=== PATIENT | male | born 1950 | race Caucasian/White ===

== ENCOUNTER → 2019-10-25 09:33 | Outpatient (BNVA) | payer MEDICARE, SELFPAY | PROVIDERS: Family Provider Family Medicine; Visit Provider Urology | DX: R97.20 Elevated prostate specific antigen [PSA] (principal); N40.1 Benign prostatic hyperplasia with lower urinary tract symptoms; R33.8 Other retention of urine | CPT/HCPCS: 81001; 84153 ==

== ENCOUNTER 2020-12-23 13:25 | Outpatient (CLI) | payer MEDICARE, SELFPAY ==
[2020-12-23 15:43] LABS: Basophils % 0.6 %; Eosinophils % 0.9 %; Hematocrit 44.4 % (42.0-52.0); Hemoglobin 15.2 g/dL (11.7-16.6); Mean Corpuscular HGB Conc 34.2 g/dL (30.0-36.0); Mean Corpuscular Hemoglobin 33.9 pg (28.0-34.0); Mean Corpuscular Volume 98.9 fL (80-94); Mean Platelet Volume 9.9 fL (7.4-10.4); Monocytes # 0.2 10^3/uL (0.2-0.9); Monocytes % 5.7 %; Neutrophils # 1.91 10^3/uL (1.8-7.7); Neutrophils % 60.5 %; Nucleated Red Blood Cells % 0 %; Platelet Count 106 10^3/cmm (130-400); Red Blood Count 4.49 10^6/uL (4.1-5.3); White Blood Count 3.2 10^3/uL (4.0-10.0)
[2020-12-23 15:46] LABS: LAB Peripheral Smear Sent for Review
[2020-12-23 16:26] LABS: Erythrocyte Sedimentation Rate 2 mm/hr (0-10)
[2020-12-23 16:43] LABS: Alanine Aminotransferase 9 U/L (0-41); Albumin Level 4.4 g/dL (3.5-5.2); Alkaline Phosphatase 65 IU/L (40-130); Anion Gap 14.6 (5-19); Aspartate Amino Transferase 14 U/L (0-40); Blood Urea Nitrogen 25 mg/dL (8-23); Carbon Dioxide 27 mmol/L (22-29); Chloride 102 mmol/L (98-107); Ferritin 131 ng/mL (30-400); Globulin 1.3 g/dL (1.3-4.6); Glomerular Filtration Rate 66.6 mL/min (90-130); Glucose 108 mg/dL (65-115); Iron 85 ug/dL (59-158); Lactate Dehydrogenase 164 U/L (135-225); Osmolality Calculated 293 mOsm/kg (285-295); Potassium 4.6 mmol/L (3.5-5.1); Sodium 139 mmol/L (136-145); Thyroid Stimulating Hormone 2.56 uIU/mL (0.27-4.20); Total Bilirubin 0.7 mg/dL (0.15-1.2); Total Iron Binding Capacity 274 mcg/dl; Total Protein 5.7 g/dL (6.6-8.7); Unsaturated Iron Binding 189 ug/dL (112-347); Vitamin B12 150 pg/mL (232-1245)
--- NOTE | 2020-12-23 17:48 | ONC CON_ITS ---
Dr. Fiore New Patient Note Patient: Los Barr Unit #: [id number]: 1950 Dicatated By: Anthony Fiore M.D.Date of Visit: Dec 23, 2020 Onc MED New Patient/Consult Referring Physician: Dr. Ricci Pleitez M.D. Chief Complaint: Neutropenia. History of Present Illness: This is a 70-year-old man with moderately severe neutropenia and mild thrombocytopenia. He has hypertension, chronic kidney disease, and benign prostatic hypertrophy. He has associated bladder outlet obstructive symptoms. He sees Dr. Pleitez for primary care. He had been noted to have varying degrees of pancytopenia dating back to at least 2019. His most recent laboratory studies, from 12/03/2020, included CBC showing hemoglobin normal at 15.6 g with hematocrit 45%. The red cell indices were slightly macrocytic with MCV 101 and MCH 34.8. The white blood cell count was low at 2500 with the differential showing 55% neutrophils, 34% lymphocytes, and 8% monocytes. The absolute neutrophil count was approximately 1400. The platelet count was decreased at 88,000. His comprehensive metabolic profile showed borderline renal function with BUN 22 and creatinine 1.24 mg/dL. The bilirubin was normal at 0.8 mg/dL and the liver enzymes were normal. His total protein was 5.7 g/dL with albumin 4.4 g/dL and with calculated serum globulin low at 1.3 g/dL. He says he has been feeling all right. He does report having some fatigue, but at least some of that he attributes to the fact that he does not tend to sleep as well during the summer months. His ECOG score is 1. He also does not eat as well during the summer. His weight recently has been stable, but he did have a significant weight loss about 2 years ago. A specific cause was not determined. He has, on occasion, noted swelling of the lymph nodes in the neck area. He has not had sore throat or difficulty swallowing. He tends to have a morning cough. He does not complain of shortness of breath or chest pain. He has no GI complaints other than occasional heartburn. He had a positive Cologuard test last year, but he is not yet had a colonoscopy. He says that his bladder symptoms had improved with medication, but he still self catheterizes 4 times a day. He occasionally has pain in his left thumb. He has no other joint or bone pain. He does not complain of headache. He occasionally has dizziness. He has no numbness/paresthesia or other focal neurologic symptoms. Past Medical History: His medical history includes alcohol abuse, benign prostatic hyperplasia with LUTS, chronic kidney disease, and hypertension. Past Surgical History: He has undergone excision of multiple benign skin lesions. He has had no other surgeries. Medications: Aspirin 1 (81 mg) Tablet, chewable Oral daily, Finasteride 1 (5 mg) Tablet Oral daily, Lisinopril 1 (20 mg) Tablet Oral daily, Metoprolol Succinate ER 1 (25 mg) Tablet SR 24 HR Oral daily, Tamsulosin HCl 1 (0.4 mg) Capsule Oral daily Allergies: No Known Allergies. Social History: Mr. Barr is legally . He is a non-smoker. He has a long history of alcohol use, previously limited to beer and wine. During the past 20 years he has been drinking mostly hard liquor and mainly whiskey, currently 3-4 drinks daily, but previously it had been more than that. Family History: Father of heart attack at age 46 and a brother of heart attack at age 53. A younger brother has had a stroke. His mother lived to age 95. She had been treated for melanoma. Review Of Symptoms: Constitutional - He has fatigue, some which he attributes to the fact that he does not tend to sleep as well at night during the summer months. He also does not tend to eat as well during the summer. He had lost some weight a couple of years ago, but recently his weight has been stable. He has not had fever. He has not recently had any night sweating. ECOG score is 1, Eyes - No change in vision, ENMT - No hearing loss. He has tinnitus. He tends to get sinus congestion/drainage during the winter months. No mouth sores. No sore throat or difficulty swallowing, Hematologic/Lymphatic - No abnormal bruising or bleeding. He occasionally has had swelling of the lymph nodes in the neck area, Respiratory - No shortness of breath. He has a morning cough. No pleuritic pain or hemoptysis, Cardiovascular - No angina pain. No palpitations, Gastrointestinal - No nausea or vomiting. He occasionally has heartburn. No diarrhea or constipation. No blood in the stool or black stools, Genitourinary (M) - He is symptoms of bladder outlet obstruction had improved with medication, but he still self catheterizes 4 times a day, Musculoskeletal - He occasionally has pain in his left thumb. He has no other joint or bone pain, Integumentary - No skin rash or other skin changes, Neurologic - No headache. He occasionally has dizziness. No numbness or tingling. No other focal neurologic symptoms, Psychiatric - No anxiety or depression. He does not sleep well at night. Vital Signs: Performed on Dec 23, 2020 14:44: 1, 0, 21.83, 2.03 sq.m, 74 in, 98 %, 73 /min, 18 /min, 127/96 mm(hg), 97.3 F (LOW), and 170 lbs (HIGH). Physical Examination: Constitutional - He looks pretty good generally, Eyes - Sclerae nonicteric. Conjunctivae clear, ENMT - No lesions noted in the oral cavity, Neck - No mass or thyromegaly, Hematologic/Lymphatic - No cervical, clavicular, or axillary adenopathy, Respiratory - Lungs are clear with good air movement bilaterally, Cardiovascular - Heart rhythm is regular. There is no murmur, gallop, or rub noted, Abdomen - Soft and non-tender. Liver is not enlarged or tender. Spleen is palpable approximately 3 to 4 cm below the costal margin. There is no abdominal mass or ascites noted and there is no inguinal adenopathy, Back/Spine - No spine or CVA tenderness noted, Extremities - No edema. Posterior tibial pulses are palpable bilaterally, Integumentary - No rashes. No suspicious skin lesions noted, Neurologic - No focal neurologic deficits noted. Problem List: 1. Moderately severe neutropenia and mild thrombocytopenia. 2. Hypertension. 3. Chronic kidney disease. 4. Benign prostatic hypertrophy. 5. Alcohol abuse. Problems Addressed with this Encounter and Plan: 1. Patient with moderately severe neutropenia and mild thrombocytopenia. 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 However, with normal liver function studies, a primary hematologic disorder also is a consideration. The laboratory findings were reviewed with the patient and we discussed the clinical implications. He will have additional laboratory studies today to include CBC, comprehensive metabolic profile, sed rate, LDH level, B12 and folate levels, serum iron studies and ferritin, TSH level, and comprehensive hepatitis profile. I also will review the blood smear, and I will schedule him for CT abdomen/pelvis. He will have further evaluation as indicated. 2. He had a positive Cologuard screening test last year, at some point he will need to have a colonoscopy. Signed By: Anthony Fiore M.D. <<Signature on File>>
[2020-12-23 22:05] LABS: Hepatitis A Antibody IgM Non-Reactive (Nonreactive); Hepatitis B Core AB, Total Non-Reactive (Nonreactive); Hepatitis B Surface AB 3.5 (11.5-1000); Hepatitis B Surface Antigen Non-Reactive (Nonreactive); Hepatitis C Virus Antibody Non-Reactive (Nonreactive)
[2020-12-24 09:02] LABS: Folate Level 12.5 ng/mL (4.5-32.2)
== END 2020-12-23 13:26 | disposition home or self-care (01) ==
PROVIDERS: PCP Family Medicine; Visit Provider Internal Medicine Medical Oncology
DX: D70.9 Neutropenia, unspecified (principal); D69.6 Thrombocytopenia, unspecified; I10 Essential (primary) hypertension; N18.9 Chronic kidney disease, unspecified; N40.0 Benign prostatic hyperplasia without lower urinary tract symptoms; F10.10 Alcohol abuse, uncomplicated; Z79.899 Other long term (current) drug therapy; Z01.89 Encounter for other specified special examinations; Z20.828 Contact with and (suspected) exposure to other viral communicable diseases
CPT/HCPCS: 36415; 80053; 82607; 82728; 82746; 83540; 83550; 83615; 84443; 85025; 85651; 86705; 86706; 86709; 86803; 87340; 99205

== ENCOUNTER → 2021-04-12 10:23 | Outpatient (BNVA) | payer MEDICARE, SELFPAY | PROVIDERS: PCP Family Medicine; Visit Provider Urology | DX: R97.20 Elevated prostate specific antigen [PSA] (principal) | CPT/HCPCS: 84153 ==

== ENCOUNTER 2021-11-22 13:04 | Outpatient (CLI) | payer MEDICARE, SELFPAY | END 2021-11-22 13:05 | disposition home or self-care (01) | PROVIDERS: PCP Family Medicine; Visit Provider Urology | DX: R97.20 Elevated prostate specific antigen [PSA] (principal); N40.1 Benign prostatic hyperplasia with lower urinary tract symptoms; R33.9 Retention of urine, unspecified | CPT/HCPCS: 84153; 99213 ==

== ENCOUNTER → 2022-03-01 12:37 | Outpatient (BNVA) | payer MEDICARE, SELFPAY | PROVIDERS: PCP Family Medicine; Visit Provider Urology | DX: R33.9 Retention of urine, unspecified (principal); R97.20 Elevated prostate specific antigen [PSA]; Z78.9 Other specified health status; N40.1 Benign prostatic hyperplasia with lower urinary tract symptoms | CPT/HCPCS: 99212 ==

== ENCOUNTER → 2022-08-24 11:02 | Outpatient (BNVA) | payer MEDICARE, SELFPAY | PROVIDERS: PCP Family Medicine; Visit Provider Urology | DX: R97.20 Elevated prostate specific antigen [PSA] (principal) | CPT/HCPCS: 84153 ==

== ENCOUNTER → 2022-09-01 11:11 | Outpatient (BNVA) | payer MEDICARE, SELFPAY | PROVIDERS: PCP Family Medicine; Visit Provider Urology | DX: R33.9 Retention of urine, unspecified (principal); N40.1 Benign prostatic hyperplasia with lower urinary tract symptoms; R97.20 Elevated prostate specific antigen [PSA]; Z78.9 Other specified health status; R59.1 Generalized enlarged lymph nodes | CPT/HCPCS: 99214 ==

== ENCOUNTER 2022-09-29 22:51 | Inpatient (IN) | payer MEDICARE, SELFPAY ==
[2022-09-29 22:40] VITALS: BMI 20.7
[2022-09-29 22:52] VITALS: PULSE 91; RESP 21
[2022-09-29 23:00] VITALS: BP 133/72; PULSE 87; PULSE 93; RESP 14; TEMP 36.6; O2SAT 97
[2022-09-29 23:15] VITALS: BP 130/76; PULSE 88; RESP 24; O2SAT 98
[2022-09-29 23:30] VITALS: BP 124/61; PULSE 86; RESP 21; O2SAT 95
[2022-09-29 23:45] VITALS: BP 126/62; PULSE 87; RESP 11; O2SAT 94
--- NOTE | 2022-09-29 23:54 | P.HP_ITS ---
Providers/Chief Complaint Admitting Physician: Susan Gould MD Primary Care Provider: Ricci Pleitez Chief Complaint: Loss of Weight\Malinancy History of Present Illness Los Barr is a 72 year old male with past medical history of chronic kidney disease, BPH, hypertension, neutropenia, mild thrombocytopenia presented to [facility] today after routine labs were drawn and he was told that he was hypercalcemic. He says he has never had hypercalcemia before. He sees Dr. Suero for his prostate problems. He says he has seen Dr. Fiore in the past and even had a bone marrow biopsy done but nothing concrete was found. He states that he has been having a cough and has been having low WBCs for quite some time now. He has lost a lot of weight in the last couple months and generally feels weak and has muscle pain fatigue and bone pain at times. Denies any night sweats at this time. He says he smoked cocaine 30 years ago however has never smoked cigarettes. 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 Denies a family history of cancer. Does have a strong cardiac history in the family. Dad had a heart attack at age 43 and brother had a heart attack at age 63. He states he has been losing weight. He states he also has a quite a few lymph nodes that are swollen. Patient initially went to [facility] but from there was transferred to our hospital as a direct admission since his calcium was found to be 17.1 and did not have calcitonin, bisphosphonates or any other therapy to give him except fluids. He says he is also been having some prod uctive cough with yellow sputum. 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 He also complains of lower back pain and mild headaches at times. He did experience a brief period of night sweats for 5 days a few months ago however is feeling better now. He says his stools are thin in caliber and float. He has been recommended a colonoscopy in the past however has not had it done. Medications/Allergies Home Medications Medication Instructions Recorded Confirmed Last Taken Type ascorbic acid (vitamin C) 500 mg 500 mg PO DAILY 10/16/19 09/29/22 Unknown History tablet lisinopril 20 mg tablet 20 mg PO DAILY 10/16/19 09/29/22 Unknown History metoprolol tartrate 50 mg tablet 50 mg PO DAILY 10/16/19 09/29/22 Unknown Hi story finasteride 5 mg tablet See Rx Instructions .Route 12/02/21 09/29/22 Unknown Rx .COMPLEX #30 tabs tamsulosin 0.4 mg capsule See Rx Instructions .Route 12/02/21 09/29/22 Unknown Rx .COMPLEX #60 caps Allergies Allergy/AdvReac Type Severity Reaction Status Date / Time No Known Allergies Allergy Verified 09/29/22 23:37 PFSH Acute PFSH: Medical History (Updated 09/30/22 @ 07:29 by Susan Gould MD) BPH loc w urin obs/LUTS Elevated PSA HTN (hypertension) Lymphadenopathy Urinary retention Family History Father , AT AGE 46 CAD (coronary artery disease) Brother CAD (coronary artery disease) Mother , AT AGE 95 CAD (coronary artery disease) Social History Smoking and tobacco status: never smoked Alcohol intake: former Adopted: No Caregiver/support person: No Lives independently: Yes Marital status: Current occupational status: retired Current gender identity: Male Vitals/I&O/Wt Last Vital Signs Temp 97.8 F 09/29/22 23:00 Pulse 86 09/29/22 23:30 Resp 21 H 09/29/22 23:30 BP 124/61 09/29/22 23:30 Pulse Ox 95 09/29/22 23:30 O2 Del Method Room Air 09/29/22 22:40 Weight last 48 hrs Weight 69.5 kg Physical Exam Narrative: General: Alert oriented x3, patient seen sitting up in bed appearing comfortable at this time very frail appearing cachectic temporal wasting noted, bony appearing. HEENT: Normocephalic, atraumatic, EOMI, breathing normally on room air. Continuously coughs while talking and try to clear his throat but unable to. Cardio: Regular rate rhythm, normal S1-S2, Respiratory: Mainly clear to auscultation no wheezes or rhonchi. GI: Abdomen soft, nontender, nondistended, bowel sounds + Extremities: No edema noted Lymphatic examination: Right posterior auricular lymph node enlarged 2+, left inguinal lymph node enlarged, right axillary lymph node enlarged Data 09/30/22 06:00 09/30/22 06:00 A&P Assessment and plan (1) BPH loc w urin obs/LUTS: (2) Urinary retention: (3) Elevated PSA: (4) Self-catheterizes urinary bladder: (5) Lymphadenopathy: (6) Hypercalcemia: Plan #Severe hypercalcemia #Recent weight loss #Cough #BPH #Self-catheterization at home #Thrombocytopenia #Anemia -Place Givens catheter for accurate urine output ? Normal saline 150 cc/h ? Calcitonin 200 mg subcu x1. May repeat pending calcium results ? Zoledronic acid 5 mg IV x1 ordered ? Check CT chest abdomen pelvis to rule out occult malignancy. I suspect lymphoma at this point given his presentation with lymphadenopathy weight loss and hypercalcemia ? Check PTH, PTH RP, ionized calcium, urinalysis, UPEP, SPEP, vitamin D level, cortisol level ?Further management to be dictated once we have his labs available ? Patient may need steroids at discharge as a taper if this indeed is hypercalcemia of malignancy ? I will give Solu-Medrol 40 IV x1 now -UA abnormal with WBC 15-25, 1+ bacteria. Potential UTI? He does self catheterize. Does not complain of any urinary complaints at this time. I will hold off on ceftriaxone at this time -We will await results of his labs and proceed accordingly. ? We will need to check his calcium every 6 hours to titrate therapy - Check ekg to eval QT Full code SCDs, no pharmacological DVT prophylaxis at this time due to hemoglobin being low. Attestations Medical Necessity Statement*: Manage severe hypercalcemia in ICU. Expect > 2 midnight stay Other Coding Information Focused coding review requested Diagnoses BPH loc w urin obs/LUTS N40.1 Urinary retention R33.9 Elevated PSA R97.20 Self-catheterizes urinary bladder Z78.9 Lymphadenopathy R59.1 Hypercalcemia E83.52
--- NOTE | 2022-09-29 23:55 | ECG_ITS ---
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 Measurements Intervals [place] Rate: 81 P: 89 NM: 164 QRS: 85 QRSD: 96 T: 85 QT: 327 QTc: 380 Interpretive Statements SINUS RHYTHM No previous ECG available for comparison Electronically Signed On 09-30-2022 13:51:28 CDT by Rik Carey M.D. [id number]
[2022-09-30] VITALS (63 sets, daily range): BP systolic 102–142; BP diastolic 51–82; PULSE 68–101; RESP 7–27; TEMP 36.6–36.9; O2SAT 86–100
--- NOTE | 2022-09-30 00:03 | CTR_ITS ---
PROCEDURE INFORMATION: Exam: CT Chest Without Contrast; Diagnostic Exam date and time: 09/30/2022 2:05 AM Age: 72 years old Clinical indication: Patient HX: Cough with unintentional weight loss. Charted history of lymphadenopathy. ; Additional info: R/O malignancy TECHNIQUE: Imaging protocol: Diagnostic computed tomography of the chest without contrast. Radiation optimization: All CT scans at this facility use at least one of these dose optimization techniques: automated exposure control; mA and/or kV adjustment per patient size (includes targeted exams where dose is matched to clinical indication); or iterative reconstruction. REPORTING DATA: Count of CT and Cardiac NM exams in prior 12 months: This patient has received 0 known CTs and 0 known cardiac nuclear medicine studies in the 12 months prior to the current study. COMPARISON: No relevant prior studies available. RADIATION DOSE METRICS: Total DLP (mGy-cm): 631.41 FINDINGS: Lungs: Severe underlying COPD with emphysematous change. Scattered areas of diffuse reticulonodular probable scarring. Right lower lung areas of probable subpleural or pleural-based atelectasis or scarring. This will need to be followed up. A few tiny scattered lung nodularities. Pleural spaces: At least mild right and tiny left effusions are visualized. No pneumothorax. Heart: The heart is normal size. Lymph nodes: A large subcarinal node or mass measures up to about 3.9 cm. Paratracheal nodes measure up to 3.5 cm. Vasculature: Advanced diffuse vascular calcification noted. Bones/joints: Healing right 10th rib fracture is not acute. Left lateral 5th rib acute or subacute fracture. Soft tissues: Unremarkable. COMMENTS: In the absence of a history or active diagnosis of lung cancer, it is recommended that this patient with emphysema be evaluated for enrollment in a low dose CT lung cancer screening program. PROCEDURE INFORMATION: Exam: CT Abdomen And Pelvis Without Contrast Exam date and time: 09/30/2022 2:05 AM Age: 72 years old Clinical indication: Patient HX: Cough with unintentional weight loss. Charted history of lymphadenopathy. ; Additional info: R/O malignancy TECHNIQUE: Imaging protocol: Computed tomography of the abdomen and pelvis without contrast. Radiation optimization: All CT scans at this facility use at least one of these dose optimization techniques: automated exposure control; mA and/or kV adjustment per patient size (includes targeted exams where dose is matched to clinical indication); or iterative reconstruction. REPORTING DATA: Count of CT and Cardiac NM exams in prior 12 months: This patient has received 0 known CTs and 0 known cardiac nuclear medicine studies in the 12 months prior to the current study. COMPARISON: No relevant prior studies available. RADIATION DOSE METRICS: Total DLP (mGy-cm): 631.41 FINDINGS: Tubes, catheters and devices: Givens catheter present. Lungs: See same-day chest CT report. Liver: Liver is large. Gallbladder and bile ducts: No calcified gallstones or biliary dilation identified. Pancreas: Not well seen. Spleen: Spleen is large. Adrenal glands: Normal. No mass. Kidneys and ureters: Minimal left nephrolithiasis. No hydronephrosis. Stomach and bowel: No small bowel obstruction or free air. No overt mucosal thickening. Appendix: No evidence of appendicitis. Intraperitoneal space: Moderate abdominal and pelvic free fluid. Diffuse mesenteric edema. Vasculature: Advanced diffuse vascular calcification noted. Lymph nodes: There is severe bulky mesenteric and retroperitoneal lymphadenopathy. In these areas, gayathri masses measure up to about 11 cm. Urinary bladder: Givens catheter present. Collapsed and not well studied. Reproductive: Markedly enlarged prostate. Bones/joints: Advanced spine DJD. Soft tissues: Diffuse anasarca. CT/[place] [id number] IMPRESSION: 1. Moderate bulky mediastinal lymphadenopathy. These nodes are concerning. Lymphoma is favored. Metastases are felt to be less likely. 2. Eorkb-oaqmacl-bfvk-left lung base atelectasis or airspace disease and bibasilar probable consolidation/scarring/aspiration. This should be followed up. 3. Small jdvty-uivvmmh-vmcr-left pleural effusions. 4. COPD, lung scarring, and other findings above. Rib deformities as described. IMPRESSION: 1. Severe diffuse bulky lymphadenopathy. Lymphoma is strongly favored. 2. Diffuse 3rd spacing of fluid with anasarca, ascites, and mesenteric edema. 3. Markedly enlarged prostate with Givens catheter present. 4. No high-grade small bowel obstruction, abscess or free air. 5. Hepatosplenomegaly and other findings above.
[2022-09-30] MEDS: sodium chloride 0.9% 1,000 ML 150 ML IV ×3 (00:13→18:32)
[2022-09-30 00:45] LABS: Basophils % 0.9 %; Eosinophils % 1.3 %; Hematocrit 25.9 % (42.0-52.0); Hemoglobin 8.6 g/dL (11.7-16.6); Lymphocytes # 0.3 10^3/uL (0.8-4.8); Lymphocytes % 11.6 %; Mean Corpuscular HGB Conc 33.2 g/dL (30.0-36.0); Mean Corpuscular Hemoglobin 31.4 pg (28.0-34.0); Mean Corpuscular Volume 94.5 fl (80-94); Monocytes # 0.2 10^3/uL (0.2-0.9); Monocytes % 7.7 %; Neutrophils # 1.81 10^3/uL (1.8-7.7); Neutrophils % 77.6 %; Nucleated Red Blood Cells % 0 %; Platelet Count 162 10^3/cmm (130-400); Red Blood Count 2.74 10^6/uL (4.1-5.3); Red Cell Distribution Width 14.2 % (12.1-15.1); White Blood Count 2.3 10^3/uL (4.0-10.0)
[2022-09-30 01:04] LABS: Alanine Aminotransferase 14 U/L (0-41); Albumin Level 3.4 g/dL (3.5-5.2); Alkaline Phosphatase 129 U/L (40-130); Anion Gap 15.5 (5-19); Aspartate Amino Transferase 30 U/L (0-40); Blood Urea Nitrogen 45 mg/dL (8-23); Carbon Dioxide 22 mmol/L (22-29); Chloride 102 mmol/L (98-107); Globulin 1.7 g/dL (1.3-4.6); Glucose 75 mg/dL (65-115); Magnesium 1.9 mg/dL (1.7-2.3); Osmolality Calculated 290 mOsm/kg (285-295); Phosphorus 3.2 mg/dL (2.5-4.5); Potassium 4.5 mmol/L (3.5-5.1); Sodium 135 mmol/L (136-145); Total Bilirubin 0.4 mg/dL (0.15-1.2); Total Protein 5.1 g/dL (6.6-8.7)
[2022-09-30 01:05] LABS: Lactic Sepsis W/Reflex 2.8 mmol/L (0.5-2.2)
[2022-09-30 01:10] LABS: Ionized Calcium 2.2 mmol/L (1.1-1.4); Parathyroid Hormone 4.2 pg/mL (15-65)
[2022-09-30 01:11] LABS: Calcium 14.8 mg/dL (8.5-10.5)
[2022-09-30 01:17] LABS: Thyroid Stimulating Hormone 5.59 uIU/mL (0.27-4.20)
[2022-09-30 01:20] LABS: 25 Hydroxy Vitamin D 9 ng/mL (30-100); Procalcitonin 0.17 ng/mL (0-0.5)
[2022-09-30 01:53] LABS: Cortisol Random 13.94 ug/dL (2.47-19.5)
[2022-09-30 01:59] LABS: Add Urine Microscopic? YES; Bilirubin Urine Neg (Negative); Blood Urine 3+ (Negative); Glucose Urine UA Norm (Normal); Ketones Urine 1+ (Negative); Leukocyte Esterase Urine 2+ (Negative); Nitrate Urine Negative (Negative); Protein Urine 1+ (Negative); Urine Appearance Clear (CLEAR); Urine Color Yellow (Yellow); Urobilinogen Urine Norm (Negative); pH Urine 5 (5-7)
[2022-09-30 02:00] LABS: Add Urine Culture? Yes; Bacteria Urine 1+ /hpf; Calcium Oxalate Crystals Urine 0-4 /hpf; Squamous Epithelial Cell Urine 0-4 /hpf (0-5); WBC Urine 15-25 /hpf (0-5)
[2022-09-30 02:15] LABS: Calcium Urine Random 19.9 mg/dL
[2022-09-30 02:17] LABS: Estmated Average Glucose 94; Hemoglobin A1C 4.9 % (4.0-6.0)
[2022-09-30 02:27] LABS: Reflex Lactate Order REFLEX LACTIC ORDERD
[2022-09-30] MEDS: calcitonin,salmon 200 unit/mL SDV 2mL SUBCUT (03:20)
[2022-09-30 06:15] LABS: Basophils % 0.7 %; Eosinophils % 0.3 %; Hematocrit 25.4 % (42.0-52.0); Hemoglobin 8.4 g/dL (11.7-16.6); Lymphocytes # 0.2 10^3/uL (0.8-4.8); Lymphocytes % 7.2 %; Mean Corpuscular HGB Conc 33.1 g/dL (30.0-36.0); Mean Corpuscular Volume 93.7 fl (80-94); Monocytes # 0.1 10^3/uL (0.2-0.9); Monocytes % 4.1 %; Neutrophils # 2.54 10^3/uL (1.8-7.7); Nucleated Red Blood Cells % 0 %; Platelet Count 167 10^3/cmm (130-400); Red Blood Count 2.71 10^6/uL (4.1-5.3); Red Cell Distribution Width 14.2 % (12.1-15.1); White Blood Count 2.9 10^3/uL (4.0-10.0)
[2022-09-30 06:33] LABS: Alanine Aminotransferase 15 U/L (0-41); Albumin Level 3.2 g/dL (3.5-5.2); Alkaline Phosphatase 115 U/L (40-130); Anion Gap 16.8 (5-19); Aspartate Amino Transferase 28 U/L (0-40); Blood Urea Nitrogen 41 mg/dL (8-23); Carbon Dioxide 20 mmol/L (22-29); Chloride 105 mmol/L (98-107); Globulin 1.7 g/dL (1.3-4.6); Glomerular Filtration Rate 20.8 mL/min (90-130); Glucose 90 mg/dL (65-115); Magnesium 1.9 mg/dL (1.7-2.3); Osmolality Calculated 294 mOsm/kg (285-295); Potassium 4.8 mmol/L (3.5-5.1); Sodium 137 mmol/L (136-145); Total Bilirubin 0.5 mg/dL (0.15-1.2); Total Protein 4.9 g/dL (6.6-8.7)
[2022-09-30 06:35] LABS: Lactic Acid level (Lactate) 2.8 mmol/L (0.5-2.2)
[2022-09-30 06:46] LABS: Calcium 14.5 mg/dL (8.5-10.5)
--- NOTE | 2022-09-30 08:41 | US_ITS ---
WS: [id number] ULTRASOUND GUIDED BIOPSY LEFT INGUINAL LYMPHADENOPATHY. HISTORY: Lt inguinal lymph node, NEED CORE BIOPSY, FOR LYMPHOMA Procedure, risks, and complications are explained to the patient. Consent was obtained. Skin is clean sed with ChloraPrep and anesthetized with 1% buffered lidocaine. Prior lab values and medications are reviewed. Abnormal lymph node is identified within the LEFT inguinal region. There are several abnormal lymph n odes. The lymph node targeted measures 2.9 x 2.5 cm with loss of the normal fatty hilum. This is a hy pervascular lymph node. A small dermatome multiple core biopsies are performed. 20-gauge and 18-gauge core biopsies are perfo rmed. Specimen placed in RPMI and formalin as directed by pathology. No complications. US/US biopsy lymph node [id number] IMPRESSION: 1. Uncomplicated core biopsy abnormal LEFT inguinal lymph node. 2. Specimen placed in formalin and RPMI for pathology.
[2022-09-30] MEDS: pantoprazole 40 mg SDV IVP ×2 (08:43→21:20)
[2022-09-30] MEDS: dexamethasone 10 mg/mL INJ 6 MG IVP (08:44)
[2022-09-30] MEDS: piperacillin-tazobactam 3.375 GM in sodium chloride 0.9% (plus) 50 ML IV ×2 (08:45→16:55)
[2022-09-30] MEDS: sucralfate 1 gm Tablet PO ×2 (08:45→21:20)
--- NOTE | 2022-09-30 08:55 | PC.NURSE ---
Abdominal pulse. Patient has palpable pulse to mid abdominal region. Auscultation is normal sounds, no bruit, no abnormal sound other than being present. AAA not noted on CTA.
[2022-09-30 09:14] LABS: Erythrocyte Sedimentation Rate 5 mm/hr (0-10)
[2022-09-30 09:24] LABS: Alanine Aminotransferase 13 U/L (0-41); Albumin Level 3.2 g/dL (3.5-5.2); Alkaline Phosphatase 121 U/L (40-130); Anion Gap 16.8 (5-19); Aspartate Amino Transferase 28 U/L (0-40); Blood Urea Nitrogen 42 mg/dL (8-23); Carbon Dioxide 20 mmol/L (22-29); Chloride 103 mmol/L (98-107); Globulin 1.6 g/dL (1.3-4.6); Glomerular Filtration Rate 22.5 mL/min (90-130); Glucose 107 mg/dL (65-115); Iron 34 ug/dL (59-158); Lactate Dehydrogenase 264 U/L (135-225); Osmolality Calculated 291 mOsm/kg (285-295); Potassium 4.8 mmol/L (3.5-5.1); Sodium 135 mmol/L (136-145); Total Bilirubin 0.4 mg/dL (0.15-1.2); Total Protein 4.8 g/dL (6.6-8.7); Uric Acid 12.7 mg/dL (3.4-7.0)
[2022-09-30 09:37] LABS: Calcium 13.7 mg/dL (8.5-10.5); Ferritin 1094 ng/mL (30-400)
[2022-09-30 09:39] LABS: Vitamin B12 325 pg/mL (232-1245)
--- NOTE | 2022-09-30 09:50 | ECG_ITS ---
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 Measurements Intervals [place] Rate: 85 P: 73 NE: 164 QRS: 80 QRSD: 94 T: 76 QT: 332 QTc: 395 Interpretive Statements SINUS RHYTHM Compared to ECG 09/30/2022 00:19:16 No significant changes Electronically Signed On 09-30-2022 13:52:54 CDT by Rik Carey M.D. [id number]
[2022-09-30 11:32] LABS: LAB Peripheral Smear Sent for Review
--- NOTE | 2022-09-30 14:06 | ECG_ITS ---
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 Measurements Intervals [place] Rate: 71 P: 72 LA: 163 QRS: 79 QRSD: 94 T: 74 QT: 355 QTc: 386 Interpretive Statements SINUS RHYTHM Compared to ECG 09/30/2022 09:50:18 No significant changes Electronically Signed On 10-01-2022 10:35:12 CDT by Rik Carey M.D. [id number]
[2022-09-30 14:31] LABS: Alanine Aminotransferase 14 U/L (0-41); Albumin Level 3.1 g/dL (3.5-5.2); Alkaline Phosphatase 109 U/L (40-130); Anion Gap 21.1 (5-19); Aspartate Amino Transferase 29 U/L (0-40); Blood Urea Nitrogen 43 mg/dL (8-23); Calcium 13.5 mg/dL (8.5-10.5); Carbon Dioxide 18 mmol/L (22-29); Chloride 103 mmol/L (98-107); Globulin 1.8 g/dL (1.3-4.6); Glucose 120 mg/dL (65-115); Osmolality Calculated 296 mOsm/kg (285-295); Potassium 5.1 mmol/L (3.5-5.1); Sodium 137 mmol/L (136-145); Total Bilirubin 0.3 mg/dL (0.15-1.2); Total Protein 4.9 g/dL (6.6-8.7)
--- NOTE | 2022-09-30 14:55 | PM.PN ---
Subjective Subjective: Patient was seen this morning, he is tells me that his tiredness has improved to some degree, continues to have poor appetite, -I had extensive discussion about his hypercalcemia, and findings of mediastinal and and bulky lymphadenopathy diffusely, highly concerning for lymphoma -Discussed with oncology Dr. Fiore, will proceed with core biopsy inguinal lymph node -Discussed this with patient, he is agreeable to proceed -I asked patient if there is any family members he wanted me to speak to, he tells me he has nobody here, he does not have any children, - Vitals/I&O/Wt Last Vital Signs Temp 98.4 F 09/30/22 04:00 Pulse 68 09/30/22 14:00 Resp 21 H 09/30/22 14:00 BP 118/63 09/30/22 14:00 Pulse Ox 93 09/30/22 14:00 O2 Del Method Nasal Cannula 09/30/22 14:00 O2 Flow Rate 3 09/30/22 14:00 09/29/22 09/30/22 09/30/22 22:59 06:59 14:59 Intake Total 1340 / 1340 480 / 480 Output Total 1000 / 1000 1000 / 1000 Balance 340 / 340 -520 / -520 Weight last 48 hrs Weight 69.5 kg Physical Exam Const: COMMON NORMALS: no acute distress and patient oriented x3 Resp: COMMON NORMALS: normal respiratory effort, No retractions, No use of accessory muscles and clear to auscultation bilaterally AUSCULTATION: clear to auscultation bilaterally Cardio: COMMON NORMALS: regular rate, regular rhythm, S1 normal heart sound present and S2 normal heart sound present RATE: regular rate RHYTHM: regular rhythm HEART SOUNDS: S1 normal heart sound present and S2 normal heart sound present GI: COMMON NORMALS: Normal to inspection, nondistended, normoactive bowel sounds present and non-tender Extremity: COMMON NORMALS: no pedal edema Neuro: COMMON NORMALS: patient oriented x3 Psych: COMMON NORMALS: mental status grossly normal Urinary Catheter Management: Givens: Cath Placed During This Visit: no Reason for Continuing Indwelling Catheter: Accurate Measurement of Urinary Output in Critically Ill Patients Data 09/30/22 06:00 09/30/22 13:50 Micro: Microbiology 09/30/22 08:26 Blood Culture - Preliminary Blood SPECIMEN COLLECTED 09/30/22 08:26 Blood Culture - Preliminary Blood SPECIMEN COLLECTED A&P Assessment and plan (1) BPH loc w urin obs/LUTS: (2) Urinary retention: (3) Elevated PSA: (4) Self-catheterizes urinary bladder: (5) Lymphadenopathy: (6) Hypercalcemia: (7) Acute kidney injury: (8) Anemia: (9) Hyperuricemia: (10) Diffuse lymphadenopathy: (11) Mediastinal lymphadenopathy: (12) Urinary tract infection: (13) Pneumonia: (14) Lactic acidosis: Plan #Severe hypercalcemia, likely secondary to lymphoma, LDH 264, #Has bulky diffuse lymphadenopathy, mediastinal lymphadenopathy, highly concerning for lymphoma #Hyperuricemia #Evidence of early iron deficiency anemia, #Recent weight loss #Cough #BPH #Self-catheterization at home #Thrombocytopenia #Anemia -Place Givens catheter for accurate urine output ? Normal saline 150 cc/h ? Calcitonin 200 mg subcu x1. ? Zoledronic acid 5 mg IV x1, creatinine 3.1, will have to watch for hypocalcemia -Decadron 6 mg IV push daily ? We will undergo a core biopsy inguinal lymph node today ? UPEP, SPEP ?Further management to be dictated once we have his labs available -Lactic acidosis, likely secondary to UTI, pneumonia, on Zosyn ? UA with evidence of UTI, continue Zosyn ? Chest x-ray shows radiographic evidence of pneumonia, continue Zosyn -Urine cultures, blood cultures, sputum cultures, MRSA nares ? We will need to check his calcium every 6 hours to titrate therapy -Telemetry monitoring Full code SCDs, no pharmacological DVT prophylaxis at this time due to hemoglobin being low. Attestations Medical Necessity Statement*: Patient requires hospitalization due to severe hypercalcemia, hyperuricemia, UTI, pneumonia, bulky lymphadenopathy concerning for lymphoma Diagnoses BPH loc w urin obs/LUTS N40.1 Urinary retention R33.9 Elevated PSA R97.20 Self-catheterizes urinary bladder Z78.9 Lymphadenopathy R59.1 Hypercalcemia E83.52 Acute kidney injury N17.9 Anemia D64.9 Hyperuricemia E79.0 Diffuse lymphadenopathy R59.1 Mediastinal lymphadenopathy R59.0 Urinary tract infection N39.0 Pneumonia J18.9 Lactic acidosis E87.20
--- NOTE | 2022-09-30 17:32 | ECG_ITS ---
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 Measurements Intervals [place] Rate: 84 P: 82 [place]: 156 QRS: 87 QRSD: 103 T: 84 QT: 342 QTc: 405 Interpretive Statements SINUS RHYTHM Electronically Signed On 10-01-2022 10:34:41 CDT by Rik Carey M.D. [id number]
--- NOTE | 2022-09-30 17:43 | PC.NURSE ---
EKG ACUTE MA Patient has very slight ST elevation (0.04mm). Patient has no chest pain. Dr. Taylor notified.
[2022-09-30 19:02] LABS: Troponin(5th) Baseline 50 ng/L (0-15)
[2022-09-30 19:17] LABS: Adenovirus Not Detected (NOT DETECT); Chlamydia Pneumoniae Not Detected (NOT DETECT); Coronavirus 229E,HKU1,NL63,OC4 Not Detected (NOT DETECT); Human Metapneumovirus Not Detected (NOT DETECT); Human Rhinovirus/Enterovirus Not Detected (NOT DETECT); Influenza A Not Detected (NOT DETECT); Influenza A H1 Not Detected (NOT DETECT); Influenza A H1-2009 Not Detected (NOT DETECT); Influenza A H3 Not Detected (NOT DETECT); Influenza B Not Detected (NOT DETECT); Mycoplasma Pneumoniae Not Detected (NOT DETECT); Parainfluenza Virus Type 1 Not Detected (NOT DETECT); Parainfluenza Virus Type 2 Not Detected (NOT DETECT); Parainfluenza Virus Type 3 Not Detected (NOT DETECT); Parainfluenza Virus Type 4 Not Detected (NOT DETECT); Respiratory Syncytial Virus A Not Detected (NOT DETECT); Respiratory Syncytial Virus B Not Detected (NOT DETECT); SARS-COV-2 Not Detected (NOT DETECT)
[2022-09-30 20:23] LABS: Troponin 5 2HR 50.49 ng/L (0-15)
[2022-09-30 20:24] LABS: Troponin 5 2HR Delta 0.49 ABS# (0-10)
[2022-09-30 20:34] LABS: Calcium 13.1 mg/dL (8.5-10.5)
--- NOTE | 2022-09-30 21:34 | ECG_ITS ---
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 Measurements Intervals [place] Rate: 87 P: 93 [place]: 152 QRS: 84 QRSD: 90 T: 90 QT: 329 QTc: 398 Interpretive Statements SINUS RHYTHM Compared to ECG 09/30/2022 17:32:20 Myocardial infarct finding no longer present Electronically Signed On 10-01-2022 10:33:37 CDT by Rik Carey M.D. [id number]
[2022-10-01] VITALS (47 sets, daily range): BP systolic 106–139; BP diastolic 57–85; PULSE 76–100; RESP 19–33; TEMP 36.2–36.7; O2SAT 88–100
--- NOTE | 2022-10-01 | ECG_ITS ---
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 Measurements Intervals [place] Rate: 80 P: 60 PA: 161 QRS: 80 QRSD: 96 T: 71 QT: 326 QTc: 377 Interpretive Statements SINUS RHYTHM Compared to ECG 09/30/2022 21:34:22 No significant changes Electronically Signed On 10-01-2022 10:32:23 CDT by Rik Carey M.D. [id number]
[2022-10-01] MEDS: piperacillin-tazobactam 3.375 GM in sodium chloride 0.9% (plus) 50 ML IV ×3 (00:51→17:36)
[2022-10-01 01:03] LABS: Troponin 5 6HR 47.51 ng/L (0-15)
[2022-10-01 01:10] LABS: Troponin 5 6HR Delta -2.49 ng/L (0-12)
[2022-10-01 04:17] LABS: Basophils % 0.3 %; Eosinophils % 0.5 %; Hematocrit 24.1 % (42.0-52.0); Hemoglobin 7.7 g/dL (11.7-16.6); Lymphocytes # 0.3 10^3/uL (0.8-4.8); Lymphocytes % 7.6 %; Mean Corpuscular Hemoglobin 30.8 pg (28.0-34.0); Mean Corpuscular Volume 96.4 fl (80-94); Mean Platelet Volume 10.3 fL (7.4-10.4); Monocytes # 0.2 10^3/uL (0.2-0.9); Monocytes % 4.7 %; Neutrophils # 3.31 10^3/uL (1.8-7.7); Neutrophils % 86.4 %; Nucleated Red Blood Cells % 0 %; Platelet Count 184 10^3/cmm (130-400); Red Cell Distribution Width 14.4 % (12.1-15.1); White Blood Count 3.8 10^3/uL (4.0-10.0)
[2022-10-01 04:46] LABS: Anion Gap 18.4 (5-19); Blood Urea Nitrogen 49 mg/dL (8-23); C Reactive Protein 51.9 mg/L (0.0-4.9); Calcium 12.6 mg/dL (8.5-10.5); Carbon Dioxide 18 mmol/L (22-29); Chloride 102 mmol/L (98-107); Creatine Phosphokinase 16 U/L (39-308); Glomerular Filtration Rate 22.5 mL/min (90-130); Glucose 89 mg/dL (65-115); Magnesium 1.8 mg/dL (1.7-2.3); Osmolality Calculated 290 mOsm/kg (285-295); Phosphorus 3.2 mg/dL (2.5-4.5); Potassium 4.4 mmol/L (3.5-5.1); Sodium 134 mmol/L (136-145); Uric Acid 11.2 mg/dL (3.4-7.0)
[2022-10-01] MEDS: sodium chloride 0.9% 1,000 ML 150 ML IV (06:43)
[2022-10-01 08:46] LABS: Calcium 12.7 mg/dL (8.5-10.5)
[2022-10-01] MEDS: pantoprazole 40 mg SDV IVP ×2 (09:00→21:43)
[2022-10-01] MEDS: sucralfate 1 gm Tablet PO ×2 (09:00→21:43)
[2022-10-01] MEDS: dexamethasone 10 mg/mL INJ 6 MG IVP (09:01)
[2022-10-01] MEDS: nystatin 100,000 unit/mL UDC 5 mL 100000 UNIT PO ×4 (09:02→22:15)
--- NOTE | 2022-10-01 09:02 | US_ITS ---
WS: [id number] ULTRASOUND RENAL TECHNIQUE: Ultrasound examination of both kidneys. CLINICAL INFORMATION: ike COMPARISON: None. FINDINGS: Normal systolic velocities bilaterally with normal renal artery waveforms. No significant renal arter y stenosis. Normal resistive indices. Renal veins are patent. RIGHT: Right kidney is normal in size and appearance. Echogenicity: Normal. Hydronephrosis: None. Perinephric fluid: None. Right kidney measures: 10.7 cm x 5.3 cm x 4.2 cm. LEFT: Left kidney is normal in size and appearance. Echogenicity: Normal. Hydronephrosis: None. Perinephric fluid: None. Left kidney measures: 11.7 cm x cm x 4.9 cm. Normal visualized aorta. Givens catheter. Small amount of perihepatic ascites US/CV renal doppler [id number] IMPRESSION: 1. Normal renal artery Doppler. No significant renal artery stenosis. 2. No hydronephrosis in either kidney. 3. Givens Catheter.
[2022-10-01 09:09] LABS: PROTEIN, TOTAL 4.7 g/dL (6.1-8.1)
--- NOTE | 2022-10-01 11:57 | PM.PN ---
Subjective Subjective: Patient was seen this morning, he tells me he feels more energetic this morning, he is tired of the frequent blood draws, Vitals/I&O/Wt Last Vital Signs Temp 97.1 F L 10/01/22 04:00 Pulse 94 10/01/22 10:45 Resp 25 H 10/01/22 08:30 BP 133/73 10/01/22 08:30 Pulse Ox 92 10/01/22 10:45 O2 Del Method Room Air 10/01/22 10:45 O2 Flow Rate 2 10/01/22 08:30 09/30/22 10/01/22 10/01/22 22:59 06:59 14:59 Intake Total 1540 / 2020 1290 / 3310 530 / 530 Output Total 750 / 1750 400 / 2150 Balance 790 / 270 890 / 1160 530 / 530 Weight last 48 hrs Weight 69.5 kg Physical Exam Const: COMMON NORMALS: no acute distress and patient oriented x3 Resp: COMMON NORMALS: normal respiratory effort, No retractions, No use of accessory muscles and clear to auscultation bilaterally AUSCULTATION: clear to auscultation bilaterally Cardio: COMMON NORMALS: regular rate, regular rhythm, S1 normal heart sound present and S2 normal heart sound present RATE: regular rate RHYTHM: regular rhythm HEART SOUNDS: S1 normal heart sound present and S2 normal heart sound present GI: COMMON NORMALS: Normal to inspection, nondistended, normoactive bowel sounds present and non-tender Extremity: COMMON NORMALS: no pedal edema Neuro: COMMON NORMALS: patient oriented x3 Psych: COMMON NORMALS: mental status grossly normal Urinary Catheter Management: Givens: Cath Placed During This Visit: no Reason for Continuing Indwelling Catheter: Accurate Measurement of Urinary Output in Critically Ill Patients Data 10/01/22 03:30 10/01/22 03:30 Micro: Microbiology 09/30/22 08:26 Blood Culture - Preliminary Blood NEGATIVE TO DATE 09/30/22 08:26 Blood Culture - Preliminary Blood NEGATIVE TO DATE A&P Assessment and plan (1) BPH loc w urin obs/LUTS: (2) Urinary retention: (3) Elevated PSA: (4) Self-catheterizes urinary bladder: (5) Lymphadenopathy: (6) Hypercalcemia: (7) Acute kidney injury: (8) Anemia: (9) Hyperuricemia: (10) Diffuse lymphadenopathy: (11) Mediastinal lymphadenopathy: (12) Urinary tract infection: (13) Pneumonia: (14) Lactic acidosis: Plan #Severe hypercalcemia, likely secondary to lymphoma, LDH 264, #Has bulky diffuse lymphadenopathy, mediastinal lymphadenopathy, highly concerning for lymphoma #Hyperuricemia #Evidence of early iron deficiency anemia, #Recent weight loss #Cough #BPH #Self-catheterization at home #Thrombocytopenia #Anemia -Place Givens catheter for accurate urine output ? Decrease fluids to 75 cc an hour ? Status post Calcitonin 200 mg subcu x1. ? Status post zoledronic acid 5 mg IV x1, creatinine 3.1, will have to watch for hypocalcemia -Decadron 6 mg IV push daily ? Underwent core biopsy of inguinal lymph node ? UPEP, SPEP pending ?Further management to be dictated once we have his labs available -Lactic acidosis, likely secondary to UTI, pneumonia, on Zosyn ? UA with evidence of UTI, continue Zosyn ? Chest x-ray shows radiographic evidence of pneumonia, continue Zosyn -Urine cultures, blood cultures, sputum cultures, MRSA nares ? Creatinine 2.8, IV fluids above we will do renal ultrasound -Calcium 12.7, continue to monitor -Uric acid 11.2, hold off on allopurinol due to renal function -Hemoglobin 7.7, repeat hemoglobin afternoon, hold off on blood thinners -Telemetry monitoring Full code SCDs, no pharmacological DVT prophylaxis at this time due to hemoglobin being low. Attestations Medical Necessity Statement*: Patient requires hospitalization due to his hypercalcemia, lymphoma, hyperuricemia, anemia, Diagnoses BPH loc w urin obs/LUTS N40.1 Urinary retention R33.9 Elevated PSA R97.20 Self-catheterizes urinary bladder Z78.9 Lymphadenopathy R59.1 Hypercalcemia E83.52 Acute kidney injury N17.9 Anemia D64.9 Hyperuricemia E79.0 Diffuse lymphadenopathy R59.1 Mediastinal lymphadenopathy R59.0 Urinary tract infection N39.0 Pneumonia J18.9 Lactic acidosis E87.20
[2022-10-01 16:49] LABS: Eosinophils % 0.2 %; Hemoglobin 7.9 g/dL (11.7-16.6); Lymphocytes # 0.2 10^3/uL (0.8-4.8); Lymphocytes % 3.3 %; Mean Corpuscular HGB Conc 31.6 g/dL (30.0-36.0); Mean Corpuscular Hemoglobin 30.6 pg (28.0-34.0); Mean Corpuscular Volume 96.9 fl (80-94); Mean Platelet Volume 10.2 fL (7.4-10.4); Monocytes # 0.1 10^3/uL (0.2-0.9); Monocytes % 2.3 %; Neutrophils # 4.77 10^3/uL (1.8-7.7); Neutrophils % 93.2 %; Nucleated Red Blood Cells % 0 %; Platelet Count 177 10^3/cmm (130-400); Red Blood Count 2.58 10^6/uL (4.1-5.3); Red Cell Distribution Width 14.4 % (12.1-15.1); White Blood Count 5.1 10^3/uL (4.0-10.0)
[2022-10-01] MEDS: tamsulosin 0.4 mg Capsule PO (17:36)
[2022-10-02] VITALS (30 sets, daily range): BP systolic 113–133; BP diastolic 58–73; PULSE 62–113; RESP 14–33; TEMP 36.2–37.5; O2SAT 91–97
[2022-10-02] MEDS: piperacillin-tazobactam 3.375 GM in sodium chloride 0.9% (plus) 50 ML IV ×3 (02:07→17:23)
[2022-10-02 06:02] LABS: Basophils % 0.3 %; Eosinophils % 1.1 %; Hematocrit 24.1 % (42.0-52.0); Hemoglobin 7.9 g/dL (11.7-16.6); Lymphocytes # 0.2 10^3/uL (0.8-4.8); Lymphocytes % 5.9 %; Mean Corpuscular HGB Conc 32.8 g/dL (30.0-36.0); Mean Corpuscular Volume 97.6 fl (80-94); Mean Platelet Volume 10.5 fL (7.4-10.4); Monocytes # 0.2 10^3/uL (0.2-0.9); Monocytes % 5.1 %; Neutrophils # 3.26 10^3/uL (1.8-7.7); Neutrophils % 87.1 %; Nucleated Red Blood Cells % 0 %; Platelet Count 153 10^3/cmm (130-400); Red Blood Count 2.47 10^6/uL (4.1-5.3); Red Cell Distribution Width 14.4 % (12.1-15.1); White Blood Count 3.7 10^3/uL (4.0-10.0)
[2022-10-02 06:26] LABS: Anion Gap 18.3 (5-19); Blood Urea Nitrogen 45 mg/dL (8-23); C Reactive Protein 74.4 mg/L (0.0-4.9); Carbon Dioxide 17 mmol/L (22-29); Chloride 104 mmol/L (98-107); Glomerular Filtration Rate 23.5 mL/min (90-130); Glucose 80 mg/dL (65-115); Magnesium 1.5 mg/dL (1.7-2.3); Osmolality Calculated 291 mOsm/kg (285-295); Phosphorus 2.2 mg/dL (2.5-4.5); Potassium 4.3 mmol/L (3.5-5.1); Sodium 135 mmol/L (136-145); Uric Acid 8.7 mg/dL (3.4-7.0)
[2022-10-02] MEDS: sucralfate 1 gm Tablet PO ×2 (08:19→20:29)
[2022-10-02] MEDS: magnesium lactate 84 mg Tablet PO (08:19)
[2022-10-02] MEDS: tamsulosin 0.4 mg Capsule PO ×2 (08:19→17:21)
[2022-10-02] MEDS: finasteride 5 mg Tablet PO (08:19)
[2022-10-02] MEDS: dexamethasone 10 mg/mL INJ 6 MG IVP (08:25)
[2022-10-02] MEDS: pantoprazole 40 mg SDV IVP ×2 (08:25→20:28)
[2022-10-02] MEDS: nystatin 100,000 unit/mL UDC 5 mL 100000 UNIT PO ×4 (08:33→20:29)
--- NOTE | 2022-10-02 10:12 | P.DS_ITS ---
Discharge Providers Date of Admission: 09/29/22 22:51 Date of Discharge: October 02, 2022 Attending Provider at Admission: Susan Gould MD Attending Provider at Discharge: Julian Taylor MD Primary Care Provider: Ricci Pleitez Diagnoses at Discharge Discharge Diagnosis (1) BPH loc w urin obs/LUTS: Status: Acute (2) Urinary retention: Status: Acute (3) Elevated PSA: Status: Acute (4) Self-catheterizes urinary bladder: Status: Acute (5) Lymphadenopathy: Status: Acute (6) Hypercalcemia: Status: Acute (7) Acute kidney injury: Status: Acute (8) Anemia: Status: Acute (9) Hyperuricemia: Status: Acute (10) Diffuse lymphadenopathy: Status: Acute (11) Mediastinal lymphadenopathy: Status: Acute (12) Urinary tract infection: Status: Acute (13) Pneumonia: Status: Acute (14) Lactic acidosis: Status: Acute Reason for Visit Reason for Visit: Loss of Weight\[facility] Course Hospital Course [place] is a 72 year old male with past medical history of chronic kidney disease, BPH, hypertension, neutropenia, mild thrombocytopenia presented to [facility] today after routine labs were drawn and he was told that he was hypercalcemic.? He says he has never had hypercalcemia before.? He sees Dr. Suero for his prostate problems.? He says he has seen Dr. Fiore in the past and even had a bone marrow biopsy done but nothing concrete was found.? He states that he has been having a cough and has been having low WBCs for quite some time now.? He has lost a lot of weight in the last couple months and generally feels weak and has muscle pain fatigue and bone pain at times.? Denies any night sweats at this time.? He says he smoked cocaine 30 years ago however has never smoked cigarettes.? 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 Denies a family history of cancer.? Does have a strong cardiac history in the family.? Dad had a heart attack at age 43 and brother had a heart attack at age 63.? He states he has been losing weight.? He states he also has a quite a few lymph nodes that are swollen.? Patient initially went to [facility] but from there was transferred to our hospital as a direct admission since his calcium was found to be 17.1 and did not have calcitonin, bisphosphonates or any other therapy to give him except fluids.? He says he is also been having some productive cough with yellow sputum.? 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 He also complains of lower back pain and mild headaches at times.? He did experience a brief period of night sweats for 5 days a few months ago however is feeling better now.? He says his stools are thin in caliber and fl oat.? He has been recommended a colonoscopy in the past however has not had it done. Patient was admitted to [facility] for severe hypercalcemia, likely secondary to lymphoma, was found to have diffuse bulky lymphadenopathy, mediastinal lymphadenopathy, highly concerning for lymphoma, hyperuricemia, evidence of anemia, and acute kidney injury, recent weight loss. Patient received IV hydration, received 1 dose of calcitonin, 1 dose of zoledronic acid, and Decadron therapy, patient overall clinically improved. On discharge she will be discharged on 6 remaining days of Decadron, with Protonix therapy, with a recheck of his calcium levels on Monday, calcium on discharge was 12, asymptomatic. For his MEERA received IV fluids, creatinine discharge 2.7, instructions to drink plenty of electrolyte balanced fluids. Patient did have evidence of hyperuricemia during his hospitalization, uric acid on discharge 8.7, given patient's creatinine, I have held off on allopurinol. Anemia during hospitalization, hemoglobin discharge 7.9, follow-up with Dr. Fiore. Patient had evidence of UTI during his hospitalization, discharged on cefdinir Physical Exam Const: COMMON NORMALS: no acute distress and patient oriented x3 Resp: COMMON NORMALS: normal respiratory effort, No retractions, No use of accessory muscles and clear to auscultation bilaterally AUSCULTATION: clear to auscultation bilaterally Cardio: COMMON NORMALS: regular rate, regular rhythm, S1 normal heart sound present and S2 normal heart sound present RATE: regular rate RHYTHM: regular rhythm HEART SOUNDS: S1 normal heart sound present and S2 normal heart sound present GI: COMMON NORMALS: Normal to inspection, nondistended, normoactive bowel sounds present Extremity: COMMON NORMALS: no pedal edema Neuro: COMMON NORMALS: patient oriented x3 Psych: COMMON NORMALS: mental status grossly normal Urinary Catheter Management: Givens: Cath Placed During This Visit: no Reason for Continuing Indwelling Catheter: Accurate Measurement of Urinary Output in Critically Ill Patients Discharge Data Studies Completed and Pending Completed Studies During Hospitalization Category Date Time Status CT chest abdomen pelvis [[place] [id number] Cat Scan 09/30/22 00:03 Completed ] Stat US biopsy lymph node [id number] Stat Ultrasound 09/30/22 08:41 Completed Pending at discharge Category Date Time Status BMP [Basic Metabolic Panel] AM LABS Lab 10/03/22 04:00 Ordered Blood Culture Stat Lab 09/30/22 08:26 Results C Reactive Protein AM LABS Lab 10/03/22 04:00 Ordered Calcium Stat Lab 10/02/22 12:00 Ordered Complete Blood Count w/Auto AM LABS Lab 10/03/22 04:00 Ordered Magnesium AM LABS Lab 10/03/22 04:00 Ordered Occult Blood Stool [Immunochemical Fecal OCB] Routine Lab 09/30/22 08:04 Uncollected PTH Related [PTH Related Peptide (Protein)] Stat Lab 09/30/22 00:34 Received Phosphorus AM LABS Lab 10/03/22 04:00 Ordered SPEP [Total Protein Electrophoresis] Routine Lab 09/30/22 00:34 Results Sputum Culture and Gram Stain Stat Lab 09/30/22 08:07 Uncollected Uric Acid AM LABS Lab 10/03/22 04:00 Ordered Urine Culture Stat Lab 09/30/22 01:22 Results Urine Protein Electrop Random Routine Lab 09/30/22 01:22 Received Pathology: Surgical [PTH] Routine Pth 09/30/22 12:17 Received US renal BI* [id number] Routine Ultrasound 10/01/22 09:02 Taken Radiology Impressions Chest/Abdomen/Pelvis CT 09/30/22 00:03 IMPRESSION: 1. Moderate bulky mediastinal lymphadenopathy. These nodes are concerning. Lymphoma is favored. Metastases are felt to be less likely. 2. Segxb-wukdsbe-lfly-left lung base atelectasis or airspace disease and bibasilar probable consolidation/scarring/aspiration. This should be followed up. 3. Small gpbpb-yctlnap-jaxv-left pleural effusions. 4. COPD, lung scarring, and other findings above. Rib deformities as described. IMPRESSION: 1. Severe diffuse bulky lymphadenopathy. Lymphoma is strongly favored. 2. Diffuse 3rd spacing of fluid with anasarca, ascites, and mesenteric edema. 3. Markedly enlarged prostate with Givens catheter present. 4. No high-grade small bowel obstruction, abscess or free air. 5. Hepatosplenomegaly and other findings above. Lymph Node Biopsy Ultrasound 09/30/22 08:41 IMPRESSION: 1. Uncomplicated core biopsy abnormal LEFT inguinal lymph node. 2. Specimen placed in formalin and RPMI for pathology. Laboratory Results WBC 3.7 10^3/uL (4.0-10.0) L 10/02/22 05:14 RBC 2.47 10^6/uL (4.1-5.3) L 10/02/22 05:14 Hgb 7.9 g/dL (11.7-16.6) L 10/02/22 05:14 Hct 24.1 % (42.0-52.0) L 10/02/22 05:14 MCV 97.6 fl (80-94) H 10/02/22 05:14 MCH 32.0 pg (28.0-34.0) 10/02/22 05:14 MCHC 32.8 g/dL (30.0-36.0) 10/02/22 05:14 RDW 14.4 % (12.1-15.1) 10/02/22 05:14 Plt Count 153 10^3/cmm (130-400) 10/02/22 05:14 MPV 10.5 fL (7.4-10.4) H 10/02/22 05:14 Neut % (Auto) 87.1 % 10/02/22 05:14 Lymph % (Auto) 5.9 % 10/02/22 05:14 [place] % (Auto) 5.1 % 10/02/22 05:14 Eos % (Auto) 1.1 % 10/02/22 05:14 Baso % (Auto) 0.3 % 10/02/22 05:14 Neut # (Auto) 3.26 10^3/uL (1.8-7.7) 10/02/22 05:14 Lymph # (Auto) 0.2 10^3/uL (0.8-4.8) L 10/02/22 05:14 [place] # (Auto) 0.2 10^3/uL (0.2-0.9) 10/02/22 05:14 Eos # (Auto) 0.0 10^3/uL (0.0-0.8) 10/02/22 05:14 Baso # (Auto) 0.0 10^3/uL (0.0-0.1) 10/02/22 05:14 Nucleated RBC % (auto) 0 % 10/02/22 05:14 Nucleated RBCs # 0.0 /100WBC 10/02/22 05:14 ESR 5 mm/hr (0-10) 09/30/22 08:26 Sodium 135 mmol/L (136-145) L 10/02/22 05:14 Potassium 4.3 mmol/L (3.5-5.1) 10/02/22 05:14 Chloride 104 mmol/L (98-107) 10/02/22 05:14 Carbon Dioxide 17 mmol/L (22-29) L 10/02/22 05:14 Anion Gap 18.3 (5-19) 10/02/22 05:14 BUN 45 mg/dL (8-23) H 10/02/22 05:14 Creatinine 2.7 mg/dL (0.7-1.2) H 10/02/22 05:14 GFR Calculation 23.5 mL/min (90-130) L 10/02/22 05:14 Glucose 80 mg/dL (65-115) 10/02/22 05:14 Estimat Average Glucose 94 09/29/22 00:34 Hemoglobin A1c 4.9 % (4.0-6.0) 09/29/22 00:34 Calculated Osmolality 291 mOsm/kg (285-295) 10/02/22 05:14 Lactic Acid 2.8 mmol/L (0.5-2.2) H 09/29/22 00:34 Lactic Acid (Sepsis) 2.8 mmol/L (0.5-2.2) H 09/30/22 06:00 Uric Acid 8.7 mg/dL (3.4-7.0) H 10/02/22 05:14 Calcium 12.0 mg/dL (8.5-10.5) H 10/02/22 05:14 Ionized Calcium Ade 2.2 mmol/L (1.1-1.4) H* 09/30/22 00:34 Phosphorus 2.2 mg/dL (2.5-4.5) L 10/02/22 05:14 Magnesium 1.5 mg/dL (1.7-2.3) L 10/02/22 05:14 Iron 34 ug/dL (59-158) L 09/30/22 08:26 Ferritin 1094 ng/mL (30-400) H 09/30/22 08:26 Total Bilirubin 0.3 mg/dL (0.15-1.2) 09/30/22 13:50 AST 29 U/L (0-40) 09/30/22 13:50 ALT 14 U/L (0-41) 09/30/22 13:50 Alkaline Phosphatase 109 U/L (40-130) 09/30/22 13:50 Lactate Dehydrogenase 264 U/L (135-225) H 09/30/22 08:26 Creatine Kinase 16 U/L (39-308) L 10/01/22 03:30 Troponin T Baseline 50 ng/L (0-15) H 09/30/22 18:34 Troponin T 120 Minute 50.49 ng/L (0-15) H 09/30/22 19:55 Delta Troponin T 0.49 ABS# (0-10) 09/30/22 19:55 Troponin T Hi Sens 6Hr 47.51 ng/L (0-15) H 10/01/22 00:38 Troponin T Hi Sens 6Hr Delta -2.49 ng/L (0-12) L 10/01/22 00:38 C-Reactive Protein 74.4 mg/L (0.0-4.9) H 10/02/22 05:14 Total Protein 4.9 g/dL (6.6-8.7) L 09/30/22 13:50 Albumin 3.1 g/dL (3.5-5.2) L 09/30/22 13:50 Globulin 1.8 g/dL (1.3-4.6) 09/30/22 13:50 Vitamin B12 325 pg/mL (232-1245) 09/30/22 08:26 25-OH Vitamin D Total 9 ng/mL (30-100) L 09/30/22 00:34 Procalcitonin 0.17 ng/mL (0-0.5) 09/30/22 00:34 TSH 5.59 uIU/mL (0.27-4.20) H 09/29/22 00:34 PTH Intact 4.2 pg/mL (15-65) L 09/30/22 00:34 Calcium (PTH Intact) 14.8 mg/dL (8.5-10.5) H* 09/30/22 00:34 Random Cortisol 13.94 ug/dL (2.47-19.5) 09/30/22 00:34 Urine Color Yellow (Yellow) 09/30/22 01:22 Urine Appearance Clear (CLEAR) 09/30/22 01:22 Urine pH 5 (5-7) 09/30/22 01:22 Ur Specific [place] 1.020 (1.005-1.030) 09/30/22 01:22 Urine Protein 1+ (Negative) H 09/30/22 01:22 Urine Glucose (UA) Norm (Normal) 09/30/22 01:22 Urine Ketones 1+ (Negative) H 09/30/22 01:22 Urine Blood 3+ (Negative) H 09/30/22 01:22 Urine Nitrate Negative (Negative) 09/30/22 01:22 Urine Bilirubin Neg (Negative) 09/30/22 01:22 Urine Urobilinogen Norm mg/dL (Negative) 09/30/22 01:22 Ur Leukocyte Esterase 2+ (Negative) H 09/30/22 01:22 Urine RBC 5-10 /hpf (0-2) H 09/30/22 01:22 Urine WBC 15-25 /hpf (0-5) H 09/30/22 01:22 Ur Squamous Epith Cells 0-4 /hpf (0-5) H 09/30/22 01:22 Calcium Oxalate Crystal 0-4 /hpf H 09/30/22 01:22 Amorphous Sediment Not Reportable 09/30/22 01:22 Urine Bacteria 1+ /hpf (NONE) H 09/30/22 01:22 Ur Random Calcium 19.9 mg/dL 09/30/22 01:22 Nasal Influ A H1 2009 PCR Not detected (NOT DETECT) 09/30/22 16:45 Adenovirus (PCR) Not detected (NOT DETECT) 09/30/22 16:45 C. pneumoniae DNA (PCR) Not detected (NOT DETECT) 09/30/22 16:45 Coronavirus 229E (PCR) Not detected (NOT DETECT) 09/30/22 16:45 Human Metapneumovir PCR Not detected (NOT DETECT) 09/30/22 16:45 Influenza A (H1) PCR Not detected (NOT DETECT) 09/30/22 16:45 Influenza A (H3) PCR Not detected (NOT DETECT) 09/30/22 16:45 Influenza Type A (PCR) Not detected (NOT DETECT) 09/30/22 16:45 Influenza Type B (PCR) Not detected (NOT DETECT) 09/30/22 16:45 M. pneumoniae (PCR) Not detected (NOT DETECT) 09/30/22 16:45 Parainfluenza 1 (PCR) Not detected (NOT DETECT) 09/30/22 16:45 Parainfluenza 2 (PCR) Not detected (NOT DETECT) 09/30/22 16:45 Parainfluenza 3 (PCR) Not detected (NOT DETECT) 09/30/22 16:45 Parainfluenza 4 (PCR) Not detected (NOT DETECT) 09/30/22 16:45 RSV Type A (PCR) Not detected (NOT DETECT) 09/30/22 16:45 RSV Type B (PCR) Not detected (NOT DETECT) 09/30/22 16:45 Entero/Rhino (PCR) Not detected (NOT DETECT) 09/30/22 16:45 SARS-CoV-2 (PCR) Not detected (NOT DETECT) 09/30/22 16:45 Vitals Last Vital Signs Temp 99.5 F 10/02/22 07:30 Pulse 101 H 10/02/22 09:30 Resp 22 H 10/02/22 09:30 BP 131/70 10/02/22 09:30 Pulse Ox 94 10/02/22 09:30 O2 Del Method Room Air 10/02/22 09:30 O2 Flow Rate 2 10/01/22 08:30 Discharge Plan Discharge Condition: Stable Prescriptions: New cefdinir 300 mg capsule 300 mg PO BID 5 Days Qty: 10 0RF nystatin 100,000 unit/mL Suspension 100,000 unit PO QID 7 Days Qty: 28 0RF magnesium L-lactate [Magtab] 84 mg Tablet Extended Release 84 mg PO DAILY 7 Days Qty: 7 0RF dexamethasone 6 mg tablet 6 mg PO DAILY 5 Days Qty: 5 0RF pantoprazole [Protonix] 40 mg tablet,delayed release (DR/EC) 40 mg PO DAILY 30 Days Qty: 30 0RF Continued ascorbic acid (vitamin C) 500 mg tablet 500 mg PO DAILY tamsulosin 0.4 mg capsule See Rx Instructions .ROUTE .COMPLEX Qty: 60 12RF Dose Instruction: Take 1 capsule by mouth twice daily Rx Instructions: Take 1 capsule by mouth twice daily finasteride 5 mg tablet See Rx Instructions .ROUTE .COMPLEX Qty: 30 12RF Dose Instruction: Take 1 tablet by mouth once daily Rx Instructions: Take 1 tablet by mouth once daily Changed metoprolol tartrate 50 mg tablet 25 mg PO DAILY 30 Days Qty: 15 0RF Discontinued lisinopril 20 mg tablet 20 mg PO DAILY Discharge Orders: Discharge Order (Routine); Ordered 10/02/22 Ordered By: Julian Taylor Referrals: Ricci Pleitez [Primary Care Provider] - 1-3 days Anthony Fiore MD [Hospitalist] - 1-3 days Discharge Diet: Regular Discharge Activity: Resume usual activity Patient Instructions: Nystatin (By mouth), Dexamethasone (By mouth), Cefdinir (By mouth), Pantoprazole (By mouth), Magnesium Sulfate (By mouth), Urinary Tract Infection in Men (DC), Pneumonia (DC), Opioid Safety Activity Restrictions/Additional Instructions: - Please hydrate well drink plenty of electrolyte balanced fluids -Please have Dr. Fiore or Dr. Jay recheck your calcium levels on Monday -If you feel lightheaded or dizzy, or have numbness or tingling please go to emergency room -Recheck your hemoglobin on Monday Coding Level of Care Code Acute Code for Chg Fwd Diagnoses BPH loc w urin obs/LUTS N40.1 Urinary retention R33.9 Elevated PSA R97.20 Self-catheterizes urinary bladder Z78.9 Lymphadenopathy R59.1 Hypercalcemia E83.52 Acute kidney injury N17.9 Anemia D64.9 Hyperuricemia E79.0 Diffuse lymphadenopathy R59.1 Mediastinal lymphadenopathy R59.0 Urinary tract infection N39.0 Pneumonia J18.9 Lactic acidosis E87.20
--- NOTE | 2022-10-02 12:27 | PC.SOCIAL ---
Pg 2 IMM Explained to pt Pg 2 IMM. No questions voiced. Provided pt a copy. Initialed, dated, & timed a copy & placed in chart.
[2022-10-02 13:29] LABS: Calcium 12.2 mg/dL (8.5-10.5)
--- NOTE | 2022-10-02 14:51 | PM.PN ---
Subjective Subjective: Patient was seen this morning, he is feeling well, ready to go home, plan was to discharge him home today, however repeat calcium level is at 12.2, will watch him overnight if his calcium levels continue to come down we will likely discharge tomorrow, he is also anemic, will have to watch his hemoglobin Vitals/I&O/Wt Last Vital Signs Temp 99.5 F 10/02/22 07:30 Pulse 100 10/02/22 14:00 Resp 22 H 10/02/22 09:30 BP 131/70 10/02/22 09:30 Pulse Ox 97 10/02/22 12:12 O2 Del Method Room Air 10/02/22 12:12 O2 Flow Rate 2 10/01/22 08:30 10/01/22 10/02/22 10/02/22 22:59 06:59 14:59 Intake Total 660 / 1841.25 300 / 2141.25 450 / 450 Output Total 1650 / 1650 550 / 2200 1050 / 1050 Balance -990 / 191.25 -250 / -58.75 -600 / -600 Physical Exam Const: COMMON NORMALS: no acute distress and patient oriented x3 Resp: COMMON NORMALS: normal respiratory effort, No retractions, No use of accessory muscles and clear to auscultation bilaterally AUSCULTATION: clear to auscultation bilaterally Cardio: COMMON NORMALS: regular rate, regular rhythm, S1 normal heart sound present and S2 normal heart sound present RATE: regular rate RHYTHM: regular rhythm HEART SOUNDS: S1 normal heart sound present and S2 normal heart sound present GI: COMMON NORMALS: Normal to inspection, nondistended, normoactive bowel sounds present and non-tender Extremity: COMMON NORMALS: no pedal edema Neuro: COMMON NORMALS: patient oriented x3 Psych: COMMON NORMALS: mental status grossly normal Urinary Catheter Management: Givens: Cath Placed During This Visit: no Reason for Continuing Indwelling Catheter: Accurate Measurement of Urinary Output in Critically Ill Patients Data 10/02/22 05:14 10/02/22 05:14 Micro: Microbiology 09/30/22 01:22 Urine Culture - Final Urine,Clean Catch Klebsiella oxytoca 09/30/22 16:45 MRSA Culture - Final Nose A&P Assessment and plan (1) BPH loc w urin obs/LUTS: (2) Urinary retention: (3) Elevated PSA: (4) Self-catheterizes urinary bladder: (5) Lymphadenopathy: (6) Hypercalcemia: (7) Acute kidney injury: (8) Anemia: (9) Hyperuricemia: (10) Diffuse lymphadenopathy: (11) Mediastinal lymphadenopathy: (12) Urinary tract infection: (13) Pneumonia: (14) Lactic acidosis: Plan #Severe hypercalcemia, likely secondary to lymphoma, LDH 264, #Has bulky diffuse lymphadenopathy, mediastinal lymphadenopathy, highly concerning for lymphoma #Hyperuricemia #Evidence of early iron deficiency anemia, #Recent weight loss #Cough #BPH #Self-catheterization at home #Thrombocytopenia #Anemia -Place Givens catheter for accurate urine output ? Continue o 75 cc an hour ? Status post Calcitonin 200 mg subcu x1. ? Status post zoledronic acid 5 mg IV x1, creatinine 3.1, will have to watch for hypocalcemia -Decadron 6 mg IV push daily ? Underwent core biopsy of inguinal lymph node ? UPEP, SPEP pending -Lactic acidosis, likely secondary to UTI, pneumonia, on Zosyn ? UA with evidence of UTI, continue Zosyn ? Chest x-ray shows radiographic evidence of pneumonia, continue Zosyn -Urine cultures, blood cultures, sputum cultures, MRSA nares ? Creatinine 2.8, IV fluids above we will do renal ultrasound -Calcium 12.2, recheck tomorrow morning, with ionized calcium, likely discharge tomorrow -Uric acid 11.2, hold off on allopurinol due to renal function -Hemoglobin 7.9, repeat hemoglobin afternoon, hold off on blood thinners -Telemetry monitoring Full code SCDs, no pharmacological DVT prophylaxis at this time due to hemoglobin being low. Attestations Medical Necessity Statement*: Patient requires hospitalization for severe hypercalcemia and High MDM includes number and complexity of problems actively addressed during encounter, amount and/or complexity of data reviewed/ordered and described risk of complication, morbidity or mortality of management as documented Diagnoses BPH loc w urin obs/LUTS N40.1 Urinary retention R33.9 Elevated PSA R97.20 Self-catheterizes urinary bladder Z78.9 Lymphadenopathy R59.1 Hypercalcemia E83.52 Acute kidney injury N17.9 Anemia D64.9 Hyperuricemia E79.0 Diffuse lymphadenopathy R59.1 Mediastinal lymphadenopathy R59.0 Urinary tract infection N39.0 Pneumonia J18.9 Lactic acidosis E87.20
[2022-10-02 15:10] LABS: Creatinine, Random Urine 82 mg/dL (20-320); Protein, Total, Random 63 mg/dL (5-25); Protein/Creatinine Ratio 0.768 (0.025-0.148); Protein/Creatinine Ratio 768 mg/g creat (25-148)
[2022-10-02] MEDS: sodium chloride 0.9% 1,000 ML 75 ML IV (15:16)
--- NOTE | 2022-10-02 15:45 | PC.NURSE ---
Called [facility] to give report, Yanet to call back.
--- NOTE | 2022-10-02 17:11 | PC.NURSE ---
Called [facility]. Report given to [facility]. No questions at this time.
--- NOTE | 2022-10-02 17:30 | PC.NURSE ---
Pt transferred to [facility] with all of his belongings. Further update given to [facility], . IV pumps needed for abx and fluids.
[2022-10-03] MEDS: piperacillin-tazobactam 3.375 GM in sodium chloride 0.9% (plus) 50 ML IV ×2 (01:37→07:57)
[2022-10-03 04:00] VITALS: BP 111/68; PULSE 66; RESP 16; TEMP 36.8; O2SAT 97
--- NOTE | 2022-10-03 04:35 | PC.NURSE ---
Retrospective note: 1999: Patient complaint of urine bypassing quesada catheter. Quesada assessed. Sediment noted in urine collection bag. Catheter flushed with 20mls NS. Appears patent-flushes and drains with ease. 2299: Patient complaint of urine bypassing quesada catheter again. Quesada assessed. No sediment noted and urine appears millstone cleaner in color. Quesada and drain bag placement appropriate. Balloon deflated and re-inflated. No complication. Quesada flushed with 30mls NS. Flushes and drains with ease. Patient denies s/s of bladder spasms or abdominal pain. 0100: Quesada draining. No concerns noted by patient. 0300: Quesada draining. No concerns noted. by patient.
[2022-10-03 05:34] LABS: Ionized Calcium 1.7 mmol/L (1.1-1.4)
[2022-10-03 05:42] LABS: Basophils % 0.4 %; Eosinophils # 0.1 10^3/uL (0.0-0.8); Eosinophils % 2.4 %; Hematocrit 23.3 % (42.0-52.0); Hemoglobin 7.5 g/dL (11.7-16.6); Lymphocytes # 0.3 10^3/uL (0.8-4.8); Lymphocytes % 10.6 %; Mean Corpuscular HGB Conc 32.2 g/dL (30.0-36.0); Mean Corpuscular Hemoglobin 31.1 pg (28.0-34.0); Mean Corpuscular Volume 96.7 fl (80-94); Mean Platelet Volume 9.7 fL (7.4-10.4); Monocytes # 0.1 10^3/uL (0.2-0.9); Monocytes % 4.5 %; Neutrophils % 81.3 %; Nucleated Red Blood Cells % 0 %; Platelet Count 132 10^3/cmm (130-400); Red Blood Count 2.41 10^6/uL (4.1-5.3); Red Cell Distribution Width 14.3 % (12.1-15.1); White Blood Count 2.5 10^3/uL (4.0-10.0)
[2022-10-03 06:00] VITALS: PULSE 92
[2022-10-03 06:07] LABS: Anion Gap 21.2 (5-19); Blood Urea Nitrogen 48 mg/dL (8-23); Carbon Dioxide 17 mmol/L (22-29); Chloride 104 mmol/L (98-107); Glomerular Filtration Rate 26.9 mL/min (90-130); Glucose 89 mg/dL (65-115); Magnesium 1.4 mg/dL (1.7-2.3); Osmolality Calculated 298 mOsm/kg (285-295); Phosphorus 2.5 mg/dL (2.5-4.5); Potassium 4.2 mmol/L (3.5-5.1); Sodium 138 mmol/L (136-145); Uric Acid 7.4 mg/dL (3.4-7.0)
[2022-10-03] MEDS: sodium chloride 0.9% 1,000 ML 75 ML IV (07:54)
[2022-10-03] MEDS: dexamethasone 10 mg/mL INJ 6 MG IVP (07:55)
[2022-10-03] MEDS: pantoprazole 40 mg SDV IVP (07:55)
[2022-10-03] MEDS: finasteride 5 mg Tablet PO (07:56)
[2022-10-03] MEDS: magnesium lactate 84 mg Tablet PO (07:56)
[2022-10-03] MEDS: sucralfate 1 gm Tablet PO (07:56)
[2022-10-03] MEDS: tamsulosin 0.4 mg Capsule PO (07:56)
[2022-10-03] MEDS: nystatin 100,000 unit/mL UDC 5 mL 100000 UNIT PO (07:57)
[2022-10-03 08:00] VITALS: BP 130/69; PULSE 95; RESP 20; TEMP 36.6; O2SAT 96
[2022-10-03 12:00] VITALS: BP 129/63; PULSE 105; RESP 20; TEMP 36.6; O2SAT 95
--- NOTE | 2022-10-03 12:18 | P.DS_ITS ---
Discharge Providers Date of Admission: 09/29/22 22:51 Date of Discharge: October 03, 2022 Attending Provider at Admission: Susan Gould MD Attending Provider at Discharge: Khari Juarez MD Primary Care Provider: Ricci Pleitez Diagnoses at Discharge Discharge Diagnosis (1) BPH loc w urin obs/LUTS: Status: Acute (2) Urinary retention: Status: Acute (3) Elevated PSA: Status: Acute (4) Self-catheterizes urinary bladder: Status: Acute (5) Lymphadenopathy: Status: Acute (6) Hypercalcemia: Status: Acute (7) Acute kidney injury: Status: Acute (8) Anemia: Status: Acute (9) Hyperuricemia: Status: Acute (10) Diffuse lymphadenopathy: Status: Acute (11) Mediastinal lymphadenopathy: Status: Acute (12) Urinary tract infection: Status: Acute (13) Pneumonia: Status: Acute (14) Lactic acidosis: Status: Acute Reason for Visit Reason for Visit: Loss of Weight\[facility] Hospital Course Hospital Course Los Barr is a 72 year old male with past medical history of chronic kidney disease, BPH, hypertension, neutropenia, mild thrombocytopenia presented to [facility] today after routine labs were drawn and he was told that he was hypercalcemic.? He says he has never had hypercalcemia before.? He sees Dr. Suero for his prostate problems.? He says he has seen Dr. Fiore in the past and even had a bone marrow biopsy done but nothing concrete was found.? He states that he has been having a cough and has been having low WBCs for quite some time now.? He has lost a lot of weight in the last couple months and generally feels weak and has muscle pain fatigue and bone pain at times.? Denies any night sweats at this time.? He says he smoked cocaine 30 years ago however has never smoked cigarettes.? 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 Denies a family history of cancer.? Does have a strong cardiac history in the family.? Dad had a heart attack at age 43 and brother had a heart attack at age 63.? He states he has been losing weight.? He states he also has a quite a few lymph nodes that are swollen.? Patient initially went to [facility] but from there was transferred to our hospital as a direct admission since his calcium was found to be 17.1 and did not have calcitonin, bisphosphonates or any other therapy to give him except fluids.? He says he is also been having some productive cough with yellow sputum.? 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 He also complains of lower back pain and mild headaches at times.? He did experience a brief period of night sweats for 5 days a few months ago however is feeling better now.? He says his stools are thin in caliber and float.? He has been recommended a colonoscopy in the past however has not had it done. Patient was admitted to [facility] for severe hypercalcemia, likely secondary to lymphoma, was found to have diffuse bulky lymphadenopathy, mediastinal lymphadenopathy, highly concerning for lymphoma, hyperuricemia, evidence of anemia, and acute kidney injury, recent weight loss. Patient received IV hydration, received 1 dose of calcitonin, 1 dose of zoledronic acid, and Decadron therapy, patient overall clinically improved. On discharge he will be discharged on 6 remaining days of Decadron, with Protonix therapy, with a recheck of his calcium levels on Monday, calcium on discharge was 12, asymptomatic. For his MEERA received IV fluids, creatinine discharge 2.7, instructions to drink plenty of electrolyte balanced fluids. Patient did have evidence of hyperuricemia during his hospitalization, uric acid on discharge 8.7, given patient's creatinine, I have held off on allopurinol. Anemia during hospitalization, hemoglobin discharge 7.9, follow-up with Dr. Fiore. Physical Exam Narrative: General: Alert oriented x3, patient seen sitting up in bed appearing comfortable at this time very frail appearing cachectic temporal wasting noted, bony appearing. HEENT: Normocephalic, atraumatic, EOMI, breathing normally on room air. Continuously coughs while talking and try to clear his throat but unable to. Cardio: Regular rate rhythm, normal S1-S2, Respiratory: Mainly clear to auscultation no wheezes or rhonchi. GI: Abdomen soft, nontender, nondistended, bowel sounds + Extremities: No edema noted Lymphatic examination: Right posterior auricular lymph node enlarged 2+, left inguinal lymph node enlarged, right axillary lymph node enlarged Const: COMMON NORMALS: no acute distress and patient oriented x3 Resp: COMMON NORMALS: normal respiratory effort, No retractions, No use of accessory muscles and clear to auscultation bilaterally AUSCULTATION: clear to auscultation bilaterally Cardio: COMMON NORMALS: regular rate, regular rhythm, S1 normal heart sound present and S2 normal heart sound present RATE: regular rate RHYTHM: regular rhythm HEART SOUNDS: S1 normal heart sound present and S2 normal hear t sound present GI: COMMON NORMALS: Normal to inspection, nondistended, normoactive bowel sounds present and non-tender Extremity: COMMON NORMALS: no pedal edema Neuro: COMMON NORMALS: patient oriented x3 Psych: COMMON NORMALS: mental status grossly normal Urinary Catheter Management: Givens: Cath Placed During This Visit: no Reason for Continuing Indwelling Catheter: Other Discharge Data Studies Completed and Pending Completed Studies During Hospitalization Category Date Time Status CT chest abdomen pelvis [[place] [id number] Cat Scan 09/30/22 00:03 Completed ] Stat CV renal doppler [id number] Routine Ultrasound 10/01/22 09:02 Completed US biopsy lymph node [id number] Stat Ultrasound 09/30/22 08:41 Completed Pending at discharge Category Date Time Status Blood Culture Stat Lab 09/30/22 08:26 Results Occult Blood Stool [Immunochemical Fecal OCB] Routine Lab 09/30/22 08:04 Uncollected PTH Related [PTH Related Peptide (Protein)] Stat Lab 09/30/22 00:34 Received SPEP [Total Protein Electrophoresis] Routine Lab 09/30/22 00:34 Results Sputum Culture and Gram Stain Stat Lab 09/30/22 08:07 Uncollected Urine Protein Electrop Random Routine Lab 09/30/22 01:22 Results Pathology: Surgical [PTH] Routine Pth 09/30/22 12:17 Received Radiology Impressions Chest/Abdomen/Pelvis CT 09/30/22 00:03 IMPRESSION: 1. Moderate bulky mediastinal lymphadenopathy. These nodes are concerning. Lymphoma is favored. Metastases are felt to be less likely. 2. Wrkls-qylvauy-bprm-left lung base atelectasis or airspace disease and bibasilar probable consolidation/scarring/aspiration. This should be followed up. 3. Small qlidx-zujcpgb-zsmo-left pleural effusions. 4. COPD, lung scarring, and other findings above. Rib deformities as described. IMPRESSION: 1. Severe diffuse bulky lymphadenopathy. Lymphoma is strongly favored. 2. Diffuse 3rd spacing of fluid with anasarca, ascites, and mesenteric edema. 3. Markedly enlarged prostate with Givens catheter present. 4. No high-grade small bowel obstruction, abscess or free air. 5. Hepatosplenomegaly and other findings above. Lymph Node Biopsy Ultrasound 09/30/22 08:41 IMPRESSION: 1. Uncomplicated core biopsy abnormal LEFT inguinal lymph node. 2. Specimen placed in formalin and RPMI for pathology. Renal Ultrasound 10/01/22 09:02 IMPRESSION: 1. Normal renal artery Doppler. No significant renal artery stenosis. 2. No hydronephrosis in either kidney. 3. Givens Catheter. Laboratory Results WBC 2.5 10^3/uL (4.0-10.0) L 10/03/22 05:29 RBC 2.41 10^6/uL (4.1-5.3) L 10/03/22 05:29 Hgb 7.5 g/dL (11.7-16.6) L 10/03/22 05:29 Hct 23.3 % (42.0-52.0) L 10/03/22 05:29 MCV 96.7 fl (80-94) H 10/03/22 05:29 MCH 31.1 pg (28.0-34.0) 10/03/22 05:29 MCHC 32.2 g/dL (30.0-36.0) 10/03/22 05:29 RDW 14.3 % (12.1-15.1) 10/03/22 05:29 Plt Count 132 10^3/cmm (130-400) 10/03/22 05:29 MPV 9.7 fL (7.4-10.4) 10/03/22 05:29 Neut % (Auto) 81.3 % 10/03/22 05:29 Lymph % (Auto) 10.6 % 10/03/22 05:29 [place] % (Auto) 4.5 % 10/03/22 05:29 Eos % (Auto) 2.4 % 10/03/22 05:29 Baso % (Auto) 0.4 % 10/03/22 05:29 Neut # (Auto) 2.00 10^3/uL (1.8-7.7) 10/03/22 05:29 Lymph # (Auto) 0.3 10^3/uL (0.8-4.8) L 10/03/22 05:29 [place] # (Auto) 0.1 10^3/uL (0.2-0.9) L 10/03/22 05:29 Eos # (Auto) 0.1 10^3/uL (0.0-0.8) 10/03/22 05:29 Baso # (Auto) 0.0 10^3/uL (0.0-0.1) 10/03/22 05:29 Nucleated RBC % (auto) 0 % 10/03/22 05:29 Nucleated RBCs # 0.0 /100WBC 10/03/22 05:29 ESR 5 mm/hr (0-10) 09/30/22 08:26 Sodium 138 mmol/L (136-145) 10/03/22 05:29 Potassium 4.2 mmol/L (3.5-5.1) 10/03/22 05:29 Chloride 104 mmol/L (98-107) 10/03/22 05:29 Carbon Dioxide 17 mmol/L (22-29) L 10/03/22 05:29 Anion Gap 21.2 (5-19) H 10/03/22 05:29 BUN 48 mg/dL (8-23) H 10/03/22 05:29 Creatinine 2.4 mg/dL (0.7-1.2) H 10/03/22 05:29 GFR Calculation 26.9 mL/min (90-130) L 10/03/22 05:29 Glucose 89 mg/dL (65-115) 10/03/22 05:29 Estimat Average Glucose 94 09/29/22 00:34 Hemoglobin A1c 4.9 % (4.0-6.0) 09/29/22 00:34 Calculated Osmolality 298 mOsm/kg (285-295) H 10/03/22 05:29 Lactic Acid 2.8 mmol/L (0.5-2.2) H 09/29/22 00:34 Lactic Acid (Sepsis) 2.8 mmol/L (0.5-2.2) H 09/30/22 06:00 Uric Acid 7.4 mg/dL (3.4-7.0) H 10/03/22 05:29 Calcium 12.0 mg/dL (8.5-10.5) H 10/03/22 05:29 Ionized Calcium Ade 1.7 mmol/L (1.1-1.4) H 10/03/22 05:29 Phosphorus 2.5 mg/dL (2.5-4.5) 10/03/22 05:29 Magnesium 1.4 mg/dL (1.7-2.3) L 10/03/22 05:29 Iron 34 ug/dL (59-158) L 09/30/22 08:26 Ferritin 1094 ng/mL (30-400) H 09/30/22 08:26 Total Bilirubin 0.3 mg/dL (0.15-1.2) 09/30/22 13:50 AST 29 U/L (0-40) 09/30/22 13:50 ALT 14 U/L (0-41) 09/30/22 13:50 Alkaline Phosphatase 109 U/L (40-130) 09/30/22 13:50 Lactate Dehydrogenase 264 U/L (135-225) H 09/30/22 08:26 Creatine Kinase 16 U/L (39-308) L 10/01/22 03:30 Troponin T Baseline 50 ng/L (0-15) H 09/30/22 18:34 Troponin T 120 Minute 50.49 ng/L (0-15) H 09/30/22 19:55 Delta Troponin T 0.49 ABS# (0-10) 09/30/22 19:55 Troponin T Hi Sens 6Hr 47.51 ng/L (0-15) H 10/01/22 00:38 Troponin T Hi Sens 6Hr Delta -2.49 ng/L (0-12) L 10/01/22 00:38 C-Reactive Protein 79.0 mg/L (0.0-4.9) H 10/03/22 05:29 Total Protein 4.9 g/dL (6.6-8.7) L 09/30/22 13:50 Albumin 3.1 g/dL (3.5-5.2) L 09/30/22 13:50 Globulin 1.8 g/dL (1.3-4.6) 09/30/22 13:50 Vitamin B12 325 pg/mL (232-1245) 09/30/22 08:26 25-OH Vitamin D Total 9 ng/mL (30-100) L 09/30/22 00:34 Procalcitonin 0.17 ng/mL (0-0.5) 09/30/22 00:34 TSH 5.59 uIU/mL (0.27-4.20) H 09/29/22 00:34 PTH Intact 4.2 pg/mL (15-65) L 09/30/22 00:34 Calcium (PTH Intact) 14.8 mg/dL (8.5-10.5) H* 09/30/22 00:34 Random Cortisol 13.94 ug/dL (2.47-19.5) 09/30/22 00:34 Urine Color Yellow (Yellow) 09/30/22 01:22 Urine Appearance Clear (CLEAR) 09/30/22 01:22 Urine pH 5 (5-7) 09/30/22 01:22 Ur Specific [place] 1.020 (1.005-1.030) 09/30/22 01:22 Urine Protein 1+ (Negative) H 09/30/22 01:22 Urine Glucose (UA) Norm (Normal) 09/30/22 01:22 Urine Ketones 1+ (Negative) H 09/30/22 01:22 Urine Blood 3+ (Negative) H 09/30/22 01:22 Urine Nitrate Negative (Negative) 09/30/22 01:22 Urine Bilirubin Neg (Negative) 09/30/22 01:22 Urine Urobilinogen Norm mg/dL (Negative) 09/30/22 01:22 Ur Leukocyte Esterase 2+ (Negative) H 09/30/22 01:22 Urine RBC 5-10 /hpf (0-2) H 09/30/22 01:22 Urine WBC 15-25 /hpf (0-5) H 09/30/22 01:22 Ur Squamous Epith Cells 0-4 /hpf (0-5) H 09/30/22 01:22 Calcium Oxalate Crystal 0-4 /hpf H 09/30/22 01:22 Amorphous Sediment Not Reportable 09/30/22 01:22 Urine Bacteria 1+ /hpf (NONE) H 09/30/22 01:22 Ur Random Creatinine 82 mg/dL (20-320) 09/30/22 01:22 U Random Total Protein 63 mg/dL (5-25) H 09/30/22 01:22 Ur Random Calcium 19.9 mg/dL 09/30/22 01:22 Protein/Creatinin Ratio 768 mg/g creat (25-148) H 09/30/22 01:22 Protein/Creat Ratio 24h 0.768 (0.025-0.148) H 09/30/22 01:22 Nasal Influ A H1 2009 PCR Not detected (NOT DETECT) 09/30/22 16:45 Adenovirus (PCR) Not detected (NOT DETECT) 09/30/22 16:45 C. pneumoniae DNA (PCR) Not detected (NOT DETECT) 09/30/22 16:45 Coronavirus 229E (PCR) Not detected (NOT DETECT) 09/30/22 16:45 Human Metapneumovir PCR Not detected (NOT DETECT) 09/30/22 16:45 Influenza A (H1) PCR Not detected (NOT DETECT) 09/30/22 16:45 Influenza A (H3) PCR Not detected (NOT DETECT) 09/30/22 16:45 Influenza Type A (PCR) Not detected (NOT DETECT) 09/30/22 16:45 Influenza Type B (PCR) Not detected (NOT DETECT) 09/30/22 16:45 M. pneumoniae (PCR) Not detected (NOT DETECT) 09/30/22 16:45 Parainfluenza 1 (PCR) Not detected (NOT DETECT) 09/30/22 16:45 Parainfluenza 2 (PCR) Not detected (NOT DETECT) 09/30/22 16:45 Parainfluenza 3 (PCR) Not detected (NOT DETECT) 09/30/22 16:45 Parainfluenza 4 (PCR) Not detected (NOT DETECT) 09/30/22 16:45 RSV Type A (PCR) Not detected (NOT DETECT) 09/30/22 16:45 RSV Type B (PCR) Not detected (NOT DETECT) 09/30/22 16:45 Entero/Rhino (PCR) Not detected (NOT DETECT) 09/30/22 16:45 SARS-CoV-2 (PCR) Not detected (NOT DETECT) 09/30/22 16:45 Vitals Last Vital Signs Temp 98 F 10/03/22 08:00 Pulse 95 10/03/22 08:00 Resp 20 H 10/03/22 08:00 BP 130/69 10/03/22 08:00 Pulse Ox 96 10/03/22 08:00 O2 Del Method Room Air 10/03/22 08:00 O2 Flow Rate 2 10/02/22 20:00 Discharge Plan Discharge Patient Disposition: Home Condition: Stable Prescriptions: New nystatin 100,000 unit/mL Suspension 100,000 unit PO QID 7 Days Qty: 28 0RF Magtab 84 mg Tablet Extended Release 84 mg PO DAILY 7 Days Qty: 7 0RF dexamethasone 6 mg tablet 6 mg PO DAILY 5 Days Qty: 5 0RF Protonix 40 mg tablet,delayed release (DR/EC) 40 mg PO DAILY 30 Days Qty: 30 0RF cholecalciferol (vitamin D3) 10 mcg (400 unit) tablet 400 unit PO DAILY Qty: 30 0RF Continued ascorbic acid (vitamin C) 500 mg tablet 500 mg PO DAILY tamsulosin 0.4 mg capsule See Rx Instructions .ROUTE .COMPLEX Qty: 60 12RF Dose Instruction: Take 1 capsule by mouth twice daily Rx Instructions: Take 1 capsule by mouth twice daily finasteride 5 mg tablet See Rx Instructions .ROUTE .COMPLEX Qty: 30 12RF Dose Instruction: Take 1 tablet by mouth once daily Rx Instructions: Take 1 tablet by mouth once daily Changed metoprolol tartrate 50 mg tablet 25 mg PO DAILY 30 Days Qty: 15 0RF Discontinued lisinopril 20 mg tablet 20 mg PO DAILY Discharge Orders: Discharge Order (Routine); Ordered 10/02/22 Ordered By: Julian Taylor Referrals: Ricci Pleitez [Primary Care Provider] - 10/05/22 11:00 am Anthony Fiore MD [Hospitalist] - 1-3 days (Dr. Fiore's office will call you with an appointment FOR NEXT WEEK) Discharge Diet: Regular Discharge Activity: Resume usual activity Patient Instructions: Nystatin (By mouth), Dexamethasone (By mouth), Cefdinir (By mouth), Pantoprazole (By mouth), Magnesium Sulfate (By mouth), Urinary Tract Infection in Men (DC), Pneumonia (DC), Opioid Safety, Pneumonia Stoplight Activity Restrictions/Additional Instructions: - Please hydrate well drink plenty of electrolyte balanced fluids - Please have Dr. Fiore or Dr. Pleitez recheck your calcium levels within next 2-3 days - If you feel lightheaded or dizzy, or have numbness or tingling please go to emergency room - Recheck your hemoglobin on Monday Discharge Attestations Time Spent in Discharge Care*: greater than 30 min Specific Discharge Activities: educating patient, discussing with pcp/other providers, discussing with special education case manager/social workers/dc planners, documenting/other paperwork and evaluating patient/reviewing data Status at Discharge: Cognitive status at discharge: cognitively intact , Behavioral status at discharge: cooperative , Functional status at discharge: independent ambulation , Overall status at discharge: patient is back to baseline Quality Metrics Clinical Quality Measures [ No reported AMI, CVA or VTE this stay] Coding Level of Care Code 83970 Total time (in minutes) for Discharge: 50 Diagnoses BPH loc w urin obs/LUTS N40.1 Urinary retention R33.9 Elevated PSA R97.20 Self-catheterizes urinary bladder Z78.9 Lymphadenopathy R59.1 Hypercalcemia E83.52 Acute kidney injury N17.9 Anemia D64.9 Hyperuricemia E79.0 Diffuse lymphadenopathy R59.1 Mediastinal lymphadenopathy R59.0 Urinary tract infection N39.0 Pneumonia J18.9 Lactic acidosis E87.20
[2022-10-03 13:40] VITALS: BP 129/63; PULSE 105; RESP 20; TEMP 36.6; O2SAT 95
[2022-10-03 15:53] LABS: ALBUMIN 2.9 g/dL (3.8-4.8); ALPHA 1 GLOBULIN 0.4 g/dL (0.2-0.3); ALPHA 2 GLOBULIN 0.8 g/dL (0.5-0.9); BETA 1 GLOBULIN 0.2 g/dL (0.4-0.6); BETA 2 GLOBULIN 0.2 g/dL (0.2-0.5); GAMMA GLOBULIN 0.2 g/dL (0.8-1.7)
[2022-10-03 16:48] LABS: Albumin,Urine Random 42 %; Alpha-1-Globulins Urine Random 7 %; Alpha-2-Globulins Urine Random 20 %; Beta-Globulin,Urine Random 25 %; Gamma Globulin,Urine Random 6 %
[2022-10-04 05:34] LABS: Lymphoma Profile (BBPL) See Report
[2022-10-07 18:24] LABS: PTH Related Peptide (Protein) 19 pg/mL (11-20)
== END 2022-10-03 14:06 | disposition home or self-care (01) | DRG 840 ==
LOC: ICU 10-02 10:18 → MEDSURG 10-02 17:22
PROVIDERS: Family Medicine; Admitting Provider Internal Medicine; PCP Family Medicine; Visit Provider Student in an Organized Health Care Education/Training Program
DX: C83.35 Diffuse large B-cell lymphoma, lymph nodes of inguinal region and lower limb (principal); J18.9 Pneumonia, unspecified organism; N13.8 Other obstructive and reflux uropathy; N17.9 Acute kidney failure, unspecified; N39.0 Urinary tract infection, site not specified; N18.9 Chronic kidney disease, unspecified; I12.9 Hypertensive chronic kidney disease with stage 1 through stage 4 chronic kidney disease, or unspecified chronic kidney disease; N40.1 Benign prostatic hyperplasia with lower urinary tract symptoms; R33.8 Other retention of urine; D69.6 Thrombocytopenia, unspecified; Z82.49 Family history of ischemic heart disease and other diseases of the circulatory system; Z86.16 Personal history of COVID-19; D50.9 Iron deficiency anemia, unspecified; R97.20 Elevated prostate specific antigen [PSA]
CPT/HCPCS: 36415; 38505; 51702; 71250; 74176; 76770; 76942; 80048; 80053; 80503; 81001; 82306; 82310; 82330; 82340; 82533; 82542; 82550; 82570; 82607; 82728; 83036; 83540; 83605; 83615; 83735; 83970; 84100; 84145; 84155; 84156; 84165; 84166; 84443; 84484; 84550; 85025; 85651; 86140; 87040; 87077; 87086; 87186; 87486; 87581; 87633; 87641; 88184; 88185; 88305; 88342; 88374; 93005; 93975; 96372; 96376; C9113; J0630; J1100; J2543; J2920; J3489; J7030

== ENCOUNTER 2022-10-07 11:12 | Oncology outpatient (recurring) (ONCR) | payer MEDICARE, SELFPAY ==
[2022-10-07 12:43] LABS: Basophils % 0.3 %; Hematocrit 27.1 % (42.0-52.0); Hemoglobin 8.7 g/dL (11.7-16.6); Lymphocytes # 0.1 10^3/uL (0.8-4.8); Mean Corpuscular HGB Conc 32.1 g/dL (30.0-36.0); Mean Corpuscular Hemoglobin 31.1 pg (28.0-34.0); Mean Corpuscular Volume 96.8 fl (80-94); Mean Platelet Volume 10.3 fL (7.4-10.4); Monocytes # 0.2 10^3/uL (0.2-0.9); Monocytes % 4.6 %; Neutrophils % 89.9 %; Nucleated Red Blood Cells % 0 %; Platelet Count 187 10^3/cmm (130-400); Red Cell Distribution Width 14.6 % (12.1-15.1); White Blood Count 3.2 10^3/uL (4.0-10.0)
[2022-10-07 13:01] LABS: Alanine Aminotransferase 9 U/L (0-41); Albumin Level 3.7 g/dL (3.5-5.2); Alkaline Phosphatase 92 U/L (40-130); Aspartate Amino Transferase 34 U/L (0-40); Blood Urea Nitrogen 38 mg/dL (8-23); Calcium 11.7 mg/dL (8.5-10.5); Carbon Dioxide 20 mmol/L (22-29); Chloride 104 mmol/L (98-107); Globulin 1.6 g/dL (1.3-4.6); Glomerular Filtration Rate 33.2 mL/min (90-130); Glucose 115 mg/dL (65-115); Osmolality Calculated 298 mOsm/kg (285-295); Sodium 139 mmol/L (136-145); Total Bilirubin 0.2 mg/dL (0.15-1.2); Total Protein 5.3 g/dL (6.6-8.7)
[2022-10-07 13:02] LABS: Anion Gap 19.9 (5-19); Lactate Dehydrogenase 425 U/L (135-225); Potassium 4.9 mmol/L (3.5-5.1)
[2022-10-07 13:33] LABS: Hepatitis A Antibody IgM Non-Reactive (Nonreactive); Hepatitis B Core AB, Total Non-Reactive (Nonreactive); Hepatitis B Surface Antigen Non-Reactive (Nonreactive); Hepatitis C Virus Antibody Non-Reactive (Nonreactive)
[2022-10-07 13:38] LABS: Hepatitis B Surface AB < 3.5 (11.5-1000)
== END 2022-10-16 23:59 | disposition home or self-care (01) ==
PROVIDERS: PCP Family Medicine; Visit Provider Internal Medicine Medical Oncology
DX: C83.38 Diffuse large B-cell lymphoma, lymph nodes of multiple sites (principal); E83.52 Hypercalcemia; N28.89 Other specified disorders of kidney and ureter; Z79.52 Long term (current) use of systemic steroids; Z79.899 Other long term (current) drug therapy
CPT/HCPCS: 80053; 82232; 83615; 85025; 86705; 86706; 86709; 86803; 87340; 99215

== ENCOUNTER 2022-10-08 06:01 | Outpatient (CLI) | payer MEDICARE, SELFPAY ==
--- NOTE | 2022-10-08 07:04 | PETR_ITS ---
PROCEDURE INFORMATION: Exam: PET/CT Skull Base to Mid-thigh Exam date and time: 10/08/2022 1:05 PM Age: 72 years old Clinical indication: Lymphoma. Abnormal weight loss. Positive colorectal cancer screen. LABS AND CLINICAL REPORTS: Glucose: 115 mg/dl Treatment strategy for malignancy (PET staging): Initial Staging (PI) TECHNIQUE: Imaging protocol: Following at least four-hour fasting and following the injection of radiopharmaceutical, low dose CT images were obtained. Then, PET images were obtained. Attenuation corrected images were constructed using the CT scan. Fused images of PET and CT were reviewed. The standardized uptake values (SUV) reported below are maximum values within a region of interest, expressed in gm/ml. Exam includes orbital meatal line to mid-thigh. Radiopharmaceutical: 12.79 mCi F-18 FDG (Fluorodeoxyglucose), IV. Time of imaging post radiopharmaceutical administration: 47.6 minutes. Injection site: Left antecubital vein. COMPARISON: [place] [id number] 09/30/2022 2:05 AM FINDINGS: Brain: Visualized brain has normal physiologic uptake. Pharynx: No abnormal uptake. Larynx: No abnormal uptake. Lungs, pleura and trachea: A moderate right pleural effusion is 6.2 cm in depth. A small left pleural effusion is 2.0 cm in depth. Heart: Normal physiologic uptake. Mediastinal space: No abnormal uptake. Liver: No abnormal uptake. Gallbladder and bile ducts: No abnormal uptake. Pancreas: No abnormal uptake. Spleen: The spleen is mildly enlarged. It is not FDG avid. Its SUV max is 1.1. Adrenal glands: No abnormal uptake. Kidneys and ureters: Normal physiologic uptake. Stomach and bowel: No abnormal uptake. Intraperitoneal and retroperitoneal spaces: Mild/moderate ascites in the pelvis. Reproductive: Prostate enlargement. Vasculature: No abnormal uptake. Lymph nodes: Extensive malignant lymphadenopathy in the neck, chest, abdomen and pelvis. For example, bulky conglomerate mesenteric lymphadenopathy, 16.4 x 5.6 x 14.5 cm (transverse x ant-post x craniocaudal), has an SUV max of 23.2. Bulky conglomerate retroperitoneal lymphadenopathy, 12.8 x 10.5 x 14.8 cm, has an SUV max of 22.0. Conglomerate right axillary lymphadenopathy, 3.7 x 1.7 cm, has an SUV max of 11.9. Subcarinal mediastinal lymphadenopathy, 4.0 x 2.2 cm, has an SUV max of 15.7. A left level IV cervical lymph node, 2.1 x 1.5 cm, has an SUV max of 11.6. Bones/joints: Numerous (approximately 30) skeletal metastases. For example, a metastasis in the proximal left femur is 6.0 x 5.8 x 13.7 cm (transverse x ant-post x craniocaudal). Its SUV max is 14.2 (image 170). A metastasis at the right side of the C7 vertebra is 4.1 x 1.8 x 3.5 cm. Its SUV max is 13.5 (image 33). A metastasis in the anterior column of the right acetabulum, 4.2 x 2.6 x 3.2 cm, has an SUV max of 18.3 (image 154). Soft tissues: No metabolically active areas. Cachexia. PET/PET skulltothi INITIAL [id number] IMPRESSION: 1. Extensive malignant lymphadenopathy in the neck, chest, abdomen and pelvis. 2. Numerous (approximately 30) skeletal metastases. 3. Moderate right pleural effusion and small left pleural effusion. 4. Mild/moderate ascites in the pelvis. 5. The spleen is mildly enlarged but not FDG avid. Its SUV max is 1.1.
== END 2022-10-08 06:02 | disposition home or self-care (01) ==
PROVIDERS: PCP Family Medicine; Visit Provider Registered Nurse
DX: R59.1 Generalized enlarged lymph nodes (principal); R59.0 Localized enlarged lymph nodes; R18.8 Other ascites; R16.1 Splenomegaly, not elsewhere classified
CPT/HCPCS: 78815; A9552

== ENCOUNTER 2022-10-11 13:04 | Outpatient (CLI) | payer MEDICARE, SELFPAY ==
--- NOTE | 2022-10-11 13:15 | USCV_ITS ---
Los Barr Age: 72 Gender: M : 1950 Exam Date: 10/11/2022 13:47 Ordering Phys: Anthony Fiore MD Technologist: Marina Arias Exam Location: [facility] – [place] Indication: pre high risk medication BP: 117 / 70 HR: 102 Rhythm: Sinus Technical Quality: Good MEASUREMENTS (Male / Female) Normal Values 2D ECHO LV Diastolic Diameter PLAX 3.6 cm 4.2 - 5.9 / 3.9 - 5.3 cm LV Systolic Diameter PLAX 2.8 cm IVS Diastolic Thickness 0.8 cm 0.6 - 1.0 / 0.6 - 0.9 cm IVS Systolic Thickness 1.1 cm LVPW Diastolic Thickness 0.7 cm 0.6 - 1.0 / 0.6 - 0.9 cm LVPW Systolic Thickness 1.2 cm LVOT Diameter 2.0 cm LV Ejection Fraction 2D Teich 47.1 % LV Ejection Fraction MOD 2C 69.5 % LV Ejection Fraction 2C AL 69.5 % LA Width 4.2 cm LA Height 2.7 cm RA Width 3.8 cm RA Height 3.2 cm Aorta at Sinotubular Diameter 3.3 cm IVC Diameter 1.8 cm M-MODE MV E Point Septal Separation 1.0 cm FINDINGS Left Ventricle Right Ventricle Right Atrium Left Atrium Mitral Valve Aortic Valve Tricuspid Valve Pulmonic Valve Pericardium Aorta IVC CONCLUSIONS There is a limited echocardiogram performed to assess LV systolic function. LV systolic function is normal with EF of 60 to 65%. No regional wall motion abnormalities are seen. No comparison studies are available Rik Carey MD (Electronically Signed) Final Date: 11 October 2022 14:39 S
== END 2022-10-11 13:05 | disposition home or self-care (01) ==
PROVIDERS: PCP Family Medicine; Visit Provider Internal Medicine Medical Oncology
DX: C83.38 Diffuse large B-cell lymphoma, lymph nodes of multiple sites (principal)
CPT/HCPCS: 93308; 99203

== ENCOUNTER 2022-10-18 10:16 | Day surgery (SDC) | payer MEDICARE, SELFPAY ==
--- NOTE | 2022-10-13 14:11 | PC.NURSE ---
Dr Fiore's nurse Khushi called and gave telephone order for labs to be drawn day of surgery. Orders placed in Hold Queue. Note placed in surgery chart to notify staff of new labs orders for 5/. Ambulatory orders canceled to avoid replication.
[2022-10-17 13:53] VITALS: BMI 21.7
[2022-10-18] VITALS (9 sets, daily range): BP systolic 137–151; BP diastolic 74–87; PULSE 64–99; RESP 16–18; TEMP 36.1–36.3; O2SAT 97–100
--- NOTE | 2022-10-18 10:20 | XRR_ITS ---
PROCEDURE INFORMATION: Exam: XR Chest Exam date and time: 10/18/2022 12:08 PM Age: 72 years old Clinical indication: Device placement; Other: Postop mediport placement; Prior surgery; Surgery date: Post-operative (0-2 days) TECHNIQUE: Imaging protocol: Radiologic exam of the chest. Views: 1 view. COMPARISON: [place] [id number] 09/30/2022 2:05 AM FINDINGS: Tubes, catheters and devices: Left chest port line extends through the subclavian vein into the mid superior vena cava. Lungs: There is hazy opacity projecting over the right lung base. There is minimal opacity at the left lung base. Pleural spaces: No pneumothorax. Heart/Mediastinum: Cardiomediastinal contours are unremarkable. Bones/joints: Bones are unremarkable. Soft tissues: Bilateral nipple shadows project over the lateral mid lungs. XR/XR chest 1V portable [id number] IMPRESSION: 1. Satisfactory left chest port position. 2. Bilateral lower lung opacity corresponding to right greater than left pleural effusion and atelectasis in the left lung base on chest CT 09/30/2022.
--- NOTE | 2022-10-18 10:20 | SC_ITS ---
WS: [id number] C-arm FL for CVA [id number] REASON FOR EXAM: Mediport placement FINDINGS: Chemotherapy infusion port placed over the left anterolateral chest with left subclavian vein infusio n catheter With the tip in the superior vena cava. No pneumothorax identified. SC/C-arm FL for CVA [id number] IMPRESSION: Left sided chemotherapy port and infusion catheter placement as above.
[2022-10-18 10:59] LABS: Eosinophils # 0.1 10^3/uL (0.0-0.8); Eosinophils % 1.5 %; Hematocrit 29.1 % (42.0-52.0); Hemoglobin 9.2 g/dL (11.7-16.6); Lymphocytes # 0.3 10^3/uL (0.8-4.8); Lymphocytes % 6.2 %; Mean Corpuscular HGB Conc 31.6 g/dL (30.0-36.0); Mean Corpuscular Hemoglobin 30.7 pg (28.0-34.0); Mean Platelet Volume 10.1 fL (7.4-10.4); Monocytes # 0.2 10^3/uL (0.2-0.9); Monocytes % 4.7 %; Neutrophils # 3.45 10^3/uL (1.8-7.7); Neutrophils % 85.9 %; Nucleated Red Blood Cells % 0 %; Platelet Count 217 10^3/cmm (130-400); Red Cell Distribution Width 15.5 % (12.1-15.1)
[2022-10-18 11:22] LABS: Alanine Aminotransferase 11 U/L (0-41); Albumin Level 3.8 g/dL (3.5-5.2); Alkaline Phosphatase 89 U/L (40-130); Anion Gap 20.4 (5-19); Aspartate Amino Transferase 38 U/L (0-40); Blood Urea Nitrogen 36 mg/dL (8-23); Calcium 12.3 mg/dL (8.5-10.5); Carbon Dioxide 21 mmol/L (22-29); Chloride 101 mmol/L (98-107); Globulin 1.8 g/dL (1.3-4.6); Glucose 80 mg/dL (65-115); Lactate Dehydrogenase 460 U/L (135-225); Osmolality Calculated 293 mOsm/kg (285-295); Potassium 4.4 mmol/L (3.5-5.1); Sodium 138 mmol/L (136-145); Total Bilirubin 0.4 mg/dL (0.15-1.2); Total Protein 5.6 g/dL (6.6-8.7)
[2022-10-18] MEDS: sodium chloride 0.9% 1,000 ML 30 ML IV (11:57)
--- NOTE | 2022-10-18 11:57 | W.PM.OPSUD ---
Surgery/Procedure H&P Update DATE OF PROCEDURE: October 18, 2022 DATE H&P PERFORMED: 10/11/22 H&P UPDATE INFORMATION: I have reviewed H&P completed within last 30 days, I have examined patient prior to procedure and No changes to prior documentation PREOP DIAGNOSIS: Diffuse large B-cell lymphoma PLANNED PROCEDURE: Operation Date: 10/18/22 12:00 Proposed Procedures p port placement [id number], C83.38,(Not Applicable) - Silvestre Haywood, DO
[2022-10-18] MEDS: ceFAZolin 2,000 MG in sodium chloride 0.9% (plus) 50 ML 100 MG IV (12:09)
[2022-10-18] MEDS: sodium chloride 0.9% 100 mL Bag XX (12:28)
[2022-10-18] MEDS: heparin, porcine 1,000 unit/mL INJ 10 mL 10000 UNIT IRRIGATION (12:28)
[2022-10-18] MEDS: lidocaine-epi 2% 20 mL INJ INJECTION (12:29)
--- NOTE | 2022-10-18 12:53 | PM.OP ---
Operative Report Date of procedure: October 18, 2022 Pre-op diagnosis: Preop Diagnosis Diffuse large B-cell lymphoma Post-op diagnosis: same Procedure done: Mediport placement Implants: PowerPort Surgeon: Dr. Silvestre Haywood DO Anesthesia: Local Estimated blood loss (mL): 5 Complications: None apparent Brief History: This very pleasant 72-year-old gentleman with diffuse large B-cell lymphoma. Oncology requested Mediport insertion for chemotherapy access. The risk and benefits were explained and documented. Procedure: They put another order I will do right now things the patient was taken to the operating room and placed supine on the operating room table. All bony prominences were padded. She was given IV sedation and monitored throughout the case by the anesthesia personnel. SCDs were placed and turned on. The arms were tucked to the side. Patient received Ancef 2 g preoperatively IV. The bilateral chest wall was prepped and draped in usual sterile fashion using chlorhexidine base prep. Sterile drapes were applied. We did procedure pause prior to beginning. An 18 gauge needle was placed in the left subclavian vein. Dark, nonpulsatile blood was aspirated. A guidewire was placed through the needle centrally toward the atrial/vena caval junction. Fluoroscopy visualized good placement. The needle was removed and the guidewire was clipped to the drape with a hemostat. Further local anesthetic was infiltrated in the soft tissues of the left chest wall and a #15 blade was used to make a horizontal skin incision. A subcutaneous Mediport pocket was created using Bovie cautery, dissecting down through the skin and subcutaneous tissues. Meticulous hemostasis was achieved. The Mediport was sutured in position using 3-0 vicryl suture x2 stitches. A #15 blade was used to make a small skin blanca around the guidewire insertion area. The Mediport tubing was tunneled through the subcutaneous tissues up to the needle insertion location. A dilator with a peel-away sheath was placed over the guidewire and placed centrally. After measuring the Mediport tubing was cut to length so that the tip would end at the atrial/vena caval junction. The inner cannula and the guidewire were removed, leaving the dilator sheath in place. The Mediport was flushed. The tip of the catheter was inserted through the peel-away sheath and the peel-away sheath removed in the standard fashion. The Mediport was accessed with a straight Slater needle and dark, nonpulsatile blood was aspirated and flushed using heparinized saline to hep-lock the Mediport. Final fluoroscopy visualization showed no kink in the catheter and the tip of the Mediport tubing near the atrial/vena caval junction. Both skin incisions were thoroughly irrigated and suctioned dry. Meticulous hemostasis noted. The dermis was approximated with 3-0 Vicryl in an interrupted fashion. Skin was closed with Dermabond. Patient was awakened from anesthesia and transferred via her cart to the recovery room in stable condition. All needle, sponge, and instrument counts were correct per the operating personnel x2 counts.
== END 2022-10-18 13:49 | disposition home or self-care (01) ==
PROVIDERS: Internal Medicine Medical Oncology; PCP Family Medicine; Visit Provider Surgery
PROC: (CPT 36561; principal; 2022-10-18 12:00)
DX: C83.38 Diffuse large B-cell lymphoma, lymph nodes of multiple sites (principal); I10 Essential (primary) hypertension; Z79.899 Other long term (current) drug therapy
CPT/HCPCS: 36561; 36415; 71045; 77001; 80053; 83615; 85025; C1788; J0690; J1644; J7030

== ENCOUNTER → 2022-11-01 11:46 | Outpatient (BNVA) | payer MEDICARE, SELFPAY | PROVIDERS: PCP Family Medicine; Visit Provider Surgery | DX: Z95.828 Presence of other vascular implants and grafts (principal) | CPT/HCPCS: 99213 ==

== ENCOUNTER → 2022-11-08 08:20 | Outpatient (BNVA) | payer MEDICARE, SELFPAY | PROVIDERS: PCP Family Medicine; Visit Provider Nurse Practitioner Family | DX: C83.38 Diffuse large B-cell lymphoma, lymph nodes of multiple sites (principal); E83.52 Hypercalcemia; N28.89 Other specified disorders of kidney and ureter; C79.51 Secondary malignant neoplasm of bone; S72.142A Displaced intertrochanteric fracture of left femur, initial encounter for closed fracture; X58.XXXA Exposure to other specified factors, initial encounter; E03.9 Hypothyroidism, unspecified; Z79.52 Long term (current) use of systemic steroids; Z79.899 Other long term (current) drug therapy | CPT/HCPCS: 99215 ==

== ENCOUNTER 2022-11-09 09:01 | Oncology outpatient (recurring) (ONCR) | payer MEDICARE, SELFPAY ==
[2022-11-08 09:10] LABS: Basophils # 0.1 10^3/uL (0.0-0.1); Basophils % 0.9 %; Eosinophils % 0.4 %; Hematocrit 27.1 % (42.0-52.0); Hemoglobin 8.8 g/dL (11.7-16.6); Lymphocytes # 0.3 10^3/uL (0.8-4.8); Lymphocytes % 4.9 %; Mean Corpuscular HGB Conc 32.5 g/dL (30.0-36.0); Mean Corpuscular Hemoglobin 32.1 pg (28.0-34.0); Mean Corpuscular Volume 98.9 fl (80-94); Mean Platelet Volume 9.7 fL (7.4-10.4); Monocytes # 0.4 10^3/uL (0.2-0.9); Monocytes % 6.6 %; Neutrophils # 4.57 10^3/uL (1.8-7.7); Neutrophils % 86.3 %; Nucleated Red Blood Cells % 0 %; Platelet Count 131 10^3/cmm (130-400); Red Blood Count 2.74 10^6/uL (4.1-5.3); Red Cell Distribution Width 16.2 % (12.1-15.1); White Blood Count 5.3 10^3/uL (4.0-10.0)
[2022-11-08 09:38] LABS: Alanine Aminotransferase 12 U/L (0-41); Albumin Level 3.4 g/dL (3.5-5.2); Alkaline Phosphatase 82 U/L (40-130); Anion Gap 20.6 (5-19); Aspartate Amino Transferase 32 U/L (0-40); Blood Urea Nitrogen 36 mg/dL (8-23); Carbon Dioxide 23 mmol/L (22-29); Chloride 95 mmol/L (98-107); Globulin 1.3 g/dL (1.3-4.6); Glomerular Filtration Rate 46.3 mL/min (90-130); Glucose 88 mg/dL (65-115); Lactate Dehydrogenase 452 U/L (135-225); Osmolality Calculated 286 mOsm/kg (285-295); Potassium 4.6 mmol/L (3.5-5.1); Sodium 134 mmol/L (136-145); Thyroid Stimulating Hormone 8.16 uIU/mL (0.27-4.20); Total Bilirubin 0.5 mg/dL (0.15-1.2); Total Protein 4.7 g/dL (6.6-8.7)
[2022-11-08 09:42] LABS: Calcium 13.9 mg/dL (8.5-10.5)
[2022-11-08] MEDS: ZOLEDRONIC ACID IV (12:34)
[2022-11-08] MEDS: SODIUM CHLORIDE 0.9% IV (12:34)
[2022-11-08] MEDS: sodium chloride 0.9% 500 ML IV (12:34)
[2022-11-08 15:10] VITALS: BP 120/67; PULSE 99; RESP 18; TEMP 37.1; O2SAT 96
[2022-11-09] VITALS (7 sets, daily range): BP systolic 116–144; BP diastolic 63–84; PULSE 90–112; RESP 16–18; TEMP 36.1–37.6; O2SAT 92–96; BMI 21.4
[2022-11-09] MEDS: OLANZapine 5 mg TABLET PO (10:13)
[2022-11-09] MEDS: sodium chloride 0.9% 500 ML 50 ML IV (10:16)
[2022-11-09] MEDS: famotidine 20 mg/2 mL INJ IVP (10:19)
[2022-11-09] MEDS: palonosetron 0.25 mg/5 mL SDV IVP (10:21)
[2022-11-09] MEDS: diphenhydrAMINE 50 mg/mL SDV 1mL 25 MG IVP (10:22)
[2022-11-09] MEDS: fosaprepitant 150 MG in sodium chloride 0.9% 150 ML 300 MG IV (10:37)
[2022-11-09] MEDS: sodium chloride 0.9% 250 ML 50 ML IV (10:39)
[2022-11-09] MEDS: DOXOrubicin 2 mg/ml MDV 98 MG IVP (15:26)
--- NOTE | 2022-11-09 19:17 | PC.NURSE ---
Patient to wheelchair with 2 person assist. Transferred to Med Surg room 258. Report given to Tiana AGRAWAL. Patient tolerated well. Left port flushed and left accessed.
== END 2022-11-09 23:59 | disposition home or self-care (01) ==
PROVIDERS: Nurse Practitioner Family; PCP Family Medicine; Visit Provider Internal Medicine Medical Oncology
DX: C83.38 Diffuse large B-cell lymphoma, lymph nodes of multiple sites (principal); D64.9 Anemia, unspecified; N13.8 Other obstructive and reflux uropathy; Z51.12 Encounter for antineoplastic immunotherapy; Z51.11 Encounter for antineoplastic chemotherapy; N40.1 Benign prostatic hyperplasia with lower urinary tract symptoms; Z79.899 Other long term (current) drug therapy
CPT/HCPCS: 51702; 73502; 73552; 80053; 83615; 84443; 85025; 96367; 96372; 96374; 96375; 96411; 96413; 96415; 96417; 99215; J1100; J1200; J1453; J1642; J2469; J3489; J3490; J7040; J7050; J9000; J9070; J9309; Q5115

== ENCOUNTER 2022-11-09 20:03 | Inpatient (IN) | payer MEDICARE, SELFPAY ==
[2022-11-09 20:50] VITALS: BMI 23.4
--- NOTE | 2022-11-09 21:01 | XRR_ITS ---
PROCEDURE INFORMATION: Exam: XR Pelvis Exam date and time: 11/09/2022 8:16 PM Age: 72 years old Clinical indication: Hip pain; Bilateral; Additional info: Left hip fracture, ap pelvis TECHNIQUE: Imaging protocol: Radiologic exam of the pelvis. Views: 1 or 2 view. COMPARISON: CR XR hip LT 2-3V wo/w pel* [id number] 11/08/2022 10:09 AM FINDINGS: Bones/joints: Intertrochanteric left hip fracture. The osseous structures of the pelvis are intact. Soft tissues: Unremarkable. XR/XR pelvis 1-2V* [id number] IMPRESSION: Intertrochanteric left hip fracture.
--- NOTE | 2022-11-09 21:01 | XRR_ITS ---
PROCEDURE INFORMATION: Exam: XR Right Femur Exam date and time: 11/09/2022 8:16 PM Age: 72 years old Clinical indication: Condition or disease; Other: R/O lesions; Additional info: Rule out pathologic lesions TECHNIQUE: Imaging protocol: Radiologic exam of the right femur. Views: 2 views. COMPARISON: CT chest abdpel [id number] 09/30/2022 2:05 AM FINDINGS: Bones/joints: No acute fracture. No aggressive osseous lesion. Soft tissues: Unremarkable. XR/XR femur RT min 2V* [id number] IMPRESSION: No acute findings.
[2022-11-09 21:09] VITALS: BP 136/70; PULSE 84; RESP 16; TEMP 36.7; O2SAT 95
--- NOTE | 2022-11-09 21:09 | P.HP_ITS ---
Providers/Chief Complaint Admitting Physician: Julian Taylor MD Primary Care Provider: Ricci Pleitez Chief Complaint: Left Hip Fracture History of Present Illness Los Barr is a 72 year old male with past medical history of recently diagnosed diffuse large B-cell lymphoma, hypertension, hypercalcemia, urinary retention, acute kidney injury, was admitted to the hospital today for left hip pain. He had his first cycle of chemotherapy done today as an outpat ient and was admitted to the hospital right after that for management of hip fracture. He has been complaining of hip pain for quite some time and recently had a PET scan done as an outpatient which showed extensive malignant lymphadenopathy in the neck chest abdomen pelvis numerous skeletal metastases along with a mass in the right acetabulum region. Orthopedic surgery has been consulted. He has been admitted as a direct admission from outpatient oncology. Patient's femur x-ray shows mildly displaced intertrochanteric fracture of the left hip. Hip and pelvis x-ray shows healing mildly displaced anterior trochanteric fracture of left hip. Oncology discussed the case with orthopedic surgery. Patient will be kept n.p.o. at midnight today for potential intervention in AM. Further imaging studies have been ordered by orthopedic surgery at this time. Patient is to get Neulasta 6 mg subcutaneously on 11/10/2022 which will be ordered through oncology office. Patient seen and examined in room 258. He states that when he lays down with his legs straight he does not have any pain however movement and certain positions cause him a lot of left hip pain. He is aware that the fracture is on the right side however his pain is mostly on the left. Other than that at this time he denies nausea vomiting diarrhea chest pain abdominal pain or any other symptoms. He states he tolerated the chemotherapy well and slept through most of it today. Medications/Allergies Home Medications Medication Instructions Recorded Confirmed Last Taken Type ascorbic acid (vitamin C) 500 mg 500 mg PO DAILY 10/16/19 11/08/22 10/17/22 History tablet finasteride 5 mg tablet See Rx Instructions .Route 12/02/21 11/08/22 10/17/22 Rx .COMPLEX #30 tabs tamsulosin 0.4 mg capsule See Rx Instructions .Route 12/02/21 11/08/22 10/17/22 Rx .COMPLEX #60 caps cholecalciferol (vitamin D3) 10 400 unit PO DAILY #30 tabs 10/03/22 11/08/22 10/17/22 Rx mcg (400 unit) tablet prednisone 20 mg tablet 20 mg PO DAILY #30 tabs 10/07/22 11/08/22 10/17/22 Rx metoprolol tartrate 50 mg tablet 25 mg PO BID 10/17/22 11/08/22 10/18/22 History docusate sodium 100 mg capsule 100 mg PO BID #10 caps 10/18/22 11/08/22 Unknown Rx (DOK) oxycodone-acetaminophen 5 mg-325 1 tab PO Q6H PRN pain #14 tabs 10/18/22 11/08/22 Unknown Rx mg tablet allopurinol 300 mg tablet 300 mg PO DAILY #30 tabs 11/08/22 11/08/22 Unknown Rx fluconazole 100 mg tablet 100 mg PO DAILY #90 tabs 11/08/22 11/08/22 Unknown Rx lorazepam 1 mg tablet 0.5 - 1 mg PO Q6H PRN Severe 11/08/22 11/08/22 Unknown Rx Nausea #30 tabs prednisone 50 mg tablet 100 mg PO DAILY #10 tabs 11/08/22 11/08/22 Unknown Rx prochlorperazine maleate 10 mg 10 mg PO Q6H PRN nausea and 11/08/22 11/08/22 Unknown Rx tablet vomiting #30 tabs sulfamethoxazole 800 1 tab PO .COMPLEX #24 tabs 11/08/22 11/08/22 Unknown Rx mg-trimethoprim 160 mg tablet valacyclovir 500 mg tablet 500 mg PO BID #60 tabs 11/08/22 11/08/22 Unknown Rx allopurinol 300 mg tablet 300 mg PO DAILY #30 tabs 11/09/22 Unknown Rx fluconazole 100 mg tablet 100 mg PO DAILY #90 tabs 11/09/22 Unknown Rx (Diflucan) lorazepam 1 mg tablet 0.5 - 1 mg PO Q6H PRN Severe 11/09/22 Unknown Rx Nausea #30 tabs olanzapine 5 mg tablet 5 mg PO QPM Breakthrough Nausea 11/09/22 Unknown Rx and Vomitting #30 tabs ondansetron HCl 4 mg tablet 4 mg PO QID PRN Nausea/vomiting 11/09/22 Unknown Rx #30 tabs prednisone 50 mg tablet See Rx Instructions .Route 11/09/22 Unknown Rx .COMPLEX 21 days #10 tabs prochlorperazine maleate 10 mg 10 mg PO Q4H PRN Mild Nausea #30 11/09/22 Unknown Rx tablet (Compazine) tabs sulfamethoxazole 800 1 tab PO MOWEFR #24 tabs 11/09/22 Unknown Rx mg-trimethoprim 160 mg tablet (Bactrim DS) valacyclovir 500 mg tablet 500 mg PO BID #60 tabs 11/09/22 Unknown Rx Allergies Allergy/AdvReac Type Severity Reaction Status Date / Time No Known Allergies Allergy Verified 11/08/22 08:32 PFSH Acute PFSH: Medical History (Updated 11/09/22 @ 22:28 by Susan Gould MD) Acute kidney injury BPH loc w urin obs/LUTS Dermatofibroma Diffuse large B cell lymphoma Elevated PSA ETOH abuse HTN (hypertension) Hypercalcemia Urinary retention Surgical History History of hand surgery History of lymph node biopsy (09/30/22) Ultrasound directed core needle biopsy of left inguinal lymph node Family History Father , AT AGE 46 CAD (coronary artery disease) Brother CAD (coronary artery disease) Mother , AT AGE 95 CAD (coronary artery disease) Social History Smoking and tobacco status: never smoked Alcohol intake: former Substance/Drug Use: former Adopted: No Caregiver/support person: No Lives independently: Yes Marital status: Current occupational status: retired Current gender identity: Male Vitals/I&O/Wt Last Vital Signs O2 Del Method Room Air 11/09/22 20:56 Weight last 48 hrs Weight 78.381 kg Physical Exam Narrative: General: Alert oriented x3, patient seen in bed appearing comfortable at this time. Cachectic frail-appearing male. HEENT: Normocephalic, atraumatic, EOMI, breathing room air. Cardio: Regular rate rhythm, normal S1-S2, Respiratory: Diminished bilateral air entry GI: Abdomen soft, nontender,bowel sounds + Behavior: Appropriate and cooperative Extremities: 4+ pitting edema bilateral lower extremities up to thighs, Givens catheter in place. Data 11/09/22 21:33 11/09/22 21:33 A&P Assessment and plan (1) Closed intertrochanteric fracture of left hip: (2) Self-catheterizes urinary bladder: (3) Lymphadenopathy: (4) Hypercalcemia: (5) Diffuse lymphadenopathy: (6) Mediastinal lymphadenopathy: (7) Diffuse large B-cell lymphoma of lymph nodes of multiple regions: (8) Port-A-Cath in place: (9) Left hip pain: (10) Hypercalcemia of malignancy: (11) Hypothyroid: (12) Hip fracture: Plan #Left hip fracture #Diffuse large B-cell lymphoma, advanced age with skeletal metastases #Hypercalcemia of malignancy #Immunocompromise state/on chemotherapy currently #Acute kidney injury on CKD #Hypertension #Urinary retention status post Givens catheter, self caths at home ? Orthopedic surgery consulted. Imaging studies have been ordered. Patient remain n.p.o. after midnight for potential intervention in a.m. ? As per oncology continue patient on valacyclovir 500 twice daily, TMP-SMX Monday, ? Prednisone 100 daily for 5 days each cycle of chemotherapy. First dose today for total of 5 days ? Patient had chemo cycle #1 today. ? Lorazepam 0.5 every 6 hours as needed for severe nausea ? Compazine 10 mg every 6 hours for nausea ? Allopurinol 300 daily for prevention of tumor lysis syndrome ? Place patient on reverse isolation ? I will start on ciprofloxacin 500 twice daily at this time for empiric coverage ? Check baseline labs at this time CBC, CMP, PT/INR, baseline EKG, chest x-ray ? Repeat labs in a.m. ? Day team to coordinate with oncology office for administering Neulasta [address] Discussed with Dr. Fiore over the phone. ? PT OT as per orthopedic surgery instructions. Patient may need to go to [facility] temporarily after fracture repair. ? Continue Givens catheter ? Placed on normal saline 100 cc/h Full code SCDs Heparin SQ twice daily for DVT prophylaxis Attestations Medical Necessity Statement*: Greater than 2 midnight stay for management of hip fracture Coding Level of Care Code G0426 (50 min) TH Encounter Time (min): 60 Patient seen via Telehealth in the acute care setting (hospital or ED location) by agreement and consent of patient or patient insurance verification representative. Telehealth technology used during the visit includes video and audio. This patient encounter is appropriate and reasonable under the circumstances given the patient?s particular presentation at this time. The patient has been advised of the potential risks and limitations of this mode of treatment (including but not limited to the absence of in-person examination at this time) and has agreed to be treated by an off-site physician for this visit. If deemed clinically neces fadumo from this telehealth visit, or if condition or consent for telehealth visit changes, an in-person visit will be arranged. For this encounter, total time for the origination of telehealth care on this date is as shown. Diagnoses Closed intertrochanteric fracture of left hip S72.142A Self-catheterizes urinary bladder Z78.9 Lymphadenopathy R59.1 Hypercalcemia E83.52 Diffuse lymphadenopathy R59.1 Mediastinal lymphadenopathy R59.0 Diffuse large B-cell lymphoma of lymph nodes of multiple regions C83.38 Port-A-Cath in place Z95.828 Left hip pain M25.552 Hypercalcemia of malignancy E83.52 Hypothyroid E03.9 Hip fracture S72.009A
--- NOTE | 2022-11-09 21:11 | PC.NURSE ---
[facility] [phone] carolinay to give information to per patient.
--- NOTE | 2022-11-09 21:12 | XRR_ITS ---
PROCEDURE INFORMATION: Exam: XR Chest Exam date and time: 11/09/2022 8:28 PM Age: 72 years old Clinical indication: Screening exam; Pre-operative exam; Cardiovascular screening; Additional info: Pre-op TECHNIQUE: Imaging protocol: Radiologic exam of the chest. Views: 1 view. COMPARISON: CR XR chest 1V portable [id number] 10/18/2022 12:08 PM FINDINGS: Tubes, catheters and devices: Left chest port terminates in the distal SVC. Lungs: Hyperinflated lungs. No consolidation. Pleural spaces: Unremarkable. No pleural effusion. No pneumothorax. Heart/Mediastinum: Unremarkable. No cardiomegaly. Bones/joints: Unremarkable. XR/XR chest 1V portable [id number] IMPRESSION: No acute findings.
--- NOTE | 2022-11-09 21:12 | ECG_ITS ---
[facility] Test Date: 2022-11-09 Pat Name: Los Barr Department: Room: 258 Gender: Male Lead Caregiver: : 1950 Requested By: Susan Gould Order Number: [id number] Tc MD: Viet Chaudhary M.D. Measurements Intervals [place] Rate: 86 P: 70 OR: 156 QRS: 76 QRSD: 90 T: 71 QT: 339 QTc: 406 Interpretive Statements SINUS RHYTHM Compared to ECG 10/01/2022 00:09:47 No significant changes Electronically Signed On 11-09-2022 22:53:57 CDT by Viet Chaudhary M.D. [email or web address]
[2022-11-09 21:46] LABS: Basophils % 0.3 %; Hematocrit 24.5 % (42.0-52.0); Hemoglobin 7.9 g/dL (11.7-16.6); Lymphocytes # 0.1 10^3/uL (0.8-4.8); Mean Corpuscular HGB Conc 32.2 g/dL (30.0-36.0); Mean Corpuscular Hemoglobin 32.5 pg (28.0-34.0); Mean Corpuscular Volume 100.8 fl (80-94); Mean Platelet Volume 10.2 fL (7.4-10.4); Monocytes # 0.1 10^3/uL (0.2-0.9); Monocytes % 3.6 %; Neutrophils # 3.03 10^3/uL (1.8-7.7); Neutrophils % 92.2 %; Nucleated Red Blood Cells % 0 %; Platelet Count 104 10^3/cmm (130-400); Red Blood Count 2.43 10^6/uL (4.1-5.3); Red Cell Distribution Width 16.3 % (12.1-15.1); White Blood Count 3.3 10^3/uL (4.0-10.0)
[2022-11-09 22:01] LABS: INR 1.16 (0.8-1.2)
[2022-11-09 22:07] LABS: Alanine Aminotransferase 9 U/L (0-41); Albumin Level 2.8 g/dL (3.5-5.2); Alkaline Phosphatase 68 U/L (40-130); Aspartate Amino Transferase 33 U/L (0-40); Blood Urea Nitrogen 36 mg/dL (8-23); Calcium 12.9 mg/dL (8.5-10.5); Carbon Dioxide 20 mmol/L (22-29); Chloride 98 mmol/L (98-107); Globulin 1.4 g/dL (1.3-4.6); Glomerular Filtration Rate 42.9 mL/min (90-130); Glucose 111 mg/dL (65-115); Osmolality Calculated 287 mOsm/kg (285-295); Sodium 134 mmol/L (136-145); Total Bilirubin 0.4 mg/dL (0.15-1.2); Total Protein 4.2 g/dL (6.6-8.7)
[2022-11-09] MEDS: pantoprazole 40 mg SDV IVP (22:10)
[2022-11-09] MEDS: sodium chloride 0.9% 1,000 ML 100 ML IV (22:10)
[2022-11-09] MEDS: heparin 5,000 unit/mL INJ 1 mL 5000 UNIT SUBCUT (22:10)
[2022-11-10] VITALS (20 sets, daily range): BP systolic 117–138; BP diastolic 63–76; PULSE 65–93; RESP 15–20; TEMP 36.3–36.6; O2SAT 90–98
--- NOTE | 2022-11-10 | XR_ITS ---
WS: [id number] Left femur and thigh, C-arm fluoroscopy views, 11/10/2022 Clinical Data: orif left hip Comparison: Left hip, 11/08/2022 Findings: Dr. Ho repaired the left intertrochanteric hip fracture with an oblique nail in the femoral neck a nd a long raissa in the left femur. XR/XR femur LT min 2V* [id number] Impression: Internal fixation of left hip intertrochanteric fracture.
[2022-11-10 03:54] LABS: Basophils % 0.3 %; Hematocrit 23.9 % (42.0-52.0); Hemoglobin 7.7 g/dL (11.7-16.6); Lymphocytes # 0.1 10^3/uL (0.8-4.8); Lymphocytes % 2.8 %; Mean Corpuscular HGB Conc 32.2 g/dL (30.0-36.0); Mean Corpuscular Hemoglobin 32.6 pg (28.0-34.0); Mean Corpuscular Volume 101.3 fl (80-94); Monocytes # 0.1 10^3/uL (0.2-0.9); Monocytes % 4.2 %; Neutrophils # 2.66 10^3/uL (1.8-7.7); Nucleated Red Blood Cells % 0 %; Platelet Count 102 10^3/cmm (130-400); Red Blood Count 2.36 10^6/uL (4.1-5.3); Red Cell Distribution Width 16.2 % (12.1-15.1); White Blood Count 2.9 10^3/uL (4.0-10.0)
[2022-11-10 04:17] LABS: Alanine Aminotransferase 8 U/L (0-41); Albumin Level 2.8 g/dL (3.5-5.2); Alkaline Phosphatase 65 U/L (40-130); Anion Gap 17.9 (5-19); Aspartate Amino Transferase 34 U/L (0-40); Blood Urea Nitrogen 37 mg/dL (8-23); Calcium 12.8 mg/dL (8.5-10.5); Carbon Dioxide 22 mmol/L (22-29); Chloride 101 mmol/L (98-107); Globulin 1.2 g/dL (1.3-4.6); Glomerular Filtration Rate 42.9 mL/min (90-130); Glucose 113 mg/dL (65-115); Magnesium 1.6 mg/dL (1.7-2.3); Osmolality Calculated 291 mOsm/kg (285-295); Phosphorus 3.6 mg/dL (2.5-4.5); Potassium 4.9 mmol/L (3.5-5.1); Sodium 136 mmol/L (136-145); Total Bilirubin 0.3 mg/dL (0.15-1.2)
[2022-11-10] MEDS: sodium chloride 0.9% 1,000 ML 100 ML IV (08:26)
[2022-11-10] MEDS: metoprolol tartrate 50 mg Tablet 25 MG PO (08:26)
[2022-11-10] MEDS: predniSONE 20 mg Tablet 100 MG PO (08:27)
[2022-11-10] MEDS: valACYclovir 1,000 mg Tablet 500 MG PO (08:27)
[2022-11-10] MEDS: fluconazole 100 mg Tablet PO (08:28)
[2022-11-10] MEDS: allopurinol 300 mg Tablet PO (08:28)
--- NOTE | 2022-11-10 10:38 | PC.CHAP ---
Pastoral Care Encounter/Spiritual Assessment Type of Contact [] Declined development mgr visit [] Patient/Family/Request visit [] Outpatient visit [] Follow-up visit [] Physician referral [] Code/Alert [x] Routine visit [] Staff referral [] Actively dying [] Patient sleeping [] Family support [] [] Out of room [] Palliative care [] [x] Receiving care in room [] Pre-surgical visit [] Trauma [] Long length of stay [] ICU visit [] Other: Relational/Emotional Strength [x] Patient feels connected with others/family/visitors/staff [] Distress [] Loneliness/isolation [] Abandonment Spirituality of Patient [x] Person of Lilo [] Attends Yazidi of their Lilo [x] Believes in Prayer [] Reads Bible or Sabianism materials [] There are Spiritual issues to be addressed Provider Education Specialist Interventions [x] Prayer [x] Active listening [x] Non-anxious presence [x] Spiritual/emotional support [] Crisis/trauma care [x] Spiritual counseling [] Bereavement support [] Provided bereavement packet [] Provided Bible/devotional materials [] Provided toy/stuffed animal, coloring book to patient or family member [] Provided Communion [] Anointing/Lott [] Salvation [x] Completed spiritual assessment [] Other: Impact on Illness or Injury [] Angry [] Fearful [] Anxious [] Often cries [] Exhaustion [] Unable to work [] Unable to attend mandaeism [] Unable to walk/stand [] Unable to read [] Unable to drive [] Unable to eat/drink [] Unable to sleep [] Unable to be with family [] Patient intubated [] Other: Summary rests waiting doctor preciousted leila lowe putt pen in hip, then he well go home Time spent with patient 10 mins
--- NOTE | 2022-11-10 13:09 | ANES.PREANE2 ---
Pre-Anesthetic Assessment Height/Weight: Height 1.83 m Weight 78.381 kg Temp Pulse Resp BP Pulse Ox O2 Del Method 97.7 F 77 18 127/69 92 Room Air 11/10/22 12:51 11/10/22 12:51 11/10/22 12:51 11/10/22 12:51 11/10/22 12:51 11/10/22 12:51 Operation Date: 11/10/22 13:15 Proposed Procedures p Left Intertrochanteric Hip Fracture(Left) - Ni Ho MD Familial anesthetic complications: none Was Beta Desmond taken within 24 hours: Yes Was Clonidine taken within 24 hours: N/A Last intake: Intake Last Liquid Date 11/09/22 Last Liquid Time 18:00 Last Solid Date 11/09/22 Last Solid Time 18:00 Social No alcohol and No tobacco Exam alert, oriented x 3, clear to auscultation bilaterally and regular rate & rhythm Airway Submandibular: within normal limits Cervical ROM: within normal limits Mallampati: Class II Dentition: chipped CV/HEM Anemia and Hypertension lymphoma, thrombocytopenia Metabolic chronic steroids Anesthetic Plan ASA status: 3 Anesthesia: General Medications/Allergies Home Medications Medication Instructions Recorded Confirmed Last Taken Type ascorbic acid (vitamin C) 500 mg 500 mg PO DAILY 10/16/19 11/10/22 10/17/22 History tablet finasteride 5 mg tablet See Rx Instructions .Route 12/02/21 11/10/22 10/17/22 Rx .COMPLEX #30 tabs tamsulosin 0.4 mg capsule See Rx Instructions .Route 12/02/21 11/10/22 10/17/22 Rx .COMPLEX #60 caps prednisone 20 mg tablet 20 mg PO DAILY #30 tabs 10/07/22 11/10/22 10/17/22 Rx metoprolol tartrate 50 mg tablet 50 mg PO BID 10/17/22 11/10/22 10/18/22 History prochlorperazine maleate 10 mg 10 mg PO Q6H PRN nausea and 11/08/22 11/10/22 Unknown Rx tablet vomiting #30 tabs sulfamethoxazole 800 1 tab PO .COMPLEX #24 tabs 11/08/22 11/10/22 Unknown Rx mg-trimethoprim 160 mg tablet allopurinol 300 mg tablet 300 mg PO DAILY #30 tabs 11/09/22 11/10/22 Unknown Rx lorazepam 1 mg tablet 0.5 - 1 mg PO Q6H PRN Severe 11/09/22 11/10/22 Unknown Rx Nausea #30 tabs olanzapine 5 mg tablet 5 mg PO QPM Breakthrough Nausea 11/09/22 11/10/22 Unknown Rx and Vomitting #30 tabs ondansetron HCl 4 mg tablet 4 mg PO QID PRN Nausea/vomiting 11/09/22 11/10/22 Unknown Rx #30 tabs prednisone 50 mg tablet See Rx Instructions .Route 11/09/22 11/10/22 Unknown Rx .COMPLEX 21 days #10 tabs valacyclovir 500 mg tablet 500 mg PO BID #60 tabs 11/09/22 11/10/22 Unknown Rx cholecalciferol (vitamin D3) 25 25 mcg PO DAILY 11/10/22 11/10/22 Unknown History mcg (1,000 unit) capsule (Vitamin D3) Allergies Allergy/AdvReac Type Severity Reaction Status Date / Time No Known Allergies Allergy Verified 11/08/22 08:32 Current Medications Generic Name Dose Route Start Last Admin Trade Name Edmondq PRN Reason Stop Dose Admin Allopurinol 300 mg 11/10/22 09:00 11/10/22 08:28 Allopurinol 300 Mg Tablet PO 300 mg DAILY TAMIKO Administration Docusate Sodium 100 mg 11/10/22 09:00 11/10/22 08:28 Docusate Sodium 100 Mg Capsule PO Not Given BID TAMIKO Finasteride 5 mg 11/10/22 09:00 11/10/22 08:28 Finasteride 5 Mg Tablet PO Not Given DAILY [facility] Fluconazole 100 mg 11/10/22 09:00 11/10/22 08:28 Fluconazole 100 Mg Tablet PO 100 mg DAILY TAMIKO Administration Heparin Sodium (Porcine) 5,000 unit 11/09/22 21:15 11/10/22 08:28 Heparin 5,000 Unit/Ml Inj 1 Ml SUBCUT Not Given Q12H TAMIKO Sodium Chloride 1,000 mls @ 100 mls/hr 11/09/22 21:15 11/10/22 08:26 Sodium Chloride 0.9% IV 100 mls/hr .Q10H TAMIKO Administration Metoprolol Tartrate 25 mg 11/10/22 09:00 11/10/22 08:26 Metoprolol Tartrate 50 Mg Tablet PO 25 mg BID TAMIKO Administration Pantoprazole Sodium 40 mg 11/09/22 21:15 11/09/22 22:10 Pantoprazole 40 Mg Sdv IVP 40 mg Q24H TAMIKO Administration Prednisone 100 mg 11/10/22 09:00 11/10/22 08:27 Prednisone 20 Mg Tablet PO 11/15/22 08:59 100 mg DAILY TAMIKO Administration Tamsulosin HCl 0.4 mg 11/10/22 09:00 11/10/22 08:28 Tamsulosin 0.4 Mg Capsule PO Not Given BID TAMIKO Valacyclovir HCl 500 mg 11/10/22 09:00 11/10/22 08:27 Valacyclovir 1,000 Mg Tablet PO 500 mg BID TAMIKO Administration PFSH Anesthesia Medical History (Updated 11/09/22 @ 22:28 by Susan Gould MD) Acute kidney injury BPH loc w urin obs/LUTS Dermatofibroma Diffuse large B cell lymphoma Elevated PSA ETOH abuse HTN (hypertension) Hypercalcemia Urinary retention Surgical History History of hand surgery History of lymph node biopsy (09/30/22) Ultrasound directed core needle biopsy of left inguinal lymph node Family History Father , AT AGE 46 CAD (coronary artery disease) Brother CAD (coronary artery disease) Mother , AT AGE 95 CAD (coronary artery disease) Social History Smoking and tobacco status: never smoked Alcohol intake: former Substance/Drug Use: former Adopted: No Caregiver/support person: No Lives independently: Yes Marital status: Current occupational status: retired Current gender identity: Male Data Anesthesia 11/10/22 03:11 11/10/22 03:11 Short CBC 11/09/22 11/10/22 Range/Units 21:33 03:11 WBC 3.3 L 2.9 L (4.0-10.0) 10^3/uL Hgb 7.9 L 7.7 L (11.7-16.6) g/dL Hct 24.5 L 23.9 L (42.0-52.0) % MCV 100.8 H 101.3 H (80-94) fl Plt Count 104 L 102 L (130-400) 10^3/cmm Neut % (Auto) 92.2 92.0 % Neut # (Auto) 3.03 2.66 (1.8-7.7) 10^3/uL BMP 11/09/22 11/10/22 21:33 03:11 Sodium 134 L 136 Potassium 5.0 4.9 Chloride 98 101 Carbon Dioxide 20 L 22 BUN 36 H 37 H Creatinine 1.6 H 1.6 H Glucose 111 113 Calcium 12.9 H 12.8 H Liver Function 11/09/22 11/10/22 Range/Units 21:33 03:11 Total Bilirubin 0.4 0.3 (0.15-1.2) mg/dL AST 33 34 (0-40) U/L ALT 9 8 (0-41) U/L Alkaline Phosphatase 68 65 (40-130) U/L Albumin 2.8 L 2.8 L (3.5-5.2) g/dL Coags 11/09/22 21:33 PT 15.10 H INR 1.16 Cardiac Studies: Echocardiogram Limited Views 10/11/22
--- NOTE | 2022-11-10 14:13 | P.CONIM_ITS ---
Providers/Reason For Consult Consulting Physician/Specialty*: Ni Ho MD Reason for Consult*: Left intertrochanteric hip fracture, pathologic Requesting Physician: Dr. Anthony Fiore Attending Physician: Julian Taylor MD Primary Care Provider: Ricci Pleitez History of Present Illness History of Present Illness Los Barr is a 72 year old male male who presented to Dr. Fiore's office as an outpatient for his routine chemotherapy. This was to be his first cycle of chemotherapy. While at the office, the patient informed Dr. Fiore that he had been complaining of hip pain for quite an extended period of time. Prior to his initiation of chemotherapy, he had had a PET scan done as an outpatient, and this demonstrated extensive malignant lymphadenopathy in the neck, chest, abdomen, and pelvis as well as numerous skeletal metastasis. Of additional concern, there was a mass in the right acetabulum as well as uptake at the patient's left intertrochanteric area of the hip consistent with fracture. X-rays were obtained of the hip and pelvis which demonstrated an angulated minimally displaced left intertrochanteric hip fracture with early healing. The patient was admitted as a direct admit from Dr. Fiore's office, and he was seen and evaluated by the hospitalist team. Further medical history includes his history of diffuse large B-cell lymphoma, hypertension, hyperkalemia, urinary retention, acute kidney injury and the intertrochanteric hip fracture as outlined above with pain in accordance with this. Review of Systems Narrative: Review of systems is obtained and documented in history of present illness Musc: Reports: joint pain (Pain left hip and occasional right groin pain) Medications/Allergies Home Medications Medication Instructions Recorded Confirmed Last Taken Type ascorbic acid (vitamin C) 500 mg 500 mg PO DAILY 10/16/19 11/10/22 10/17/22 History tablet finasteride 5 mg tablet See Rx Instructions .Route 12/02/21 11/10/22 10/17/22 Rx .COMPLEX #30 tabs tamsulosin 0.4 mg capsule See Rx Instructions .Route 12/02/21 11/10/22 10/17/22 Rx .COMPLEX #60 caps prednisone 20 mg tablet 20 mg PO DAILY #30 tabs 10/07/22 11/10/22 10/17/22 Rx metoprolol tartrate 50 mg tablet 50 mg PO BID 10/17/22 11/10/22 10/18/22 History prochlorperazine maleate 10 mg 10 mg PO Q6H PRN nausea and 11/08/22 11/10/22 Unknown Rx tablet vomiting #30 tabs sulfamethoxazole 800 1 tab PO .COMPLEX #24 tabs 11/08/22 11/10/22 Unknown Rx mg-trimethoprim 160 mg tablet allopurinol 300 mg tablet 300 mg PO DAILY #30 tabs 11/09/22 11/10/22 Unknown Rx lorazepam 1 mg tablet 0.5 - 1 mg PO Q6H PRN Severe 11/09/22 11/10/22 Unknown Rx Nausea #30 tabs olanzapine 5 mg tablet 5 mg PO QPM Breakthrough Nausea 11/09/22 11/10/22 Unknown Rx and Vomitting #30 tabs ondansetron HCl 4 mg tablet 4 mg PO QID PRN Nausea/vomiting 11/09/22 11/10/22 Unknown Rx #30 tabs prednisone 50 mg tablet See Rx Instructions .Route 11/09/22 11/10/22 Unknown Rx .COMPLEX 21 days #10 tabs valacyclovir 500 mg tablet 500 mg PO BID #60 tabs 11/09/22 11/10/22 Unknown Rx cholecalciferol (vitamin D3) 25 25 mcg PO DAILY 11/10/22 11/10/22 Unknown Histor y mcg (1,000 unit) capsule (Vitamin D3) Allergies Allergy/AdvReac Type Severity Reaction Status Date / Time No Known Allergies Allergy Verified 11/08/22 08:32 Current Medications Generic Name Dose Route Start Last Admin Trade Name Freq PRN Reason Stop Dose Admin Allopurinol 300 mg 11/10/22 09:00 11/10/22 08:28 Allopurinol 300 Mg Tablet PO 300 mg DAILY [facility] Administration Docusate Sodium 100 mg 11/10/22 09:00 11/10/22 08:28 Docusate Sodium 100 Mg Capsule PO Not Given BID TAMIKO Finasteride 5 mg 11/10/22 09:00 11/10/22 08:28 Finasteride 5 Mg Tablet PO Not Given DAILY TAMIKO Fluconazole 100 mg 11/10/22 09:00 11/10/22 08:28 Fluconazole 100 Mg Tablet PO 100 mg DAILY TAMIKO Administration Heparin Sodium (Porcine) 5,000 unit 11/09/22 21:15 11/10/22 08:28 Heparin 5,000 Unit/Ml Inj 1 Ml SUBCUT Not Given Q12H TAMIKO Sodium Chloride 1,000 mls @ 100 mls/hr 11/09/22 21:15 11/10/22 08:26 Sodium Chloride 0.9% IV 100 mls/hr .Q10H TAMIKO Administration Metoprolol Tartrate 25 mg 11/10/22 09:00 11/10/22 08:26 Metoprolol Tartrate 50 Mg Tablet PO 25 mg BID TAMIKO Administration Pantoprazole Sodium 40 mg 11/09/22 21:15 11/09/22 22:10 Pantoprazole 40 Mg Sdv IVP 40 mg Q24H TAMIKO Administration Prednisone 100 mg 11/10/22 09:00 11/10/22 08:27 Prednisone 20 Mg Tablet PO 11/15/22 08:59 100 mg DAILY TAMIKO Administration Tamsulosin HCl 0.4 mg 11/10/22 09:00 11/10/22 08:28 Tamsulosin 0.4 Mg Capsule PO Not Given BID TAMIKO Valacyclovir HCl 500 mg 11/10/22 09:00 11/10/22 08:27 Valacyclovir 1,000 Mg Tablet PO 500 mg BID TAMIKO Administration PFSH Acute PFSH: Medical History (Updated 11/10/22 @ 14:48 by Ni Ho MD) Acute kidney injury BPH loc w urin obs/LUTS Dermatofibroma Diffuse large B cell lymphoma Elevated PSA ETOH abuse HTN (hypertension) Hypercalcemia Urinary retention Surgical History History of hand surgery History of lymph node biopsy (09/30/22) Ultrasound directed core needle biopsy of left inguinal lymph node Family History Father , AT AGE 46 CAD (coronary artery disease) Brother CAD (coronary artery disease) Mother , AT AGE 95 CAD (coronary artery disease) Social History Smoking and tobacco status: never smoked Alcohol intake: former Substance/Drug Use: former Adopted: No Caregiver/support person: No Lives independently: Yes Marital status: Current occupational status: retired Current gender identity: Male Vitals/I&O/Wt Last Vital Signs Temp 97.7 F 11/10/22 12:51 Pulse 77 11/10/22 12:51 Resp 18 11/10/22 12:51 BP 127/69 11/10/22 12:51 Pulse Ox 92 11/10/22 12:51 O2 Del Method Room Air 11/10/22 12:51 11/09/22 11/10/22 11/10/22 22:59 06:59 14:59 Intake Total 1000 / 1000 Output Total 800 / 800 700 / 1500 Balance -800 / -800 -700 / -1500 1000 / 1000 Weight last 48 hrs Weight 172 lb 12.8 oz Physical Exam Const: COMMON NORMALS: no acute distress, average body habitus, patient oriented x3 and alert GENERAL APPEARANCE: cooperative and comfortable ORIENTATION/CONSCIOUSNESS: Yes awake HENMT: COMMON NORMALS: normocephalic and atraumatic HEAD & SCALP: normocephalic and atraumatic Eye: GENERAL EYE: appearance normal, both eyes and all related structures Chest: COMMONS NORMALS: normal inspection of the chest Resp: COMMON NORMALS: normal respiratory effort EFFORT & INSPECTION: Yes able to speak in complete sentences and Yes symmetric chest movement Extremity: RIGHT LOWER EXTREMITY: Yes hip joint (Patient denies pain other than occasional groin pain) LEFT LOWER EXTREMITY: Yes hip joint (Pain with any range of motion.) Left hip: Yes ROM (Not evaluated secondary to fracture) Neuro: COMMON NORMALS: patient oriented x3 SENSORIUM/ORIENTATION: Yes alert Psych: COMMON NORMALS: mental status grossly normal APPEARANCE: Yes grossly normal ATTITUDE: Yes calm and Yes engaged ATTENTION/CONCENTRATION: Yes attention grossly intact Skin: COMMON NORMALS: no rashes or lesions noted GENERAL SKIN EXAM: no rashes or lesions noted Data 11/10/22 03:11 11/10/22 03:11 Xray Ortho: My impression: I have personally reviewed and interpreted the patient's imaging studies. There is a minimally displaced angulated intertrochanteric left hip fracture. This is also seen on PET scan. No further concerns are lesions throughout the right femur visualized on PET scan. For this reason, I ordered a right femur x-ray, and this is personally reviewed. There is no evidence of cortical expansion or cortical erosion on this study. I reviewed this with Dr. Raegan Dickey as well. AP pelvis was reviewed as well, and there is a lesion at the sacroiliac area on the right which is of concern, and this is concerning for subsequent fracture. I have advised the patient of this. A&P Assessment and plan (1) Closed intertrochanteric fracture of left hip: The patient presents with a closed left intertrochanteric hip fracture which is most likely pathologic secondary to metastatic lymphoma. The patient presented for his initial chemotherapy dose and prechemotherapy evaluation to Dr. Fiore's office. He complained of hip pain, and x-rays were taken demonstrating a minimally displaced, but angulated left intertrochanteric hip fracture. I was called by Dr. Fiore and asked to treat this patient for what is felt to be a pathologic fracture of the left hip. At that time, PET scan was reviewed as well, and there were multiple lesions in the right hip and a large area of concern is also present in the ileum. Risks and complications of the surgical procedure are explained to the patient. He is also advised, that if his fracture does not heal, he would require a revision style prosthetic replacement which would be a significant surgery and would require preoperative planning and optimization. Qualifiers: Encounter type: initial encounter Fracture alignment: displaced Qualified Code(s): S72.142A - Displaced intertrochanteric fracture of left femur, initial encounter for closed fracture (2) Right hip pain: Patient is advised his groin pain which is present in the right hip is possibly due to the lesion which is in the ileum. I have advised the patient to avoid significant stress of this area until he has been treated with chemotherapy with hopeful resolution of the mass in his right ilium. He is not complaining of any right femur pain in spite of the PET scan findings. There is nothing of signif icant concern at this time on the right femur imaging. The patient is advised, however, if he develops pain in the right femur, he should be seen sooner rather than later for further evaluation. (3) Diffuse large B-cell lymphoma of lymph nodes of multiple regions: Coding Level of Care Code 87669 Diagnoses Closed intertrochanteric fracture of left hip S72.142A Encounter type: initial encounter Fracture alignment: displaced Right hip pain M25.551 Diffuse large B-cell lymphoma of lymph nodes of multiple regions C83.38
--- NOTE | 2022-11-10 16:11 | P.PN_ITS ---
Subjective Subjective: patient was seen this morning, he tells me his pain is more controlled, he has no one at home to help him, he has been ambulating on his fracture Vitals/I&O/Wt Last Vital Signs Temp 97.7 F 11/10/22 12:51 Pulse 77 11/10/22 12:51 Resp 18 11/10/22 12:51 BP 127/69 11/10/22 12:51 Pulse Ox 92 11/10/22 12:51 O2 Del Method Room Air 11/10/22 12:51 11/10/22 11/10/22 11/10/22 06:59 14:59 22:59 Intake Total 1000 / 1000 Output Total 700 / 1500 Balance -700 / -1500 1000 / 1000 Weight last 48 hrs Weight 78.381 kg Physical Exam Const: COMMON NORMALS: no acute distress and patient oriented x3 Resp: COMMON NORMALS: normal respiratory effort, No retractions, No use of accessory muscles and clear to auscultation bilaterally AUSCULTATION: clear to auscultation bilaterally Cardio: COMMON NORMALS: regular rate, regular rhythm, S1 normal heart sound present and S2 normal heart sound present RATE: regular rate RHYTHM: regular rhythm HEART SOUNDS: S1 normal heart sound present and S2 normal heart sound present GI: COMMON NORMALS: Normal to inspection, nondistended, normoactive bowel sounds present and non-tender Extremity: COMMON NORMALS: no pedal edema Neuro: COMMON NORMALS: patient oriented x3 Psych: COMMON NORMALS: mental status grossly normal Data 11/10/22 03:11 11/10/22 03:11 A&P Assessment and plan (1) Protein calorie malnutrition: (2) Muscular deconditioning: (3) Lymphadenopathy: (4) Hypercalcemia: (5) Diffuse lymphadenopathy: (6) Mediastinal lymphadenopathy: (7) Diffuse large B-cell lymphoma of lymph nodes of multiple regions: (8) Port-A-Cath in place: (9) Left hip pain: (10) Hypercalcemia of malignancy: (11) Hypothyroid: (12) Hip fracture: Plan #Left hip fracture #Diffuse large B-cell lymphoma, 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 Orthopedic surgery consulted. Imaging studies have been ordered. Patient remain n.p.o. after midnight for potential intervention in a.m. ? As per oncology continue patient on valacyclovir 500 twice daily, TMP-SMX Monday, ? Prednisone 100 daily for 5 days each cycle of chemotherapy. First dose today for total of 5 days ? Patient had chemo cycle #1 today. ? Lorazepam 0.5 every 6 hours as needed for severe nausea ? Compazine 10 mg every 6 hours for nausea ? Allopurinol 300 daily for prevention of tumor lysis syndrome ? Place patient on reverse isolation ? I will start on ciprofloxacin 500 twice daily at this time for empiric coverage ? consult dietary ? Repeat labs in a.m ? PT OT as per orthopedic surgery instructions. Patient may need to go to halfway temporarily after fracture repair. ? Continue Givens catheter ? Placed on normal saline 100 cc/h -npo for surgical procedure, spoke to orthopedics, spoke to patient, spoek to nursing staff, spoke to case managment Full code SCDs Heparin SQ twice daily for DVT prophylaxis Attestations Medical Necessity Statement*: patient requires hospitalization for hip fracture, intractable pain, protein calorie malnutrition, deconditoning, on chemotherapy Coding Level of Care Code Acute Code for Chg Fwd Diagnoses Protein calorie malnutrition E46 Muscular deconditioning R29.898 Lymphadenopathy R59.1 Hypercalcemia E83.52 Diffuse lymphadenopathy R59.1 Mediastinal lymphadenopathy R59.0 Diffuse large B-cell lymphoma of lymph nodes of multiple regions C83.38 Port-A-Cath in place Z95.828 Left hip pain M25.552 Hypercalcemia of malignancy E83.52 Hypothyroid E03.9 Hip fracture S72.009A
[2022-11-10] MEDS: ceFAZolin 2,000 MG in sodium chloride 0.9% (plus) 50 ML 100 MG IV (16:28)
[2022-11-10] MEDS: ceFAZolin 1,000 mg SDV 1000 MG IRRIGATION (17:42)
[2022-11-10 17:45] LABS: Hematocrit 23.3 % (42.0-52.0); Hemoglobin 7.6 g/dL (11.7-16.6)
--- NOTE | 2022-11-10 19:20 | ANE.PACU2 ---
Inpatient post-anesthesia follow up: Airway intact: Yes Vital signs: Temperature 97.7 F Pulse Rate 68 Respiratory Rate 17 Blood Pressure 117/70 Pulse Oximetry 97 Oxygen Delivery Me thod Room Air Oxygen Flow Rate 6 Fraction of Inspir ed Oxygen Hydration adequate: Yes Nausea and vomiting: No Pain level: 3 Mental status: Baseline
--- NOTE | 2022-11-10 19:30 | P.OP_ITS ---
Operative Report Date of procedure: November 10, 2022 Pre-op diagnosis: Left intertrochanteric hip fracture, pathologic Post-op diagnosis: Left intertrochanteric hip fracture, pathologic Post-op findings: Significant soft tissue swelling diffusely in the soft tissues Procedure done: Open reduction internal fixation left intertrochanteric pathologic fracture using a long trochanteric nail as a prophylactic intramedullary nailing for the left femur Implants: Thu gamma 3 nail system with a size 11 mm x 420 mm x 125 degree gamma 3 long nail left with a 10.5 mm x 110 mm lag screw. Distal screw was not placed. Specimens removed/disposition: Reamings from femoral neck and shaft sent to pathology Pathology: none sent (Bone reamings as noted) Surgeon: Ni Ho Boilermaker Pipe Fitter: None Anesthesia: General (Per LMA, ASA 3) Estimated blood loss (mL): 150 IV fluids (mL): 950 Urine output (mL): 350 Complications: None Findings: Minimally displaced and angulated subacute left pathologic intertrochanteric hip fracture Condition: stable Disposition: PACU (Then return to floor for postoperative rehabilitation and pain management) Brief History: Los Barr is a 72 year old male male who presented to Dr. Fiore's office as an outpatient for his routine chemotherapy.? This was to be his first cycle of chemotherapy.? While at the office, the patient informed Dr. Fiore that he had been complaining of hip pain for quite an extended period of time.? Prior to his initiation of chemotherapy, he had had a PET scan done as an outpatient, and this demonstrated extensive malignant lymphadenopathy in the neck, chest, abdomen, and pelvis as well as numerous skeletal metastasis.? Of additional concern, there was a mass in the right acetabulum as well as uptake at the patient's left intertrochanteric area of the hip consistent with frac ture.? X-rays were obtained of the hip and pelvis which demonstrated an angulated minimally displaced left intertrochanteric hip fracture with early healing.? The patient was admitted as a direct admit from Dr. Fiore's office, and he was seen and evaluated by the hospitalist team. Further medical history includes his history of diffuse large B-cell lymphoma, hypertension, hyperkalemia, urinary retention, acute kidney injury and the intertrochanteric hip fracture as outlined above with pain in accordance with this. In the preoperative holding area, the patient signed consents. Questions were answered for both her and her significant other. They are in agreement with the surgery. They will likely be returning to their home area for postoperative care near [place]. Procedure: Patient is brought to the operating theater. After undergoing adequate general anesthesia with LMA, the patient was transferred to the fracture table, positio duane on the table and fluoroscopic guidance obtained throughout the surgical procedure. Prior to the commencement of the surgical procedure, a surgical pause was performed. At the time of the surgical pause, we confirmed the site and side of surgery as well as preoperative surgical markings and appropriate and timely administration of IV antibiotics, Ancef 2 g. Availability of equipment was also confirmed. Fluoroscopy was used to confirm the fracture was appropriately reduced in both AP and lateral planes. An incision was then made slightly above the greater trochanter to allow access to the greater trochanter. An awl was used to enter the greater trochanter and a guidewire was subsequently placed. Once the guidewire was confirmed to be in appropriate position in AP and lateral planes, reaming was accomplished over this to allow for the proximal diameter of the nail. Reamings were collected at that time and sent to pathology. Following the proximal opening reamer, a guidewire was passed into the distal femur. Reaming of the canal was accomplished to a size 12-1/2 to accommodate the size 11 mm diameter long trochanteric nail. The long trochanteric nail was chosen as the patient's diagnosis of metastatic disease would put the patient at risk of further lesions below a short trochanteric nail. The guidewire was removed following reaming to a size 12.5. At that time, and 11 mm x 420 mm x 125 degree long left gamma 3 trochanteric nail was passed into the femur. It passed without difficulty, but it was difficult to seat it completely enough to be in appropriate position. Following placement of the nail positioning was confirmed with fluoroscopic evaluation. Being satisfied with position, the guidewire was passed through the drinking system into the femoral head. Once the guidewire was in appropriate position, it was measured and we chose a 110 mm lag screw. Once this had been measured a reamer was passed over the guidewire into the femoral head. Reamings were taken from this and sent to pathology as well for evaluation. The 10.5 mm x 110 mm lag screw was then placed into the femoral head uneventfully. This was passed uneventfully and again position was confirmed in AP and lateral planes. The set screw was then placed in position, tightened completely, and subsequently backed off one- quarter turn. The construct was left in position and attention was directed to closure. The jig was removed from the proximal aspect of the nail. Radiographic images were obtained with images AP and lateral in both the proximal nail and distal nail. Decision was made not to place a distal screw as the fracture was not of a configuration to be unstable. The hip was copiously irrigated with normal saline with antibiotics. Following this it was dried and closed. Tensor fascia jagdish was closed proximally with 0 Vicryl in an interrupted fashion. Subcutaneous tissues were closed with 2-0 Monocryl, and the skin was closed with a continuous 3-0 Monocryl subcuticular stitch. This was then covered with Dermabond, Steri-Strips, and OpSite. As the patient had very edematous tissues, a pressure dressing was placed over top of this utilizing Medipore and an ABD. The patient was removed from the fracture table and returned to recovery in satisfactory condition. The patient will be discharged to the floor for postoperative rehabilitation and pain management. There were no specimens obtained. Related Problem List Diagnoses (1) Closed intertrochanteric fracture of left hip: (2) Diffuse large B-cell lymphoma of lymph nodes of multiple regions:
[2022-11-10] MEDS: acetaminophen 500 mg Tablet 1000 MG PO (20:28)
[2022-11-10] MEDS: heparin 5,000 unit/mL INJ 1 mL 5000 UNIT SUBCUT (20:28)
[2022-11-10] MEDS: pantoprazole 40 mg SDV IVP (20:44)
[2022-11-11] VITALS (9 sets, daily range): BP systolic 116–147; BP diastolic 64–88; PULSE 68–101; RESP 14–18; TEMP 35.7–36.6; O2SAT 92–95
[2022-11-11] MEDS: ceFAZolin 2,000 MG in sodium chloride 0.9% (plus) 50 ML 100 MG IV ×3 (00:54→16:02)
[2022-11-11] MEDS: sodium chloride 0.9% 1,000 ML 100 ML IV ×2 (02:14→14:55)
[2022-11-11] MEDS: acetaminophen 500 mg Tablet 1000 MG PO ×3 (04:32→21:54)
[2022-11-11] MEDS: oxyCODONE 5 mg IR Tab/Cap PO (06:24)
[2022-11-11 07:21] LABS: Hemoglobin 7.2 g/dL (11.7-16.6); Lymphocytes # 0.1 10^3/uL (0.8-4.8); Lymphocytes % 2.6 %; Mean Corpuscular HGB Conc 32.7 g/dL (30.0-36.0); Mean Corpuscular Hemoglobin 33.8 pg (28.0-34.0); Mean Corpuscular Volume 103.3 fl (80-94); Mean Platelet Volume 10.2 fL (7.4-10.4); Monocytes # 0.1 10^3/uL (0.2-0.9); Monocytes % 2.6 %; Neutrophils # 2.18 10^3/uL (1.8-7.7); Neutrophils % 93.9 %; Nucleated Red Blood Cells % 0 %; Platelet Count 100 10^3/cmm (130-400); Red Blood Count 2.13 10^6/uL (4.1-5.3); Red Cell Distribution Width 15.9 % (12.1-15.1); White Blood Count 2.3 10^3/uL (4.0-10.0)
[2022-11-11 07:43] LABS: Alanine Aminotransferase 9 U/L (0-41); Albumin Level 2.7 g/dL (3.5-5.2); Alkaline Phosphatase 61 U/L (40-130); Anion Gap 17.5 (5-19); Aspartate Amino Transferase 31 U/L (0-40); Blood Urea Nitrogen 51 mg/dL (8-23); Calcium 10.8 mg/dL (8.5-10.5); Carbon Dioxide 21 mmol/L (22-29); Chloride 103 mmol/L (98-107); Globulin 1.1 g/dL (1.3-4.6); Glomerular Filtration Rate 46.3 mL/min (90-130); Glucose 126 mg/dL (65-115); Osmolality Calculated 299 mOsm/kg (285-295); Phosphorus 4.9 mg/dL (2.5-4.5); Potassium 4.5 mmol/L (3.5-5.1); Sodium 137 mmol/L (136-145); Total Bilirubin 0.2 mg/dL (0.15-1.2); Total Protein 3.8 g/dL (6.6-8.7)
[2022-11-11] MEDS: finasteride 5 mg Tablet PO (08:58)
[2022-11-11] MEDS: docusate sodium 100 mg Capsule PO ×3 (08:58→16:05)
[2022-11-11] MEDS: allopurinol 300 mg Tablet PO (08:58)
[2022-11-11] MEDS: metoprolol tartrate 50 mg Tablet 25 MG PO ×2 (08:58→16:05)
[2022-11-11] MEDS: multivitamin therapeutic Tablet 1 TAB PO (08:58)
[2022-11-11] MEDS: fluconazole 100 mg Tablet PO (08:58)
[2022-11-11] MEDS: heparin 5,000 unit/mL INJ 1 mL 5000 UNIT SUBCUT ×2 (08:59→21:54)
[2022-11-11] MEDS: aspirin 325 mg EC Tablet PO (08:59)
[2022-11-11] MEDS: predniSONE 20 mg Tablet 100 MG PO (08:59)
[2022-11-11] MEDS: tamsulosin 0.4 mg Capsule PO ×2 (08:59→16:05)
[2022-11-11] MEDS: valACYclovir 1,000 mg Tablet 500 MG PO ×2 (08:59→18:24)
--- NOTE | 2022-11-11 11:37 | PM.PN ---
Subjective Subjective: Patient was seen this morning, he sitting up in a chair, he is complaining of the amount of sugar that is present in male, he tells me he want to have chocolate milk, no nausea, no vomiting, no fevers, no chills, did discuss with him developing neutropenia, he tells me he has not had fevers, no nausea, vomiting, spoke to oncology, he received Neulasta yesterday, will have to monitor for fevers, he is on Bactrim, on valacyclovir, he is receiving cefazolin here, he is on Diflucan, will monitor Vitals/I&O/Wt Last Vital Signs Temp 97.4 F L 11/11/22 08:00 Pulse 101 H 11/11/22 08:00 Resp 16 11/11/22 08:00 BP 147/88 11/11/22 08:00 Pulse Ox 94 11/11/22 08:00 O2 Del Method Room Air 11/11/22 08:00 O2 Flow Rate 2 11/10/22 21:01 11/10/22 11/11/22 11/11/22 22:59 06:59 14:59 Intake Total 1100 / 2100 50 / 2150 50 / 50 Output Total 850 / 850 500 / 1350 275 / 275 Balance 250 / 1250 -450 / 800 -225 / -225 Weight last 48 hrs Weight 78.381 kg Physical Exam Const: COMMON NORMALS: no acute distress and patient oriented x3 Resp: COMMON NORMALS: normal respiratory effort, No retractions, No use of accessory muscles and clear to auscultation bilaterally AUSCULTATION: clear to auscultation bilaterally Cardio: COMMON NORMALS: regular rate, regular rhythm, S1 normal heart sound present and S2 normal heart sound present RATE: regular rate RHYTHM: regular rhythm HEART SOUNDS: S1 normal heart sound present and S2 normal heart sound present GI: COMMON NORMALS: Normal to inspection, nondistended, normoactive bowel sounds present and non-tender Extremity: COMMON NORMALS: no pedal edema Neuro: COMMON NORMALS: patient oriented x3 Psych: COMMON NORMALS: mental status grossly normal Data 11/11/22 05:50 11/11/22 05:50 A&P Assessment and plan (1) Protein calorie malnutrition: (2) Muscular deconditioning: (3) Lymphadenopathy: (4) Hypercalcemia: (5) Diffuse lymphadenopathy: (6) Mediastinal lymphadenopathy: (7) Diffuse large B-cell lymphoma of lymph nodes of multiple regions: (8) Port-A-Cath in place: (9) Left hip pain: (10) Hypercalcemia of malignancy: (11) Hypothyroid: (12) Hip fracture: (13) Antineoplastic chemotherapy induced pancytopenia: (14) Neutropenia: Plan #Left hip fracture #Diffuse large B-cell lymphoma, 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 Orthopedic surgery consulted. Imaging studies have been ordered. Status post surgical intervention ? As per oncology continue patient on valacyclovir 500 twice daily, TMP-SMX Monday, which I will swab and switch him to Cipro starting tomorrow ? Prednisone 100 daily for 5 days each cycle of chemotherapy. First dose today for total of 5 days ? Patient had chemo cycle #1 today. ? Lorazepam 0.5 every 6 hours as needed for severe nausea ? Compazine 10 mg every 6 hours for nausea ? Allopurinol 300 daily for prevention of tumor lysis syndrome ? Place patient on reverse isolation ? I will start on ciprofloxacin 500 twice daily at this time for empiric coverage ? consult dietary for protein calorie malnutrition ? Repeat labs in a.m ? PT OT ? Continue Givens catheter ? Placed on normal saline 75 cc an hour -Chemotherapy-induced pancytopenia -For anemia, will give 1 unit of leukoreduced irradiated red blood cells -Is developing neutropenia, especially since his hip surgery we will need to monitor closely, monitor neutrophil count he is on valacyclovir, Bactrim, Diflucan, and also received cefazolin Full code SCDs Heparin SQ twice daily for DVT prophylaxis Attestations Medical Necessity Statement*: Patient requires hospitalization for hip fracture status post surgical invention, now developing chemotherapy-induced pancytopenia, requires inpatient monitoring, required blood, monitor for neutrophil count, monitor for infections, spoke to orthopedic service, spoke this patient, spoke to nursing staff Diagnoses Protein calorie malnutrition E46 Muscular deconditioning R29.898 Lymphadenopathy R59.1 Hypercalcemia E83.52 Diffuse lymphadenopathy R59.1 Mediastinal lymphadenopathy R59.0 Diffuse large B-cell lymphoma of lymph nodes of multiple regions C83.38 Port-A-Cath in place Z95.828 Left hip pain M25.552 Hypercalcemia of malignancy E83.52 Hypothyroid E03.9 Hip fracture S72.009A Antineoplastic chemotherapy induced pancytopenia D61.810; T45.1X5A Neutropenia D70.9
--- NOTE | 2022-11-11 13:33 | PC.NURSE ---
1530 - PT STABLE. BLOOD TRANSFUSING AT 150ML/HR. PT REFUSES VS FOR BLOOD TRANSFUSION PER PROTOCOL. EDUCATED ON IMPORTANCE OF VS MONITORING. NO S/SX OF ADVERSE REACTIONS.
[2022-11-11] MEDS: sulfamethoxazole-trimeth DS 160-800 mg Tablet 1 TAB PO (16:05)
--- NOTE | 2022-11-11 17:11 | P.PN_ITS ---
Subjective Subjective: Patient underwent ORIF of his left intertrochanteric hip fracture with a long gamma nail. He is doing well today and states that his hip actually feels better than it did before we did the surgery. He has had a neutropenic response to his chemotherapy, and has been maintained in the hospital. He did require a blood transfusion as well. He is anticipating discharge and feels comfortable orthopedically. Medications: Reviewed: Yes Vitals/I&O/Wt Last Vital Signs Temp 97.6 F 11/11/22 16:00 Pulse 79 11/11/22 16:00 Resp 14 11/11/22 16:00 BP 125/73 11/11/22 16:00 Pulse Ox 93 11/11/22 16:00 O2 Del Method Room Air 11/11/22 16:00 O2 Flow Rate 2 11/10/22 21:01 11/11/22 11/11/22 11/11/22 06:59 14:59 22:59 Intake Total 50 / 2150 1300 / 1300 50 / 1350 Output Total 500 / 1350 275 / 275 Balance -450 / 800 1025 / 1025 50 / 1075 Weight last 48 hrs Weight 172 lb 12.8 oz Physical Exam Const: COMMON NORMALS: no acute distress, average body habitus, patient oriented x3 and alert GENERAL APPEARANCE: cooperative and comfortable ORIENTATION/CONSCIOUSNESS: Yes awake HENMT: COMMON NORMALS: normocephalic and atraumatic HEAD & SCALP: normocephalic and atraumatic Eye: GENERAL EYE: appearance normal, both eyes and all related structures Chest: COMMONS NORMALS: normal inspection of the chest Resp: COMMON NORMALS: normal respiratory effort EFFORT & INSPECTION: Yes able to speak in complete sentences and Yes symmetric chest movement Extremity: LEFT LOWER EXTREMITY: Yes hip joint (Dressing is dry and intact. No drainage.) Left hip: Yes inspection (Patient has diffuse swelling throughout both lower extremity.), Yes palpation (No tenderness to palpation), Yes ROM (Not evaluated) and Yes neurovascular exam (Intact distally with no evidence of DVT) Neuro: COMMON NORMALS: patient oriented x3 SENSORIUM/ORIENTATION: Yes alert Psych: COMMON NORMALS: mental status grossly normal APPEARANCE: Yes grossly normal ATTITUDE: Yes calm and Yes engaged ATTENTION/CONCENTRATION: Yes attention grossly intact Skin: COMMON NORMALS: no rashes or lesions noted GENERAL SKIN EXAM: no rashes or lesions noted Data 11/11/22 05:50 11/11/22 05:50 A&P Assessment and plan (1) Closed intertrochanteric fracture of left hip: Patient underwent open reduction internal fixation last evening. This was well-tolerated. Although the fracture was proximal femur, I placed a long gamma nail given the patient's history of metastatic disease. In this way, repair of the hip fracture also prophylactically addressed any risk of femur fracture on the left. Patient has been working with physical therapy and feels that he would like to go home and feels that he was able to perform his activities of daily living appropriately with the physical therapist. I have advised the patient that he may be weightbearing as tolerated. He may be discharged from my standpoint when medically appropriate. Home health would be beneficial in helping him to ambulate. I also advised the patient that I am out of town this weekend, and he will be cared for by the hospitalist team. Qualifiers: Encounter type: initial encounter Fracture alignment: displaced Qualified Code(s): S72.142A - Displaced intertrochanteric fracture of left femur, initial encounter for closed fracture (2) Self-catheterizes urinary bladder: Givens catheter has been maintained as the patient self catheterizes at home, and the supplies are not available for him to do self catheterizations while in hospital. (3) Neutropenia: (4) Antineoplastic chemotherapy induced pancytopenia: Attestations Medical Necessity Statement*: Ongoing care both for intertrochanteric hip fracture and neutropenia. Coding Level of Care Code Acute Code for [facility] Fwd Diagnoses Closed intertrochanteric fracture of left hip S72.142A Encounter type: initial encounter Fracture alignment: displaced Self-catheterizes urinary bladder Z78.9 Neutropenia D70.9 Antineoplastic chemotherapy induced pancytopenia D61.810; T45.1X5A
[2022-11-11 18:26] LABS: Hematocrit 23.7 % (42.0-52.0)
[2022-11-11] MEDS: pantoprazole 40 mg SDV IVP (21:30)
[2022-11-12] VITALS: BP 122/67; PULSE 73; RESP 18; TEMP 36.4; O2SAT 93
[2022-11-12 03:36] VITALS: BP 137/67; PULSE 74; RESP 16; TEMP 36.8; O2SAT 90
[2022-11-12] MEDS: sodium chloride 0.9% 1,000 ML 50 ML IV (04:09)
[2022-11-12] MEDS: acetaminophen 500 mg Tablet 1000 MG PO ×3 (04:10→22:11)
[2022-11-12 06:17] LABS: Hematocrit 23.2 % (42.0-52.0); Hemoglobin 7.4 g/dL (11.7-16.6); Lymphocytes % 1.7 %; Mean Corpuscular HGB Conc 31.9 g/dL (30.0-36.0); Mean Corpuscular Hemoglobin 31.8 pg (28.0-34.0); Mean Corpuscular Volume 99.6 fl (80-94); Mean Platelet Volume 10.2 fL (7.4-10.4); Monocytes % 1.7 %; Neutrophils # 1.73 10^3/uL (1.8-7.7); Neutrophils % 95.5 %; Nucleated Red Blood Cells % 0 %; Platelet Count 93 10^3/cmm (130-400); Red Blood Count 2.33 10^6/uL (4.1-5.3); Red Cell Distribution Width 16.4 % (12.1-15.1); White Blood Count 1.8 10^3/uL (4.0-10.0)
[2022-11-12 06:45] LABS: Alanine Aminotransferase 7 U/L (0-41); Albumin Level 2.4 g/dL (3.5-5.2); Alkaline Phosphatase 71 U/L (40-130); Anion Gap 14.5 (5-19); Aspartate Amino Transferase 24 U/L (0-40); Blood Urea Nitrogen 54 mg/dL (8-23); Carbon Dioxide 22 mmol/L (22-29); Chloride 105 mmol/L (98-107); Globulin 1.1 g/dL (1.3-4.6); Glomerular Filtration Rate 42.9 mL/min (90-130); Glucose 144 mg/dL (65-115); Magnesium 1.8 mg/dL (1.7-2.3); Osmolality Calculated 301 mOsm/kg (285-295); Phosphorus 4.9 mg/dL (2.5-4.5); Potassium 4.5 mmol/L (3.5-5.1); Sodium 137 mmol/L (136-145); Total Bilirubin 0.2 mg/dL (0.15-1.2); Total Protein 3.5 g/dL (6.6-8.7); Uric Acid 4.8 mg/dL (3.4-7.0)
[2022-11-12 08:00] VITALS: BP 134/71; PULSE 67; RESP 18; TEMP 36.4; O2SAT 90
[2022-11-12] MEDS: predniSONE 20 mg Tablet 100 MG PO (09:08)
[2022-11-12] MEDS: heparin 5,000 unit/mL INJ 1 mL 5000 UNIT SUBCUT ×2 (09:08→22:11)
[2022-11-12] MEDS: fluconazole 100 mg Tablet PO (09:09)
[2022-11-12] MEDS: valACYclovir 1,000 mg Tablet 500 MG PO ×2 (09:09→17:39)
[2022-11-12] MEDS: allopurinol 300 mg Tablet PO (09:09)
[2022-11-12] MEDS: multivitamin therapeutic Tablet 1 TAB PO (09:09)
[2022-11-12] MEDS: metoprolol tartrate 50 mg Tablet 25 MG PO ×2 (09:09→17:40)
[2022-11-12] MEDS: finasteride 5 mg Tablet PO (09:09)
[2022-11-12] MEDS: tamsulosin 0.4 mg Capsule PO ×2 (09:09→17:40)
[2022-11-12] MEDS: docusate sodium 100 mg Capsule PO ×2 (09:09→17:40)
[2022-11-12] MEDS: aspirin 325 mg EC Tablet PO (09:09)
[2022-11-12 12:00] VITALS: BP 144/77; PULSE 67; RESP 20; TEMP 36.2; O2SAT 97
--- NOTE | 2022-11-12 12:43 | PC.SOCIAL ---
IMM update IMM updated with patient. Verbalized an understanding. Copy Pg 2 provided. Initialled, dated, timed, and placed in chart.
--- NOTE | 2022-11-12 13:05 | P.PN_ITS ---
Subjective Subjective: This morning patient was seen, he feels quite fatigued and tired, no fevers, no chills, a bit hesitant about going home given his persistent anemia Vitals/I&O/Wt Last Vital Signs Temp 97.5 F L 11/12/22 08:00 Pulse 67 11/12/22 08:00 Resp 18 11/12/22 08:00 BP 134/71 11/12/22 08:00 Pulse Ox 90 11/12/22 08:00 O2 Del Method Room Air 11/12/22 08:00 O2 Flow Rate 2 11/10/22 21:01 11/11/22 11/12/22 11/12/22 22:59 06:59 14:59 Intake Total 50 / 1350 1120 / 2470 600 / 600 Output Total 450 / 725 1600 / 1600 Balance -400 / 625 1120 / 1745 -1000 / -1000 Physical Exam Const: COMMON NORMALS: no acute distress and patient oriented x3 Resp: COMMON NORMALS: normal respiratory effort, No retractions, No use of accessory muscles and clear to auscultation bilaterally AUSCULTATION: clear to auscultation bilaterally Cardio: COMMON NORMALS: regular rate, regular rhythm, S1 normal heart sound present and S2 normal heart sound present RATE: regular rate RHYTHM: regular rhythm HEART SOUNDS: S1 normal heart sound present and S2 normal heart sound present GI: COMMON NORMALS: Normal to inspection, nondistended, normoactive bowel sounds present Extremity: COMMON NORMALS: no pedal edema Neuro: COMMON NORMALS: patient oriented x3 Psych: COMMON NORMALS: mental status grossly normal Data 11/12/22 05:27 11/12/22 05:27 A&P Assessment and plan (1) Protein calorie malnutrition: (2) Muscular deconditioning: (3) Lymphadenopathy: (4) Hypercalcemia: (5) Diffuse lymphadenopathy: (6) Mediastinal lymphadenopathy: (7) Diffuse large B-cell lymphoma of lymph nodes of multiple regions: (8) Port-A-Cath in place: (9) Left hip pain: (10) Hypercalcemia of malignancy: (11) Hypothyroid: (12) Hip fracture: (13) Antineoplastic chemotherapy induced pancytopenia: (14) Neutropenia: Plan #Left hip fracture #Diffuse large B-cell lymphoma, 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 Orthopedic surgery consulted. Imaging studies have been ordered. Status post surgical intervention -Chemotherapy-induced pancytopenia -Anemia status post 1 unit PRBC hemoglobin 7.4 monitor -Neutropenia, monitor for risk of infections, currently on neutropenic precautions ? As per oncology continue patient on valacyclovir 500 twice daily, TMP-SMX Monday, which I will swab and switch him to Cipro starting tomorrow ? Prednisone 100 daily for 5 days each cycle of chemotherapy. First dose today for total of 5 days ? Patient had chemo cycle #1 today. ? Lorazepam 0.5 every 6 hours as needed for severe nausea ? Compazine 10 mg every 6 hours for nausea ? Allopurinol 300 daily for prevention of tumor lysis syndrome ? Place patient on reverse isolation ? Start ciprofloxacin 500 twice daily at this time for empiric coverage ? consult dietary for protein calorie malnutrition ? Repeat labs in a.m ? PT OT ? DC Givens catheter Stop fluids -Is developing neutropenia, especially since his hip surgery we will need to monitor closely, monitor neutrophil count he is on valacyclovir, ciprofloxacin, Diflucan, and also received cefazolin Full code SCDs Heparin SQ twice daily for DVT prophylaxis Plan for today, switch to ciprofloxacin, monitor hemoglobin, up out of bed, p hysical therapy, stop fluids, remove Givens catheter Attestations Medical Necessity Statement*: Patient requires hospital patient is status post hip surgery, now developing chemotherapy-induced neutropenia, anemia requiring transfusion, neutropenic precautions Diagnoses Protein calorie malnutrition E46 Muscular deconditioning R29.898 Lymphadenopathy R59.1 Hypercalcemia E83.52 Diffuse lymphadenopathy R59.1 Mediastinal lymphadenopathy R59.0 Diffuse large B-cell lymphoma of lymph nodes of multiple regions C83.38 Port-A-Cath in place Z95.828 Left hip pain M25.552 Hypercalcemia of malignancy E83.52 Hypothyroid E03.9 Hip fracture S72.009A Antineoplastic chemotherapy induced pancytopenia D61.810; T45.1X5A Neutropenia D70.9
[2022-11-12 16:00] VITALS: BP 131/73; PULSE 73; RESP 19; TEMP 36.4; O2SAT 91
--- NOTE | 2022-11-12 16:03 | PC.NURSE ---
Patient flushing toilet in bathroom and de-accessed port. Site cleaned with alcohol. Maintenance fluids started in right FA IV.
--- NOTE | 2022-11-12 18:55 | PC.NURSE ---
Pt refuses to remove urinary catheter d/t urinary retention. Pt reports he self-caths at home. Notified Dr. Taylor.
[2022-11-12 20:00] VITALS: BP 137/71; PULSE 75; RESP 17; TEMP 36.6; O2SAT 97
[2022-11-12] MEDS: ciprofloxacin 500 mg Tablet PO (22:10)
[2022-11-12] MEDS: pantoprazole 40 mg SDV IVP (22:58)
[2022-11-13] VITALS (7 sets, daily range): BP systolic 125–146; BP diastolic 70–79; PULSE 75–82; RESP 17–18; TEMP 36.4–36.6; O2SAT 92–98
[2022-11-13] MEDS: acetaminophen 500 mg Tablet 1000 MG PO ×3 (04:07→21:33)
[2022-11-13 06:00] LABS: Hemoglobin 7.4 g/dL (11.7-16.6); Lymphocytes % 1.3 %; Mean Corpuscular HGB Conc 32.2 g/dL (30.0-36.0); Mean Corpuscular Hemoglobin 31.8 pg (28.0-34.0); Mean Corpuscular Volume 98.7 fl (80-94); Mean Platelet Volume 9.9 fL (7.4-10.4); Monocytes % 0.7 %; Neutrophils # 1.45 10^3/uL (1.8-7.7); Neutrophils % 96.7 %; Nucleated Red Blood Cells % 0 %; Platelet Count 100 10^3/cmm (130-400); Red Blood Count 2.33 10^6/uL (4.1-5.3); Red Cell Distribution Width 15.9 % (12.1-15.1); White Blood Count 1.5 10^3/uL (4.0-10.0)
[2022-11-13 06:14] LABS: Alanine Aminotransferase 27 U/L (0-41); Albumin Level 2.4 g/dL (3.5-5.2); Alkaline Phosphatase 109 U/L (40-130); Anion Gap 13.4 (5-19); Aspartate Amino Transferase 45 U/L (0-40); Blood Urea Nitrogen 67 mg/dL (8-23); Carbon Dioxide 21 mmol/L (22-29); Chloride 108 mmol/L (98-107); Globulin 1.1 g/dL (1.3-4.6); Glomerular Filtration Rate 35.2 mL/min (90-130); Glucose 143 mg/dL (65-115); Osmolality Calculated 308 mOsm/kg (285-295); Potassium 4.4 mmol/L (3.5-5.1); Sodium 138 mmol/L (136-145); Total Bilirubin 0.2 mg/dL (0.15-1.2); Total Protein 3.5 g/dL (6.6-8.7); Uric Acid 5.3 mg/dL (3.4-7.0)
[2022-11-13] MEDS: aspirin 325 mg EC Tablet PO (09:12)
[2022-11-13] MEDS: fluconazole 100 mg Tablet PO (09:12)
[2022-11-13] MEDS: docusate sodium 100 mg Capsule PO (09:12)
[2022-11-13] MEDS: allopurinol 300 mg Tablet PO (09:12)
[2022-11-13] MEDS: metoprolol tartrate 50 mg Tablet 25 MG PO ×2 (09:12→17:42)
[2022-11-13] MEDS: predniSONE 20 mg Tablet 100 MG PO (09:12)
[2022-11-13] MEDS: tamsulosin 0.4 mg Capsule PO ×2 (09:12→17:42)
[2022-11-13] MEDS: multivitamin therapeutic Tablet 1 TAB PO (09:12)
[2022-11-13] MEDS: valACYclovir 1,000 mg Tablet 500 MG PO ×2 (09:13→17:42)
[2022-11-13] MEDS: ciprofloxacin 500 mg Tablet PO ×2 (09:13→21:33)
[2022-11-13] MEDS: heparin 5,000 unit/mL INJ 1 mL 5000 UNIT SUBCUT ×2 (09:13→21:33)
[2022-11-13] MEDS: finasteride 5 mg Tablet PO (09:13)
--- NOTE | 2022-11-13 15:13 | P.PN_ITS ---
Subjective Subjective: Patient was seen this morning, he does not want his Givens catheter removed as he continues to feel weak, fatigued, he is hesitant about going home given his persistent anemia and his weakness and fatigue and tiredness, no fevers, chills, nausea, vomiting Vitals/I&O/Wt Last Vital Signs Temp 97.8 F 11/13/22 12:00 Pulse 75 11/13/22 12:00 Resp 18 11/13/22 12:00 BP 136/75 11/13/22 12:00 Pulse Ox 95 11/13/22 12:00 O2 Del Method Room Air 11/13/22 12:00 O2 Flow Rate 2 11/10/22 21:01 11/13/22 11/13/22 11/13/22 06:59 14:59 22:59 Intake Total 1000 / 2800 960 / 960 Output Total 600 / 2875 850 / 850 Balance 400 / -75 110 / 110 Physical Exam Const: COMMON NORMALS: no acute distress and patient oriented x3 Resp: COMMON NORMALS: normal respiratory effort, No retractions, No use of accessory muscles and clear to auscultation bilaterally AUSCULTATION: clear to auscultation bilaterally Cardio: COMMON NORMALS: regular rate, regular rhythm, S1 normal heart sound present and S2 normal heart sound present RATE: regular rate RHYTHM: regular rhythm HEART SOUNDS: S1 normal heart sound present and S2 normal heart sound present GI: COMMON NORMALS: Normal to inspection, nondistended, normoactive bowel sounds present and non-tender Extremity: COMMON NORMALS: no pedal edema Neuro: COMMON NORMALS: patient oriented x3 Psych: COMMON NORMALS: mental status grossly normal Data 11/13/22 05:25 11/13/22 05:25 A&P Assessment and plan (1) Protein calorie malnutrition: (2) Muscular deconditioning: (3) Lymphadenopathy: (4) Hypercalcemia: (5) Diffuse lymphadenopathy: (6) Mediastinal lymphadenopathy: (7) Diffuse large B-cell lymphoma of lymph nodes of multiple regions: (8) Port-A-Cath in place: (9) Left hip pain: (10) Hypercalcemia of malignancy: (11) Hypothyroid: (12) Hip fracture: (13) Antineoplastic chemotherapy induced pancytopenia: (14) Neutropenia: Plan #Left hip fracture #Diffuse large B-cell lymphoma, 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 Orthopedic surgery consulted. Imaging studies have been ordered. Status post surgical intervention, working with physical therapy -Chemotherapy-induced pancytopenia -Anemia status post 1 unit PRBC hemoglobin 7.4 monitor -Neutropenia, monitor for risk of infections, currently on neutropenic pr ecautions ? As per oncology continue patient on valacyclovir 500 twice daily, TMP-SMX Monday, which I will swab and switch him to Cipro starting tomorrow ? Prednisone 100 daily for 5 days each cycle of chemotherapy. First dose today for total of 5 days ? Patient had chemo cycle #1 today. ? Lorazepam 0.5 every 6 hours as needed for severe nausea ? Compazine 10 mg every 6 hours for nausea ? Allopurinol 300 daily for prevention of tumor lysis syndrome ? Place patient on reverse isolation ? Start ciprofloxacin 500 twice daily at this time for empiric coverage ? consult dietary for protein calorie malnutrition ? Repeat labs in a.m ? PT OT ? DC Givens catheter Stop fluids -Is developing neutropenia, especially since his hip surgery we will need to monitor closely, currently on ciprofloxacin 500 twice daily, monitor neutrophil count he is on valacyclovir, ciprofloxacin, Diflucan, and also received cefazolin -Hypercalcemia, 11, his creatinine is going up to 1.9, uric acid is 5.3, and was started on fluids today and recheck creatinine, calcium levels ionized calcium tomorrow, is on steroids, will consider calcitonin Full code SCDs Heparin SQ twice daily for DVT prophylaxis Plan for today, monitor hemoglobin up out of bed physical therapy tomorrow patient is agreeable to Givens catheter removal, if his hemoglobin is reasonable then we can certainly discharge him home tomorrow, but if it is below 7 we can give him a unit of blood, and certainly discharge him home so he can follow with Dr. Fiore tomorrow, he does have developing hypercalcemia 11 creatinine going up to 1.9 start fluids, monitor calcium, is on steroids we will consider calcitonin Attestations Medical Necessity Statement*: Patient requires hospitalization for chemotherapy-induced pancytopenia, anemia, hip fracture, neutropenia Diagnoses Protein calorie malnutrition E46 Muscular deconditioning R29.898 Lymphadenopathy R59.1 Hypercalcemia E83.52 Diffuse lymphadenopathy R59.1 Mediastinal lymphadenopathy R59.0 Diffuse large B-cell lymphoma of lymph nodes of multiple regions C83.38 Port-A-Cath in place Z95.828 Left hip pain M25.552 Hypercalcemia of malignancy E83.52 Hypothyroid E03.9 Hip fracture S72.009A Antineoplastic chemotherapy induced pancytopenia D61.810; T45.1X5A Neutropenia D70.9
[2022-11-13] MEDS: sodium chloride 0.9% 1,000 ML 100 ML IV (17:45)
[2022-11-13] MEDS: pantoprazole 40 mg SDV IVP (21:38)
[2022-11-14] MEDS: sodium chloride 0.9% 1,000 ML 100 ML IV (02:25)
[2022-11-14 04:00] VITALS: BP 129/72; PULSE 82; RESP 17; TEMP 36.4; O2SAT 93
[2022-11-14 05:49] LABS: Ionized Calcium 1.6 mmol/L (1.1-1.4)
[2022-11-14] MEDS: acetaminophen 500 mg Tablet 1000 MG PO ×3 (05:54→21:24)
[2022-11-14 06:22] LABS: Hematocrit 22.2 % (42.0-52.0); Hemoglobin 7.1 g/dL (11.7-16.6); Lymphocytes % 3.6 %; Mean Platelet Volume 10.2 fL (7.4-10.4); Monocytes % 1.2 %; Neutrophils % 85.7 %; Nucleated Red Blood Cells % 0 %; Platelet Count 79 10^3/cmm (130-400); Red Blood Count 2.22 10^6/uL (4.1-5.3); Red Cell Distribution Width 15.8 % (12.1-15.1)
[2022-11-14 06:38] LABS: Alanine Aminotransferase 57 U/L (0-41); Albumin Level 2.4 g/dL (3.5-5.2); Alkaline Phosphatase 130 U/L (40-130); Anion Gap 10.7 (5-19); Aspartate Amino Transferase 57 U/L (0-40); Blood Urea Nitrogen 66 mg/dL (8-23); Calcium 10.7 mg/dL (8.5-10.5); Carbon Dioxide 24 mmol/L (22-29); Chloride 110 mmol/L (98-107); Glomerular Filtration Rate 42.9 mL/min (90-130); Glucose 132 mg/dL (65-115); Magnesium 1.9 mg/dL (1.7-2.3); Osmolality Calculated 311 mOsm/kg (285-295); Phosphorus 4.5 mg/dL (2.5-4.5); Potassium 4.7 mmol/L (3.5-5.1); Sodium 140 mmol/L (136-145); Total Bilirubin 0.2 mg/dL (0.15-1.2); Total Protein 3.4 g/dL (6.6-8.7)
[2022-11-14 08:00] VITALS: BP 138/72; PULSE 70; RESP 17; TEMP 36.4; O2SAT 93
[2022-11-14 08:00] LABS: Neutrophils # 0.72 10^3/uL (1.8-7.7); Slide Review Slide Review Perform; White Blood Count 0.8 10^3/uL (4.0-10.0)
[2022-11-14] MEDS: predniSONE 20 mg Tablet 100 MG PO (08:34)
[2022-11-14] MEDS: tamsulosin 0.4 mg Capsule PO ×2 (08:34→17:34)
[2022-11-14] MEDS: finasteride 5 mg Tablet PO (08:34)
[2022-11-14] MEDS: aspirin 325 mg EC Tablet PO (08:34)
[2022-11-14] MEDS: metoprolol tartrate 50 mg Tablet 25 MG PO ×2 (08:34→17:35)
[2022-11-14] MEDS: docusate sodium 100 mg Capsule PO ×2 (08:34→17:34)
[2022-11-14] MEDS: multivitamin therapeutic Tablet 1 TAB PO (08:34)
[2022-11-14] MEDS: allopurinol 300 mg Tablet PO (08:34)
[2022-11-14] MEDS: heparin 5,000 unit/mL INJ 1 mL 5000 UNIT SUBCUT ×2 (08:35→21:24)
[2022-11-14] MEDS: fluconazole 100 mg Tablet PO (08:35)
[2022-11-14] MEDS: valACYclovir 1,000 mg Tablet 500 MG PO ×2 (08:41→17:35)
[2022-11-14] MEDS: ciprofloxacin 500 mg Tablet PO ×2 (08:44→21:24)
--- NOTE | 2022-11-14 11:11 | PC.SOCIAL ---
IMM Update pg 2 of IMM updated and reviewed w/ patient. Copy provided and copy in chart dated, and initialed.
[2022-11-14 12:00] VITALS: BP 139/77; PULSE 76; RESP 18; TEMP 36.5; O2SAT 94
--- NOTE | 2022-11-14 13:41 | USR_ITS ---
PROCEDURE INFORMATION: Exam: US Duplex Lower Extremity Veins, Bilateral Exam date and time: 11/14/2022 3:02 PM Age: 72 years old Clinical indication: Edema, localized; Lower extremity, bilateral; Additional info: Lot of edema bilaterally. There are homogenous lymph node appearing areas bilaterally in each groin. There appears to be a complex bakers cyst medial to the left pop. Limited eval of the gsv below knees bilaterally due to edema. TECHNIQUE: Imaging protocol: Real-time duplex ultrasound of the bilateral extremities with 2-D epralta scale, color Doppler flow and spectral waveform analysis including responses to compression and other maneuvers (when performed) with image documentation. Complete exam focused on the lower extremity veins. COMPARISON: US renal BI* [id number] 10/01/2022 12:05 PM FINDINGS: Right deep veins: Unremarkable. The common femoral, femoral, proximal profunda femoral and popliteal veins are patent without thrombus. Normal Doppler waveforms. Normal compressibility and/or augmentation response. Right superficial veins: Saphenofemoral junction is patent without thrombus. Left deep veins: Unremarkable. The common femoral, femoral, proximal profunda femoral and popliteal veins are patent without thrombus. Normal Doppler waveforms. Normal compressibility and/or augmentation response. Left superficial veins: Saphenofemoral junction is patent without thrombus. Soft tissues: Complex Alfred's cyst noted in the left popliteal fossa measuring up to 6.4 cm in length. Subcutaneous edema noted in the lower extremities. Bilateral inguinal adenopathy. US/[place] [id number] IMPRESSION: 1. No evidence of deep vein thrombosis. 2. Complex Alfred's cyst in the left popliteal fossa measuring up to 6.4 cm in length. 3. Bilateral inguinal adenopathy.
[2022-11-14] MEDS: FUROsemide 10 mg/mL SDV 2mL 20 MG IVP (14:30)
[2022-11-14 16:00] VITALS: BP 143/74; PULSE 76; RESP 20; TEMP 36.4; O2SAT 94
[2022-11-14 20:00] VITALS: BP 147/80; PULSE 88; RESP 18; TEMP 36.5; O2SAT 95
--- NOTE | 2022-11-14 20:30 | PM.PN ---
Subjective Subjective: Denies headache, denies pain and swelling. Sometimes has trouble swallowing pills which is not new. Denies chest pain or shortness of breath. No nausea vomiting or diarrhea. Lower extremity edema is chronic, usually worse on the left. Medications: Reviewed: Yes Vitals/I&O/Wt Last Vital Signs Temp 97.5 F L 11/14/22 16:00 Pulse 76 11/14/22 16:00 Resp 20 H 11/14/22 16:00 BP 143/74 11/14/22 16:00 Pulse Ox 94 11/14/22 16:00 O2 Del Method Room Air 11/14/22 16:00 O2 Flow Rate 2 11/10/22 21:01 11/14/22 11/14/22 11/14/22 06:59 14:59 22:59 Intake Total 866.667 / 2306.667 2312 / 2312 480 / 2792 Output Total 1100 / 2300 400 / 400 1600 / 2000 Balance -233.333 / 6.667 1912 / 1912 -1120 / 792 Physical Exam Const: COMMON NORMALS: patient oriented x3 and alert GENERAL APPEARANCE: cooperative ORIENTATION/CONSCIOUSNESS: Yes awake HENMT: COMMON NORMALS: oropharynx normal (No thrush) Neck/C-Spine: COMMON NORMALS: no JVD Resp: COMMON NORMALS: normal respiratory effort and clear to auscultation bilaterally AUSCULTATION: clear to auscultation bilaterally Cardio: COMMON NORMALS: no JVD, regular rhythm, S1 normal heart sound present, S2 normal heart sound present and No murmurs present (Cardio) RHYTHM: regular rhythm HEART SOUNDS: S1 normal heart sound present and S2 normal heart sound present GI: COMMON NORMALS: Normal to inspection, nondistended, normoactive bowel sounds present, Soft to palpation and non-tender PALPATION: Yes Soft to palpation Extremity: COMMON NORMALS: no joint enlargement GENERAL: Yes edema (3+ RLE, 4+ LLE) OTHER: L hip surgical wound mild bruising around it. No fresh bleeding. Lower extremity appears perfused. Neuro: COMMON NORMALS: patient oriented x3 and moves all extremities SENSORIUM/ORIENTATION: Yes alert Skin: COMMON NORMALS: no rashes or lesions noted GENERAL SKIN EXAM: no rashes or lesions noted Data 11/14/22 05:46 11/14/22 05:46 A&P Assessment and plan (1) Protein calorie malnutrition: (2) Muscular deconditioning: (3) Lymphadenopathy: (4) Hypercalcemia: (5) Diffuse lymphadenopathy: (6) Mediastinal lymphadenopathy: (7) Diffuse large B-cell lymphoma of lymph nodes of multiple regions: (8) Port-A-Cath in place: (9) Left hip pain: (10) Hypercalcemia of malignancy: (11) Hypothyroid: (12) Hip fracture: (13) Antineoplastic chemotherapy induced pancytopenia: (14) Neutropenia: Plan #Left hip fracture #Diffuse large B-cell lymphoma, 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 Discussed with him. WBC down to 0.8, 720 neutrophils. Continue neutrophilic precautions. Continue empiric medications with ciprofloxacin, fluconazole, valacyclovir. Currently without symptoms of infection. Discussed with him may require additional transfusion. Follow-up blood counts requested for the morning. Pancytopenia anticipated transient secondary to chemotherapy. With pancytopenia, was previously on aspirin and also heparin subcu. Currently decreasing platelets, held aspirin for now. Continue heparin, reassess counts, consider resuming aspirin if counts come back. Continue prophylactic heparin for now. Hypercalcemia noted improving, calcium down to 10.7, ionized calcium 1.6. Decreased IV fluid this morning, on assessment he does have significant lower extremity edema bilaterally with fluid overload, worse on the left. Stopped IV fluid. Gave dose of Lasix 20 mg IV x1. Reassess I&O, volume status, renal function. Requested duplex assessment lower extremities to assess for DVT. Will need follow-up of calcium. Continues on prednisone. Hopefully with chemotherapy hypercalcemia will be under control. Limit calcium intake. Hold multivitamins for now. ?Status post surgical intervention, working with physical therapy. Discharge planning for rehabilitation -Chemotherapy-induced pancytopenia ? Prednisone 100 daily for 5 days each cycle of chemotherapy. First dose today for total of 5 days ? Patient had chemo cycle #1 today. ? Lorazepam 0.5 every 6 hours as needed for severe nausea ? Compazine 10 mg every 6 hours for nausea ? Allopurinol 300 daily for prevention of tumor lysis syndrome ? reverse isolation ? consult dietary for protein calorie malnutrition ? Repeat labs in a.m ? PT OT Stop fluids Full code SCDs Heparin SQ twice daily for DVT prophylaxis Attestations Medical Necessity Statement*: Continue admission for reassessment and management of pancytopenia, hypercalcemia, management of fluid overload, assess for DVT, disposition planning and arrangements. Diagnoses Protein calorie malnutrition E46 Muscular deconditioning R29.898 Lymphadenopathy R59.1 Hypercalcemia E83.52 Diffuse lymphadenopathy R59.1 Mediastinal lymphadenopathy R59.0 Diffuse large B-cell lymphoma of lymph nodes of multiple regions C83.38 Port-A-Cath in place Z95.828 Left hip pain M25.552 Hypercalcemia of malignancy E83.52 Hypothyroid E03.9 Hip fracture S72.009A Antineoplastic chemotherapy induced pancytopenia D61.810; T45.1X5A Neutropenia D70.9
[2022-11-14] MEDS: pantoprazole 40 mg SDV IVP (21:41)
[2022-11-15] VITALS: BP 138/72; PULSE 69; RESP 16; TEMP 36.6; O2SAT 97
[2022-11-15 04:00] VITALS: BP 157/82; PULSE 80; RESP 16; TEMP 36.4; O2SAT 94
[2022-11-15 04:45] LABS: Basophils % 2.8 %; Hematocrit 22.6 % (42.0-52.0); Hemoglobin 7.3 g/dL (11.7-16.6); Lymphocytes % 8.3 %; Mean Corpuscular HGB Conc 32.3 g/dL (30.0-36.0); Mean Corpuscular Hemoglobin 31.9 pg (28.0-34.0); Mean Corpuscular Volume 98.7 fl (80-94); Mean Platelet Volume 10.1 fL (7.4-10.4); Neutrophils % 69.5 %; Nucleated Red Blood Cells % 0 %; Platelet Count 84 10^3/cmm (130-400); Red Blood Count 2.29 10^6/uL (4.1-5.3); Red Cell Distribution Width 15.6 % (12.1-15.1)
[2022-11-15 05:10] LABS: Alanine Aminotransferase 102 U/L (0-41); Albumin Level 2.6 g/dL (3.5-5.2); Alkaline Phosphatase 150 U/L (40-130); Anion Gap 11.4 (5-19); Aspartate Amino Transferase 74 U/L (0-40); Blood Urea Nitrogen 64 mg/dL (8-23); Calcium 9.8 mg/dL (8.5-10.5); Carbon Dioxide 23 mmol/L (22-29); Chloride 110 mmol/L (98-107); Glomerular Filtration Rate 46.3 mL/min (90-130); Glucose 134 mg/dL (65-115); Magnesium 1.9 mg/dL (1.7-2.3); Osmolality Calculated 310 mOsm/kg (285-295); Phosphorus 4.2 mg/dL (2.5-4.5); Potassium 4.4 mmol/L (3.5-5.1); Sodium 140 mmol/L (136-145); Total Bilirubin 0.2 mg/dL (0.15-1.2); Total Protein 3.6 g/dL (6.6-8.7)
[2022-11-15 05:20] LABS: Slide Review Slide Review Perform
[2022-11-15 05:22] LABS: Neutrophils # 0.25 10^3/uL (1.8-7.7); White Blood Count 0.4 10^3/uL (4.0-10.0)
[2022-11-15] MEDS: acetaminophen 500 mg Tablet 1000 MG PO ×3 (06:00→21:29)
[2022-11-15] MEDS: finasteride 5 mg Tablet PO (07:41)
[2022-11-15] MEDS: tamsulosin 0.4 mg Capsule PO ×2 (07:42→17:15)
[2022-11-15] MEDS: ciprofloxacin 500 mg Tablet PO ×2 (07:42→21:29)
[2022-11-15] MEDS: allopurinol 300 mg Tablet PO (07:42)
[2022-11-15] MEDS: metoprolol tartrate 50 mg Tablet 25 MG PO ×2 (07:43→17:15)
[2022-11-15] MEDS: fluconazole 100 mg Tablet PO (07:43)
[2022-11-15] MEDS: docusate sodium 100 mg Capsule PO ×2 (07:44→17:16)
[2022-11-15 07:51] VITALS: BP 151/80; PULSE 87; RESP 16; O2SAT 93
[2022-11-15] MEDS: valACYclovir 1,000 mg Tablet 500 MG PO ×2 (07:51→17:15)
[2022-11-15] MEDS: lanolin oint 7 gm 1 APPLIC TOPICAL (08:53)
[2022-11-15] MEDS: heparin 5,000 unit/mL INJ 1 mL 5000 UNIT SUBCUT ×2 (09:40→21:29)
[2022-11-15 12:00] VITALS: BP 146/80; PULSE 73; RESP 17; TEMP 36.4; O2SAT 97
[2022-11-15 16:00] VITALS: BP 151/82; PULSE 82; RESP 17; TEMP 36.4; O2SAT 96
--- NOTE | 2022-11-15 17:42 | PC.NURSE ---
SHIFT SUMMARY PATIENT HAS DONE WELL TODAY. LONNIE KEE ASSISTED PATIENT WITH A SHOWER TODAY. PATIENT WORKED WITH THERAPY. GOOD PO INTAKE AND OUTPUT. PATIENT IS STILL QUITE EDEMATOUS IN LOWER EXTREMITIES. PATIENT SAT ON THE EDGE OF THE BED EARLIER AND WAS DOING PT EXERCISES. CURRENTLY RESTING IN BED EATING SUPPER. NO COMPLAINTS AT THIS TIME.
[2022-11-15 19:46] VITALS: BP 142/91; PULSE 103; RESP 18; TEMP 36.5; O2SAT 96
--- NOTE | 2022-11-15 21:12 | P.PN_ITS ---
Subjective Subjective: States he is doing all right. Denies any new additional symptoms. Discussed with him regarding neutropenia, improvement in hemoglobin, platelet counts. Discussed risk of DVT, risk of bleeding. Medications: Reviewed: Yes Vitals/I&O/Wt Last Vital Signs Temp 97.7 F 11/15/22 19:46 Pulse 103 H 11/15/22 19:46 Resp 18 11/15/22 19:46 BP 142/91 11/15/22 19:46 Pulse Ox 96 11/15/22 19:46 O2 Del Method Room Air 11/15/22 16:00 O2 Flow Rate 2 11/10/22 21:01 11/15/22 11/15/22 11/15/22 06:59 14:59 22:59 Intake Total 720 / 720 240 / 960 Output Total 1300 / 3300 500 / 500 Balance -1300 / -388 720 / 720 -260 / 460 Physical Exam Const: COMMON NORMALS: patient oriented x3 and alert GENERAL APPEARANCE: cooperative ORIENTATION/CONSCIOUSNESS: Yes awake HENMT: COMMON NORMALS: oropharynx normal OTHER: No thrush Neck/C-Spine: COMMON NORMALS: no JVD Resp: COMMON NORMALS: normal respiratory effort and clear to auscultation bilaterally AUSCULTATION: clear to auscultation bilaterally Cardio: COMMON NORMALS: no JVD, regular rhythm, S1 normal heart sound present, S2 normal heart sound present and No murmurs present (Cardio) RHYTHM: regular rhythm HEART SOUNDS: S1 normal heart sound present and S2 normal heart sound present GI: COMMON NORMALS: Normal to inspection, nondistended, normoactive bowel sounds present, Soft to palpation and non-tender PALPATION: Yes Soft to palpation Extremity: COMMON NORMALS: no joint enlargement and no pedal edema Neuro: COMMON NORMALS: patient oriented x3 and moves all extremities SENSORIUM/ORIENTATION: Yes alert Skin: COMMON NORMALS: no rashes or lesions noted GENERAL SKIN EXAM: no rashes or lesions noted Data 11/15/22 04:10 11/15/22 04:10 A&P Assessment and plan (1) Protein calorie malnutrition: (2) Muscular deconditioning: (3) Lymphadenopathy: (4) Hypercalcemia: (5) Diffuse lymphadenopathy: (6) Mediastinal lymphadenopathy: (7) Diffuse large B-cell lymphoma of lymph nodes of multiple regions: (8) Port-A-Cath in place: (9) Left hip pain: (10) Hypercalcemia of malignancy: (11) Hypothyroid: (12) Hip fracture: (13) Antineoplastic chemotherapy induced pancytopenia: (14) Neutropenia: Plan #Left hip fracture #Diffuse large B-cell lymphoma, 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 He is concerned regarding returning to home just yet today, wants to be sure that the trend is improving in terms of blood counts as per our discussion with the risk of bleeding, risk of DVT and DVT prophylaxis after orthopedic surgery. Recheck counts in the morning. Discussed with neutropenia, neutropenic precautions. Neutropenia noted worsened, ANC 250. Platelets improved up to 85,000. Hemoglobin improved up to 7.3. Recheck counts requested. Continue neutrophilic precautions.? Continue empiric medications with ciprofloxacin, fluconazole, valacyclovir.? Currently without symptoms of infection. With pancytopenia, was previously on aspirin and also heparin subcu.? Currently decreasing platelets, held aspirin for now.? Continue heparin, reassess counts, consider resuming aspirin if counts come back.? Continue prophylactic heparin for now. Hypercalcemia noted improving, calcium down to 9.7, ionized calcium 1.6.? Decreased IV fluid this morning, on assessment he does have significant lower extremity edema bilaterally with fluid overload, worse on the left.? Reassess I&O, volume status, renal function. Lower extremity duplex noted negative for DVT. Discussed with him regarding complex Alfred's cyst, and he will need follow-up with PCP. Will need follow-up of calcium.? Continues on prednisone.? Hopefully with chemotherapy hypercalcemia will be under control. Limit calcium intake.? Hold multivitamins for now. ?Status post surgical intervention, working with physical therapy.? Discharge planning for rehabilitation -Chemotherapy-induced pancytopenia ? Prednisone 100 daily for 5 days each cycle of chemotherapy.? First dose today for total of 5 days ? Patient had chemo cycle #1 today. ? Lorazepam 0.5 every 6 hours as needed for severe nausea ? Compazine 10 mg every 6 hours for nausea ? Allopurinol 300 daily for prevention of tumor lysis syndrome ?? reverse isolation ? consult dietary for protein calorie malnutrition ? Repeat labs in a.m ? PT OT Attestations Medical Necessity Statement*: Continue admission for reassessment at bedside risk of being with anticoagulation prophylaxis with risk of clotting following hip fracture and o rthopedic surgery. Diagnoses Protein calorie malnutrition E46 Muscular deconditioning R29.898 Lymphadenopathy R59.1 Hypercalcemia E83.52 Diffuse lymphadenopathy R59.1 Mediastinal lymphadenopathy R59.0 Diffuse large B-cell lymphoma of lymph nodes of multiple regions C83.38 Port-A-Cath in place Z95.828 Left hip pain M25.552 Hypercalcemia of malignancy E83.52 Hypothyroid E03.9 Hip fracture S72.009A Antineoplastic chemotherapy induced pancytopenia D61.810; T45.1X5A Neutropenia D70.9
[2022-11-15] MEDS: pantoprazole 40 mg SDV IVP (21:27)
[2022-11-16] VITALS (7 sets, daily range): BP systolic 126–149; BP diastolic 74–85; PULSE 100–116; RESP 16–20; TEMP 36.4–36.8; O2SAT 91–96
[2022-11-16] MEDS: acetaminophen 500 mg Tablet 1000 MG PO ×3 (05:10→20:38)
[2022-11-16 06:24] LABS: Eosinophils % 21.4 %; Hematocrit 25.3 % (42.0-52.0); Hemoglobin 7.8 g/dL (11.7-16.6); Lymphocytes % 21.4 %; Mean Corpuscular HGB Conc 30.8 g/dL (30.0-36.0); Mean Corpuscular Hemoglobin 31.7 pg (28.0-34.0); Mean Corpuscular Volume 102.8 fl (80-94); Neutrophils % 42.9 %; Nucleated Red Blood Cells % 0 %; Platelet Count 71 10^3/cmm (130-400); Red Blood Count 2.46 10^6/uL (4.1-5.3); Red Cell Distribution Width 15.5 % (12.1-15.1)
[2022-11-16 06:39] LABS: Neutrophils # 0.06 10^3/uL (1.8-7.7); White Blood Count 0.1 10^3/uL (4.0-10.0)
[2022-11-16 06:41] LABS: Alanine Aminotransferase 109 U/L (0-41); Albumin Level 2.5 g/dL (3.5-5.2); Alkaline Phosphatase 138 U/L (40-130); Anion Gap 12.4 (5-19); Aspartate Amino Transferase 62 U/L (0-40); Blood Urea Nitrogen 57 mg/dL (8-23); Calcium 10.2 mg/dL (8.5-10.5); Carbon Dioxide 23 mmol/L (22-29); Chloride 112 mmol/L (98-107); Globulin 1.1 g/dL (1.3-4.6); Glomerular Filtration Rate 46.3 mL/min (90-130); Glucose 88 mg/dL (65-115); Magnesium 1.8 mg/dL (1.7-2.3); Osmolality Calculated 311 mOsm/kg (285-295); Phosphorus 3.3 mg/dL (2.5-4.5); Potassium 4.4 mmol/L (3.5-5.1); Sodium 143 mmol/L (136-145); Total Bilirubin 0.2 mg/dL (0.15-1.2); Total Protein 3.6 g/dL (6.6-8.7)
[2022-11-16] MEDS: finasteride 5 mg Tablet PO (07:50)
[2022-11-16] MEDS: valACYclovir 1,000 mg Tablet 500 MG PO ×2 (07:51→17:37)
[2022-11-16] MEDS: fluconazole 100 mg Tablet PO (07:51)
[2022-11-16] MEDS: tamsulosin 0.4 mg Capsule PO ×2 (07:51→17:37)
[2022-11-16] MEDS: allopurinol 300 mg Tablet PO (07:51)
[2022-11-16] MEDS: ciprofloxacin 500 mg Tablet PO ×2 (07:51→20:39)
[2022-11-16] MEDS: metoprolol tartrate 50 mg Tablet 25 MG PO ×2 (07:51→17:37)
[2022-11-16] MEDS: docusate sodium 100 mg Capsule PO ×2 (07:51→17:37)
[2022-11-16] MEDS: heparin 5,000 unit/mL INJ 1 mL 5000 UNIT SUBCUT ×2 (07:52→20:38)
--- NOTE | 2022-11-16 16:16 | PC.OT ---
OT TREATMENT HELD THIS DATE DUE TO VERY LOW WBC COUNT AND LOW HGB. WILL ATTEMPT AGAIN TOMORROW.
--- NOTE | 2022-11-16 21:18 | P.PN_ITS ---
Subjective Subjective: States he is feeling fair, about the same. No new symptoms. Medications: Reviewed: Yes Vitals/I&O/Wt Last Vital Signs Temp 97.5 F L 11/16/22 19:35 Pulse 112 H 11/16/22 19:35 Resp 16 11/16/22 19:35 BP 139/79 11/16/22 19:35 Pulse Ox 96 11/16/22 19:35 O2 Del Method Room Air 11/16/22 19:35 O2 Flow Rate 2 11/10/22 21:01 11/16/22 11/16/22 11/16/22 06:59 14:59 22:59 Intake Total 240 / 240 240 / 480 Output Total 550 / 1850 1000 / 1000 Balance -550 / -890 240 / 240 -760 / -520 Physical Exam Const: COMMON NORMALS: patient oriented x3 and alert GENERAL APPEARANCE: cooperative ORIENTATION/CONSCIOUSNESS: Yes awake HENMT: COMMON NORMALS: oropharynx normal OTHER: No thrush Neck/C-Spine: COMMON NORMALS: no JVD Resp: COMMON NORMALS: normal respiratory effort and clear to auscultation bilaterally AUSCULTATION: clear to auscultation bilaterally Cardio: COMMON NORMALS: no JVD, regular rhythm, S1 normal heart sound present, S2 normal heart sound present and No murmurs present (Cardio) RHYTHM: regular rhythm HEART SOUNDS: S1 normal heart sound present and S2 normal heart sound present GI: COMMON NORMALS: Normal to inspection, nondistended, normoactive bowel sounds present, Soft to palpation and non-tender PALPATION: Yes Soft to palpation Extremity: COMMON NORMALS: no joint enlargement and no pedal edema Neuro: COMMON NORMALS: patient oriented x3 and moves all extremities SENSORIUM/ORIENTATION: Yes alert Skin: COMMON NORMALS: no rashes or lesions noted GENERAL SKIN EXAM: no ra shes or lesions noted Data 11/16/22 05:30 11/16/22 05:30 A&P Assessment and plan (1) Protein calorie malnutrition: (2) Muscular deconditioning: (3) Lymphadenopathy: (4) Hypercalcemia: (5) Diffuse lymphadenopathy: (6) Mediastinal lymphadenopathy: (7) Diffuse large B-cell lymphoma of lymph nodes of multiple regions: (8) Port-A-Cath in place: (9) Left hip pain: (10) Hypercalcemia of malignancy: (11) Hypothyroid: (12) Hip fracture: (13) Antineoplastic chemotherapy induced pancytopenia: (14) Neutropenia: Plan #Left hip fracture #Diffuse large B-cell lymphoma, 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 Some improvement in hemoglobin up to 7.8. Hematology documentation reviewed. Discussed also with his oncologist, he has received Neulasta. Repeat counts requested. Continue treatment in the hospital for now given need for DVT prophylaxis, risk of bleeding. Neutropenia noted worsened, ANC 250. Platelets improved up to 85,000. Hemoglobin improved up to 7.3. Recheck counts requested. Continue neutrophilic precautions.? Continue empiric medications with ciprofloxacin, fluconazole, valacyclovir.? Currently without symptoms of infection. With pancytopenia, was previously on aspirin and also heparin subcu.? Currently decreasing platelets, held aspirin for now.? Continue heparin, reassess counts, consider resuming aspirin if counts come back.? Continue prophylactic heparin for now. Hypercalcemia noted improving, calcium noted 10.2.? Decreased IV fluid this morning, on assessment he does have significant lower extremity edema bilaterally with fluid overload, worse on the left.? Reassess I&O, volume status, renal function. Lower extremity duplex noted negative for DVT. Discussed with him regarding complex Alfred's cyst, and he will need follow-up with PCP. Will need follow-up of calcium.? Continues on prednisone.? Hopefully with chemotherapy hypercalcemia will be under control. Limit calcium intake.? Hold multivitamins for now. ?Status post surgical intervention, working with physical therapy.? Discharge planning for rehabilitation -Chemotherapy-induced pancytopenia ? Prednisone 100 daily for 5 days each cycle of chemotherapy.? First dose today for total of 5 days ? Patient had chemo cycle #1 today. ? Lorazepam 0.5 every 6 hours as needed for severe nausea ? Compazine 10 mg every 6 hours for nausea ? Allopurinol 300 daily for prevention of tumor lysis syndrome ?? reverse isolation ? consult dietary for protein calorie malnutrition ? Repeat labs in a.m ? PT OT Attestations Medical Necessity Statement*: Continue admission for assessment management of pancytopenia [id number] man following left hip fracture and repair, with thrombocytopenia, DVT prophylaxis, risk of clotting, risk of bleeding. Diagnoses Protein calorie malnutrition E46 Muscular deconditioning R29.898 Lymphadenopathy R59.1 Hypercalcemia E83.52 Diffuse lymphadenopathy R59.1 Mediastinal lymphadenopathy R59.0 Diffuse large B-cell lymphoma of lymph nodes of multiple regions C83.38 Port-A-Cath in place Z95.828 Left hip pain M25.552 Hypercalcemia of malignancy E83.52 Hypothyroid E03.9 Hip fracture S72.009A Antineoplastic chemotherapy induced pancytopenia D61.810; T45.1X5A Neutropenia D70.9
[2022-11-16] MEDS: pantoprazole 40 mg SDV IVP (21:22)
[2022-11-17] VITALS (11 sets, daily range): BP systolic 133–166; BP diastolic 75–90; PULSE 68–117; RESP 15–20; TEMP 36.3–37; O2SAT 92–97
[2022-11-17 05:08] LABS: Hemoglobin 6.6 g/dL (11.7-16.6); Lymphocytes % 37.5 %; Mean Corpuscular HGB Conc 31.7 g/dL (30.0-36.0); Mean Platelet Volume 10.3 fL (7.4-10.4); Nucleated Red Blood Cells % 0 %; Platelet Count 47 10^3/cmm (130-400); Red Blood Count 2.06 10^6/uL (4.1-5.3); Red Cell Distribution Width 15.6 % (12.1-15.1)
[2022-11-17 05:35] LABS: Slide Review Slide Review Perform
[2022-11-17 05:41] LABS: Hematocrit 20.8 % (42.0-52.0); Neutrophils # 0.02 10^3/uL (1.8-7.7); White Blood Count 0.1 10^3/uL (4.0-10.0)
[2022-11-17] MEDS: valACYclovir 1,000 mg Tablet 500 MG PO ×2 (09:48→17:38)
[2022-11-17] MEDS: allopurinol 300 mg Tablet PO (09:48)
[2022-11-17] MEDS: metoprolol tartrate 50 mg Tablet 25 MG PO ×2 (09:49→17:33)
[2022-11-17] MEDS: fluconazole 100 mg Tablet PO (09:49)
[2022-11-17] MEDS: finasteride 5 mg Tablet PO (09:49)
[2022-11-17] MEDS: tamsulosin 0.4 mg Capsule PO ×2 (09:49→17:34)
[2022-11-17] MEDS: ciprofloxacin 500 mg Tablet PO ×2 (09:49→21:01)
[2022-11-17] MEDS: docusate sodium 100 mg Capsule PO ×2 (09:50→17:34)
[2022-11-17] MEDS: FUROsemide 10 mg/mL SDV 4mL 40 MG IVP (11:15)
--- NOTE | 2022-11-17 11:42 | PC.OT ---
PT REFUSED TREATMENT AT THIS TIME. PT REPORTS THAT HE BRUSHED HIS TEETH, WASHED HIS FACE AND HIS ARMS/HANDS ABOUT AN HOUR AGO. PT SHOWS GOOD UNDERSTANDING OF EXERCISES PROVIDED TO HIM BY OT/R AT PREVIOUS SESSION. HE STATES I HAVE BEEN DOING THEM WHEN I AM BORED OR I THINK ABOUT IT, BUT HE REFUSED TO PARTICIPATE WHILE THERAPIST WAS IN THE ROOM.
[2022-11-17] MEDS: sodium chloride 0.9% 100 mL Bag 50 ML IV (13:14)
--- NOTE | 2022-11-17 15:51 | P.PN_ITS ---
Subjective Subjective: Worsening swelling of scrotum. Still swelling of lower extremities. Medications: Reviewed: Yes Vitals/I&O/Wt Last Vital Signs Temp 98.1 F 11/17/22 15:46 Pulse 98 11/17/22 15:46 Resp 18 11/17/22 15:46 BP 148/84 11/17/22 15:46 Pulse Ox 95 11/17/22 15:46 O2 Del Method Room Air 11/17/22 12:00 O2 Flow Rate 2 11/10/22 21:01 11/17/22 11/17/22 11/17/22 06:59 14:59 22:59 Intake Total 960 / 960 Output Total 1850 / 2850 Balance -1850 / -2370 960 / 960 Physical Exam Const: COMMON NORMALS: patient oriented x3 and alert GENERAL APPEARANCE: cooperative ORIENTATION/CONSCIOUSNESS: Yes awake HENMT: COMMON NORMALS: oropharynx normal OTHER: No thrush Neck/C-Spine: COMMON NORMALS: no JVD Resp: COMMON NORMALS: normal respiratory effort and clear to auscultation bilaterally AUSCULTATION: clear to auscultation bilaterally Cardio: COMMON NORMALS: no JVD, regular rhythm, S1 normal heart sound present, S2 normal heart sound present and No murmurs present (Cardio) RHYTHM: regular rhythm HEART SOUNDS: S1 normal heart sound present and S2 normal heart sound present GI: COMMON NORMALS: Normal to inspection, nondistended, normoactive bowel sounds present, Soft to palpation and non-tender PALPATION: Yes Soft to palpation Extremity: COMMON NORMALS: no joint enlargement and no pedal edema Neuro: COMMON NORMALS: patient oriented x3 and moves all extremities SENSORIUM/ORIENTATION: Yes alert Skin: COMMON NORMALS: no rashes or lesions noted GENERAL SKIN EXAM: no rashes or lesions noted Data 11/17/22 04:36 11/16/22 05:30 A&P Assessment and plan (1) Protein calorie malnutrition: (2) Muscular deconditioning: (3) Lymphadenopathy: (4) Hypercalcemia: (5) Diffuse lymphadenopathy: (6) Mediastinal lymphadenopathy: (7) Diffuse large B-cell lymphoma of lymph nodes of multiple regions: (8) Port-A-Cath in place: (9) Left hip pain: (10) Hypercalcemia of malignancy: (11) Hypothyroid: (12) Hip fracture: (13) Antineoplastic chemotherapy induced pancytopenia: (14) Neutropenia: Plan #Left hip fracture #Diffuse large B-cell lymphoma, 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 Hemoglobin down to 6.6. Platelets 4 7. Held heparin DVT prophylaxis. Discussed with him additional RBC transfu emily, requested 1 unit irradiated, leukoreduced RBC. Noted worsening neutropenia, ANC 20. Discussed with him blood counts worsened today with ANC 60, platelets 71. Some improvement in hemoglobin up to 7.8. Hematology documentation reviewed. Discussed also with his oncologist, he has received Neulasta. Repeat counts requested. Continue treatment in the hospital for now given need for DVT prophylaxis, risk of bleeding. Discussed with him with regards to Givens catheter, discussed risk of infection from Givens. At home he self catheterizes 4-6 times a day, but he reuses the catheter. With severe neutropenia and this would not be a possibility. Discussed with nursing staff we currently do not have enough disposable catheters for him to be able self-catheterize. But additional question is whether he will be able to do it with aseptic technique given his neutropenia. With regards to fluid overload, lower extremity edema, scrotal edema, discussed elevation of lower extremities, scrotum. Giving additional Lasix 40 mg IV x1 today and will continue daily for now. Monitor I&O, renal function. Requested repeat CMP. Lower extremity duplex noted negative for DVT. Discussed with him regarding complex Alfred's cyst, and he will need follow-up with PCP. Transaminitis: Noted transaminitis, stop scheduled Tylenol. Decrease dose to 325 mg every 8 hours as needed. Follow-up CMP requested. Hypercalcemia noted improved. Follow-up CMP requested. Of IVF. Receiving Lasix as above. Reassess I&O, volume status, renal function. Will need follow-up of calcium.? Continues on prednisone.? Hopefully with chemotherapy hypercalcemia will be under control. Limit calcium intake.? Hold multivitamins for now. ?Status post surgical intervention, working with physical therapy.? Discharge planning for rehabilitation -Chemotherapy-induced pancytopenia ? Prednisone 100 daily for 5 days each cycle of chemotherapy.? First dose today for total of 5 days ? Patient had chemo cycle #1 today. ? Lorazepam 0.5 every 6 hours as needed for severe nausea ? Compazine 10 mg every 6 hours for nausea ? Allopurinol 300 daily for prevention of tumor lysis syndrome ?? reverse isolation ? consult dietary for protein calorie malnutrition ? Repeat labs in a.m ? PT OT Attestations Medical Necessity Statement*: Continue admission/management of severe pancytopenia, blood transfusion, with risk of bleeding and risk of clotting, currently worsening thrombocytopenia, discontinuation of VTE prophylaxis, treatment of fluid overload. Diagnoses Protein calorie malnutrition E46 Muscular deconditioning R29.898 Lymphadenopathy R59.1 Hypercalcemia E83.52 Diffuse lymphadenopathy R59.1 Mediastinal lymphadenopathy R59.0 Diffuse large B-cell lymphoma of lymph nodes of multiple regions C83.38 Port-A-Cath in place Z95.828 Left hip pain M25.552 Hypercalcemia of malignancy E83.52 Hypothyroid E03.9 Hip fracture S72.009A Antineoplastic chemotherapy induced pancytopenia D61.810; T45.1X5A Neutropenia D70.9
--- NOTE | 2022-11-17 18:00 | PC.NURSE ---
Patient has done well today. Has been a little depressed. Patient received one unit of PRBC today. Patient has not been up much due to low platelet count. Patient is still quite edematous in both sides and accross the back, scrotum and lower extremities. Patient ate 100 percent of dinner and drank ensure along with milk. No complaints at this time. Notified Dr. Escudero of edema up both sides and accross the back. Dr. Escudero ordered Lasix daily.
[2022-11-17] MEDS: pantoprazole 40 mg SDV IVP (21:01)
[2022-11-18] VITALS: BP 138/82; PULSE 106; RESP 16; TEMP 37.2; O2SAT 94
[2022-11-18 03:49] VITALS: BP 147/83; PULSE 108; RESP 15; TEMP 37.1; O2SAT 92
[2022-11-18 04:46] LABS: Hematocrit 22.4 % (42.0-52.0); Hemoglobin 7.2 g/dL (11.7-16.6); Lymphocytes # 0.1 10^3/uL (0.8-4.8); Mean Corpuscular HGB Conc 32.1 g/dL (30.0-36.0); Mean Corpuscular Hemoglobin 30.6 pg (28.0-34.0); Mean Corpuscular Volume 95.3 fl (80-94); Mean Platelet Volume 10.8 fL (7.4-10.4); Nucleated Red Blood Cells % 0 %; Platelet Count 47 10^3/cmm (130-400); Red Blood Count 2.35 10^6/uL (4.1-5.3); Red Cell Distribution Width 18.1 % (12.1-15.1)
[2022-11-18 05:01] LABS: Alanine Aminotransferase 58 U/L (0-41); Albumin Level 2.2 g/dL (3.5-5.2); Alkaline Phosphatase 105 U/L (40-130); Anion Gap 11.3 (5-19); Aspartate Amino Transferase 21 U/L (0-40); Blood Urea Nitrogen 44 mg/dL (8-23); Calcium 9.8 mg/dL (8.5-10.5); Carbon Dioxide 26 mmol/L (22-29); Chloride 105 mmol/L (98-107); Globulin 1.4 g/dL (1.3-4.6); Glomerular Filtration Rate 54.6 mL/min (90-130); Glucose 109 mg/dL (65-115); Osmolality Calculated 298 mOsm/kg (285-295); Potassium 4.3 mmol/L (3.5-5.1); Sodium 138 mmol/L (136-145); Total Bilirubin 0.4 mg/dL (0.15-1.2); Total Protein 3.6 g/dL (6.6-8.7)
[2022-11-18 05:06] LABS: Slide Review Slide Review Perform
[2022-11-18 05:09] LABS: Neutrophils # 0.01 10^3/uL (1.8-7.7); White Blood Count 0.1 10^3/uL (4.0-10.0)
[2022-11-18 08:00] VITALS: BP 136/85; PULSE 100; RESP 16; TEMP 37.1; O2SAT 95
[2022-11-18] MEDS: ciprofloxacin 500 mg Tablet PO ×2 (10:20→20:24)
[2022-11-18] MEDS: finasteride 5 mg Tablet PO (10:20)
[2022-11-18] MEDS: metoprolol tartrate 50 mg Tablet 25 MG PO ×2 (10:21→18:29)
[2022-11-18] MEDS: valACYclovir 1,000 mg Tablet 500 MG PO ×2 (10:21→18:29)
[2022-11-18] MEDS: fluconazole 100 mg Tablet PO (10:21)
[2022-11-18] MEDS: allopurinol 300 mg Tablet PO (10:21)
[2022-11-18] MEDS: docusate sodium 100 mg Capsule PO ×2 (10:21→18:29)
[2022-11-18] MEDS: tamsulosin 0.4 mg Capsule PO ×2 (10:21→18:29)
[2022-11-18] MEDS: FUROsemide 10 mg/mL SDV 4mL 40 MG IVP (11:23)
[2022-11-18 12:00] VITALS: BP 130/73; PULSE 107; RESP 16; TEMP 37; O2SAT 94
--- NOTE | 2022-11-18 15:25 | PC.OT ---
OT tx attempted at this time. Pt lying in bed. He is pleasant and reports he has been up several times today and that he is completing his ADLs as best he can. Pt's labs (platelets, neutrophils and white blood count) are critically low and pt is on reverse isolation. Pt reports he has no needs at this time. OT services will continue to follow pt and provide services as needed.
[2022-11-18 16:00] VITALS: BP 134/79; PULSE 108; RESP 16; TEMP 36.8; O2SAT 93
[2022-11-18 20:00] VITALS: BP 157/83; PULSE 120; RESP 18; TEMP 37.2; O2SAT 94
[2022-11-18] MEDS: pantoprazole 40 mg SDV IVP (20:24)
--- NOTE | 2022-11-18 21:38 | PM.PN ---
Subjective Subjective: When asked how he is doing today, states maintaining status quo . Feeling some bitter taste after some pills he had swallowed earlier. Noting mild decrease in scrotal and leg edema. Medications: Reviewed: Yes Vitals/I&O/Wt Last Vital Signs Temp 99.0 F 11/18/22 20:00 Pulse 120 H 11/18/22 20:00 Resp 18 11/18/22 20:00 BP 157/83 11/18/22 20:00 Pulse Ox 94 11/18/22 20:00 O2 Del Method Room Air 11/18/22 16:00 O2 Flow Rate 2 11/10/22 21:01 11/18/22 11/18/22 11/18/22 06:59 14:59 22:59 Intake Total 600 / 600 240 / 840 Output Total 950 / 4850 2420 / 2420 500 / 2920 Balance -950 / -3160 -1820 / -1820 -260 / -2080 Physical Exam Const: COMMON NORMALS: patient oriented x3 and alert GENERAL APPEARANCE: cooperative ORIENTATION/CONSCIOUSNESS: Yes awake HENMT: COMMON NORMALS: oropharynx normal OTHER: No thrush Neck/C-Spine: COMMON NORMALS: no JVD Resp: COMMON NORMALS: normal respiratory effort and clear to auscultation bilaterally AUSCULTATION: clear to auscultation bilaterally Cardio: COMMON NORMALS: no JVD, regular rhythm, S1 normal heart sound present, S2 normal heart sound present and No murmurs present (Cardio) RHYTHM: regular rhythm HEART SOUNDS: S1 normal heart sound present and S2 normal heart sound present GI: COMMON NORMALS: Normal to inspection, nondistended, normoactive bowel sounds present, Soft to palpation and non-tender PALPATION: Yes Soft to palpation Extremity: COMMON NORMALS: no joint enlargement and no pedal edema Neuro: COMMON NORMALS: patient oriented x3 and moves all extremities SENSORIUM/ORIENTATION: Yes alert Skin: COMMON NORMALS: no rashes or lesions noted GENERAL SKIN EXAM: no rashes or lesions noted Data 11/18/22 04:27 11/18/22 04:27 A&P Assessment and plan (1) Protein calorie malnutrition: (2) Muscular deconditioning: (3) Lymphadenopathy: (4) Hypercalcemia: (5) Diffuse lymphadenopathy: (6) Mediastinal lymphadenopathy: (7) Diffuse large B-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 Discussed with family require further transfusion. Continue to monitor counts for improvement. Has received Neulasta. Today noted without improvement neutropenia, ANC 100. WBC 0.1. Hemoglobin 7.2 after 1 unit RBC transfusion. Platelets 47,000. Aspirin and heparin have been held. Continue to withhold for now. Discussed with him with regards to Givens catheter, discussed risk of infection from Givens. At home he self catheterizes 4-6 times a day, but he reuses the catheter. With severe neutropenia and this would not be a possibility. Discussed with nursing staff we currently do not have enough disposable catheters for him to be able self-catheterize. But additional question is whether he will be able to do it with aseptic technique given his neutropenia. Also with diuretics currently, this would not be possible, we discussed with him regarding continuation of Givens which she prefers at the moment. Fluid overload with anasarca, edema up to thighs, scrotal edema. With regards to fluid overload, lower extremity edema, scrotal edema, discussed elevation of lower extremities, scrotum. Continue Lasix 40 mg IV x1 daily for now. Monitor I&O, renal function. Requested repeat CMP, monitor chemistry with IV diuretics. Monitor electrolytes. Creatinine noted 1.3. BUN 44. Potassium normal. Lower extremity duplex noted negative for DVT. Discussed with him regarding complex Alfred's cyst, and he will need follow-up with PCP. Transaminitis: Noted transaminitis, stop scheduled Tylenol. Decrease dose to 325 mg every 8 hours as needed. Follow-up CMP requested. Hypercalcemia noted improved. Calcium 9.8. Follow-up CMP requested. Off IVF. Receiving Lasix as above. Reassess I&O, volume status, renal function. Will need follow-up of calcium.? Continues on prednisone.? Hopefully with chemotherapy hypercalcemia will be under control. Limit calcium intake.? Hold multivitamins for now. ?Status post surgical intervention, working with physical therapy.? Discharge planning for rehabilitation -Chemotherapy-induced pancytopenia ? Prednisone 100 daily for 5 days each cycle of chemotherapy.? First dose today for total of 5 days ? Patient had chemo cycle #1 today. ? Lorazepam 0.5 every 6 hours as needed for severe nausea ? Compazine 10 mg every 6 hours for nausea ? Allopurinol 300 daily for prevention of tumor lysis syndrome ?? reverse isolation ? consult dietary for protein calorie malnutrition ? Repeat labs in a.m ? PT OT Attestations Medical Necessity Statement*: Continue admission for assessment management of severe neutropenia, at risk of clotting/DVT following hip fracture and repair, at risk of bleeding, with fluid overload, anasarca. Diagnoses Protein calorie malnutrition E46 Muscular deconditioning R29.898 Lymphadenopathy R59.1 Hypercalcemia E83.52 Diffuse lymphadenopathy R59.1 Mediastinal lymphadenopathy R59.0 Diffuse large B-cell lymphoma of lymph nodes of multiple regions C83.38 Port-A-Cath in place Z95.828 Left hip pain M25.552 Hypercalcemia of malignancy E83.52 Hypothyroid E03.9 Hip fracture S72.009A Antineoplastic chemotherapy induced pancytopenia D61.810; T45.1X5A Neutropenia D70.9
[2022-11-19] VITALS (12 sets, daily range): BP systolic 136–160; BP diastolic 62–85; PULSE 74–119; RESP 15–18; TEMP 36.4–37.2; O2SAT 91–93
[2022-11-19 04:35] LABS: Alanine Aminotransferase 44 U/L (0-41); Albumin Level 2.2 g/dL (3.5-5.2); Alkaline Phosphatase 110 U/L (40-130); Aspartate Amino Transferase 19 U/L (0-40); Blood Urea Nitrogen 43 mg/dL (8-23); Calcium 9.6 mg/dL (8.5-10.5); Carbon Dioxide 26 mmol/L (22-29); Chloride 104 mmol/L (98-107); Globulin 1.5 g/dL (1.3-4.6); Glomerular Filtration Rate 50.1 mL/min (90-130); Glucose 115 mg/dL (65-115); Osmolality Calculated 300 mOsm/kg (285-295); Sodium 139 mmol/L (136-145); Total Bilirubin 0.4 mg/dL (0.15-1.2); Total Protein 3.7 g/dL (6.6-8.7)
[2022-11-19 04:36] LABS: Anion Gap 13.2 (5-19); Potassium 4.2 mmol/L (3.5-5.1)
[2022-11-19 07:29] LABS: Eosinophils % 9.1 %; Lymphocytes # 0.1 10^3/uL (0.8-4.8); Lymphocytes % 54.5 %; Mean Corpuscular HGB Conc 31.5 g/dL (30.0-36.0); Mean Corpuscular Volume 95.3 fl (80-94); Mean Platelet Volume 10.5 fL (7.4-10.4); Monocytes % 18.2 %; Neutrophils % 9.1 %; Nucleated Red Blood Cells % 0 %; Platelet Count 52 10^3/cmm (130-400); Red Blood Count 2.13 10^6/uL (4.1-5.3); Red Cell Distribution Width 17.2 % (12.1-15.1)
[2022-11-19 07:32] LABS: White Blood Count 0.1 10^3/uL (4.0-10.0)
[2022-11-19 07:33] LABS: Hematocrit 20.3 % (42.0-52.0); Hemoglobin 6.4 g/dL (11.7-16.6)
[2022-11-19 07:34] LABS: Neutrophils # 0.01 10^3/uL (1.8-7.7)
[2022-11-19 07:35] LABS: Slide Review Slide Review Perform
[2022-11-19] MEDS: metoprolol tartrate 50 mg Tablet 25 MG PO ×2 (09:41→17:40)
[2022-11-19] MEDS: ciprofloxacin 500 mg Tablet PO ×2 (09:41→20:31)
[2022-11-19] MEDS: fluconazole 100 mg Tablet PO (09:41)
[2022-11-19] MEDS: docusate sodium 100 mg Capsule PO ×2 (09:41→17:40)
[2022-11-19] MEDS: finasteride 5 mg Tablet PO (09:41)
[2022-11-19] MEDS: allopurinol 300 mg Tablet PO (09:41)
[2022-11-19] MEDS: valACYclovir 1,000 mg Tablet 500 MG PO ×2 (09:41→17:40)
[2022-11-19] MEDS: tamsulosin 0.4 mg Capsule PO ×2 (09:41→17:39)
--- NOTE | 2022-11-19 10:37 | USR_ITS ---
PROCEDURE INFORMATION: Exam: US Soft Tissue Head and Neck, Soft Tissue Exam date and time: 11/19/2022 3:43 PM Age: 72 years old Clinical indication: Painful swallowing; Additional info: L side neck tenderness TECHNIQUE: Imaging protocol: Real-time ultrasound scan of the head and neck with image documentation. Exam focused on the soft tissue in the region of clinical concern. COMPARISON: [facility] INITIAL [id number] 10/08/2022 1:05 PM FINDINGS: Lymph nodes: No lymphadenopathy. Soft tissues: Unremarkable. No fluid collections. US/US soft tissue head neck [id number] IMPRESSION: Unremarkable soft tissues of the visualized head and neck.
[2022-11-19] MEDS: FUROsemide 10 mg/mL SDV 4mL 40 MG IVP (10:52)
[2022-11-19] MEDS: nystatin 100,000 unit/mL UDC 5 mL 400000 UNIT PO ×3 (14:29→20:31)
[2022-11-19] MEDS: pantoprazole 40 mg SDV IVP (20:31)
--- NOTE | 2022-11-19 20:41 | P.PN_ITS ---
Subjective Subjective: He feels somewhat down about his situation so far being unimproved. He will let us know in case he is feeling more depressed, discussed with him consideration of having psychiatry see him he declines at the moment. He will be trying to reach out to friends and family for additional support. Having some discomfort on the left side of his neck, some painful swallowing especially of tablets. Poor appetite Medications: Reviewed: Yes Vitals/I&O/Wt Last Vital Signs Temp 98.8 F 11/19/22 20:00 Pulse 119 H 11/19/22 20:00 Resp 18 11/19/22 20:00 BP 138/80 11/19/22 20:00 Pulse Ox 91 11/19/22 20:00 O2 Del Method Room Air 11/19/22 16:55 O2 Flow Rate 2 11/10/22 21:01 11/19/22 11/19/22 11/19/22 06:59 14:59 22:59 Intake Total 480 / 1320 610 / 610 480 / 1090 Output Total 1400 / 4320 2200 / 2200 Balance -920 / -3000 -1590 / -1590 480 / -1110 Physical Exam Const: COMMON NORMALS: patient oriented x3 and alert GENERAL APPEARANCE: cooperative ORIENTATION/CONSCIOUSNESS: Yes awake HENMT: COMMON NORMALS: oropharynx normal OTHER: No thrush Neck/C-Spine: COMMON NORMALS: no JVD Resp: COMMON NORMALS: normal respiratory effort and clear to auscultation bilaterally AUSCULTATION: clear to auscultation bilaterally Cardio: COMMON NORMALS: no JVD, regular rhythm, S1 normal heart sound present, S2 normal heart sound present and No murmurs present (Cardio) RHYTHM: regular rhythm HEART SOUNDS: S1 normal heart sound present and S2 normal heart sound present GI: COMMON NORMALS: Normal to inspection, nondistended, normoactive bowel edgar nds present, Soft to palpation and non-tender PALPATION: Yes Soft to palp ation Extremity: COMMON NORMALS: no joint enlargement OTHER: Persistent BL anasarca up to thighs, including scrotum Neuro: COMMON NORMALS: patient oriented x3 and moves all extremities SENSORIUM/ORIENTATION: Yes alert Skin: COMMON NORMALS: no rashes or lesions noted GENERAL SKIN EXAM: no rashes or lesions noted Urinary Catheter Management: Givens: Cath Placed During This Visit: no Reason for Continuing Indwelling Catheter: Acute Urinary Retention or Obstruction Data 11/19/22 03:28 11/19/22 03:16 A&P Assessment and plan (1) Protein calorie malnutrition: (2) Muscular deconditioning: (3) Lymphadenopathy: (4) Hypercalcemia: (5) Diffuse lymphadenopathy: (6) Mediastinal lymphadenopathy: (7) Diffuse large B-cell lymphoma of lymph nodes of multiple regions: (8) Port-A-Cath in place: (9) Left hip pain: (10) Hypercalcemia of malignancy: (11) Hypothyroid: (12) Hip fracture: (13) Antineoplastic chemotherapy induced pancytopenia: (14) Neutropenia: Plan #Left hip fracture #Diffuse large B-cell lymphoma, 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 This morning a RBC transfusion was ordered for him. Neutrophils persistently low, 0.01. Recheck blood counts requested. Continue to monitor counts for improvement. Has received Neulasta. Today noted without improvement neutropenia, ANC 100. WBC 0.1. Hemoglobin 7.2 after 1 unit RBC transfusion. Platelets 47,000. Aspirin and heparin have been held. Continue to withhold for now. Odynophagia/pill esophagitis, some pain on swallowing pills, some tenderness left side of his neck. Requested soft tissue ultrasound. I do not appreciate pharyngeal thrush, but could be candidal esophagitis. Discussed with him nystatin. Requested. Fluid overload with anasarca, edema up to thighs, scrotal edema. Persistent anasarca. In negative balance. Additionally hypoalbuminemia. Poor appetite. Encouraged Ensure, he states he will try. Continue IV diuretics. Continue to monitor I&O. Noted potassium normal, creatinine 1.4, BUN 43. Follow-up chemistry requested. Lower extremity duplex noted negative for DVT. Discussed with him regarding complex Alfred's cyst, and he will need follow-up with PCP. At home he self catheterizes 4-6 times a day, but he reuses the catheter. With severe neutropenia and this would not be a possibility. Discussed with nursing staff we currently do not have enough disposable catheters for him to be able self-catheterize. But additional question is whether he will be able to do it with aseptic technique given his neutropenia. Also with diuretics currently, this would not be possible, we discussed with him regarding continuation of Givens which she prefers at the moment. Transaminitis: Resolving. Follow-up CMP. Noted transaminitis, stop scheduled Tylenol. Decrease dose to 325 mg every 8 hours as needed. Follow-up CMP requested. Hypercalcemia noted improved. Calcium 9.6. Follow-up CMP requested. Off IVF. Receiving Lasix as above. Reassess I&O, volume status, renal function. Will need follow-up of calcium.? Continues on prednisone.? Hopefully with chemotherapy hypercalcemia will be under control. Limit calcium intake.? Hold multivitamins for now. ?Status post surgical intervention, working with physical therapy.? Discharge planning for rehabilitation -Chemotherapy-induced pancytopenia ? Prednisone 100 daily for 5 days each cycle of chemotherapy.? First dose today for total of 5 days ? Patient had chemo cycle #1 today. ? Lorazepam 0.5 every 6 hours as needed for severe nausea ? Compazine 10 mg every 6 hours for nausea ? Allopurinol 300 daily for prevention of tumor lysis syndrome ?? reverse isolation ? consult dietary for protein calorie malnutrition ? Repeat labs in a.m ? PT OT Attestations Medical Necessity Statement*: Continue admission for assessment management of severe pancytopenia, anasarca. Diagnoses Protein calorie malnutrition E46 Muscular deconditioning R29.898 Lymphadenopathy R59.1 Hypercalcemia E83.52 Diffuse lymphadenopathy R59.1 Mediastinal lymphadenopathy R59.0 Diffuse large B-cell lymphoma of lymph nodes of multiple regions C83.38 Port-A-Cath in place Z95.828 Left hip pain M25.552 Hypercalcemia of malignancy E83.52 Hypothyroid E03.9 Hip fracture S72.009A Antineoplastic chemotherapy induced pancytopenia D61.810; T45.1X5A Neutropenia D70.9
[2022-11-20] VITALS: BP 142/68; PULSE 119; RESP 18; TEMP 38.1; O2SAT 91
[2022-11-20 04:45] VITALS: BP 136/74; PULSE 110; RESP 18; TEMP 36.7; O2SAT 91
[2022-11-20 06:01] LABS: Hematocrit 22.4 % (42.0-52.0); Hemoglobin 7.4 g/dL (11.7-16.6); Mean Corpuscular Volume 93.7 fl (80-94); Mean Platelet Volume 10.3 fL (7.4-10.4); Nucleated Red Blood Cells % 0 %; Platelet Count 66 10^3/cmm (130-400); Red Blood Count 2.39 10^6/uL (4.1-5.3); Red Cell Distribution Width 15.6 % (12.1-15.1)
[2022-11-20 06:28] LABS: Alanine Aminotransferase 42 U/L (0-41); Albumin Level 2.1 g/dL (3.5-5.2); Alkaline Phosphatase 137 U/L (40-130); Anion Gap 12.8 (5-19); Aspartate Amino Transferase 17 U/L (0-40); Blood Urea Nitrogen 41 mg/dL (8-23); Calcium 9.1 mg/dL (8.5-10.5); Carbon Dioxide 26 mmol/L (22-29); Chloride 103 mmol/L (98-107); Globulin 1.7 g/dL (1.3-4.6); Glomerular Filtration Rate 42.9 mL/min (90-130); Glucose 109 mg/dL (65-115); Osmolality Calculated 297 mOsm/kg (285-295); Potassium 3.8 mmol/L (3.5-5.1); Sodium 138 mmol/L (136-145); Total Bilirubin 0.5 mg/dL (0.15-1.2); Total Protein 3.8 g/dL (6.6-8.7); White Blood Count 0.1 10^3/uL (4.0-10.0)
[2022-11-20 06:29] LABS: Neutrophils # 0.02 10^3/uL (1.8-7.7)
[2022-11-20 06:30] LABS: Slide Review Slide Review Perform
[2022-11-20 08:00] VITALS: BP 120/74; PULSE 108; RESP 17; TEMP 36.6; O2SAT 93
[2022-11-20] MEDS: FUROsemide 10 mg/mL SDV 4mL 40 MG IVP (08:46)
--- NOTE | 2022-11-20 09:29 | PC.SOCIAL ---
IMM Update IMM updated with patient. Verbalized an understanding. Copy Pg 2 provided. Initialled, dated, timed, and placed in chart.
[2022-11-20] MEDS: ciprofloxacin 500 mg Tablet PO ×2 (10:08→20:50)
[2022-11-20] MEDS: tamsulosin 0.4 mg Capsule PO ×2 (10:08→17:57)
[2022-11-20] MEDS: fluconazole 100 mg Tablet PO (10:08)
[2022-11-20] MEDS: finasteride 5 mg Tablet PO (10:08)
[2022-11-20] MEDS: metoprolol tartrate 50 mg Tablet 25 MG PO ×2 (10:09→17:57)
[2022-11-20] MEDS: nystatin 100,000 unit/mL UDC 5 mL 400000 UNIT PO ×4 (10:09→20:49)
[2022-11-20] MEDS: docusate sodium 100 mg Capsule PO ×2 (10:09→17:57)
[2022-11-20] MEDS: allopurinol 300 mg Tablet PO (10:09)
[2022-11-20] MEDS: valACYclovir 1,000 mg Tablet 500 MG PO ×2 (10:10→17:58)
[2022-11-20 11:27] VITALS: BP 128/78; PULSE 99; RESP 18; TEMP 36.9; O2SAT 95
[2022-11-20 16:00] VITALS: BP 126/78; PULSE 107; RESP 16; TEMP 37.1; O2SAT 90
--- NOTE | 2022-11-20 16:32 | PM.PN ---
Subjective Subjective: He is doing about the same, less tenderness in the left side of the neck, but did have some burning when drinking orange juice on the left side of his throat. He denies any new symptoms otherwise. However, did have a temp 100.5 Fahrenheit yesterday. Medications: Reviewed: Yes Vitals/I&O/Wt Last Vital Signs Temp 98.7 F 11/20/22 16:00 Pulse 107 H 11/20/22 16:00 Resp 16 11/20/22 16:00 BP 126/78 11/20/22 16:00 Pulse Ox 90 11/20/22 16:00 O2 Del Method Room Air 11/20/22 16:00 O2 Flow Rate 2 11/10/22 21:01 11/20/22 11/20/22 11/20/22 06:59 14:59 22:59 Intake Total 240 / 1810 600 / 600 Output Total 1000 / 4200 700 / 700 Balance -760 / -2390 -100 / -100 Physical Exam Const: COMMON NORMALS: patient oriented x3 and alert GENERAL APPEARANCE: cooperative ORIENTATION/CONSCIOUSNESS: Yes awake HENMT: COMMON NORMALS: oropharynx normal OTHER: No thrush. I do not appreciate any significant posterior pharyngeal erythema or exudates. Neck/C-Spine: COMMON NORMALS: no JVD Resp: COMMON NORMALS: normal respiratory effort and clear to auscultation bilaterally AUSCULTATION: clear to auscultation bilaterally Cardio: COMMON NORMALS: no JVD, regular rhythm, S1 normal heart sound present, S2 normal heart sound present and No murmurs present (Cardio) RHYTHM: regular rhythm HEART SOUNDS: S1 normal heart sound present and S2 normal heart sound present GI: COMMON NORMALS: Normal to inspection, nondistended, normoactive bowel sounds present, Soft to palpation and non-tender PALPATION: Yes Soft to palpation Extremity: COMMON NORMALS: no joint enlargement and no pedal edema OTHER: Persistent BL anasarca up to thighs, including scrotum Neuro: COMMON NORMALS: patient oriented x3 and moves all extremities SENSORIUM/ORIENTATION: Yes alert Skin: COMMON NORMALS: no rashes or lesions noted GENERAL SKIN EXAM: no rashes or lesions noted Urinary Catheter Management: Givens: Cath Placed During This Visit: no Reason for Continuing Indwelling Catheter: Acute Urinary Retention or Obstruction Data 11/20/22 04:53 11/20/22 04:53 A&P Assessment and plan (1) Protein calorie malnutrition: (2) Muscular deconditioning: (3) Lymphadenopathy: (4) Hypercalcemia: (5) Diffuse lymphadenopathy: (6) Mediastinal lymphadenopathy: (7) Diffuse large B-cell lymphoma of lymph nodes of multiple regions: (8) Port-A-Cath in place: (9) Left hip pain: (10) Hypercalcemia of malignancy: (11) Hypothyroid: (12) Hip fracture: (13) Antineoplastic chemotherapy induced pancytopenia: (14) Neutropenia: Plan #Left hip fracture #Diffuse large B-cell lymphoma, 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 Severe neck ANC 20. No new symptoms. Risk of life threatening deterioration. Collect blood culture. Start Zosyn. Counts appear to be showing some mild recovery. Obtain chest x-ray, UA. Rapid strep. On my interpretation chest x-ray with small to moderate bilateral pleural effusions, atelectasis versus infiltrate right lower lobe. Add linezolid. Pancytopenia: Hopefully will continue to trend of some mild recovery noted today, ANC up to 20. Hemoglobin up to 7.4. Platelets up to 66. Recheck blood counts. Continue neutropenic precautions. Has received Neulasta. Aspirin and heparin have been held. Resume heparin DVT prophylaxis. Odynophagia/pill esophagitis, some pain on swallowing pills, some tenderness left side of his neck. Sounds like and possibly some proximal esophagitis. Continue nystatin. Neck soft tissue ultrasound noted without abnormality. I do not appreciate pharyngeal thrush, but could be candidal esophagitis. Fluid overload with anasarca, edema up to thighs, scrotal edema. Now showing improvement. Persistent anasarca. Decreasing edema in thighs, decreasing scrotal swelling and size. Again encouraged oral intake, Ensure. Continue IV diuretics. Continue to monitor I&O. Requires close monitoring for toxicity with IV diuretic therapy for anasarca with worsening renal function. Noted potassium normal, creatinine 1.6, BUN 41. Follow-up chemistry requested. Lower extremity duplex noted negative for DVT. Discussed with him regarding complex Alfred's cyst, and he will need follow-up with PCP. At home he self catheterizes 4-6 times a day, but he reuses the catheter. With severe neutropenia and this would not be a possibility. Discussed with nursing staff we currently do not have enough disposable catheters for him to be able self-catheterize. But additional question is whether he will be able to do it with aseptic technique given his neutropenia. Also with diuretics currently, this would not be possible, we discussed with him regarding continuation of Givens which she prefers at the moment. Transaminitis: Resolving. AST down to normal. ALT down to 42. Follow-up CMP. Noted transaminitis, stop scheduled Tylenol. Decrease dose to 325 mg every 8 hours as needed. Follow-up CMP requested. Hypercalcemia noted improved. Calcium 9.1. Follow-up CMP requested. Off IVF. Receiving Lasix as above. Reassess I&O, volume status, renal function. Will need follow-up of calcium.? Continues on prednisone.? Hopefully with chemotherapy hypercalcemia will be under control. Limit calcium intake.? Hold multivitamins for now. ?Status post surgical intervention, working with physical therapy.? Discharge planning for rehabilitation -Chemotherapy-induced pancytopenia ? Prednisone 100 daily for 5 days each cycle of chemotherapy.? First dose today for total of 5 days ? Patient had chemo cycle #1 today. ? Lorazepam 0.5 every 6 hours as needed for severe nausea ? Compazine 10 mg every 6 hours for nausea ? Allopurinol 300 daily for prevention of tumor lysis syndrome ?? reverse isolation ? consult dietary for protein calorie malnutrition ? Repeat labs in a.m ? PT OT Attestations Medical Necessity Statement*: Continue admission for assessment and management of neutropenic fever. Diagnoses Protein calorie malnutrition E46 Muscular deconditioning R29.898 Lymphadenopathy R59.1 Hypercalcemia E83.52 Diffuse lymphadenopathy R59.1 Mediastinal lymphadenopathy R59.0 Diffuse large B-cell lymphoma of lymph nodes of multiple regions C83.38 Port-A-Cath in place Z95.828 Left hip pain M25.552 Hypercalcemia of malignancy E83.52 Hypothyroid E03.9 Hip fracture S72.009A Antineoplastic chemotherapy induced pancytopenia D61.810; T45.1X5A Neutropenia D70.9
--- NOTE | 2022-11-20 16:41 | XRR_ITS ---
PROCEDURE INFORMATION: Exam: XR Chest Exam date and time: 11/20/2022 4:50 PM Age: 72 years old Clinical indication: Fever; Additional info: Neutropenic fever TECHNIQUE: Imaging protocol: Radiologic exam of the chest. Views: 1 view. COMPARISON: CR (CHEST, ) 11/09/2022 8:28 PM FINDINGS: Tubes, catheters and devices: Left-sided Port-A-Cath. Lungs: Emphysematous changes. Right lower lobe atelectasis versus infiltrate. Pleural spaces: Moderate bilateral pleural effusions. Heart/Mediastinum: Unremarkable. No cardiomegaly. Bones/joints: Unremarkable. XR/XR chest 1V portable [id number] IMPRESSION: 1. Moderate bilateral pleural effusions. 2. Left-sided Port-A-Cath. 3. Emphysematous changes. 4. Right lower lobe atelectasis versus infiltrate.
[2022-11-20] MEDS: piperacillin-tazobactam 3.375 GM in sodium chloride 0.9% (plus) 50 ML IV (17:56)
[2022-11-20 18:20] LABS: Bilirubin Urine Neg (Negative); Blood Urine 2+ (Negative); Glucose Urine UA Norm (Normal); Ketones Urine Negative (Negative); Leukocyte Esterase Urine Trace (Negative); Nitrate Urine Negative (Negative); Protein Urine 1+ (Negative); Specific Gravity, Urine 1.005 (1.005-1.030); Urine Appearance Hazy (CLEAR); Urine Color Yellow (Yellow); Urobilinogen Urine Norm (Negative); pH Urine 7 (5-7)
[2022-11-20 18:21] LABS: Add Urine Microscopic? YES
[2022-11-20 18:23] LABS: RBC Urine 0-4 /hpf (0-2); Squamous Epithelial Cell Urine 0-4 /hpf (0-5); WBC Urine 0-4 /hpf (0-5)
[2022-11-20 18:24] LABS: Calcium Oxalate Crystals Urine 0-4 /hpf
[2022-11-20 18:29] LABS: Rapid Strep A Test Negative (Negative)
[2022-11-20 20:00] VITALS: BP 144/79; PULSE 104; RESP 18; TEMP 37.5; O2SAT 90
[2022-11-20] MEDS: linezolid premix 600 MG/300 ML PREMIX 300 MG IV (20:49)
[2022-11-20] MEDS: pantoprazole 40 mg SDV IVP (20:49)
[2022-11-20] MEDS: heparin 5,000 unit/mL INJ 1 mL 5000 UNIT SUBCUT (20:50)
[2022-11-21] VITALS: BP 118/63; PULSE 100; RESP 16; TEMP 36.7; O2SAT 90
[2022-11-21] MEDS: piperacillin-tazobactam 3.375 GM in sodium chloride 0.9% (plus) 50 ML IV ×3 (00:23→16:40)
[2022-11-21 04:00] VITALS: BP 117/61; PULSE 101; RESP 16; TEMP 36.8; O2SAT 90
[2022-11-21 05:38] LABS: Basophils % 5.9 %; Eosinophils % 5.9 %; Hematocrit 21.5 % (42.0-52.0); Lymphocytes # 0.1 10^3/uL (0.8-4.8); Lymphocytes % 29.4 %; Mean Corpuscular HGB Conc 32.6 g/dL (30.0-36.0); Mean Corpuscular Volume 95.1 fl (80-94); Mean Platelet Volume 10.3 fL (7.4-10.4); Monocytes % 17.6 %; Neutrophils % 41.2 %; Nucleated Red Blood Cells % 0 %; Platelet Count 72 10^3/cmm (130-400); Red Blood Count 2.26 10^6/uL (4.1-5.3); Red Cell Distribution Width 15.2 % (12.1-15.1)
[2022-11-21 05:54] LABS: Alanine Aminotransferase 46 U/L (0-41); Albumin Level 2.1 g/dL (3.5-5.2); Alkaline Phosphatase 157 U/L (40-130); Anion Gap 12.7 (5-19); Aspartate Amino Transferase 22 U/L (0-40); Blood Urea Nitrogen 38 mg/dL (8-23); Carbon Dioxide 26 mmol/L (22-29); Chloride 103 mmol/L (98-107); Globulin 1.7 g/dL (1.3-4.6); Glucose 104 mg/dL (65-115); Osmolality Calculated 295 mOsm/kg (285-295); Potassium 3.7 mmol/L (3.5-5.1); Sodium 138 mmol/L (136-145); Total Bilirubin 0.4 mg/dL (0.15-1.2); Total Protein 3.8 g/dL (6.6-8.7)
[2022-11-21 06:33] LABS: Neutrophils # 0.07 10^3/uL (1.8-7.7); Slide Review Slide Review Perform; White Blood Count 0.2 10^3/uL (4.0-10.0)
[2022-11-21] MEDS: FUROsemide 10 mg/mL SDV 4mL 40 MG IVP (08:16)
[2022-11-21 08:58] VITALS: BP 120/71; PULSE 99; RESP 15; TEMP 37.1; O2SAT 91
[2022-11-21] MEDS: nystatin 100,000 unit/mL UDC 5 mL 400000 UNIT PO ×4 (09:27→21:10)
[2022-11-21] MEDS: linezolid premix 600 MG/300 ML PREMIX 300 MG IV ×2 (09:27→19:19)
[2022-11-21] MEDS: ciprofloxacin 500 mg Tablet PO ×2 (09:28→21:10)
[2022-11-21] MEDS: heparin 5,000 unit/mL INJ 1 mL 5000 UNIT SUBCUT ×2 (09:28→21:10)
[2022-11-21] MEDS: allopurinol 300 mg Tablet PO (09:28)
[2022-11-21] MEDS: tamsulosin 0.4 mg Capsule PO ×2 (09:28→16:43)
[2022-11-21] MEDS: finasteride 5 mg Tablet PO (09:28)
[2022-11-21] MEDS: metoprolol tartrate 50 mg Tablet 25 MG PO ×2 (09:28→16:43)
[2022-11-21] MEDS: valACYclovir 1,000 mg Tablet 500 MG PO ×2 (09:29→16:43)
[2022-11-21] MEDS: docusate sodium 100 mg Capsule PO ×2 (09:29→16:42)
[2022-11-21] MEDS: fluconazole 100 mg Tablet PO (09:29)
[2022-11-21] MEDS: albumin 25 G/100 ML VIAL IV (11:03)
--- NOTE | 2022-11-21 11:18 | P.PN_ITS ---
Subjective Subjective: Sore throat is abating. Denies any lot of cough. Encouraged him to work with his sepsis primary. Encouraged oral nutrition including ensures. Medications: Reviewed: Yes Vitals/I&O/Wt Last Vital Signs Temp 98.7 F 11/21/22 08:58 Pulse 99 11/21/22 08:58 Resp 15 11/21/22 08:58 BP 120/71 11/21/22 08:58 Pulse Ox 91 11/21/22 08:58 O2 Del Method Room Air 11/21/22 04:00 O2 Flow Rate 2 11/21/22 08:00 11/20/22 11/21/22 11/21/22 22:59 06:59 14:59 Intake Total 830 / 1430 50 / 1480 300 / 300 Output Total 1575 / 2275 750 / 3025 Balance -745 / -845 -700 / -1545 300 / 300 Physical Exam Const: COMMON NORMALS: patient oriented x3 and alert GENERAL APPEARANCE: cooperative ORIENTATION/CONSCIOUSNESS: Yes awake HENMT: COMMON NORMALS: oropharynx normal OTHER: No thrush. I do not appreciate any significant posterior pharyngeal erythema or exudates. Neck/C-Spine: COMMON NORMALS: no JVD Resp: COMMON NORMALS: normal respiratory effort and clear to auscultation bilaterally AUSCULTATION: clear to auscultation bilaterally Cardio: COMMON NORMALS: no JVD, regular rhythm, S1 normal heart sound present, S2 normal heart sound present and No murmurs present (Cardio) RHYTHM: regular rhythm HEART SOUNDS: S1 normal heart sound present and S2 normal heart sound present GI: COMMON NORMALS: Normal to inspection, nondistended, normoactive bowel sounds present, Soft to palpation and non-tender PALPATION: Yes Soft to palpation Extremity: COMMON NORMALS: no joint enlargement and no pedal edema OTHER: Persistent BL anasarca up to thighs, including scrotum Neuro: COMMON NORMALS: patient oriented x3 and moves all extremities SENSORIUM/ORIENTATION: Yes alert Skin: COMMON NORMALS: no rashes or lesions noted GENERAL SKIN EXAM: no rashes or lesions noted Urinary Catheter Management: Givens: Cath Placed During This Visit: no Reason for Continuing Indwelling Catheter: Acute Urinary Retention or Obstruction Data 11/21/22 05:26 11/21/22 05:26 Micro: Microbiology 11/20/22 17:20 Blood Culture - Preliminary Blood SPECIMEN COLLECTED 11/20/22 17:15 Blood Culture - Preliminary Blood SPECIMEN COLLECTED A&P Assessment and plan (1) Protein calorie malnutrition: (2) Muscular deconditioning: (3) Lymphadenopathy: (4) Hypercalcemia: (5) Diffuse lymphadenopathy: (6) Mediastinal lymphadenopathy: (7) Diffuse large B-cell lymphoma of lymph nodes of multiple regions: (8) Port-A-Cath in place: (9) Left hip pain: (10) Hypercalcemia of malignancy: (11) Hypothyroid: (12) Hip fracture: (13) Antineoplastic chemotherapy induced pancytopenia: (14) Neutropenia: Plan #Left hip fracture #Diffuse large B-cell lymphoma, 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 He is not having any significant respiratory symptoms., With neutropenic fever, possible pneumonia continue Zosyn, linezolid at this time. Follow-up blood cultures. Encouraged incentive spirometry. Discussed with his oncologist. Rapid strep negative. Pancytopenia: Additional mild improvement in ANC up to 70. Platelets 72. Hemoglobin down to 7. Recheck blood counts. Continue neutropenic precautions. Has received Neulasta. Aspirin Resumed heparin DVT prophylaxis. Odynophagia/pill esophagitis, improving. Resolving tenderness left side of his neck. Sounds like and possibly some proximal esophagitis. Continue nystatin. Neck soft tissue ultrasound noted without abnormality. I do not appreciate ph aryngeal thrush, but could be candidal esophagitis. Fluid overload with anasarca, edema up to thighs, scrotal edema. Slow to improve. Albumin very low. Encouraged oral nutrition, ensures. We will give albumin. Noted worsening renal function, BUN 38, creatinine 1.7. Persistent anasarca. Continue IV diuretics. Continue to monitor I&O. Requires close monitoring for toxicity with IV diuretic therapy for anasarca with worsening renal function. Lower extremity duplex noted negative for DVT. Discussed with him regarding complex Alfred's cyst, and he will need follow-up with PCP. At home he self catheterizes 4-6 times a day, but he reuses the catheter. With severe neutropenia and this would not be a possibility. Discussed with nursing staff we currently do not have enough disposable catheters for him to be able self-catheterize. But additional question is whether he will be able to do it with aseptic technique given his neutropenia. Also with diuretics currently, this would not be possible, we discussed with him regarding continuation of Givens which she prefers at the moment. Transaminitis: Resolving. AST down to normal. ALT down to 42. Follow-up CMP. Noted transaminitis, stop scheduled Tylenol. Decrease dose to 325 mg every 8 hours as needed. Follow-up CMP requested. Hypercalcemia noted improved. Calcium 9.1. Follow-up CMP requested. Off IVF. Receiving Lasix as above. Reassess I&O, volume status, renal function. Will need follow-up of calcium.? Continues on prednisone.? Hopefully with chemotherapy hypercalcemia will be under control. Limit calcium intake.? Hold multivitamins for now. ?Status post surgical intervention, working with physical therapy.? Discharge planning for rehabilitation -Chemotherapy-induced pancytopenia ? Prednisone 100 daily for 5 days each cycle of chemotherapy.? First dose today for total of 5 days ? Patient had chemo cycle #1 today. ? Lorazepam 0.5 every 6 hours as needed for severe nausea ? Compazine 10 mg every 6 hours for nausea ? Allopurinol 300 daily for prevention of tumor lysis syndrome ?? reverse isolation ? consult dietary for protein calorie malnutrition ? Repeat labs in a.m ? PT OT Attestations Medical Necessity Statement*: Continue assessment management of severe pancytopenia, neutropenic fever, anasa rca. Diagnoses Protein calorie malnutrition E46 Muscular deconditioning R29.898 Lymphadenopathy R59.1 Hypercalcemia E83.52 Diffuse lymphadenopathy R59.1 Mediastinal lymphadenopathy R59.0 Diffuse large B-cell lymphoma of lymph nodes of multiple regions C83.38 Port-A-Cath in place Z95.828 Left hip pain M25.552 Hypercalcemia of malignancy E83.52 Hypothyroid E03.9 Hip fracture S72.009A Antineoplastic chemotherapy induced pancytopenia D61.810; T45.1X5A Neutropenia D70.9
[2022-11-21 12:53] VITALS: BP 124/66; PULSE 91; RESP 18; TEMP 36.5; O2SAT 93
[2022-11-21 16:56] VITALS: BP 135/76; PULSE 93; RESP 18; TEMP 36.8; O2SAT 91
[2022-11-21 19:57] VITALS: BP 136/71; PULSE 94; RESP 17; TEMP 37.1; O2SAT 93
[2022-11-21] MEDS: pantoprazole 40 mg SDV IVP (21:10)
[2022-11-22] VITALS (11 sets, daily range): BP systolic 123–136; BP diastolic 62–83; PULSE 68–88; RESP 16–19; TEMP 36.5–37.4; O2SAT 90–96
[2022-11-22] MEDS: piperacillin-tazobactam 3.375 GM in sodium chloride 0.9% (plus) 50 ML IV ×3 (00:20→16:58)
[2022-11-22 05:36] LABS: Eosinophils % 7.9 %; Hematocrit 21.2 % (42.0-52.0); Hemoglobin 6.8 g/dL (11.7-16.6); Lymphocytes # 0.1 10^3/uL (0.8-4.8); Lymphocytes % 13.2 %; Mean Corpuscular HGB Conc 32.1 g/dL (30.0-36.0); Mean Corpuscular Hemoglobin 30.9 pg (28.0-34.0); Mean Corpuscular Volume 96.4 fl (80-94); Mean Platelet Volume 10.8 fL (7.4-10.4); Monocytes # 0.1 10^3/uL (0.2-0.9); Monocytes % 15.8 %; Neutrophils % 63.1 %; Nucleated Red Blood Cells % 0 %; Platelet Count 104 10^3/cmm (130-400)
[2022-11-22 05:53] LABS: Alanine Aminotransferase 58 U/L (0-41); Albumin Level 2.2 g/dL (3.5-5.2); Alkaline Phosphatase 184 U/L (40-130); Anion Gap 13.5 (5-19); Aspartate Amino Transferase 34 U/L (0-40); Blood Urea Nitrogen 36 mg/dL (8-23); Calcium 9.1 mg/dL (8.5-10.5); Carbon Dioxide 26 mmol/L (22-29); Chloride 102 mmol/L (98-107); Globulin 1.7 g/dL (1.3-4.6); Glomerular Filtration Rate 35.2 mL/min (90-130); Glucose 97 mg/dL (65-115); Osmolality Calculated 294 mOsm/kg (285-295); Potassium 3.5 mmol/L (3.5-5.1); Sodium 138 mmol/L (136-145); Total Bilirubin 0.4 mg/dL (0.15-1.2); Total Protein 3.9 g/dL (6.6-8.7)
[2022-11-22 05:56] LABS: Slide Review Slide Review Perform
[2022-11-22 05:59] LABS: Neutrophils # 0.24 10^3/uL (1.8-7.7); White Blood Count 0.4 10^3/uL (4.0-10.0)
--- NOTE | 2022-11-22 09:18 | PC.SOCIAL ---
IMM Update IMM updated with patient. Verbalized an understanding. Copy Pg 2 provided. Initialled, dated, timed, and placed in chart.
[2022-11-22] MEDS: fluconazole 100 mg Tablet PO (10:27)
[2022-11-22] MEDS: ciprofloxacin 500 mg Tablet PO ×2 (10:28→20:36)
[2022-11-22] MEDS: metoprolol tartrate 50 mg Tablet 25 MG PO ×2 (10:28→16:58)
[2022-11-22] MEDS: tamsulosin 0.4 mg Capsule PO ×2 (10:28→16:58)
[2022-11-22] MEDS: docusate sodium 100 mg Capsule PO ×2 (10:28→16:58)
[2022-11-22] MEDS: finasteride 5 mg Tablet PO (10:28)
[2022-11-22] MEDS: allopurinol 300 mg Tablet PO (10:28)
[2022-11-22] MEDS: nystatin 100,000 unit/mL UDC 5 mL 400000 UNIT PO ×4 (10:28→20:35)
[2022-11-22] MEDS: FUROsemide 10 mg/mL SDV 4mL 40 MG IVP (10:29)
[2022-11-22] MEDS: valACYclovir 1,000 mg Tablet 500 MG PO ×2 (10:29→16:58)
[2022-11-22] MEDS: heparin 5,000 unit/mL INJ 1 mL 5000 UNIT SUBCUT ×2 (10:29→20:35)
[2022-11-22] MEDS: linezolid premix 600 MG/300 ML PREMIX 300 MG IV ×2 (10:30→20:36)
--- NOTE | 2022-11-22 12:15 | PC.SOCIAL ---
IMM update IMM updated with patient. Verbalized an understand. Copy Pg 2 provided. Initialled, dated, timed, and placed in chart.
--- NOTE | 2022-11-22 15:29 | PM.PN ---
Subjective Subjective: He is still having soreness left side of his throat. Some subjective fullness. Had difficult time sleeping. Was having some lucid dreams this morning. Medications: Reviewed: Yes Vitals/I&O/Wt Last Vital Signs Temp 98.0 F 11/22/22 12:00 Pulse 68 11/22/22 12:00 Resp 18 11/22/22 12:00 BP 136/83 11/22/22 12:00 Pulse Ox 95 11/22/22 12:00 O2 Del Method Room Air 11/22/22 12:00 O2 Flow Rate 2 11/22/22 04:00 11/22/22 11/22/22 11/22/22 06:59 14:59 22:59 Intake Total 50 / 1570 1020 / 1020 50 / 1070 Output Total 850 / 4650 1999 Balance -800 / -3080 -980 / -980 50 / -930 Physical Exam Const: COMMON NORMALS: patient oriented x3 and alert GENERAL APPEARANCE: cooperative ORIENTATION/CONSCIOUSNESS: Yes awake HENMT: COMMON NORMALS: oropharynx normal OTHER: No thrush. Neck/C-Spine: COMMON NORMALS: no JVD Resp: COMMON NORMALS: normal respiratory effort and clear to auscultation bilaterally AUSCULTATION: clear to auscultation bilaterally Cardio: COMMON NORMALS: no JVD, regular rhythm, S1 normal heart sound present, S2 normal heart sound present and No murmurs present (Cardio) RHYTHM: regular rhythm HEART SOUNDS: S1 normal heart sound present and S2 normal heart sound present GI: COMMON NORMALS: Normal to inspection, nondistended, normoactive bowel sounds present, Soft to palpation and non-tender PALPATION: Yes Soft to palpation Extremity: COMMON NORMALS: no joint enlargement and no pedal edema OTHER: Improving BL anasarca up to thighs, resolved edema in the thighs, improving edema lower extremities, some wrinkling of the skin. Reports decreased size scrotum. Neuro: COMMON NORMALS: patient oriented x3 and moves all extremities SENSORIUM/ORIENTATION: Yes alert Skin: COMMON NORMALS: no rashes or lesions noted GENERAL SKIN EXAM: no rashes or lesions noted Urinary Catheter Management: Givens: Cath Placed During This Visit: no Reason for Continuing Indwelling Catheter: Acute Urinary Retention or Obstruction Data 11/22/22 05:01 06/06/23 05:01 Micro: Microbiology 11/20/22 17:20 Group A Streptococcus Rapid Screen - Preliminary Throat 11/20/22 17:20 Blood Culture - Preliminary Blood NEGATIVE TO DATE 11/20/22 17:15 Blood Culture - Preliminary Blood NEGATIVE TO DATE A&P Assessment and plan (1) Protein calorie malnutrition: (2) Muscular deconditioning: (3) Lymphadenopathy: (4) Hypercalcemia: (5) Diffuse lymphadenopathy: (6) Mediastinal lymphadenopathy: (7) Diffuse large B-cell lymphoma of lymph nodes of multiple regions: (8) Port-A-Cath in place: (9) Left hip pain: (10) Hypercalcemia of malignancy: (11) Hypothyroid: (12) Hip fracture: (13) Antineoplastic chemotherapy induced pancytopenia: (14) Neutropenia: Plan #Left hip fracture #Diffuse large B-cell lymphoma, 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 Last night he did have some difficulty breathing overnight. Started on a little bit of oxygen. Still some sore throat with some subjective fullness on the left. Will assess CT neck. With possible pneumonia continue Zosyn, linezolid. Follow-up blood cultures. Encouraged incentive spirometry. Rapid strep negative. Discussed his condition with case management. Nursing. Pancytopenia: Discussed with him ANC better, up to 240 today. Platelets coming up, up to 104. Hemoglobin down again to 6.8. Discussed with him additional RBC transfusion. Requested. Recheck blood counts. Continue neutropenic precautions. Has received Neulasta. Aspirin Heparin DVT prophylaxis. Odynophagia/pill esophagitis, some improvement yesterday, today symptoms persist, some subjective fullness. Assess CT neck. Sounds like and possibly some proximal esophagitis. Continue nystatin. Neck soft tissue ultrasound noted without abnormality. I do not appreciate pharyngeal thrush, but could be candidal esophagitis. Fluid overload with anasarca, edema up to thighs, scrotal edema. Gradually improving. No further thigh edema. Decreasing edema lower extremities but still persistent. Low albumin. Encouraged him again to ensure to increase protein intake. Noted worsening BUN, creatinine 1.9. BUN 36. We will hold diuretic for now. He is getting RBC transfusion, otherwise consider additional albumin transfusion. Sodium 138, potassium 3.5. Bicarb 26, anion gap 13.5. Recheck chemistry. Continue to monitor I&O. Requires close monitoring for toxicity with IV diuretic therapy for anasarca with MEERA. Lower extremity duplex noted negative for DVT. Discussed with him regarding complex Alfred's cyst, and he will need follow-up with PCP. At home he self catheterizes 4-6 times a day, but he reuses the catheter. With severe neutropenia and this would not be a possibility. Discussed with nursing staff we currently do not have enough disposable catheters for him to be able self-catheterize. But additional question is whether he will be able to do it with aseptic technique given his neutropenia. Also with diuretics currently, this would not be possible, we discussed with him regarding continuation of Givens which she prefers at the moment. Transaminitis: Resolving. AST down to normal. ALT down to 42. Follow-up CMP. Noted transaminitis, stop scheduled Tylenol. Decrease dose to 325 mg every 8 hours as needed. Follow-up CMP requested. Hypercalcemia noted improved. Calcium 9.1. Follow-up CMP requested. Off IVF. Receiving Lasix as above. Reassess I&O, volume status, renal function. Follow-up calcium. Hopefully with chemotherapy hypercalcemia will be under control. Limit calcium intake.? Hold multivitamins for now. ?Status post surgical intervention, working with physical therapy.? Discharge planning for rehabilitation. -Chemotherapy-induced pancytopenia ? Prednisone 100 daily for 5 days each cycle of chemotherapy.? First dose today for total of 5 days ? Patient had chemo cycle #1 today. ? Lorazepam 0.5 every 6 hours as needed for severe nausea ? Compazine 10 mg every 6 hours for nausea ? Allopurinol 300 daily for prevention of tumor lysis syndrome ?? reverse isolation ? consult dietary for protein calorie malnutrition ? Repeat labs in a.m ? PT OT Attestations Medical Necessity Statement*: Admission for assessment management of pancytopenia, neutropenic fever. Diagnoses Protein calorie malnutrition E46 Muscular deconditioning R29.898 Lymphadenopathy R59.1 Hypercalcemia E83.52 Diffuse lymphadenopathy R59.1 Mediastinal lymphadenopathy R59.0 Diffuse large B-cell lymphoma of lymph nodes of multiple regions C83.38 Port-A-Cath in place Z95.828 Left hip pain M25.552 Hypercalcemia of malignancy E83.52 Hypothyroid E03.9 Hip fracture S72.009A Antineoplastic chemotherapy induced pancytopenia D61.810; T45.1X5A Neutropenia D70.9
[2022-11-22] MEDS: pantoprazole 40 mg SDV IVP (20:34)
[2022-11-23] VITALS: BP 131/72; PULSE 77; RESP 16; TEMP 36.8; O2SAT 95
[2022-11-23] MEDS: piperacillin-tazobactam 3.375 GM in sodium chloride 0.9% (plus) 50 ML IV ×3 (00:30→17:28)
[2022-11-23 04:34] LABS: Basophils % 1.7 %; Eosinophils % 6.8 %; Hematocrit 24.5 % (42.0-52.0); Hemoglobin 7.9 g/dL (11.7-16.6); Lymphocytes # 0.1 10^3/uL (0.8-4.8); Lymphocytes % 11.9 %; Mean Corpuscular HGB Conc 32.2 g/dL (30.0-36.0); Mean Corpuscular Hemoglobin 30.6 pg (28.0-34.0); Mean Platelet Volume 10.4 fL (7.4-10.4); Monocytes # 0.1 10^3/uL (0.2-0.9); Monocytes % 13.6 %; Neutrophils % 62.6 %; Nucleated Red Blood Cells % 0 %; Platelet Count 169 10^3/cmm (130-400); Red Blood Count 2.58 10^6/uL (4.1-5.3); Red Cell Distribution Width 15.4 % (12.1-15.1)
[2022-11-23 04:47] LABS: Alanine Aminotransferase 69 U/L (0-41); Albumin Level 2.3 g/dL (3.5-5.2); Alkaline Phosphatase 205 U/L (40-130); Anion Gap 12.5 (5-19); Aspartate Amino Transferase 37 U/L (0-40); Blood Urea Nitrogen 29 mg/dL (8-23); Calcium 8.7 mg/dL (8.5-10.5); Carbon Dioxide 25 mmol/L (22-29); Chloride 103 mmol/L (98-107); Globulin 1.7 g/dL (1.3-4.6); Glomerular Filtration Rate 31.4 mL/min (90-130); Glucose 96 mg/dL (65-115); Osmolality Calculated 290 mOsm/kg (285-295); Potassium 3.5 mmol/L (3.5-5.1); Sodium 137 mmol/L (136-145); Total Bilirubin 0.6 mg/dL (0.15-1.2)
[2022-11-23 04:54] VITALS: BP 114/65; PULSE 76; RESP 18; TEMP 37; O2SAT 90
[2022-11-23 05:12] LABS: Slide Review Slide Review Perform
[2022-11-23 05:15] LABS: Neutrophils # 0.37 10^3/uL (1.8-7.7); White Blood Count 0.6 10^3/uL (4.0-10.0)
[2022-11-23 08:00] VITALS: BP 122/66; PULSE 88; RESP 15; TEMP 36.6; O2SAT 95
[2022-11-23] MEDS: linezolid premix 600 MG/300 ML PREMIX 300 MG IV ×2 (08:39→20:32)
[2022-11-23] MEDS: allopurinol 300 mg Tablet PO (08:42)
[2022-11-23] MEDS: tamsulosin 0.4 mg Capsule PO ×2 (08:42→17:28)
[2022-11-23] MEDS: fluconazole 100 mg Tablet PO (08:43)
[2022-11-23] MEDS: ciprofloxacin 500 mg Tablet PO (08:43)
[2022-11-23] MEDS: finasteride 5 mg Tablet PO (08:43)
[2022-11-23] MEDS: metoprolol tartrate 50 mg Tablet 25 MG PO ×2 (08:43→17:28)
[2022-11-23] MEDS: valACYclovir 1,000 mg Tablet 500 MG PO ×2 (08:43→17:28)
[2022-11-23] MEDS: heparin 5,000 unit/mL INJ 1 mL 5000 UNIT SUBCUT ×2 (08:44→20:36)
[2022-11-23] MEDS: nystatin 100,000 unit/mL UDC 5 mL 400000 UNIT PO ×2 (08:44→20:36)
[2022-11-23] MEDS: albumin 25 G/100 ML BAG 60 G IV (10:35)
[2022-11-23 12:00] VITALS: BP 139/72; PULSE 79; RESP 16; TEMP 36.6; O2SAT 92
[2022-11-23 16:00] VITALS: BP 130/71; PULSE 75; RESP 17; O2SAT 92
--- NOTE | 2022-11-23 19:12 | P.PN_ITS ---
Subjective Subjective: He is doing better in terms of sore throat. This has been improving. He declined CT scan. Discussion with him he does understand the risk of severe progressive infection with neutropenia and the reason for CT scan. Still declines. He is wondering if any of his medications can be cut down. Discussed with him we can possibly hold Cipro for now. Medications: Reviewed: Yes Vitals/I&O/Wt Last Vital Signs Temp 97.9 F 11/23/22 12:00 Pulse 75 11/23/22 16:00 Resp 17 11/23/22 16:00 BP 130/71 11/23/22 16:00 Pulse Ox 92 11/23/22 16:00 O2 Del Method Room Air 11/22/22 16:00 O2 Flow Rate 2 11/22/22 04:00 11/23/22 11/23/22 11/23/22 06:59 14:59 22:59 Intake Total 50 / 2440 350 / 350 Output Total 1000 / 3000 1200 / 1200 Balance -950 / -560 350 / 350 -1200 / -850 Physical Exam Const: COMMON NORMALS: patient oriented x3 and alert GENERAL APPEARANCE: cooperative ORIENTATION/CONSCIOUSNESS: Yes awake HENMT: COMMON NORMALS: oropharynx normal OTHER: No thrush. Neck/C-Spine: COMMON NORMALS: no JVD Resp: COMMON NORMALS: normal respiratory effort and clear to auscultation bilaterally AUSCULTATION: clear to auscultation bilaterally Cardio: COMMON NORMALS: no JVD, regular rhythm, S1 normal heart sound present, S2 normal heart sound present and No murmurs present (Cardio) RHYTHM: regular rhythm HEART SOUNDS: S1 normal heart sound present and S2 normal heart sound present GI: COMMON NORMALS: Normal to inspection, nondistended, normoactive bowel sounds present, Soft to palpation and non-tender PALPATION: Yes Soft to palpation Extremity: COMMON NORMALS: no joint enlargement and no pedal edema OTHER: Improving BL anasarca up to thighs, resolved edema in the thighs, improving edema lower extremities, some wrinkling of the skin. Reports decreased size scrotum. Neuro: COMMON NORMALS: patient oriented x3 and moves all extremities SENSORIUM/ORIENTATION: Yes alert Skin: COMMON NORMALS: no rashes or lesions noted GENERAL SKIN EXAM: no rashes or lesions noted Urinary Catheter Management: Givens: Cath Placed During This Visit: no Reason for Continuing Indwelling Catheter: Acute Urinary Retention or Obstruction Data 11/23/22 03:30 11/23/22 03:30 Micro: Microbiology 11/20/22 17:20 Group A Streptococcus Rapid Screen - Final Throat A&P Assessment and plan (1) Protein calorie malnutrition: (2) Muscular deconditioning: (3) Lymphadenopathy: (4) Hypercalcemia: (5) Diffuse lymphadenopathy: (6) Mediastinal lymphadenopathy: (7) Diffuse large B-cell lymphoma of lymph nodes of multiple regions: (8) Port-A-Cath in place: (9) Left hip pain: (10) Hypercalcemia of malignancy: (11) Hypothyroid: (12) Hip fracture: (13) Antineoplastic chemotherapy induced pancytopenia: (14) Neutropenia: Plan #Left hip fracture #Diffuse large B-cell lymphoma, 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 Left side sore throat/subjective swelling is improving. He declined CT scan. Breathing reports is improving. With possible pneumonia continue Zosyn, linezolid. Continue to monitor blood counts, neutropenia has been improving. Up to ANC 370 Follow-up blood cultures. Encouraged incentive spirometry. Rapid strep negative. Discussed his condition with nursing and case management in rounds. He would like to cut down some of the medications if possible, reviewing his med discussed with him possibly can hold Cipro for now. Pancytopenia: Discussed with him ANC better, up to 370 today. Platelets continue to rise, up to 169. Hemoglobin up to 7.9, although with transfusion. Recheck blood counts. Continue neutropenic precautions. Has received Neulasta. Aspirin Heparin DVT prophylaxis. MEERA: Creatinine up to 2.1 previously given additional albumin dose. Lasix on hold for now. Hold today as well. Recheck renal function. Albumin 2.3. Odynophagia/pill esophagitis, some improvement yesterday, today symptoms persist, some subjective fullness. He declined CT neck. Sounds like and possibly some proximal esophagitis. Continue nystatin. Neck soft tissue ultrasound noted without abnormality. I do not appreciate pharyngeal thrush, but could be candidal esophagitis. Fluid overload with anasarca, edema up to thighs, scrotal edema. Gradually improving. No further thigh edema. Decreasing edema lower extremities but still persistent. Low albumin. Encouraged him again to ensure to increase protein intake. Noted worsening BUN, creatinine 1.9. BUN 36. We will hold diuretic for now. He is getting RBC transfusion, otherwise consider additional albumin transfusion. Sodium 138, potassium 3.5. Bicarb 26, anion gap 13.5. Recheck chemistry. Continue to monitor I&O. Requires close monitoring for toxicity with IV diuretic therapy for anasarca wit h MEERA. Lower extremity duplex noted negative for DVT. Discussed with him regarding complex Alfred's cyst, and he will need follow-up with PCP. At home he self catheterizes 4-6 times a day, but he reuses the catheter. With severe neutropenia and this would not be a possibility. Discussed with nursing staff we currently do not have enough disposable catheters for him to be able self-catheterize. But additional question is whether he will be able to do it with aseptic technique given his neutropenia. Also with diuretics currently, this would not be possible, we discussed with him regarding continuation of Givens which she prefers at the moment. Transaminitis: Overall improved. AST down to normal. Some mild elevation at 69. Follow-up CMP. Hypercalcemia noted improved. Continue monitoring calcium. Currently 8.7. Hopefully no further hypercalcemia. Follow-up CMP requested. Off IVF. Receiving Lasix as above. Reassess I&O, volume status, renal function. Follow-up calcium. Hopefully with chemotherapy hypercalcemia will be under control. Limit calcium intake.? Hold multivitamins for now. ?Status post surgical intervention, working with physical therapy.? Discharge pl anning for rehabilitation. -Chemotherapy-induced pancytopenia ? Prednisone 100 daily for 5 days each cycle of chemotherapy.? First dose today for total of 5 days ? Patient had chemo cycle #1 today. ? Lorazepam 0.5 every 6 hours as needed for severe nausea ? Compazine 10 mg every 6 hours for nausea ? Allopurinol 300 daily for prevention of tumor lysis syndrome ?? reverse isolation ? consult dietary for protein calorie malnutrition ? Repeat labs in a.m ? PT OT Attestations Medical Necessity Statement*: Continue admission for assessment management of neutropenic fever with pancytopenia. Diagnoses Protein calorie malnutrition E46 Muscular deconditioning R29.898 Lymphadenopathy R59.1 Hypercalcemia E83.52 Diffuse lymphadenopathy R59.1 Mediastinal lymphadenopathy R59.0 Diffuse large B-cell lymphoma of lymph nodes of multiple regions C83.38 Port-A-Cath in place Z95.828 Left hip pain M25.552 Hypercalcemia of malignancy E83.52 Hypothyroid E03.9 Hip fracture S72.009A Antineoplastic chemotherapy induced pancytopenia D61.810; T45.1X5A Neutropenia D70.9
[2022-11-23 20:00] VITALS: BP 137/71; PULSE 86; RESP 18; TEMP 37.7; O2SAT 90
[2022-11-23] MEDS: pantoprazole 40 mg SDV IVP (20:36)
[2022-11-24] VITALS: BP 146/72; PULSE 84; RESP 19; TEMP 37.8; O2SAT 92
[2022-11-24] MEDS: piperacillin-tazobactam 3.375 GM in sodium chloride 0.9% (plus) 50 ML IV ×3 (00:27→16:57)
[2022-11-24] MEDS: acetaminophen 500 mg Tablet 325 MG PO ×2 (00:52→16:58)
[2022-11-24 04:00] VITALS: BP 129/76; PULSE 71; RESP 17; TEMP 36.6; O2SAT 96
[2022-11-24 06:34] LABS: Basophils % 2.6 %; Eosinophils # 0.1 10^3/uL (0.0-0.8); Eosinophils % 6.5 %; Hematocrit 24.6 % (42.0-52.0); Lymphocytes # 0.1 10^3/uL (0.8-4.8); Lymphocytes % 9.1 %; Mean Corpuscular HGB Conc 32.5 g/dL (30.0-36.0); Mean Corpuscular Hemoglobin 30.9 pg (28.0-34.0); Mean Platelet Volume 10.1 fL (7.4-10.4); Monocytes # 0.1 10^3/uL (0.2-0.9); Monocytes % 11.7 %; Neutrophils % 62.3 %; Nucleated Red Blood Cells % 0 %; Platelet Count 185 10^3/cmm (130-400); Red Blood Count 2.59 10^6/uL (4.1-5.3); Red Cell Distribution Width 15.1 % (12.1-15.1)
[2022-11-24 06:50] LABS: Alanine Aminotransferase 48 U/L (0-41); Albumin Level 2.6 g/dL (3.5-5.2); Alkaline Phosphatase 167 U/L (40-130); Anion Gap 12.5 (5-19); Aspartate Amino Transferase 19 U/L (0-40); Blood Urea Nitrogen 26 mg/dL (8-23); Calcium 8.3 mg/dL (8.5-10.5); Carbon Dioxide 25 mmol/L (22-29); Chloride 105 mmol/L (98-107); Globulin 1.5 g/dL (1.3-4.6); Glomerular Filtration Rate 31.4 mL/min (90-130); Glucose 101 mg/dL (65-115); Osmolality Calculated 293 mOsm/kg (285-295); Potassium 3.5 mmol/L (3.5-5.1); Sodium 139 mmol/L (136-145); Total Bilirubin 0.3 mg/dL (0.15-1.2); Total Protein 4.1 g/dL (6.6-8.7)
[2022-11-24 07:09] LABS: Slide Review Slide Review Perform
[2022-11-24 07:12] LABS: Neutrophils # 0.48 10^3/uL (1.8-7.7); White Blood Count 0.8 10^3/uL (4.0-10.0)
[2022-11-24 08:00] VITALS: BP 129/68; PULSE 80; TEMP 36.8; O2SAT 92
[2022-11-24] MEDS: allopurinol 300 mg Tablet PO (10:36)
[2022-11-24] MEDS: heparin 5,000 unit/mL INJ 1 mL 5000 UNIT SUBCUT ×2 (10:36→20:34)
[2022-11-24] MEDS: fluconazole 100 mg Tablet PO (10:36)
[2022-11-24] MEDS: tamsulosin 0.4 mg Capsule PO ×2 (10:36→16:58)
[2022-11-24] MEDS: finasteride 5 mg Tablet PO (10:36)
[2022-11-24] MEDS: metoprolol tartrate 50 mg Tablet 25 MG PO ×2 (10:37→16:58)
[2022-11-24] MEDS: linezolid premix 600 MG/300 ML PREMIX 300 MG IV ×2 (10:37→20:35)
[2022-11-24] MEDS: valACYclovir 1,000 mg Tablet 500 MG PO ×2 (10:37→16:58)
[2022-11-24 12:00] VITALS: BP 118/75; PULSE 117; TEMP 36.8; O2SAT 92
[2022-11-24 15:13] VITALS: BP 132/72; PULSE 82; RESP 18; TEMP 37.8; O2SAT 91
--- NOTE | 2022-11-24 16:03 | PC.OT ---
OT NOTE: PER DISCUSSION WITH PATIENT EARLIER IN THE WEEK AND DISCUSSION WITH YODER TODAY; PATIENT NO LONGER WISHES TO RECEIVE SKILLED OT SERVICES. EVERY EFFORT HAS BEEN GIVEN TO PROVIDE EXCEPTIONAL CARE AND PATIENT STATES HE NO LONGER WISHES TO RECEIVE THERAPY. DISCHARGE SKILLED OT SERVICES
--- NOTE | 2022-11-24 19:47 | P.PN_ITS ---
Subjective Subjective: Discussed with him low-grade fever, at this time he declines additional assessment imaging by CT, understands concerns for possibility of additional undiagnosed focus infection in setting of severe neutropenia which could be potentially seriously disabling and/or life-threatening. But agrees he will think about it and let us know if he reconsiders. He states sore throat is just about resolving. He is breathing easier. Medications: Reviewed: Yes Vitals/I&O/Wt Last Vital Signs Temp 100.1 F H 11/24/22 15:13 Pulse 82 11/24/22 15:13 Resp 18 11/24/22 15:13 BP 132/72 11/24/22 15:13 Pulse Ox 91 11/24/22 15:13 O2 Del Method Room Air 11/24/22 15:13 O2 Flow Rate 2 11/24/22 04:00 11/24/22 11/24/22 11/24/22 06:59 14:59 22:59 Intake Total 50 / 1140 980 / 980 50 / 1030 Output Total 1150 / 2350 1200 / 1200 Balance -1100 / -1210 980 / 980 -1150 / -170 Physical Exam Const: COMMON NORMALS: patient oriented x3 and alert GENERAL APPEARANCE: cooperative ORIENTATION/CONSCIOUSNESS: Yes awake HENMT: COMMON NORMALS: oropharynx normal OTHER: No thrush. Neck/C-Spine: COMMON NORMALS: no JVD Resp: COMMON NORMALS: normal respiratory effort and clear to auscultation bilaterally AUSCULTATION: clear to auscultation bilaterally Cardio: COMMON NORMALS: no JVD, regular rhythm, S1 normal heart sound present, S2 normal heart sound present and No murmurs present (Cardio) RHYTHM: regular rhythm HEART SOUNDS: S1 normal heart sound present and S2 normal heart sound present GI: COMMON NORMALS: Normal to inspection, nondistended, normoactive bowel sounds present, Soft to palpation and non-tender PALPATION: Yes Soft to palpation Extremity: COMMON NORMALS: no joint enlargement and no pedal edema OTHER: Improving BL anasarca up to thighs, resolved edema in the thighs, improving edema lower extremities, some wrinkling of the skin. Reports decreased size scrotum. Neuro: COMMON NORMALS: patient oriented x3 and moves all extremities SENSORIUM/ORIENTATION: Yes alert Skin: COMMON NORMALS: no rashes or lesions noted GENERAL SKIN EXAM: no ra shes or lesions noted Urinary Catheter Management: Givens: Cath Placed During This Visit: no Reason for Continuing Indwelling Catheter: Acute Urinary Retention or Obstruction Data 11/24/22 05:54 11/24/22 05:54 A&P Assessment and plan (1) Protein calorie malnutrition: (2) Muscular deconditioning: (3) Lymphadenopathy: (4) Hypercalcemia: (5) Diffuse lymphadenopathy: (6) Mediastinal lymphadenopathy: (7) Diffuse large B-cell lymphoma of lymph nodes of multiple regions: (8) Port-A-Cath in place: (9) Left hip pain: (10) Hypercalcemia of malignancy: (11) Hypothyroid: (12) Hip fracture: (13) Antineoplastic chemotherapy induced pancytopenia: (14) Neutropenia: Plan #Left hip fracture #Diffuse large B-cell lymphoma, 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 He declines additional assessment by imaging with CT at this time but will think about and let us know if he reconsiders. Left side sore throat/subjective swelling is improving. Breathing reports is improving. With possible pneumonia continue Zosyn, linezolid. Continue to monitor blood counts, neutropenia has been improving. Has a Givens but urine not suggestive of UTI. ANC up to 480 Discussed his condition with nursing and case management in rounds. Cipro was held as he wanted to cut down the number of his medications. Continue Diflucan, valacyclovir. Pancytopenia: Counts appear to be improving. ANC noted up to 480 hemoglobin up to 8. Platelets up to 185. Recheck blood counts. Continue neutropenic precautions. Has received Neulasta. Heparin DVT prophylaxis. At discharge consider switch back to aspirin. MEERA: Creatinine up to 2.1 previously given additional albumin dose. Holding Lasix. Discussed with him low albumin, 2.6. He has not had any appetite. Discussed consideration of appetite stimulant, consideration of adverse effects, he would like to hold off for now. Recheck renal function. Odynophagia/pill esophagitis, some improvement yesterday, today symptoms persist, some subjective fullness. He declined CT neck. Sounds like and possibly some proximal esophagitis. Continue nystatin. Neck soft tissue ultrasound noted without abnormality. I do not appreciate pharyngeal thrush, but could be candidal esophagitis. Fluid overload with anasarca, edema up to thighs, scrotal edema. Was gradually improving with diuretics, diuretics had to be held due to worsening renal function. Again noted low albumin, encouraged oral intake, Ensure. He for now declines an appetite stimulant. Reassess volume status. Recheck chemistry. Continue to monitor I&O. Lower extremity duplex noted negative for DVT. Discussed with him regarding complex Alfred's cyst, and he will need follow-up with PCP. Urinary retention: At home he self catheterizes 4-6 times a day, but he reuses the catheter. With severe neutropenia and this would not be a possibility. Discussed with nursing staff we currently do not have enough disposable catheters for him to be able self-catheterize. But additional question is whether he will be able to do it with aseptic technique given his neutropenia. Also with diuretics currently, this would not be possible, we discussed with him regarding continuation of Givens which she prefers at the moment. Transaminitis: Overall improved. AST down to normal. ALT 48. Follow-up CMP. Hypercalcemia noted improved. Continue monitoring calcium. Currently 8.3. Hopefully no further hypercalcemia. Follow-up CMP requested. Off IVF. Receiving Lasix subsequently due to fluid overload as above. Reassess I&O, volume status, renal function. Follow-up calcium. Hopefully with chemotherapy hypercalcemia will be under control. Limit calcium intake.? Hold multivitamins for now. Left hip fracture ?Status post surgical intervention, working with physical therapy.? Discharge planning for rehabilitation. -Chemotherapy-induced pancytopenia ? Prednisone 100 daily for 5 days each cycle of chemotherapy.? ? Patient had chemo cycle #1 today. ? Lorazepam 0.5 every 6 hours as needed for severe nausea ? Compazine 10 mg every 6 hours for nausea ? Allopurinol 300 daily for prevention of tumor lysis syndrome ?? reverse isolation ? consult dietary for protein calorie malnutrition ? Repeat labs in a.m ? PT OT Attestations Medical Necessity Statement*: Continue admission for assessment management of neutropenic fever, fluid overload, MEERA Diagnoses Protein calorie malnutrition E46 Muscular deconditioning R29.898 Lymphadenopathy R59.1 Hypercalcemia E83.52 Diffuse lymphadenopathy R59.1 Mediastinal lymphadenopathy R59.0 Diffuse large B-cell lymphoma of lymph nodes of multiple regions C83.38 Port-A-Cath in place Z95.828 Left hip pain M25.552 Hypercalcemia of malignancy E83.52 Hypothyroid E03.9 Hip fracture S72.009A Antineoplastic chemotherapy induced pancytopenia D61.810; T45.1X5A Neutropenia D70.9
[2022-11-24 20:00] VITALS: BP 127/67; PULSE 70; RESP 16; TEMP 36.8; O2SAT 92
[2022-11-24] MEDS: pantoprazole 40 mg SDV IVP (20:34)
[2022-11-24] MEDS: nystatin 100,000 unit/mL UDC 5 mL 400000 UNIT PO (20:34)
[2022-11-25] VITALS (7 sets, daily range): BP systolic 120–153; BP diastolic 67–80; PULSE 60–89; RESP 16–18; TEMP 36.8–38.6; O2SAT 90–92
[2022-11-25] MEDS: piperacillin-tazobactam 3.375 GM in sodium chloride 0.9% (plus) 50 ML IV ×3 (01:47→18:14)
[2022-11-25 06:00] LABS: Basophils % 1.1 %; Eosinophils # 0.1 10^3/uL (0.0-0.8); Eosinophils % 5.7 %; Hematocrit 24.3 % (42.0-52.0); Hemoglobin 7.9 g/dL (11.7-16.6); Lymphocytes # 0.1 10^3/uL (0.8-4.8); Lymphocytes % 9.2 %; Mean Corpuscular HGB Conc 32.5 g/dL (30.0-36.0); Mean Corpuscular Hemoglobin 30.6 pg (28.0-34.0); Mean Corpuscular Volume 94.2 fl (80-94); Mean Platelet Volume 9.7 fL (7.4-10.4); Monocytes # 0.1 10^3/uL (0.2-0.9); Monocytes % 9.2 %; Neutrophils % 70.2 %; Nucleated Red Blood Cells % 0 %; Platelet Count 211 10^3/cmm (130-400); Red Blood Count 2.58 10^6/uL (4.1-5.3); Red Cell Distribution Width 14.7 % (12.1-15.1)
[2022-11-25 06:06] LABS: Neutrophils # 0.61 10^3/uL (1.8-7.7); White Blood Count 0.9 10^3/uL (4.0-10.0)
[2022-11-25 06:17] LABS: Alanine Aminotransferase 39 U/L (0-41); Albumin Level 2.4 g/dL (3.5-5.2); Alkaline Phosphatase 154 U/L (40-130); Anion Gap 13.2 (5-19); Aspartate Amino Transferase 18 U/L (0-40); Blood Urea Nitrogen 21 mg/dL (8-23); Calcium 8.3 mg/dL (8.5-10.5); Carbon Dioxide 23 mmol/L (22-29); Chloride 103 mmol/L (98-107); Globulin 1.6 g/dL (1.3-4.6); Glucose 97 mg/dL (65-115); Osmolality Calculated 285 mOsm/kg (285-295); Potassium 3.2 mmol/L (3.5-5.1); Sodium 136 mmol/L (136-145); Total Bilirubin 0.3 mg/dL (0.15-1.2)
[2022-11-25] MEDS: fluconazole 100 mg Tablet PO (09:39)
[2022-11-25] MEDS: allopurinol 300 mg Tablet PO (09:39)
[2022-11-25] MEDS: finasteride 5 mg Tablet PO (09:39)
[2022-11-25] MEDS: tamsulosin 0.4 mg Capsule PO ×2 (09:39→18:15)
[2022-11-25] MEDS: linezolid premix 600 MG/300 ML PREMIX 300 MG IV ×2 (09:40→22:04)
[2022-11-25] MEDS: valACYclovir 1,000 mg Tablet 500 MG PO ×2 (09:40→18:15)
[2022-11-25] MEDS: metoprolol tartrate 50 mg Tablet 25 MG PO ×2 (09:40→18:15)
[2022-11-25] MEDS: heparin 5,000 unit/mL INJ 1 mL 5000 UNIT SUBCUT ×2 (09:40→22:13)
--- NOTE | 2022-11-25 11:08 | PM.PN ---
Subjective Subjective: Patient endorses generalized fatigue and malaise. Discussed improving neutropenia. Still with fevers in prior 24 hours. He denies nausea, emesis, chest pain or abdominal pain. Expresses concerns over him being able to go home and take care of himself. Medications: Reviewed: Yes Vitals/I&O/Wt Last Vital Signs Temp 98.8 F 11/25/22 08:00 Pulse 81 11/25/22 08:00 Resp 18 11/25/22 08:00 BP 139/75 11/25/22 08:00 Pulse Ox 91 11/25/22 08:00 O2 Del Method Room Air 11/25/22 08:00 O2 Flow Rate 2 11/24/22 20:00 11/24/22 11/25/22 11/25/22 22:59 06:59 14:59 Intake Total 520 / 1500 530 / 2030 480 / 480 Output Total 1200 / 1200 800 / 2000 Balance -680 / 300 -270 / 30 480 / 480 Physical Exam Narrative: General: Patient is awake and alert. Frail and cachetic appearing. Mildly anxious appearing. Head: Normocephalic. Atraumatic. Neck: No JVD. Cardiovascular: RRR. No gallops. No murmurs. Lungs: Clear to auscultation, no use of accessory muscles, no crackles or wheezes. Skin: No jaundice. No rashes. Abdomen: Soft. Not distended. Normal bowel sounds. Extremities: No cyanosis or clubbing. Musculoskeletal: Normal muscular development. Neurological: No myoclonus. Moves all 4 extremities. Urinary Catheter Management: Givens: Cath Placed During This Visit: no Reason for Continuing Indwelling Catheter: Acute Urinary Retention or Obstruction Data 11/25/22 05:17 11/25/22 05:17 A&P Assessment and plan (1) Neutropenia: Neutropenia is improving, but still fevering c/w neutropenic fever Continue to fever, fever in last 24 hours noted, monitor closely Refused CT imaging Continue Zosyn Continue Zyvox Follow culture Continue Diflucan Continue Valacyclovir Continue Nystatin Monitor fever (2) Closed intertrochanteric fracture of left hip: Pathologic fracture Status post surgery Encouraged ambulation, d/w RN Qualifiers: Encounter type: initial encounter Fracture alignment: displaced Qualified Code(s): S72.142A - Displaced intertrochanteric fracture of left femur, initial encounter for closed fracture (3) Antineoplastic chemotherapy induced pancytopenia: Monitoring counts Transfuse as needed (4) Protein calorie malnutrition: Encourage oral intake (5) HTN (hypertension): Continue metoprolol (6) Diffuse large B-cell lymphoma of lymph nodes of multiple regions: Keep outpatient follow (7) BPH loc w urin obs/LUTS: Reportedly self caths at home Continue Flomax Continue finasteride (8) Hypercalcemia: Resolved (9) Renal insufficiency: A/w acute kidney injury Actual baseline renal function is unclear d/t labile labs Monitor closely Renally dose medications Avoid nephrotoxins Plan DVT ppx: Heparin Code Status: Full Code Attestations Medical Necessity Statement*: Patient continues to have neutropenic fever requiring IV abx and ongoing hospitalized care. 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
[2022-11-25] MEDS: potassium chloride ER 20 mEq Tablet 40 MEQ PO (13:10)
[2022-11-25] MEDS: docusate sodium 100 mg Capsule PO (18:15)
[2022-11-25] MEDS: acetaminophen 500 mg Tablet 325 MG PO (18:25)
[2022-11-25] MEDS: pantoprazole 40 mg SDV IVP (21:53)
[2022-11-25] MEDS: nystatin 100,000 unit/mL UDC 5 mL 400000 UNIT PO (22:12)
[2022-11-26] VITALS (7 sets, daily range): BP systolic 129–166; BP diastolic 75–91; PULSE 87–102; RESP 16–168; TEMP 36.8–38.7; O2SAT 90–94
[2022-11-26] MEDS: piperacillin-tazobactam 3.375 GM in sodium chloride 0.9% (plus) 50 ML IV ×3 (00:44→22:00)
[2022-11-26 05:49] LABS: Basophils % 1.8 %; Eosinophils % 3.7 %; Hematocrit 24.1 % (42.0-52.0); Hemoglobin 7.7 g/dL (11.7-16.6); Lymphocytes # 0.1 10^3/uL (0.8-4.8); Lymphocytes % 10.1 %; Mean Corpuscular Hemoglobin 30.1 pg (28.0-34.0); Mean Corpuscular Volume 94.1 fl (80-94); Mean Platelet Volume 9.5 fL (7.4-10.4); Monocytes # 0.1 10^3/uL (0.2-0.9); Neutrophils % 68.8 %; Nucleated Red Blood Cells % 0 %; Platelet Count 197 10^3/cmm (130-400); Red Blood Count 2.56 10^6/uL (4.1-5.3); Red Cell Distribution Width 14.4 % (12.1-15.1); White Blood Count 1.1 10^3/uL (4.0-10.0)
[2022-11-26 05:52] LABS: Neutrophils # 0.75 10^3/uL (1.8-7.7)
[2022-11-26 06:08] LABS: Alanine Aminotransferase 36 U/L (0-41); Albumin Level 2.3 g/dL (3.5-5.2); Alkaline Phosphatase 149 U/L (40-130); Anion Gap 12.5 (5-19); Aspartate Amino Transferase 17 U/L (0-40); Blood Urea Nitrogen 19 mg/dL (8-23); Calcium 8.2 mg/dL (8.5-10.5); Carbon Dioxide 23 mmol/L (22-29); Chloride 104 mmol/L (98-107); Globulin 1.7 g/dL (1.3-4.6); Glomerular Filtration Rate 42.9 mL/min (90-130); Glucose 89 mg/dL (65-115); Magnesium 1.5 mg/dL (1.7-2.3); Osmolality Calculated 284 mOsm/kg (285-295); Potassium 3.5 mmol/L (3.5-5.1); Sodium 136 mmol/L (136-145); Total Bilirubin 0.4 mg/dL (0.15-1.2)
[2022-11-26] MEDS: fluconazole 100 mg Tablet PO (09:07)
[2022-11-26] MEDS: docusate sodium 100 mg Capsule PO ×2 (09:08→17:13)
[2022-11-26] MEDS: metoprolol tartrate 50 mg Tablet 25 MG PO ×2 (09:08→17:14)
[2022-11-26] MEDS: allopurinol 300 mg Tablet PO (09:08)
[2022-11-26] MEDS: valACYclovir 1,000 mg Tablet 500 MG PO ×2 (09:08→17:17)
[2022-11-26] MEDS: tamsulosin 0.4 mg Capsule PO ×2 (09:08→17:14)
[2022-11-26] MEDS: finasteride 5 mg Tablet PO (09:08)
[2022-11-26] MEDS: heparin 5,000 unit/mL INJ 1 mL 5000 UNIT SUBCUT ×2 (09:09→20:54)
--- NOTE | 2022-11-26 09:44 | CTR_ITS ---
PROCEDURE INFORMATION: Exam: CT Chest Without Contrast; Diagnostic Exam date and time: 11/26/2022 3:09 PM Age: 72 years old Clinical indication: Fever; Additional info: Recurrent fevers, neutropenic TECHNIQUE: Imaging protocol: Diagnostic computed tomography of the chest without contrast. Radiation optimization: All CT scans at this facility use at least one of these dose optimization techniques: automated exposure control; mA and/or kV adjustment per patient size (includes targeted exams where dose is matched to clinical indication); or iterative reconstruction. REPORTING DATA: Count of CT and Cardiac NM exams in prior 12 months: This patient has received 2 known CTs and 0 known cardiac nuclear medicine studies in the 12 months prior to the current study. COMPARISON: PT PET [facility] INITIAL [id number] 10/08/2022 1:05 PM RADIATION DOSE METRICS: Total DLP (mGy-cm): 660.42 FINDINGS: Lungs: Broad areas of ground-glass opacity noted within the upper lobes of both lungs, [id number]. There is also more consolidative/atelectatic lung in the left upper lobe. Pleural spaces: Moderate volume bilateral pleural effusions. No pneumothorax. Heart: Unremarkable. No cardiomegaly. No pericardial effusion. Lymph nodes: Unremarkable. No enlarged lymph nodes. Vasculature: Unremarkable. No aortic aneurysm. Bones/joints: Unremarkable. No acute fracture. Soft tissues: Left chest port noted terminating in the distal SVC. PROCEDURE INFORMATION: Exam: CT Abdomen And Pelvis Without Contrast Exam date and time: 11/26/2022 3:09 PM Age: 72 years old Clinical indication: Fever; Additional info: Recurrent fevers, neutropenic TECHNIQUE: Imaging protocol: Computed tomography of the abdomen and pelvis without contrast. Radiation optimization: All CT scans at this facility use at least one of these dose optimization techniques: automated exposure control; mA and/or kV adjustment per patient size (includes targeted exams where dose is matched to clinical indication); or iterative reconstruction. REPORTING DATA: Count of CT and Cardiac NM exams in prior 12 months: This patient has received 2 known CTs and 0 known cardiac nuclear medicine studies in the 12 months prior to the current study. COMPARISON: PT PET [facility] INITIAL [id number] 10/08/2022 1:05 PM RADIATION DOSE METRICS: Total DLP (mGy-cm): 660.42 FINDINGS: Liver: Normal. No mass. Gallbladder and bile ducts: Contracted gallbladder. No calcified stones. No ductal dilation. Pancreas: Normal. No ductal dilation. Spleen: Punctate calcified granulomas noted in the spleen. Mild splenomegaly measuring 14 cm in length. Adrenal glands: Normal. No mass. Kidneys and ureters: A couple punctate nonobstructing stones noted in both kidneys. No hydronephrosis. Stomach and bowel: No obstruction. No mucosal thickening. Appendix: No evidence of appendicitis. Intraperitoneal space: Diffuse mesenteric edema. No free air. No significant fluid collection. Vasculature: No abdominal aortic aneurysm. Lymph nodes: Conglomerate lymphadenopathy again noted within the central mesentery. Urinary bladder: Givens catheter noted within the bladder. Dependent debris noted in the bladder. Reproductive: Unremarkable as visualized. Bones/joints: No acute fracture. Left hip fixation device noted. Soft tissues: Unremarkable. CT/[place] [id number] IMPRESSION: 1. Broad regions of ground-glass opacity within the upper lobes of the lungs suggestive of an infectious or inflammatory process. 2. Moderate volume bilateral pleural effusions. IMPRESSION: 1. Dependent debris noted within the bladder. 2. Diffuse mesenteric edema. 3. Conglomerate lymphadenopathy again noted within the central mesentery and mild splenomegaly consistent with known lymphoma. 4. A couple punctate nonobstructing stones noted in both kidneys.
[2022-11-26] MEDS: magnesium sulfate premix 2 GM/50 ML PIGGYBACK IV (10:26)
--- NOTE | 2022-11-26 12:09 | PM.PN ---
Subjective Subjective: Patient continues to fever. Tmax 101.5. He reports worsening, somwhat, productive cough. Reports he did not sleep well but hasn't sleep very well since being hospitalized. Napping during the day. Discussed concern persistent and worsening fevers in the setting of neutropenia while on broad spectrum abx. He is agreeable to CT scan to evaluate for abscess formation. Reports poor oral intake. Denies chest pain, chills, or emesis. Medications: Reviewed: Yes Vitals/I&O/Wt Last Vital Signs Temp 99.8 F H 11/26/22 11:53 Pulse 99 11/26/22 11:53 Resp 168 H 11/26/22 11:53 BP 129/75 11/26/22 11:53 Pulse Ox 90 11/26/22 11:53 O2 Del Method Room Air 11/26/22 11:53 O2 Flow Rate 1.5 11/26/22 04:00 11/25/22 11/26/22 11/26/22 22:59 06:59 14:59 Intake Total 290 / 1310 400 / 1710 530 / 530 Output Total 3500 / 3500 900 / 4400 Balance -3210 / -2190 -500 / -2690 530 / 530 Physical Exam Narrative: General: Patient is awake. Frail and cachetic appearing. Anxious appearing. Head: Normocephalic. Atraumatic. Temporal wasting. Neck: No JVD. Cardiovascular: RRR. No gallops. No murmurs. Lungs: Clear to auscultation, no use of accessory muscles, no crackles or wheezes. Skin: No jaundice. No rashes. Abdomen: Soft. Not distended. Normal bowel sounds. Extremities: No cyanosis or clubbing. Musculoskeletal: Normal muscular development. Neurological: No myoclonus. Moves all 4 extremities. Urinary Catheter Management: Givens: Cath Placed During This Visit: no Reason for Continuing Indwelling Catheter: Acute Urinary Retention or Obstruction Data 11/26/22 05:05 11/26/22 05:05 Micro: Microbiology 11/20/22 17:20 Blood Culture - Final Blood NO GROWTH AFTER 5 DAYS 11/20/22 17:15 Blood Culture - Final Blood NO GROWTH AFTER 5 DAYS A&P Assessment and plan (1) Neutropenia: Fevers are worsening despite treatment CT chest/abdomen/pelvis, hold off on IV contrast d/t renal insufficiency Continue Zosyn Continue Zyvox Follow culture Continue Diflucan Continue Valacyclovir Continue Nystatin (2) Closed intertrochanteric fracture of left hip: Pathologic fracture Status post surgery Encouraged ambulation and therapy as tolerated Qualifiers: Encounter type: initial encounter Fracture alignment: displaced Qualified Code(s): S72.142A - Displaced intertrochanteric fracture of left femur, initial encounter for closed fracture (3) Antineoplastic chemotherapy induced pancytopenia: Monitoring counts Transfuse as needed (4) Protein calorie malnutrition: Encourage oral intake (5) HTN (hypertension): Continue metoprolol (6) Diffuse large B-cell lymphoma of lymph nodes of multiple regions: Keep outpatient follow (7) BPH loc w urin obs/LUTS: Reportedly self caths at home Continue Flomax Continue finasteride Continue Givens (8) Renal insufficiency: A/w acute kidney injury Actual baseline renal function is unclear d/t labile labs Monitor closely Renally dose medications Avoid nephrotoxins Plan DVT ppx: Heparin Code Status: Full Code Attestations Medical Necessity Statement*: Patient is immunocompromised from malignancy and chemotherapy with neutropenia, and his fevers are worsening despite IV abx treatment requiring ongoing hospitalization for IV antimicrobials, cultures, monitoring, and supportive care. Coding Level of Care Code Acute Code for Chg Fwd Diagnoses Neutropenia D70.9 Closed intertrochanteric fracture of left hip S72.142A Encounter type: initial encounter Fracture alignment: displaced Antineoplastic chemotherapy induced pancytopenia D61.810; T45.1X5A Protein calorie malnutrition E46 HTN (hypertension) I10 Diffuse large B-cell lymphoma of lymph nodes of multiple regions C83.38 BPH loc w urin obs/LUTS N40.1 Renal insufficiency N28.9
[2022-11-26] MEDS: linezolid premix 600 MG/300 ML PREMIX 300 MG IV ×2 (14:34→23:19)
[2022-11-26] MEDS: benzonatate 100 mg Capsule PO (17:13)
[2022-11-26 18:25] LABS: Adenovirus Not Detected (NOT DETECT); Chlamydia Pneumoniae Not Detected (NOT DETECT); Coronavirus 229E,HKU1,NL63,OC4 Not Detected (NOT DETECT); Human Metapneumovirus Not Detected (NOT DETECT); Human Rhinovirus/Enterovirus Not Detected (NOT DETECT); Influenza A Not Detected (NOT DETECT); Influenza A H1 Not Detected (NOT DETECT); Influenza A H1-2009 Not Detected (NOT DETECT); Influenza A H3 Not Detected (NOT DETECT); Influenza B Not Detected (NOT DETECT); Mycoplasma Pneumoniae Not Detected (NOT DETECT); Parainfluenza Virus Type 1 Not Detected (NOT DETECT); Parainfluenza Virus Type 2 Not Detected (NOT DETECT); Parainfluenza Virus Type 3 Not Detected (NOT DETECT); Parainfluenza Virus Type 4 Not Detected (NOT DETECT); Respiratory Syncytial Virus A Not Detected (NOT DETECT); Respiratory Syncytial Virus B Not Detected (NOT DETECT); SARS-COV-2 Not Detected (NOT DETECT)
[2022-11-26] MEDS: pantoprazole 40 mg SDV IVP (20:56)
[2022-11-27] VITALS (7 sets, daily range): BP systolic 123–149; BP diastolic 70–81; PULSE 79–98; RESP 16–18; TEMP 36.5–38.2; O2SAT 90–95
[2022-11-27 04:22] LABS: Basophils % 1.4 %; Eosinophils % 2.8 %; Hematocrit 25.4 % (42.0-52.0); Hemoglobin 8.1 g/dL (11.7-16.6); Lymphocytes # 0.1 10^3/uL (0.8-4.8); Lymphocytes % 7.7 %; Mean Corpuscular HGB Conc 31.9 g/dL (30.0-36.0); Mean Corpuscular Hemoglobin 30.6 pg (28.0-34.0); Mean Corpuscular Volume 95.8 fl (80-94); Mean Platelet Volume 9.3 fL (7.4-10.4); Monocytes # 0.1 10^3/uL (0.2-0.9); Monocytes % 9.8 %; Neutrophils # 1.05 10^3/uL (1.8-7.7); Neutrophils % 73.4 %; Nucleated Red Blood Cells % 0 %; Platelet Count 202 10^3/cmm (130-400); Red Blood Count 2.65 10^6/uL (4.1-5.3); Red Cell Distribution Width 14.6 % (12.1-15.1); White Blood Count 1.4 10^3/uL (4.0-10.0)
[2022-11-27 04:41] LABS: Albumin Level 2.3 g/dL (3.5-5.2); Anion Gap 12.5 (5-19); Blood Urea Nitrogen 17 mg/dL (8-23); Calcium 8.1 mg/dL (8.5-10.5); Carbon Dioxide 21 mmol/L (22-29); Chloride 106 mmol/L (98-107); Glomerular Filtration Rate 42.9 mL/min (90-130); Glucose 99 mg/dL (65-115); Magnesium 1.7 mg/dL (1.7-2.3); Phosphorus 2.3 mg/dL (2.5-4.5); Potassium 3.5 mmol/L (3.5-5.1); Sodium 136 mmol/L (136-145)
[2022-11-27] MEDS: piperacillin-tazobactam 3.375 GM in sodium chloride 0.9% (plus) 50 ML IV ×3 (06:15→23:26)
[2022-11-27] MEDS: fluconazole 100 mg Tablet PO (07:57)
[2022-11-27] MEDS: valACYclovir 1,000 mg Tablet 500 MG PO ×2 (07:57→18:04)
[2022-11-27] MEDS: finasteride 5 mg Tablet PO (07:57)
[2022-11-27] MEDS: benzonatate 100 mg Capsule PO (07:57)
[2022-11-27] MEDS: tamsulosin 0.4 mg Capsule PO ×2 (07:58→18:04)
[2022-11-27] MEDS: allopurinol 300 mg Tablet PO (07:58)
[2022-11-27] MEDS: metoprolol tartrate 50 mg Tablet 25 MG PO ×2 (07:58→18:04)
[2022-11-27] MEDS: heparin 5,000 unit/mL INJ 1 mL 5000 UNIT SUBCUT ×2 (09:30→21:30)
[2022-11-27] MEDS: linezolid premix 600 MG/300 ML PREMIX 300 MG IV ×2 (11:35→23:25)
--- NOTE | 2022-11-27 11:44 | P.PN_ITS ---
Subjective Subjective: He is having some cough. She is having chest congestion, but having difficult time bringing up any phlegm. Denies other new symptoms. Swelling has been coming down, he has been elevating his legs. Throat soreness/neck tenderness has nearly resolved. Medications: Reviewed: Yes Vitals/I&O/Wt Last Vital Signs Temp 98.2 F 11/27/22 08:00 Pulse 98 11/27/22 08:00 Resp 16 11/27/22 08:00 BP 123/70 11/27/22 08:00 Pulse Ox 90 11/27/22 08:00 O2 Del Method Nasal Cannula 11/27/22 04:00 O2 Flow Rate 4 11/27/22 04:00 11/26/22 11/27/22 11/27/22 22:59 06:59 14:59 Intake Total 780 / 1705 350 / 2055 350 / 350 Output Total 700 / 700 1300 / 2000 Balance 80 / 1005 -950 / 55 350 / 350 Physical Exam Const: COMMON NORMALS: patient oriented x3 and alert GENERAL APPEARANCE: cooperative ORIENTATION/CONSCIOUSNESS: Yes awake HENMT: COMMON NORMALS: oropharynx normal OTHER: No thrush. Neck/C-Spine: COMMON NORMALS: no JVD Resp: COMMON NORMALS: normal respiratory effort and clear to auscultation bilaterally AUSCULTATION: clear to auscultation bilaterally Cardio: COMMON NORMALS: no JVD, regular rhythm, S1 normal heart sound present, S2 normal heart sound present and No murmurs present (Cardio) RHYTHM: regular rhythm HEART SOUNDS: S1 normal heart sound present and S2 normal heart sound present GI: COMMON NORMALS: Normal to inspection, nondistended, normoactive bowel sounds present, Soft to palpation and non-tender PALPATION: Yes Soft to palpation Extremity: COMMON NORMALS: no joint enlargement and no pedal edema OTHER: Resolving anasarca, resolved edema in the thighs, improving edema lower extremities, 1-2+. Neuro: COMMON NORMALS: patient oriented x3 and moves all extremities SENSORIUM/ORIENTATION: Yes alert Skin: COMMON NORMALS: no rashes or lesions noted GENERAL SKIN EXAM: no rashes or lesions noted Urinary Catheter Management: Givens: Cath Placed During This Visit: no Reason for Continuing Indwelling Catheter: Acute Urinary Retention or Obstruction Data 11/27/22 04:05 11/27/22 04:05 A&P Assessment and plan (1) Protein calorie malnutrition: (2) Muscular deconditioning: (3) Lymphadenopathy: (4) Hypercalcemia: (5) Diffuse lymphadenopathy: (6) Mediastinal lymphadenopathy: (7) Diffuse large B-cell lymphoma of lymph nodes of multiple regions: (8) Port-A-Cath in place: (9) Left hip pain: (10) Hypercalcemia of malignancy: (11) Hypothyroid: (12) Hip fracture: (13) Antineoplastic chemotherapy induced pancytopenia: (14) Neutropenia: Plan Current fever#Left hip fracture #Diffuse large B-cell lymphoma, 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 Obtain urine bacterial antigens including Legionella. He is feeling congested, having secretions which she can bring up. Pneumonia noted on CT. Continue broad-spectrum antibiotic coverage with Zosyn, linezolid, add Mucinex, flutter valve. Viral panel reviewed noted negative. Left side sore throat/subjective swelling is improving. Can stop reverse isolation. DC neutropenic diet restriction. Discussed his condition with nursing and case management in rounds. Cipro was held as he wanted to cut down the number of his medications. Continue Diflucan, valacyclovir. Cipro for now on hold while on broad-spectrum coverage in the hospital. Pancytopenia: Counts appear to be improving. ANC up to 1000. Hemoglobin 8.1. Platelets 202. Recheck blood counts. DC neutropenic precautions. Has received Neulasta. Heparin DVT prophylaxis. At discharge consider switch back to aspirin. MEERA: With improvement. Creatinine down to 1.6. No longer on diuretics. Edema in lower extremities is improving. Follow-up chemistry. Odynophagia/pill esophagitis, resolving. He declined CT neck. Continue nystatin. Neck soft tissue ultrasound noted without abnormality. No thrush. Fluid overload: Anasarca resolved, improving edema lower extremities. Scrotum back to near normal size palpation. Off diuretics. Albumin still low 2.3. He has been currently stable. Continue to encourage protein intake. He for now declines an appetite stimulant. Reassess volume status. Recheck chemistry. Continue to monitor I&O. Lower extremity duplex noted negative for DVT. Discussed with him regarding complex Alfred's cyst, and he will need follow-up with PCP. Urinary retention: For now continues with Givens. At home he self catheterizes 4-6 times a day, but he reuses the catheter. With severe neutropenia and this would not be a possibility. Discussed with nursing staff we currently do not have enough disposable catheters for him to be able self-catheterize. But additional question is whether he will be able to do it with aseptic technique given his neutropenia. Also with diuretics currently, this would not be po ssible, we discussed with him regarding continuation of Givens which she prefers at the moment. Transaminitis: Resolved. Hypercalcemia noted improved. Continue monitoring calcium. Currently 8.1. Hopefully no further hypercalcemia. Follow-up CMP requested. Off IVF. Receiving Lasix subsequently due to fluid overload as above. Reassess I&O, volume status, renal function. Follow-up calcium. Hopefully with chemotherapy hypercalcemia will be under control. Limit calcium intake.? Hold multivitamins for now. Left hip fracture ?Status post surgical intervention, working with physical therapy.? Discharge planning for rehabilitation. -Chemotherapy-induced pancytopenia Resume aspirin DVT prophylaxis at discharge. ? Prednisone 100 daily for 5 days each cycle of chemotherapy.? ? Patient had chemo cycle #1 ? Lorazepam 0.5 every 6 hours as needed for severe nausea ? Compazine 10 mg every 6 hours for nausea ? Allopurinol 300 daily for prevention of tumor lysis syndrome ?? reverse isolation ? consult dietary for protein calorie malnutrition ? Repeat labs in a.m ? PT OT Attestations Medical Necessity Statement*: Admission/management of neutropenic fever. Diagnoses Protein calorie malnutrition E46 Muscular deconditioning R29.898 Lymphadenopathy R59.1 Hypercalcemia E83.52 Diffuse lymphadenopathy R59.1 Mediastinal lymphadenopathy R59.0 Diffuse large B-cell lymphoma of lymph nodes of multiple regions C83.38 Port-A-Cath in place Z95.828 Left hip pain M25.552 Hypercalcemia of malignancy E83.52 Hypothyroid E03.9 Hip fracture S72.009A Antineoplastic chemotherapy induced pancytopenia D61.810; T45.1X5A Neutropenia D70.9
--- NOTE | 2022-11-27 12:24 | PC.NURSE ---
Patient ambulated to the bathroom with a stand by assist. Patient walker with his walker and a steady gait.
[2022-11-27] MEDS: magnesium sulfate premix 2 GM/50 ML PIGGYBACK IV (12:44)
[2022-11-27] MEDS: guaiFENesin 600 mg Tablet 1200 MG PO ×2 (12:50→18:04)
[2022-11-27] MEDS: pantoprazole 40 mg SDV IVP (21:32)
[2022-11-28] VITALS (8 sets, daily range): BP systolic 133–149; BP diastolic 69–84; PULSE 88–96; RESP 16–18; TEMP 36.6–37.7; O2SAT 92–96
[2022-11-28 03:26] LABS: Basophils % 0.6 %; Eosinophils % 1.2 %; Hematocrit 24.9 % (42.0-52.0); Hemoglobin 8.2 g/dL (11.7-16.6); Lymphocytes # 0.1 10^3/uL (0.8-4.8); Lymphocytes % 4.7 %; Mean Corpuscular HGB Conc 32.9 g/dL (30.0-36.0); Mean Corpuscular Hemoglobin 31.1 pg (28.0-34.0); Mean Corpuscular Volume 94.3 fl (80-94); Mean Platelet Volume 8.8 fL (7.4-10.4); Monocytes # 0.1 10^3/uL (0.2-0.9); Monocytes % 7.6 %; Neutrophils # 1.45 10^3/uL (1.8-7.7); Neutrophils % 84.2 %; Nucleated Red Blood Cells % 0 %; Platelet Count 179 10^3/cmm (130-400); Red Blood Count 2.64 10^6/uL (4.1-5.3); Red Cell Distribution Width 14.6 % (12.1-15.1); White Blood Count 1.7 10^3/uL (4.0-10.0)
[2022-11-28 03:38] LABS: Anion Gap 13.8 (5-19); Blood Urea Nitrogen 15 mg/dL (8-23); Calcium 8.2 mg/dL (8.5-10.5); Carbon Dioxide 23 mmol/L (22-29); Chloride 104 mmol/L (98-107); Glomerular Filtration Rate 42.9 mL/min (90-130); Glucose 97 mg/dL (65-115); Osmolality Calculated 285 mOsm/kg (285-295); Potassium 3.8 mmol/L (3.5-5.1); Sodium 137 mmol/L (136-145)
--- NOTE | 2022-11-28 07:46 | P.PN_ITS ---
Subjective Subjective: Patient is requiring 4 L of oxygen Chest congestion complaint with productive cough We will ask for sputum sample Afebrile Pancytopenia improving Very fatigued and lethargic deconditioned Patient is stating that he lives alone there is a sister who is in another state but not his medical power of contract attorney He is full code Vitals/I&O/Wt Last Vital Signs Temp 97.8 F 11/28/22 07:42 Pulse 96 11/28/22 07:42 Resp 18 11/28/22 07:42 BP 149/84 11/28/22 07:42 Pulse Ox 94 11/28/22 07:42 O2 Del Method Nasal Cannula 11/28/22 07:42 O2 Flow Rate 4 11/28/22 03:25 11/27/22 11/28/22 11/28/22 22:59 06:59 14:59 Intake Total 460 / 1340 350 / 1690 Output Total 1000 / 1000 775 / 1775 Balance -540 / 340 -425 / -85 Physical Exam Narrative: This morning patient is complaining of productive cough Currently on 4 L Fatigued and lethargic Physical deconditioning Edema of legs 2+ Ankle edema Abdomen soft Awake and alert Nonfocal neuro exam GCS 15 S1, S2 Bilateral breath sounds with mild rhonchi and wheeze Urinary Catheter Management: Givens: Cath Placed During This Visit: no Reason for Continuing Indwelling Catheter: Acute Urinary Retention or Obstruction Data 11/28/22 03:06 11/28/22 03:06 Micro: Microbiology 11/27/22 13:42 Legionella Urinary Antigen - Final Urine Catheterized 11/27/22 13:42 Bacterial Antigens - Final Urine,Voided A&P Assessment and plan (1) Renal insufficiency: (2) Neutropenia: (3) Antineoplastic chemotherapy induced pancytopenia: (4) Protein calorie malnutrition: (5) HTN (hypertension): (6) Closed intertrochanteric fracture of left hip: Qualifiers: Encounter type: initial encounter Fracture alignment: displaced Qualified Code(s): S72.142A - Displaced intertrochanteric fracture of left femur, initial encounter for closed fracture (7) BPH loc w urin obs/LUTS: (8) Hypercalcemia: (9) Diffuse large B-cell lymphoma of lymph nodes of multiple regions: Plan Pathological hip fracture status post intervention No postoperative complication Patient lives alone He is not sure about rehab wants to go home We will follow-up with PT evaluation Excessive sputum production Concern for pneumonia with neutropenic fevers: No signs of UTI nonobstructive stones present Continue broad-spectrum antibiotics with linezolid and Zosyn Discontinue ciprofloxacin We will request sputum culture Cultures negative so far Low-grade fever overnight Diffuse large B-cell lymphoma with mets to bone Hypercalcemia malignancy: Patient carries guarded prognosis if he becomes physically deconditioned currently only received [address] Fiore I will continue his antiviral Pancytopenia chemotherapy-induced: Status post blood transfusion Neutropenia improving Chronic kidney disease chronic creatinine seems to be around baseline BPH: Continue tamsulosin and finasteride Patient seems to carry signs of depression He may benefit from escitalopram PT/OT Protein calorie malnourishment I will add Ensure Plus 3 times daily Attestations Medical Necessity Statement*: Continue medical management and fever Diagnoses Renal insufficiency N28.9 Neutropenia D70.9 Antineoplastic chemotherapy induced pancytopenia D61.810; T45.1X5A Protein calorie malnutrition E46 HTN (hypertension) I10 Closed intertrochanteric fracture of left hip S72.142A Encounter type: initial encounter Fracture alignment: displaced BPH loc w urin obs/LUTS N40.1 Hypercalcemia E83.52 Diffuse large B-cell lymphoma of lymph nodes of multiple regions C83.38
[2022-11-28] MEDS: finasteride 5 mg Tablet PO (08:05)
[2022-11-28] MEDS: allopurinol 300 mg Tablet PO (08:05)
[2022-11-28] MEDS: fluconazole 100 mg Tablet PO (08:05)
[2022-11-28] MEDS: tamsulosin 0.4 mg Capsule PO ×2 (08:05→17:46)
[2022-11-28] MEDS: valACYclovir 1,000 mg Tablet 500 MG PO ×2 (08:06→17:45)
[2022-11-28] MEDS: metoprolol tartrate 50 mg Tablet 25 MG PO ×2 (08:06→17:45)
[2022-11-28] MEDS: piperacillin-tazobactam 3.375 GM in sodium chloride 0.9% (plus) 50 ML IV ×2 (08:07→17:44)
[2022-11-28] MEDS: heparin 5,000 unit/mL INJ 1 mL 5000 UNIT SUBCUT ×2 (08:07→21:33)
[2022-11-28] MEDS: FUROsemide 10 mg/mL SDV 4mL 40 MG IVP (08:10)
[2022-11-28] MEDS: guaiFENesin 600 mg Tablet 1200 MG PO ×2 (08:10→17:45)
[2022-11-28] MEDS: ipratropium-albuterol 3 mL Neb INHALATION (08:25)
[2022-11-28] MEDS: linezolid premix 600 MG/300 ML PREMIX 300 MG IV ×2 (13:55→23:26)
[2022-11-28] MEDS: pantoprazole 40 mg SDV IVP (21:33)
[2022-11-29] VITALS (7 sets, daily range): BP systolic 129–150; BP diastolic 70–82; PULSE 80–100; RESP 15–18; TEMP 36.3–37.3; O2SAT 92–97
[2022-11-29] MEDS: piperacillin-tazobactam 3.375 GM in sodium chloride 0.9% (plus) 50 ML IV ×3 (00:55→16:59)
[2022-11-29 06:43] LABS: Basophils % 1.2 %; Eosinophils % 1.2 %; Hematocrit 23.1 % (42.0-52.0); Hemoglobin 7.5 g/dL (11.7-16.6); Lymphocytes # 0.1 10^3/uL (0.8-4.8); Lymphocytes % 6.1 %; Mean Corpuscular HGB Conc 32.5 g/dL (30.0-36.0); Mean Corpuscular Volume 95.5 fl (80-94); Mean Platelet Volume 9.5 fL (7.4-10.4); Monocytes # 0.1 10^3/uL (0.2-0.9); Monocytes % 7.3 %; Neutrophils # 1.34 10^3/uL (1.8-7.7); Neutrophils % 81.8 %; Nucleated Red Blood Cells % 0 %; Platelet Count 272 10^3/cmm (130-400); Red Blood Count 2.42 10^6/uL (4.1-5.3); Red Cell Distribution Width 14.6 % (12.1-15.1); White Blood Count 1.6 10^3/uL (4.0-10.0)
[2022-11-29 07:13] LABS: Anion Gap 12.6 (5-19); Blood Urea Nitrogen 16 mg/dL (8-23); Calcium 7.6 mg/dL (8.5-10.5); Carbon Dioxide 23 mmol/L (22-29); Chloride 106 mmol/L (98-107); Glomerular Filtration Rate 42.9 mL/min (90-130); Glucose 103 mg/dL (65-115); Osmolality Calculated 287 mOsm/kg (285-295); Potassium 3.6 mmol/L (3.5-5.1); Sodium 138 mmol/L (136-145)
[2022-11-29] MEDS: allopurinol 300 mg Tablet PO (10:00)
[2022-11-29] MEDS: guaiFENesin 600 mg Tablet 1200 MG PO ×2 (10:00→16:59)
[2022-11-29] MEDS: finasteride 5 mg Tablet PO (10:00)
[2022-11-29] MEDS: metoprolol tartrate 50 mg Tablet 25 MG PO ×2 (10:00→16:59)
[2022-11-29] MEDS: tamsulosin 0.4 mg Capsule PO ×2 (10:00→17:00)
[2022-11-29] MEDS: valACYclovir 1,000 mg Tablet 500 MG PO ×2 (10:00→17:00)
[2022-11-29] MEDS: fluconazole 100 mg Tablet PO (10:00)
[2022-11-29] MEDS: FUROsemide 10 mg/mL SDV 4mL 40 MG IVP (10:00)
[2022-11-29] MEDS: heparin 5,000 unit/mL INJ 1 mL 5000 UNIT SUBCUT ×2 (10:01→21:35)
--- NOTE | 2022-11-29 10:29 | P.PN_ITS ---
Subjective Subjective: Patient has been afebrile for 48 hours Cultures negative Patient endorsing feeling slightly better Currently on 3 L of oxygen Patient is willing to consider rehab if he is able to pay for the services He is willing to speak with our social media specialist I have notified our social media specialist Patt Vitals/I&O/Wt Last Vital Signs Temp 97.3 F L 11/29/22 08:48 Pulse 80 11/29/22 09:52 Resp 16 11/29/22 09:52 BP 150/70 11/29/22 08:48 Pulse Ox 97 11/29/22 09:52 O2 Del Method Nasal Cannula 11/29/22 09:52 O2 Flow Rate 3 11/29/22 09:52 FiO2 3 11/29/22 08:48 11/28/22 11/29/22 11/29/22 22:59 06:59 14:59 Intake Total 350 / 1360 475 / 1835 240 / 240 Output Total 650 / 2650 Balance 350 / -640 -175 / -815 240 / 240 Physical Exam Narrative: Patient is awake and alert Signs of fluid overload improving Clinically doing better Currently on 3 L No audible stridor or wheezing Rhonchi and crackles improved Awake and alert Signs of depression present GCS [address] Urinary Catheter Management: Givens: Cath Placed During This Visit: no Reason for Continuing Indwelling Catheter: Acute Urinary Retention or Obstruction Data 11/29/22 06:10 11/29/22 06:10 A&P Assessment and plan (1) Renal insufficiency: (2) Neutropenia: (3) Antineoplastic chemotherapy induced pancytopenia: (4) Protein calorie malnutrition: (5) HTN (hypertension): (6) Closed intertrochanteric fracture of left hip: Qualifiers: Encounter type: initial encounter Fracture alignment: displaced Qualified Code(s): S72.142A - Displaced intertrochanteric fracture of left femur, initial encounter for closed fracture (7) BPH loc w urin obs/LUTS: (8) Hypercalcemia: (9) Diffuse large B-cell lymphoma of lymph nodes of multiple regions: (10) Depression: Plan Acute hypoxia related to fluid overload Improving currently on 3 L Pancytopenia: Chemotherapy-induced: Neutropenia improving Fever related to pneumonia afebrile for last 48 hours Cultures negative Change antibiotics to p.o. regimen today Deconditioning, patient lives alone, Patient is willing to consider rehab but he wants to look at his options with social media specialist I have notified the social media specialist today Social dynamics: Patient has cancer, lives alone, suffers from chemotherapy- induced electrolyte imbalance, pathological hip fracture He is suffering from depression, lack of motivation, we can do a trial of escitalopram but my concern is related to long-term intermediate placement if he gets worse down the road due to his multiple comorbid conditions Patient is full code Cardiac diet Hypercalcemia malignancy no acute decompensation Follows up with Dr. Fiore Continue antiviral prophylactic regimen Sputum cultures: Negative to date Pathological hip fracture status post intervention BPH: Patient does not want to remove Givens catheter before his discharge Protein calorie malnourishment continue Ensure 1 kidney disease creatinine at baseline Attestations Medical Necessity Statement*: Continue medical management Diagnoses Renal insufficiency N28.9 Neutropenia D70.9 Antineoplastic chemotherapy induced pancytopenia D61.810; T45.1X5A Protein calorie malnutrition E46 HTN (hypertension) I10 Closed intertrochanteric fracture of left hip S72.142A Encounter type: initial encounter Fracture alignment: displaced BPH loc w urin obs/LUTS N40.1 Hypercalcemia E83.52 Diffuse large B-cell lymphoma of lymph nodes of multiple regions C83.38 Depression F32.A
[2022-11-29] MEDS: linezolid premix 600 MG/300 ML PREMIX 300 MG IV (12:04)
[2022-11-29] MEDS: pantoprazole 40 mg SDV IVP (21:35)
[2022-11-29] MEDS: linezolid 600 mg Tablet PO (21:35)
[2022-11-30] VITALS (8 sets, daily range): BP systolic 128–146; BP diastolic 76–81; PULSE 85–102; RESP 16–20; TEMP 36.7–37.1; O2SAT 88–97
[2022-11-30 04:52] LABS: Basophils % 0.6 %; Eosinophils # 0.1 10^3/uL (0.0-0.8); Eosinophils % 3.1 %; Hematocrit 22.8 % (42.0-52.0); Hemoglobin 7.2 g/dL (11.7-16.6); Lymphocytes # 0.2 10^3/uL (0.8-4.8); Lymphocytes % 9.9 %; Mean Corpuscular HGB Conc 31.6 g/dL (30.0-36.0); Mean Platelet Volume 9.6 fL (7.4-10.4); Monocytes # 0.1 10^3/uL (0.2-0.9); Monocytes % 8.7 %; Neutrophils # 1.23 10^3/uL (1.8-7.7); Neutrophils % 76.5 %; Nucleated Red Blood Cells % 0 %; Platelet Count 226 10^3/cmm (130-400); Red Cell Distribution Width 14.5 % (12.1-15.1); White Blood Count 1.6 10^3/uL (4.0-10.0)
[2022-11-30] MEDS: piperacillin-tazobactam 3.375 GM in sodium chloride 0.9% (plus) 50 ML IV (04:57)
[2022-11-30 05:18] LABS: Anion Gap 14.3 (5-19); Blood Urea Nitrogen 15 mg/dL (8-23); Calcium 7.9 mg/dL (8.5-10.5); Carbon Dioxide 22 mmol/L (22-29); Chloride 105 mmol/L (98-107); Glomerular Filtration Rate 50.1 mL/min (90-130); Glucose 100 mg/dL (65-115); Osmolality Calculated 287 mOsm/kg (285-295); Potassium 3.3 mmol/L (3.5-5.1); Sodium 138 mmol/L (136-145)
[2022-11-30] MEDS: valACYclovir 1,000 mg Tablet 500 MG PO (09:32)
[2022-11-30] MEDS: allopurinol 300 mg Tablet PO (09:35)
[2022-11-30] MEDS: finasteride 5 mg Tablet PO (09:36)
[2022-11-30] MEDS: fluconazole 100 mg Tablet PO (09:40)
[2022-11-30] MEDS: guaiFENesin 600 mg Tablet 1200 MG PO (09:41)
[2022-11-30] MEDS: linezolid 600 mg Tablet PO (09:42)
[2022-11-30] MEDS: metoprolol tartrate 50 mg Tablet 25 MG PO (09:44)
[2022-11-30] MEDS: tamsulosin 0.4 mg Capsule PO (09:45)
[2022-11-30] MEDS: heparin 5,000 unit/mL INJ 1 mL 5000 UNIT SUBCUT (09:46)
[2022-11-30] MEDS: FUROsemide 10 mg/mL SDV 4mL 40 MG IVP (10:12)
--- NOTE | 2022-11-30 10:55 | P.DS_ITS ---
Discharge Providers Date of Admission: 11/09/22 20:03 Date of Discharge: November 30, 2022 Attending Provider at Admission: Julian Taylor MD Attending Provider at Discharge: Godwin Nickerson MD Primary Care Provider: Ricci Pleitez Diagnoses at Discharge Discharge Diagnosis (1) Renal insufficiency: Status: Acute (2) Neutropenia: Status: Acute (3) Antineoplastic chemotherapy induced pancytopenia: Status: Acute (4) Protein calorie malnutrition: Status: Acute (5) HTN (hypertension): Status: Acute (6) Closed intertrochanteric fracture of left hip: Status: Acute Qualifiers: Encounter type: initial encounter Fracture alignment: displaced Qualified Code(s): S72.142A - Displaced intertrochanteric fracture of left femur, initial encounter for closed fracture Permanent problem details: Pathologic fracture (7) BPH loc w urin obs/LUTS: Status: Acute (8) Hypercalcemia: Status: Acute (9) Diffuse large B-cell lymphoma of lymph nodes of multiple regions: Status: Acute (10) Depression: Status: Acute Reason for Visit Reason for Visit: Left Hip Fracture Hospital Course Hospital Course 72-year-old male who was admitted to the hospital for management evaluation of pathological hip fracture, status post intervention by Dr. Carrasco 11/10(Open reduction internal fixation left intertrochanteric pathologic fracture using a long trochanteric nail as a prophylactic intramedullary nailing for the left femur), patient developed neutropenia and suffered from fever throughout hospitalization, he was diagnosed with pneumonia and required IV antibiotics broad-spectrum, cultures remain negative, with use of IV antibiotics he became afebrile, no fever 72 hours prior to discharge, he did not meet criteria to go to rehab although he lives alone and does not have good social support, most of the family is at [facility], he only got 1 chemotherapy session for his lymphoma, follows up with Dr. Fiore, I will discharge him on levofloxacin 7-day course and have him follow-up with Dr. Fiore outpatient, we also tried to get accepted at [facility] inpatient rehab but his case was denied. We will remove Givens catheter before his discharge, patient required Lasix for mild CHF exacerbation, he is requiring 1 to 2 L of oxygen. He has been having 1-2 bowel movements semisolid every day, lower extremity edema improving, muscle mass loss, will give him supplemental diet, he does have significant protein calorie malnourishment. I advised him to discuss continuation of chemotherapy Dr. Silver dudley because of his worsening of strength and ongoing physical deconditioning. he spent 3 weeks in the hospital. Physical Exam Narrative: Awake and alert Currently on 2 L Fluid load improving Lower extremity edema Muscle mass loss GCS 15 Nonfocal neuro exam Abdomen Urinary Catheter Management: Givens: Cath Placed During This Visit: no Reason for Continuing Indwelling Catheter: Acute Urinary Retention or Obstruc tion Discharge Data Studies Completed and Pending Completed Studies During Hospitalization Category [place] [id number] Routine Cat Scan 11/26/22 09:44 Completed CXRP [XR chest 1V portable [id number]] Routine Exams 11/20/22 16:41 Completed XR chest 1V portable [id number] Routine Exams 11/09/22 21:12 Completed XR femur LT min 2V* [id number] Routine Exams 11/10/22 Completed XR femur RT min 2V* [id number] Routine Exams 11/09/22 21:01 Completed XR pelvis 1-2V* [id number] Routine Exams 11/09/22 21:01 Completed Pathology: Surgical [PTH] Routine Pth 11/10/22 18:49 Completed US soft tissue head neck [id number] Routine Ultrasound 11/19/22 10:37 Completed US venous duplex lower extremity bilat [CV venous Ultrasound 11/14/22 13:41 [place] [id number]] Stat Pending at discharge Category Date Time Status Irradiated Red Blood Cells Stat Lab 11/11/22 08:45 Results Sputum Culture and Gram Stain Routine Lab 11/28/22 07:48 Uncollected Radiology Impressions Pelvis X-Ray 11/09/22 21:01 IMPRESSION: Intertrochanteric left hip fracture. Femur X-Ray 11/10/22 00:00 Impression: Internal fixation of left hip intertrochanteric fracture. Venous Duplex 11/14/22 13:41 IMPRESSION: 1. No evidence of deep vein thrombosis. 2. Complex Alfred's cyst in the left popliteal fossa measuring up to 6.4 cm in length. 3. Bilateral inguinal adenopathy. Head/Neck Ultrasound 11/19/22 10:37 IMPRESSION: Unremarkable soft tissues of the visualized head and neck. Chest X-Ray 11/20/22 16:41 IMPRESSION: 1. Moderate bilateral pleural effusions. 2. Left-sided Port-A-Cath. 3. Emphysematous changes. 4. Right lower lobe atelectasis versus infiltrate. Chest/Abdomen/Pelvis CT 11/26/22 09:44 IMPRESSION: 1. Broad regions of ground-glass opacity within the upper lobes of the lungs suggestive of an infectious or inflammatory process. 2. Moderate volume bilateral pleural effusions. IMPRESSION: 1. Dependent debris noted within the bladder. 2. Diffuse mesenteric edema. 3. Conglomerate lymphadenopathy again noted within the central mesentery and mild splenomegaly consistent with known lymphoma. 4. A couple punctate nonobstructing stones noted in both kidneys. Laboratory Results WBC 1.6 10^3/uL (4.0-10.0) L 11/30/22 04:12 Corrected WBC Cancelled 11/19/22 03:16 RBC 2.40 10^6/uL (4.1-5.3) L 11/30/22 04:12 Hgb 7.2 g/dL (11.7-16.6) L 11/30/22 04:12 Hct 22.8 % (42.0-52.0) L 11/30/22 04:12 MCV 95.0 fl (80-94) H 11/30/22 04:12 MCH 30.0 pg (28.0-34.0) 11/30/22 04:12 MCHC 31.6 g/dL (30.0-36.0) 11/30/22 04:12 RDW 14.5 % (12.1-15.1) 11/30/22 04:12 Plt Count 226 10^3/cmm (130-400) 11/30/22 04:12 MPV 9.6 fL (7.4-10.4) 11/30/22 04:12 Gran % Cancelled 11/19/22 03:16 Neut % (Auto) 76.5 % 11/30/22 04:12 Lymph % (Auto) 9.9 % 11/30/22 04:12 [place] % (Auto) 8.7 % 11/30/22 04:12 Eos % (Auto) 3.1 % 11/30/22 04:12 Baso % (Auto) 0.6 % 11/30/22 04:12 Neut # (Auto) 1.23 10^3/uL (1.8-7.7) L 11/30/22 04:12 Lymph # (Auto) 0.2 10^3/uL (0.8-4.8) L 11/30/22 04:12 [place] # (Auto) 0.1 10^3/uL (0.2-0.9) L 11/30/22 04:12 Eos # (Auto) 0.1 10^3/uL (0.0-0.8) 11/30/22 04:12 Baso # (Auto) 0.0 10^3/uL (0.0-0.1) 11/30/22 04:12 Absolute Gran (auto) Cancelled 11/19/22 03:16 Nucleated RBC % (auto) 0 % 11/30/22 04:12 Total Counted Cancelled 11/19/22 03:16 Atypical Lymphs % Cancelled 11/19/22 03:16 Absolute Neutrophils Cancelled 11/19/22 03:16 Segmented Neutrophils Cancelled 11/19/22 03:16 Abs Segm Neuts (Man) Cancelled 11/19/22 03:16 Band Neutrophils Cancelled 11/19/22 03:16 Abs Band Neuts (Man) Cancelled 11/19/22 03:16 Absolute Lymphocytes Cancelled 11/19/22 03:16 Lymphocytes (Manual) Cancelled 11/19/22 03:16 Monocytes (Manual) Cancelled 11/19/22 03:16 Absolute Monocytes Cancelled 11/19/22 03:16 Eosinophils (Manual) Cancelled 11/19/22 03:16 Absolute Eosinophils Cancelled 11/19/22 03:16 Basophils (Manual) Cancelled 11/19/22 03:16 Absolute Basophils Cancelled 11/19/22 03:16 Metamyelocytes Cancelled 11/19/22 03:16 Myelocytes Cancelled 11/19/22 03:16 Promyelocytes Cancelled 11/19/22 03:16 Nucleated RBCs Cancelled 11/19/22 03:16 Nucleated RBCs # 0.0 /100WBC 11/30/22 04:12 Pathologist Review Cancelled 11/19/22 03:16 Hypersegmented Polys Cancelled 11/19/22 03:16 Blast Cells Cancelled 11/19/22 03:16 Smudge Cells Cancelled 11/19/22 03:16 Toxic Granulation Cancelled 11/19/22 03:16 Toxic Vacuolation Cancelled 11/19/22 03:16 Dohle Bodies Cancelled 11/19/22 03:16 Niecy Rods Cancelled 11/19/22 03:16 Platelet Estimate Cancelled 11/19/22 03:16 Giant Platelets Cancelled 11/19/22 03:16 Polychromasia Cancelled 11/19/22 03:16 Hypochromasia Cancelled 11/19/22 03:16 Poikilocytosis Cancelled 11/19/22 03:16 Basophilic Stippling Cancelled 11/19/22 03:16 Anisocytosis Cancelled 11/19/22 03:16 Microcytosis Cancelled 11/19/22 03:16 Macrocytosis Cancelled 11/19/22 03:16 Spherocytes Cancelled 11/19/22 03:16 Sickle Cells Cancelled 11/19/22 03:16 Target Cells Cancelled 11/19/22 03:16 Tear Drop Cells Cancelled 11/19/22 03:16 Ovalocytes Cancelled 11/19/22 03:16 Stomatocytes Cancelled 11/19/22 03:16 Helmet Cells Cancelled 11/19/22 03:16 Castillo-Colon Bodies Cancelled 11/19/22 03:16 Cherry Log Cells Cancelled 11/19/22 03:16 Crenated Cell Cancelled 11/19/22 03:16 Acanthocytes (Spur) Cancelled 11/19/22 03:16 Rouleaux Cancelled 11/19/22 03:16 Schistocytes Cancelled 11/19/22 03:16 RBC Morph Comment Cancelled 11/19/22 03:16 PT 15.10 SECONDS (12.1-14.9) H 11/09/22 21:33 INR 1.16 (0.8-1.2) 11/09/22 21:33 Sodium 138 mmol/L (136-145) 11/30/22 04:12 Potassium 3.3 mmol/L (3.5-5.1) L 11/30/22 04:12 Chloride 105 mmol/L (98-107) 11/30/22 04:12 Carbon Dioxide 22 mmol/L (22-29) 11/30/22 04:12 Anion Gap 14.3 (5-19) 11/30/22 04:12 BUN 15 mg/dL (8-23) 11/30/22 04:12 Creatinine 1.4 mg/dL (0.7-1.2) H 11/30/22 04:12 GFR Calculation 50.1 mL/min (90-130) L 11/30/22 04:12 Glucose 100 mg/dL (65-115) 11/30/22 04:12 Calculated Osmolality 287 mOsm/kg (285-295) 11/30/22 04:12 Uric Acid 5.3 mg/dL (3.4-7.0) 11/13/22 05:25 Calcium 7.9 mg/dL (8.5-10.5) L 11/30/22 04:12 Ionized Calcium Ade 1.6 mmol/L (1.1-1.4) H 11/14/22 04:00 Phosphorus 2.3 mg/dL (2.5-4.5) L 11/27/22 04:05 Magnesium 1.7 mg/dL (1.7-2.3) 11/27/22 04:05 Total Bilirubin 0.4 mg/dL (0.15-1.2) 11/26/22 05:05 AST 17 U/L (0-40) 11/26/22 05:05 ALT 36 U/L (0-41) 11/26/22 05:05 Alkaline Phosphatase 149 U/L (40-130) H 11/26/22 05:05 Total Protein 4.0 g/dL (6.6-8.7) L 11/26/22 05:05 Albumin 2.3 g/dL (3.5-5.2) L 11/27/22 04:05 Globulin 1.7 g/dL (1.3-4.6) 11/26/22 05:05 Urine Color Yellow (Yellow) 11/20/22 17:20 Urine Appearance Hazy (CLEAR) A 11/20/22 17:20 Urine pH 7 (5-7) 11/20/22 17:20 Ur Specific [place] 1.005 (1.005-1.030) 11/20/22 17:20 Urine Protein 1+ (Negative) H 11/20/22 17:20 Urine Glucose (UA) Norm (Normal) 11/20/22 17:20 Urine Ketones Negative (Negative) 11/20/22 17:20 Urine Blood 2+ (Negative) H 11/20/22 17:20 Urine Nitrate Negative (Negative) 11/20/22 17:20 Urine Bilirubin Neg (Negative) 11/20/22 17:20 Urine Urobilinogen Norm mg/dL (Negative) 11/20/22 17:20 Ur Leukocyte Esterase Trace (Negative) H 11/20/22 17:20 Urine RBC 0-4 /hpf (0-2) H 11/20/22 17:20 Urine WBC 0-4 /hpf (0-5) H 11/20/22 17:20 Ur Squamous Epith Cells 0-4 /hpf (0-5) H 11/20/22 17:20 Calcium Oxalate Crystal 0-4 /hpf H 11/20/22 17:20 Amorphous Sediment Not Reportable 11/20/22 17:20 Urine Bacteria None /hpf (NONE) 11/20/22 17:20 Nasal Influ A H1 2009 PCR Not detected (NOT DETECT) 11/26/22 16:30 Adenovirus (PCR) Not detected (NOT DETECT) 11/26/22 16:30 C. pneumoniae DNA (PCR) Not detected (NOT DETECT) 11/26/22 16:30 Coronavirus 229E (PCR) Not detected (NOT DETECT) 11/26/22 16:30 Human Metapneumovir PCR Not detected (NOT DETECT) 11/26/22 16:30 Influenza A (H1) PCR Not detected (NOT DETECT) 11/26/22 16:30 Influenza A (H3) PCR Not detected (NOT DETECT) 11/26/22 16:30 Influenza Type A (PCR) Not detected (NOT DETECT) 11/26/22 16:30 Influenza Type B (PCR) Not detected (NOT DETECT) 11/26/22 16:30 M. pneumoniae (PCR) Not detected (NOT DETECT) 11/26/22 16:30 Parainfluenza 1 (PCR) Not detected (NOT DETECT) 11/26/22 16:30 Parainfluenza 2 (PCR) Not detected (NOT DETECT) 11/26/22 16:30 Parainfluenza 3 (PCR) Not detected (NOT DETECT) 11/26/22 16:30 Parainfluenza 4 (PCR) Not detected (NOT DETECT) 11/26/22 16:30 RSV Type A (PCR) Not detected (NOT DETECT) 11/26/22 16:30 RSV Type B (PCR) Not detected (NOT DETECT) 11/26/22 16:30 Entero/Rhino (PCR) Not detected (NOT DETECT) 11/26/22 16:30 SARS-CoV-2 (PCR) Not detected (NOT DETECT) 11/26/22 16:30 Group A Strep Rapid Negative (Negative) 11/20/22 17:20 Blood Type O Positive 11/22/22 10:15 Rho(D) Type Positive 11/22/22 10:15 Antibody Screen Negative 11/22/22 10:15 Crossmatch See Detail 11/22/22 10:15 Vitals Last Vital Signs Temp 98.1 F 11/30/22 07:04 Pulse 102 H 11/30/22 08:15 Resp 18 11/30/22 08:15 BP 135/76 11/30/22 07:04 Pulse Ox 92 11/30/22 08:15 O2 Del Method Nasal Cannula 11/30/22 08:15 O2 Flow Rate 2 11/30/22 08:15 FiO2 3 11/29/22 08:48 Discharge Plan Discharge Patient Disposition: Home Health Service Condition: Stable Prescriptions: New oxycodone 5 mg Tablet 5 mg PO Q4H PRN (Reason: Moderate To Severe Pain) 7 Days Qty: 30 0RF acetaminophen 500 mg Tablet 1,000 mg PO Q8H 15 Days Qty: 0 0RF levofloxacin 750 mg tablet 750 mg PO DAILY 7 Days Qty: 7 0RF aspirin 325 mg Tablet,Delayed Release (Dr/Ec) 325 mg PO DAILY 30 Days Qty: 0 0RF furosemide [Lasix] 20 mg tablet 20 mg PO DAILY PRN (Reason: weight gain, edema of legs worsening) Qty: 60 0RF Rx Instructions: Take potassium only with Lasix potassium chloride 20 mEq tablet extended release 20 meq PO DAILY Qty: 30 0RF Continued ascorbic acid (vitamin C) 500 mg tablet 500 mg PO DAILY prednisone 20 mg tablet 20 mg PO DAILY Qty: 30 1RF sulfamethoxazole-trimethoprim 800-160 mg tablet 1 tab PO .COMPLEX Qty: 24 3RF Rx Instructions: 1 tab orally monday, monday, monday; prochlorperazine maleate 10 mg tablet 10 mg PO Q6H PRN (Reason: nausea and vomiting) Qty: 30 2RF tamsulosin 0.4 mg capsule See Rx Instructions .ROUTE .COMPLEX Qty: 60 12RF Dose Instruction: Take 1 capsule by mouth twice daily Rx Instructions: Take 1 capsule by mouth twice daily finasteride 5 mg tablet See Rx Instructions .ROUTE .COMPLEX Qty: 30 12RF Dose Instruction: Take 1 tablet by mouth once daily Rx Instructions: Take 1 tablet by mouth once daily metoprolol tartrate 50 mg tablet 50 mg PO BID ondansetron HCl 4 mg Tablet 4 mg PO QID PRN (Reason: Nausea/vomiting) Qty: 30 3RF olanzapine 5 mg tablet 5 mg PO QPM Qty: 30 3RF Rx Instructions: Take for 5 days post chemo. valacyclovir 500 mg tablet 500 mg PO BID Qty: 60 5RF Rx Instructions: Continue 3 months post treatment for prevention of viral infection. prednisone 50 mg tablet See Rx Instructions .ROUTE .COMPLEX 21 Days Qty: 10 0RF Rx Instructions: Take 100 mg (2 tablets) orally on days 1 through 5 of treatment. allopurinol 300 mg tablet 300 mg PO DAILY Qty: 30 3RF lorazepam 1 mg tablet 0.5 - 1 mg PO Q6H PRN (Reason: Severe Nausea) Qty: 30 3RF Vitamin D3 25 mcg (1,000 unit) Capsule 25 mcg PO DAILY Discharge Orders: Discharge Order (Routine); Ordered 11/30/22 Ordered By: Godwin Nickerson Other Ambulatory Orders: DME: Walker (Order) Location: None Selected Ordered By: Julian Taylor Referrals: [facility] ([facility]) [Outside] Ni Ho MD [Physician] - 11/23/22 9:45 am ( Follow-up in 2 to 3 weeks.) Ricci Pleitez [Primary Care Provider] - 11/28/22 3:00 pm (nurse prac. Saldaña) Discharge Activity: Increase activity as tolerated, Limit activity as instructed and Use walker/crutches as instructed Patient Instructions: Opioid Safety Activity Restrictions/Additional Instructions: You may be weightbearing as tolerated, but use crutches or walker for protection of your right hip as well as your operated left hip. Maintain dressing until it comes off on its own or become soiled. Any concerns, you may remove it to ev aluate the wound. Discharge Attestations Time Spent in Discharge Care*: greater than 30 min Status at Discharge: Cognitive status at discharge: cognitively intact , Behavioral status at discharge: cooperative , Quality Metrics Clinical Quality Measures [ No reported AMI, CVA or VTE this stay] Coding Level of Care Code Acute Code for Chg Fwd Diagnoses Renal insufficiency N28.9 Neutropenia D70.9 Antineoplastic chemotherapy induced pancytopenia D61.810; T45.1X5A Protein calorie malnutrition E46 HTN (hypertension) I10 Closed intertrochanteric fracture of left hip S72.142A Encounter type: initial encounter Fracture alignment: displaced BPH loc w urin obs/LUTS N40.1 Hypercalcemia E83.52 Diffuse large B-cell lymphoma of lymph nodes of multiple regions C83.38 Depression F32.A
--- NOTE | 2022-11-30 11:02 | PC.SOCIAL ---
IMM Updated Updated pt on IMM. No questions voiced. Provided pt a copy. Initialed, dated, & timed copy in chart.
--- NOTE | 2022-11-30 17:44 | PC.NURSE ---
patient verbalized understanding of discharge instructions, home medications, and follow up appointments. HOME delivered walker and oxygen. Patient education provided on supplemental oxygen, and patient verbalized understanding of necessity, however, refused to wear O2 at time of discharge. Patient offered transportation arraignments at discharge, but refused, and insisted on driving his personal vehicle home. Patient was assisted into the local truck driver seat of his vehicle. This RN stayed with patient to make sure his vehicle would start. he was visualized driving through the main entrance parking lot toward the exit.
== END 2022-11-30 17:53 | disposition home health service (06) | DRG 480 ==
PROVIDERS: Internal Medicine; Specialist; Admitting Provider Family Medicine; PCP Family Medicine; Visit Provider Internal Medicine
PROC: 0QH736Z Insertion of Intramedullary Internal Fixation Device into Left Upper Femur, Percutaneous Approach (ICD-10-PCS; CPT 27245; principal; 2022-11-10 12:55)
DX: M84.552A Pathological fracture in neoplastic disease, left femur, initial encounter for fracture (principal); D61.810 Antineoplastic chemotherapy induced pancytopenia; C83.38 Diffuse large B-cell lymphoma, lymph nodes of multiple sites; E44.0 Moderate protein-calorie malnutrition; N17.9 Acute kidney failure, unspecified; D84.821 Immunodeficiency due to drugs; D70.1 Agranulocytosis secondary to cancer chemotherapy; T45.1X5A Adverse effect of antineoplastic and immunosuppressive drugs, initial encounter; I12.9 Hypertensive chronic kidney disease with stage 1 through stage 4 chronic kidney disease, or unspecified chronic kidney disease; N18.9 Chronic kidney disease, unspecified; Z68.23 Body mass index [BMI] 23.0-23.9, adult; Z95.828 Presence of other vascular implants and grafts; Z79.52 Long term (current) use of systemic steroids; N40.1 Benign prostatic hyperplasia with lower urinary tract symptoms; R33.8 Other retention of urine; F10.11 Alcohol abuse, in remission; E83.52 Hypercalcemia; E03.9 Hypothyroidism, unspecified; G89.3 Neoplasm related pain (acute) (chronic); M71.22 Synovial cyst of popliteal space [Baker], left knee; R13.10 Dysphagia, unspecified; K20.90 Esophagitis, unspecified without bleeding; E87.70 Fluid overload, unspecified; F32.A Depression, unspecified
CPT/HCPCS: 36415; 36430; 36591; 71045; 71250; 72170; 73552; 74176; 76000; 76536; 80048; 80053; 80069; 81001; 82330; 83735; 84100; 84550; 85014; 85018; 85025; 85610; 86403; 86850; 86900; 86920; 87040; 87081; 87449; 87486; 87581; 87633; 87880; 88307; 88311; 88342; 93005; 93970; 94640; 94760; 96372; 97110; 97116; 97161; 97166; 97168; 97530; 97535; C1713; C9113; J0690; J1100; J1170; J1644; J1940; J2020; J2405; J2543; J2704; J3475; J7030; J7512; P9040; P9045; P9046; P9047

== ENCOUNTER 2023-01-11 08:15 | Oncology outpatient (recurring) (ONCR) | payer MEDICARE, SELFPAY ==
[2023-01-06 10:03] VITALS: BP 155/82; PULSE 98; RESP 18; TEMP 36.3; O2SAT 98
[2023-01-06 10:24] LABS: Basophils # 0.1 10^3/uL (0.0-0.1); Basophils % 1.2 %; Eosinophils # 0.1 10^3/uL (0.0-0.8); Eosinophils % 1.6 %; Hematocrit 28.7 % (42.0-52.0); Lymphocytes # 0.5 10^3/uL (0.8-4.8); Lymphocytes % 10.6 %; Mean Corpuscular HGB Conc 31.4 g/dL (30.0-36.0); Mean Corpuscular Hemoglobin 31.9 pg (28.0-34.0); Mean Corpuscular Volume 101.8 fl (80-94); Mean Platelet Volume 9.2 fL (7.4-10.4); Monocytes # 0.4 10^3/uL (0.2-0.9); Monocytes % 8.4 %; Neutrophils # 3.96 10^3/uL (1.8-7.7); Neutrophils % 77.6 %; Nucleated Red Blood Cells % 0 %; Platelet Count 229 10^3/cmm (130-400); Red Blood Count 2.82 10^6/uL (4.1-5.3); Red Cell Distribution Width 17.4 % (12.1-15.1); White Blood Count 5.1 10^3/uL (4.0-10.0)
[2023-01-06 10:44] LABS: Alanine Aminotransferase 12 U/L (0-41); Albumin Level 3.7 g/dL (3.5-5.2); Alkaline Phosphatase 120 U/L (40-130); Anion Gap 15.4 (5-19); Aspartate Amino Transferase 18 U/L (0-40); Blood Urea Nitrogen 22 mg/dL (8-23); Calcium 8.7 mg/dL (8.5-10.5); Carbon Dioxide 23 mmol/L (22-29); Chloride 108 mmol/L (98-107); Globulin 1.6 g/dL (1.3-4.6); Glomerular Filtration Rate 73.9 mL/min (90-130); Glucose 104 mg/dL (65-115); Lactate Dehydrogenase 234 U/L (135-225); Osmolality Calculated 298 mOsm/kg (285-295); Potassium 4.4 mmol/L (3.5-5.1); Sodium 142 mmol/L (136-145); Total Bilirubin 0.5 mg/dL (0.15-1.2); Total Protein 5.3 g/dL (6.6-8.7)
[2023-01-06 12:27] LABS: Iron 85 ug/dL (59-158); Percent Saturation 45.9 % (20-50); Total Iron Binding Capacity 185 mcg/dl; Unsaturated Iron Binding 100 ug/dL (112-347)
[2023-01-06 12:44] LABS: Vitamin B12 201 pg/mL (232-1245)
[2023-01-11] VITALS (8 sets, daily range): BP systolic 121–150; BP diastolic 65–83; PULSE 59–70; RESP 16–18; TEMP 35.8–36.5; O2SAT 97–99; BMI 19.6
[2023-01-11 08:34] LABS: Basophils # 0.1 10^3/uL (0.0-0.1); Basophils % 1.1 %; Eosinophils # 0.2 10^3/uL (0.0-0.8); Eosinophils % 2.8 %; Hematocrit 28.2 % (42.0-52.0); Hemoglobin 8.9 g/dL (11.7-16.6); Lymphocytes # 0.5 10^3/uL (0.8-4.8); Lymphocytes % 10.2 %; Mean Corpuscular HGB Conc 31.6 g/dL (30.0-36.0); Mean Corpuscular Hemoglobin 32.8 pg (28.0-34.0); Mean Corpuscular Volume 104.1 fl (80-94); Mean Platelet Volume 9.4 fL (7.4-10.4); Monocytes # 0.5 10^3/uL (0.2-0.9); Monocytes % 9.8 %; Neutrophils # 4.02 10^3/uL (1.8-7.7); Neutrophils % 75.5 %; Nucleated Red Blood Cells % 0 %; Platelet Count 228 10^3/cmm (130-400); Red Blood Count 2.71 10^6/uL (4.1-5.3); Red Cell Distribution Width 18.1 % (12.1-15.1); White Blood Count 5.3 10^3/uL (4.0-10.0)
[2023-01-11 08:59] LABS: Alanine Aminotransferase 9 U/L (0-41); Albumin Level 3.7 g/dL (3.5-5.2); Alkaline Phosphatase 103 U/L (40-130); Anion Gap 13.4 (5-19); Aspartate Amino Transferase 16 U/L (0-40); Blood Urea Nitrogen 24 mg/dL (8-23); Calcium 8.5 mg/dL (8.5-10.5); Carbon Dioxide 25 mmol/L (22-29); Chloride 109 mmol/L (98-107); Globulin 1.7 g/dL (1.3-4.6); Glomerular Filtration Rate 66.2 mL/min (90-130); Glucose 98 mg/dL (65-115); Lactate Dehydrogenase 201 U/L (135-225); Osmolality Calculated 300 mOsm/kg (285-295); Potassium 4.4 mmol/L (3.5-5.1); Sodium 143 mmol/L (136-145); Total Bilirubin 0.4 mg/dL (0.15-1.2); Total Protein 5.4 g/dL (6.6-8.7)
[2023-01-11 09:15] LABS: Folate Level 11.2 ng/mL (4.5-32.2)
[2023-01-11] MEDS: sodium chloride 0.9% 500 ML 75 ML IV (09:51)
[2023-01-11] MEDS: diphenhydrAMINE 50 mg/mL SDV 1mL 25 MG IVP (09:56)
[2023-01-11] MEDS: famotidine 20 mg/2 mL INJ IVP (10:02)
[2023-01-11] MEDS: palonosetron 0.25 mg/5 mL SDV IVP (10:06)
[2023-01-11] MEDS: OLANZapine 5 mg TABLET PO (10:09)
[2023-01-11] MEDS: fosaprepitant 150 MG in sodium chloride 0.9% 150 ML 300 MG IV (10:11)
[2023-01-11] MEDS: DOXOrubicin 2 mg/ml MDV 70 MG IVP (15:57)
== END 2023-01-11 23:59 | disposition home or self-care (01) ==
PROVIDERS: PCP Family Medicine; Visit Provider Internal Medicine Medical Oncology
DX: Z51.12 Encounter for antineoplastic immunotherapy (principal); Z51.11 Encounter for antineoplastic chemotherapy; C83.38 Diffuse large B-cell lymphoma, lymph nodes of multiple sites; D64.9 Anemia, unspecified
CPT/HCPCS: 36591; 80053; 82607; 82746; 83540; 83550; 83615; 85025; 96367; 96374; 96375; 96409; 96413; 96415; 96417; 99214; J1100; J1200; J1453; J1642; J2469; J3490; J7040; J9000; J9070; J9309; Q5115

== ENCOUNTER 2023-01-12 13:48 | Oncology outpatient (recurring) (ONCR) | payer MEDICARE, SELFPAY ==
[2023-01-12] MEDS: pegfilgrastim-bmez 6 mg/0.6 mL SYR SUBCUT (14:28)
[2023-01-12 14:30] VITALS: BP 93/58; PULSE 78; RESP 18; TEMP 36.6; O2SAT 98
== END 2023-01-16 23:59 | disposition home or self-care (01) ==
LOC: ONCMED 13:49
PROVIDERS: PCP Family Medicine; Visit Provider Internal Medicine Medical Oncology
DX: C83.38 Diffuse large B-cell lymphoma, lymph nodes of multiple sites (principal)
CPT/HCPCS: 96401; Q5120

== ENCOUNTER → 2023-01-25 10:30 | Outpatient (BNVA) | payer MEDICARE, SELFPAY | PROVIDERS: PCP Family Medicine; Visit Provider Internal Medicine Medical Oncology | DX: C83.38 Diffuse large B-cell lymphoma, lymph nodes of multiple sites (principal) | CPT/HCPCS: 85025 ==

== ENCOUNTER 2023-02-01 08:02 | Oncology outpatient (recurring) (ONCR) | payer MEDICARE, SELFPAY ==
[2023-02-01 08:06] VITALS: BMI 19.6
[2023-02-01 08:07] VITALS: BP 125/72; PULSE 82; RESP 18; TEMP 36.3; O2SAT 97
[2023-02-01 08:25] LABS: Basophils # 0.1 10^3/uL (0.0-0.1); Basophils % 1.2 %; Eosinophils # 0.1 10^3/uL (0.0-0.8); Eosinophils % 1.2 %; Hematocrit 27.5 % (42.0-52.0); Hemoglobin 8.9 g/dL (11.7-16.6); Lymphocytes # 0.4 10^3/uL (0.8-4.8); Lymphocytes % 6.7 %; Mean Corpuscular HGB Conc 32.4 g/dL (30.0-36.0); Mean Corpuscular Hemoglobin 34.8 pg (28.0-34.0); Mean Corpuscular Volume 107.4 fl (80-94); Mean Platelet Volume 9.2 fL (7.4-10.4); Monocytes # 0.7 10^3/uL (0.2-0.9); Monocytes % 11.3 %; Neutrophils % 77.9 %; Nucleated Red Blood Cells % 0 %; Platelet Count 282 10^3/cmm (130-400); Red Blood Count 2.56 10^6/uL (4.1-5.3); Red Cell Distribution Width 17.4 % (12.1-15.1); White Blood Count 6.6 10^3/uL (4.0-10.0)
[2023-02-01 08:48] LABS: Alanine Aminotransferase 14 U/L (0-41); Albumin Level 4.1 g/dL (3.5-5.2); Alkaline Phosphatase 109 U/L (40-130); Anion Gap 13.4 (5-19); Aspartate Amino Transferase 21 U/L (0-40); Blood Urea Nitrogen 26 mg/dL (8-23); Calcium 9.1 mg/dL (8.5-10.5); Carbon Dioxide 26 mmol/L (22-29); Chloride 107 mmol/L (98-107); Globulin 1.6 g/dL (1.3-4.6); Glucose 110 mg/dL (65-115); Lactate Dehydrogenase 187 U/L (135-225); Osmolality Calculated 299 mOsm/kg (285-295); Potassium 4.4 mmol/L (3.5-5.1); Sodium 142 mmol/L (136-145); Total Bilirubin 0.3 mg/dL (0.15-1.2); Total Protein 5.7 g/dL (6.6-8.7)
[2023-02-01] MEDS: diphenhydrAMINE 50 mg/mL SDV 1mL 25 MG IVP (10:23)
[2023-02-01] MEDS: sodium chloride 0.9% 500 ML 100 ML IV (10:23)
[2023-02-01] MEDS: OLANZapine 5 mg TABLET PO (10:24)
[2023-02-01] MEDS: famotidine 20 mg/2 mL INJ IVP (10:26)
[2023-02-01] MEDS: palonosetron 0.25 mg/5 mL SDV IVP (10:30)
[2023-02-01] MEDS: fosaprepitant 150 MG in sodium chloride 0.9% 150 ML 300 MG IV (10:51)
[2023-02-01 11:30] VITALS: BP 140/76; PULSE 61; RESP 18; TEMP 35.8; O2SAT 100
[2023-02-01 12:00] VITALS: BP 136/85; PULSE 59; RESP 18; TEMP 35.8; O2SAT 99
[2023-02-01 12:30] VITALS: BP 156/85; PULSE 70; RESP 16; TEMP 35.6; O2SAT 100
[2023-02-01 13:05] VITALS: BP 130/80; PULSE 72; RESP 17; TEMP 35.6; O2SAT 98
[2023-02-01] MEDS: DOXOrubicin 2 mg/ml MDV 70 MG IVP (15:12)
[2023-02-01 16:52] VITALS: BP 137/79; PULSE 64; TEMP 35.9; O2SAT 99
== END 2023-02-01 23:59 | disposition home or self-care (01) ==
PROVIDERS: PCP Family Medicine; Visit Provider Internal Medicine Medical Oncology
DX: Z51.11 Encounter for antineoplastic chemotherapy (principal); C83.38 Diffuse large B-cell lymphoma, lymph nodes of multiple sites; Z51.12 Encounter for antineoplastic immunotherapy; Z79.52 Long term (current) use of systemic steroids; Z79.899 Other long term (current) drug therapy
CPT/HCPCS: 80053; 83615; 85025; 96367; 96375; 96411; 96413; 96415; 96417; 99214; J1100; J1200; J1453; J1642; J2469; J3490; J7040; J9000; J9070; J9309; Q5115

== ENCOUNTER 2023-02-02 13:39 | Oncology outpatient (recurring) (ONCR) | payer MEDICARE, SELFPAY ==
[2023-02-02] MEDS: pegfilgrastim-bmez 6 mg/0.6 mL SYR SUBCUT (13:48)
== END 2023-02-16 23:59 | disposition home or self-care (01) ==
PROVIDERS: PCP Family Medicine; Visit Provider Internal Medicine Medical Oncology
DX: C83.38 Diffuse large B-cell lymphoma, lymph nodes of multiple sites (principal)
CPT/HCPCS: 96372; Q5120

== ENCOUNTER 2023-02-22 08:09 | Oncology outpatient (recurring) (ONCR) | payer MEDICARE, SELFPAY ==
[2023-02-22 08:13] VITALS: BP 131/81; PULSE 82; RESP 18; TEMP 36.4; O2SAT 99
[2023-02-22 08:35] LABS: Basophils # 0.1 10^3/uL (0.0-0.1); Basophils % 1.4 %; Eosinophils # 0.1 10^3/uL (0.0-0.8); Eosinophils % 1.9 %; Hematocrit 28.3 % (37-53); Lymphocytes # 0.4 10^3/uL (0.8-4.8); Lymphocytes % 10.6 %; Mean Corpuscular HGB Conc 33.6 g/dL (30-55); Mean Corpuscular Hemoglobin 35.4 pg (27-33); Mean Corpuscular Volume 105.6 fl (82-101); Mean Platelet Volume 9.3 fL (7.4-10.4); Monocytes # 0.6 10^3/uL (0.2-0.9); Monocytes % 13.5 %; Neutrophils # 2.98 10^3/uL (1.8-7.7); Neutrophils % 71.6 %; Nucleated Red Blood Cells % 0 %; Platelet Count 220 10^3/cmm (157-399); Red Blood Count 2.68 10^6/uL (3.85-5.65); Red Cell Distribution Width 16.7 % (12.1-15.1); White Blood Count 4.16 10^3/uL (3.29-11.43)
[2023-02-22 08:51] LABS: Alanine Aminotransferase 14 U/L (0-41); Albumin Level 4.4 g/dL (3.5-5.2); Alkaline Phosphatase 105 U/L (40-130); Anion Gap 13.4 (5-19); Aspartate Amino Transferase 20 U/L (0-40); Blood Urea Nitrogen 28 mg/dL (8-23); Carbon Dioxide 25 mmol/L (22-29); Chloride 107 mmol/L (98-107); Globulin 1.3 g/dL (1.3-4.6); Glucose 112 mg/dL (65-115); Lactate Dehydrogenase 181 U/L (135-225); Osmolality Calculated 298 mOsm/kg (285-295); Potassium 4.4 mmol/L (3.5-5.1); Sodium 141 mmol/L (136-145); Total Bilirubin 0.3 mg/dL (0.15-1.2); Total Protein 5.7 g/dL (6.6-8.7)
[2023-02-22] MEDS: sodium chloride 0.9% 500 ML 75 ML IV (10:41)
[2023-02-22] MEDS: OLANZapine 5 mg TABLET PO (10:41)
[2023-02-22] MEDS: famotidine 20 mg/2 mL INJ IVP (10:41)
[2023-02-22] MEDS: palonosetron 0.25 mg/5 mL SDV IVP (10:43)
[2023-02-22] MEDS: diphenhydrAMINE 50 mg/mL SDV 1mL 25 MG IVP (10:47)
[2023-02-22] MEDS: fosaprepitant 150 MG in sodium chloride 0.9% 150 ML 300 MG IV (11:16)
[2023-02-22 12:11] VITALS: BP 152/81; PULSE 67; RESP 18; TEMP 36.4; O2SAT 97
[2023-02-22 12:40] VITALS: BP 130/76; PULSE 62; RESP 16; TEMP 36.3; O2SAT 99
[2023-02-22 13:10] VITALS: BP 133/75; PULSE 64; RESP 16; TEMP 35.7; O2SAT 99
[2023-02-22 13:40] VITALS: BP 137/85; PULSE 66; RESP 16; O2SAT 99
[2023-02-22] MEDS: DOXOrubicin 2 mg/ml MDV 72 MG IVP (15:50)
[2023-02-22] MEDS: sodium chloride 0.9% 250 ML 75 ML IV (15:51)
[2023-02-22 17:21] VITALS: BP 148/78; PULSE 69; RESP 18; TEMP 36.9; O2SAT 99
== END 2023-02-22 23:59 | disposition home or self-care (01) ==
PROVIDERS: Nurse Practitioner Family; PCP Family Medicine; Visit Provider Internal Medicine Medical Oncology
DX: C83.38 Diffuse large B-cell lymphoma, lymph nodes of multiple sites (principal); D64.9 Anemia, unspecified
CPT/HCPCS: 80053; 83615; 85025; 96367; 96375; 96411; 96413; 96415; 96417; 99214; J1100; J1200; J1453; J1642; J2469; J3490; J7040; J7050; J9000; J9070; J9309; Q5115

== ENCOUNTER 2023-03-15 08:00 | Oncology outpatient (recurring) (ONCR) | payer MEDICARE, SELFPAY ==
[2023-02-23 14:35] VITALS: BP 122/66; PULSE 68; RESP 16; TEMP 36.5; O2SAT 99
[2023-03-15] VITALS (7 sets, daily range): BP systolic 110–147; BP diastolic 66–82; PULSE 63–74; RESP 16–18; TEMP 35.9–36.4; O2SAT 96–99; BMI 20.2
[2023-03-15 08:52] LABS: Basophils # 0.1 10^3/uL (0.0-0.1); Basophils % 1.2 %; Eosinophils # 0.1 10^3/uL (0.0-0.8); Eosinophils % 1.7 %; Hematocrit 28.8 % (37-53); Lymphocytes # 0.3 10^3/uL (0.8-4.8); Lymphocytes % 5.6 %; Mean Corpuscular HGB Conc 33.7 g/dL (30-55); Mean Corpuscular Hemoglobin 36.6 pg (27-33); Mean Corpuscular Volume 108.7 fl (82-101); Mean Platelet Volume 9.1 fL (7.4-10.4); Monocytes # 0.6 10^3/uL (0.2-0.9); Neutrophils # 3.75 10^3/uL (1.8-7.7); Neutrophils % 77.6 %; Nucleated Red Blood Cells % 0 %; Platelet Count 214 10^3/cmm (157-399); Red Blood Count 2.65 10^6/uL (3.85-5.65); Red Cell Distribution Width 14.7 % (12.1-15.1); White Blood Count 4.83 10^3/uL (3.29-11.43)
[2023-03-15 09:17] LABS: Alanine Aminotransferase 9 U/L (0-41); Alkaline Phosphatase 88 U/L (40-130); Anion Gap 12.3 (5-19); Aspartate Amino Transferase 15 U/L (0-40); Blood Urea Nitrogen 31 mg/dL (8-23); Carbon Dioxide 26 mmol/L (22-29); Chloride 105 mmol/L (98-107); Globulin 1.7 g/dL (1.3-4.6); Glucose 121 mg/dL (65-115); Osmolality Calculated 296 mOsm/kg (285-295); Potassium 4.3 mmol/L (3.5-5.1); Sodium 139 mmol/L (136-145); Total Bilirubin 0.4 mg/dL (0.15-1.2); Total Protein 5.7 g/dL (6.6-8.7)
[2023-03-15 09:47] LABS: Vitamin B12 > 2000 pg/mL (232-1245)
[2023-03-15 09:58] LABS: Lactate Dehydrogenase 203 U/L (135-225)
[2023-03-15] MEDS: sodium chloride 0.9% 500 ML 75 ML IV (10:51)
[2023-03-15] MEDS: OLANZapine 5 mg TABLET PO (10:52)
[2023-03-15] MEDS: diphenhydrAMINE 50 mg/mL SDV 1mL 25 MG IVP (10:53)
[2023-03-15] MEDS: palonosetron 0.25 mg/5 mL SDV IVP (10:58)
[2023-03-15] MEDS: famotidine 20 mg/2 mL INJ IVP (11:02)
[2023-03-15] MEDS: fosaprepitant 150 MG in sodium chloride 0.9% 150 ML 300 MG IV (11:05)
[2023-03-15] MEDS: DOXOrubicin 2 mg/ml MDV 70 MG IVP (15:36)
[2023-03-15] MEDS: pegfilgrastim 6 mg/0.6 mL Kit (onpro) SUBCUT (17:07)
[2023-03-19 23:11] LABS: Methylmalonic Acid 1220 nmol/L (87-318)
== END 2023-03-15 23:59 | disposition home or self-care (01) ==
PROVIDERS: PCP Family Medicine; Visit Provider Internal Medicine Medical Oncology
DX: C83.38 Diffuse large B-cell lymphoma, lymph nodes of multiple sites (principal); D64.9 Anemia, unspecified; Z79.899 Other long term (current) drug therapy; Z51.11 Encounter for antineoplastic chemotherapy
CPT/HCPCS: 80053; 82607; 83615; 83921; 85025; 96367; 96372; 96374; 96375; 96377; 96411; 96413; 96415; 96417; 99214; J1100; J1200; J1453; J1642; J2469; J2506; J3490; J7040; J9000; J9070; J9309; Q5108; Q5115

== ENCOUNTER → 2023-03-29 08:20 | Outpatient (BNVA) | payer MEDICARE, SELFPAY | PROVIDERS: PCP Family Medicine; Visit Provider Specialist | DX: S72.142D Displaced intertrochanteric fracture of left femur, subsequent encounter for closed fracture with routine healing; X58.XXXD Exposure to other specified factors, subsequent encounter | CPT/HCPCS: 73502; 99213 ==

== ENCOUNTER 2023-04-05 07:48 | Oncology outpatient (recurring) (ONCR) | payer MEDICARE, SELFPAY ==
[2023-04-05] VITALS (7 sets, daily range): BP systolic 122–155; BP diastolic 69–86; PULSE 70–84; RESP 16–18; TEMP 36.1–36.7; O2SAT 96–99
[2023-04-05 08:29] LABS: Basophils # 0.1 10^3/uL (0.0-0.1); Basophils % 1.1 %; Eosinophils # 0.1 10^3/uL (0.0-0.8); Eosinophils % 2.2 %; Hematocrit 27.9 % (37-53); Lymphocytes # 0.3 10^3/uL (0.8-4.8); Lymphocytes % 7.3 %; Mean Corpuscular HGB Conc 33.3 g/dL (30-55); Mean Corpuscular Hemoglobin 36.9 pg (27-33); Mean Corpuscular Volume 110.7 fl (82-101); Mean Platelet Volume 9.1 fL (7.4-10.4); Monocytes # 0.5 10^3/uL (0.2-0.9); Neutrophils # 3.51 10^3/uL (1.8-7.7); Neutrophils % 78.1 %; Nucleated Red Blood Cells % 0 %; Platelet Count 181 10^3/cmm (157-399); Red Blood Count 2.52 10^6/uL (3.85-5.65); Red Cell Distribution Width 14.6 % (12.1-15.1)
[2023-04-05 08:48] LABS: Alanine Aminotransferase 17 U/L (0-41); Albumin Level 4.2 g/dL (3.5-5.2); Alkaline Phosphatase 94 U/L (40-130); Anion Gap 13.3 (5-19); Aspartate Amino Transferase 18 U/L (0-40); Blood Urea Nitrogen 33 mg/dL (8-23); Calcium 9.4 mg/dL (8.5-10.5); Carbon Dioxide 25 mmol/L (22-29); Chloride 106 mmol/L (98-107); Globulin 1.5 g/dL (1.3-4.6); Glucose 109 mg/dL (65-115); Lactate Dehydrogenase 194 U/L (135-225); Osmolality Calculated 298 mOsm/kg (285-295); Potassium 4.3 mmol/L (3.5-5.1); Sodium 140 mmol/L (136-145); Total Bilirubin 0.3 mg/dL (0.15-1.2); Total Protein 5.7 g/dL (6.6-8.7)
[2023-04-05] MEDS: sodium chloride 0.9% 500 ML 75 ML IV (10:07)
[2023-04-05] MEDS: diphenhydrAMINE 50 mg/mL SDV 1mL 25 MG IVP (10:07)
[2023-04-05] MEDS: cyanocobalamin 1,000 mcg/mL SDV 1000 MCG IM (10:12)
[2023-04-05] MEDS: famotidine 20 mg/2 mL INJ IVP (10:14)
[2023-04-05] MEDS: sodium chloride 0.9% 250 ML 75 ML IV (10:24)
[2023-04-05] MEDS: OLANZapine 5 mg TABLET PO (10:25)
[2023-04-05] MEDS: palonosetron 0.25 mg/5 mL SDV IVP (10:25)
[2023-04-05] MEDS: fosaprepitant 150 MG in sodium chloride 0.9% 150 ML 300 MG IV (10:39)
[2023-04-05] MEDS: DOXOrubicin 2 mg/ml MDV 72 MG IVP (14:04)
== END 2023-04-05 23:59 | disposition home or self-care (01) ==
PROVIDERS: PCP Family Medicine; Visit Provider Internal Medicine Medical Oncology
DX: C83.38 Diffuse large B-cell lymphoma, lymph nodes of multiple sites (principal); Z51.11 Encounter for antineoplastic chemotherapy; D64.9 Anemia, unspecified; E53.8 Deficiency of other specified B group vitamins; Z79.899 Other long term (current) drug therapy
CPT/HCPCS: 80053; 83615; 85025; 96365; 96367; 96372; 96375; 96409; 96413; 96415; 96417; 99214; J1100; J1200; J1453; J2469; J3420; J3490; J7040; J7050; J9000; J9070; J9309; Q5115

== ENCOUNTER 2023-05-02 13:56 | Outpatient (CLI) | payer MEDICARE, SELFPAY ==
--- NOTE | 2023-05-02 10:30 | PETR_ITS ---
PROCEDURE INFORMATION: Exam: PET/CT Skull Base to Mid-thigh Exam date and time: 05/02/2023 10:52 AM Age: 73 years old Clinical indication: Lymphoma restaging LABS AND CLINICAL REPORTS: Glucose: 166 mg/dl Treatment strategy for malignancy (PET staging): Restaging (PS) TECHNIQUE: Imaging protocol: Following at least four-hour fasting and following the injection of radiopharmaceutical, low dose CT images were obtained. Then, PET images were obtained. Attenuation corrected images were constructed using the CT scan. Fused images of PET and CT were reviewed. The standardized uptake values (SUV) reported below are maximum values within a region of interest, expressed in gm/ml. Exam includes orbital meatal line to mid-thigh. Radiopharmaceutical: 13.69 mCi F-18 FDG (Fluorodeoxyglucose), IV. Time of imaging post radiopharmaceutical administration: 1 hour Injection site: Information is currently not provided COMPARISON: PT PET skulltothigh INITIAL [id number] 10/08/2022, CT chest abdomen pelvis 11/26/2022 FINDINGS: Port catheter placed via the left subclavian vein terminates in the superior vena cava. Brain: Visualized brain has normal physiologic uptake. Pharynx: No abnormal uptake. Larynx: No abnormal uptake. Lungs, pleura and trachea: No abnormal uptake. No suspicious lung nodules or masses. Subtle peripheral reticular and ground-glass opacities anteriorly in the upper lungs new since prior exam are likely benign inflammatory in nature. Heart: Normal physiologic uptake. There is no cardiomegaly. Coronary artery calcification is present. There is no pericardial effusion. Mediastinal space: No abnormal uptake. Maximum blood pool uptake is 2.2 SUV. Liver: No abnormal uptake. Maximum uptake in the liver parenchyma is 2.9 SUV. Gallbladder and bile ducts: No abnormal uptake. No calcified gallstones. Pancreas: No abnormal uptake. Spleen: No abnormal uptake. No splenomegaly. Subcapsular hypodensities new since prior exam may suggest sequela of infarctions. Adrenal glands: No abnormal uptake. No nodules. Kidneys and ureters: Normal physiologic uptake. No hydronephrosis. Stomach and bowel: No abnormal uptake. Intraperitoneal and retroperitoneal spaces: No abnormal uptake. No ascites. Bladder: Normal physiologic uptake. Persistent diffuse wall thickening. Reproductive: No abnormal uptake. The prostate is severely enlarged. Vasculature: No abnormal uptake. Lymph nodes: No abnormal uptake. No FDG avid lymphadenopathy in the head, neck, chest, abdomen, pelvis, and extremities. Abnormal uptake previously present of within lymphomatous lymphadenopathy has completely resolved. Previously present bulky mesenteric and retroperitoneal lymphadenopathy has dramatically shrunk with decrease in anterior-posterior diameter from 8.3 cm on 10/08/2022 to 3.2 cm (axial image 185) with low-grade residual uptake of 1.6 SUV. Previously present left pelvic bilateral inguinal, right axillary and small mediastinal lymphadenopathy has completely resolved. Bones/joints: No abnormal uptake in the visualized axial and appendicular skeleton. Stable internal fixation in the left femur. Stable lucency medially in the right posterior iliac bone. Chronic fractures in the right ribs 10 and 11 unchanged since 11/26/2022 new since 10/08/2022 Soft tissues: No abnormal uptake in the visualized head, neck, chest, abdomen, pelvis, and extremities. Intramuscular lipoma laterally within the right hamstrings muscles in the right posterior proximal thigh. PET/PET skulltothi SUBSEQ [id number] IMPRESSION: No abnormal radiotracer uptake. The response score is 2 based on Deauville 5 point scale. Excellent morphologic response with significant shrinking of previously bulky mesenteric and retroperitoneal lymphadenopathy, and complete resolution of previously noted other smaller areas of lymphadenopathy in the chest and in the pelvis. Non FDG avid peripheral subcapsular hypodensities in the spleen new since 11/26/2022 possibly represent sequela of splenic infarctions.
== END 2023-05-02 13:57 | disposition home or self-care (01) ==
LOC: RAD 13:56
PROVIDERS: PCP Family Medicine; Visit Provider Internal Medicine Medical Oncology
DX: C83.38 Diffuse large B-cell lymphoma, lymph nodes of multiple sites (principal)
CPT/HCPCS: 78815; A9552

== ENCOUNTER 2023-05-17 08:00 | Oncology outpatient (recurring) (ONCR) | payer MEDICARE, SELFPAY ==
[2023-04-26 08:03] VITALS: BP 129/71; PULSE 68; RESP 16; TEMP 36.6; O2SAT 98
[2023-04-26 08:18] LABS: Basophils # 0.1 10^3/uL (0.0-0.1); Basophils % 1.6 %; Eosinophils # 0.1 10^3/uL (0.0-0.8); Eosinophils % 2.4 %; Hematocrit 27.9 % (37-53); Lymphocytes # 0.6 10^3/uL (0.8-4.8); Mean Corpuscular HGB Conc 33.7 g/dL (30-55); Mean Corpuscular Hemoglobin 36.9 pg (27-33); Mean Corpuscular Volume 109.4 fl (82-101); Monocytes # 0.5 10^3/uL (0.2-0.9); Neutrophils # 3.12 10^3/uL (1.8-7.7); Neutrophils % 69.6 %; Nucleated Red Blood Cells % 0 %; Platelet Count 235 10^3/cmm (157-399); Red Blood Count 2.55 10^6/uL (3.85-5.65); Red Cell Distribution Width 14.6 % (12.1-15.1); White Blood Count 4.49 10^3/uL (3.29-11.43)
[2023-04-26 08:40] LABS: Alanine Aminotransferase 12 U/L (0-41); Albumin Level 4.1 g/dL (3.5-5.2); Alkaline Phosphatase 76 U/L (40-130); Anion Gap 11.4 (5-19); Aspartate Amino Transferase 14 U/L (0-40); Blood Urea Nitrogen 28 mg/dL (8-23); Calcium 9.1 mg/dL (8.5-10.5); Carbon Dioxide 26 mmol/L (22-29); Chloride 108 mmol/L (98-107); Globulin 1.3 g/dL (1.3-4.6); Glucose 117 mg/dL (65-115); Lactate Dehydrogenase 166 U/L (135-225); Osmolality Calculated 299 mOsm/kg (285-295); Potassium 4.4 mmol/L (3.5-5.1); Sodium 141 mmol/L (136-145); Total Bilirubin 0.3 mg/dL (0.15-1.2); Total Protein 5.4 g/dL (6.6-8.7)
[2023-04-26] MEDS: sodium chloride 0.9% 500 ML 75 ML IV (10:17)
[2023-04-26] MEDS: diphenhydrAMINE 50 mg/mL SDV 1mL 25 MG IVP (10:19)
[2023-04-26] MEDS: acetaminophen 325 mg Tablet 650 MG PO (10:23)
[2023-04-26 10:40] VITALS: BP 142/78; PULSE 65; RESP 17; TEMP 36.2; O2SAT 98
[2023-04-26 11:10] VITALS: BP 143/82; PULSE 69; RESP 16; TEMP 36.4; O2SAT 98
[2023-04-26 11:40] VITALS: BP 130/70; PULSE 67; RESP 16; TEMP 36.6; O2SAT 96
[2023-04-26 12:10] VITALS: BP 134/79; PULSE 71; RESP 17; TEMP 36.2; O2SAT 98
[2023-04-26] MEDS: cyanocobalamin 1,000 mcg/mL SDV 1000 MCG IM (13:08)
[2023-04-26 13:11] VITALS: BP 128/74; PULSE 69; RESP 18; TEMP 36.5; O2SAT 97
[2023-05-17 08:17] VITALS: BP 131/89; PULSE 72; RESP 16; TEMP 36.3; O2SAT 99
[2023-05-17 08:38] LABS: Basophils # 0.1 10^3/uL (0.0-0.1); Basophils % 0.7 %; Eosinophils # 0.2 10^3/uL (0.0-0.8); Eosinophils % 3.6 %; Lymphocytes # 0.5 10^3/uL (0.8-4.8); Lymphocytes % 6.9 %; Mean Corpuscular HGB Conc 33.2 g/dL (30-55); Mean Corpuscular Hemoglobin 35.2 pg (27-33); Mean Corpuscular Volume 105.9 fl (82-101); Mean Platelet Volume 9.5 fL (7.4-10.4); Monocytes # 0.5 10^3/uL (0.2-0.9); Monocytes % 7.6 %; Neutrophils % 80.6 %; Nucleated Red Blood Cells % 0 %; Platelet Count 185 10^3/cmm (157-399); Red Blood Count 3.21 10^6/uL (3.85-5.65); Red Cell Distribution Width 12.4 % (12.1-15.1)
[2023-05-17 09:06] LABS: Alanine Aminotransferase 16 U/L (0-41); Albumin Level 4.1 g/dL (3.5-5.2); Alkaline Phosphatase 101 U/L (40-130); Anion Gap 14.6 (5-19); Aspartate Amino Transferase 17 U/L (0-40); Blood Urea Nitrogen 25 mg/dL (8-23); Calcium 9.7 mg/dL (8.5-10.5); Carbon Dioxide 25 mmol/L (22-29); Chloride 103 mmol/L (98-107); Globulin 1.6 g/dL (1.3-4.6); Glucose 110 mg/dL (65-115); Lactate Dehydrogenase 172 U/L (135-225); Osmolality Calculated 291 mOsm/kg (285-295); Potassium 4.6 mmol/L (3.5-5.1); Sodium 138 mmol/L (136-145); Total Bilirubin 0.4 mg/dL (0.15-1.2); Total Protein 5.7 g/dL (6.6-8.7)
[2023-05-17] MEDS: sodium chloride 0.9% 500 ML 75 ML IV (10:45)
[2023-05-17] MEDS: acetaminophen 325 mg Tablet 650 MG PO (10:47)
[2023-05-17] MEDS: diphenhydrAMINE 50 mg/mL SDV 1mL 25 MG IVP (10:48)
[2023-05-17 11:10] VITALS: BP 145/84; PULSE 69; RESP 16; TEMP 36.4; O2SAT 95
[2023-05-17 11:40] VITALS: BP 123/79; PULSE 68; RESP 16; TEMP 36.3; O2SAT 96
[2023-05-17 12:10] VITALS: BP 121/70; PULSE 70; RESP 17; TEMP 36.2; O2SAT 99
[2023-05-17 12:40] VITALS: BP 132/91; PULSE 79; RESP 16; TEMP 36.3; O2SAT 99
[2023-05-17] MEDS: cyanocobalamin 1,000 mcg/mL SDV 1000 MCG IM (13:42)
[2023-05-17 13:45] VITALS: BP 141/84; PULSE 70; RESP 17; TEMP 35.9; O2SAT 97
== END 2023-05-17 23:59 | disposition home or self-care (01) ==
PROVIDERS: Internal Medicine; Nurse Practitioner Family; PCP Family Medicine; Visit Provider Internal Medicine Medical Oncology
DX: C83.38 Diffuse large B-cell lymphoma, lymph nodes of multiple sites (principal); Z51.12 Encounter for antineoplastic immunotherapy; D64.9 Anemia, unspecified; R79.89 Other specified abnormal findings of blood chemistry; E53.8 Deficiency of other specified B group vitamins; Z79.899 Other long term (current) drug therapy
CPT/HCPCS: 80053; 83615; 85025; 96372; 96375; 96402; 96413; 96415; 99214; J1200; J1642; J3420; J7040; Q5115

== ENCOUNTER 2023-06-14 07:50 | Oncology outpatient (recurring) (ONCR) | payer MEDICARE, SELFPAY ==
[2023-06-14 08:09] VITALS: BP 130/76; PULSE 66; RESP 16; TEMP 36.7; O2SAT 96
[2023-06-14 08:38] LABS: Basophils % 1.5 %; Eosinophils # 0.1 10^3/uL (0.0-0.8); Hematocrit 35.6 % (37-53); Lymphocytes # 0.4 10^3/uL (0.8-4.8); Lymphocytes % 18.5 %; Mean Corpuscular HGB Conc 33.4 g/dL (30-55); Mean Corpuscular Hemoglobin 34.4 pg (27-33); Mean Corpuscular Volume 102.9 fl (82-101); Mean Platelet Volume 9.6 fL (7.4-10.4); Monocytes # 0.4 10^3/uL (0.2-0.9); Monocytes % 19.5 %; Neutrophils # 1.09 10^3/uL (1.8-7.7); Neutrophils % 54.5 %; Nucleated Red Blood Cells % 0 %; Platelet Count 170 10^3/cmm (157-399); Red Blood Count 3.46 10^6/uL (3.85-5.65); Red Cell Distribution Width 12.2 % (12.1-15.1)
[2023-06-14 08:58] LABS: Alanine Aminotransferase 10 U/L (0-41); Albumin Level 4.1 g/dL (3.5-5.2); Alkaline Phosphatase 99 U/L (40-130); Anion Gap 12.1 (5-19); Aspartate Amino Transferase 12 U/L (0-40); Blood Urea Nitrogen 25 mg/dL (8-23); Calcium 9.2 mg/dL (8.5-10.5); Carbon Dioxide 26 mmol/L (22-29); Chloride 108 mmol/L (98-107); Globulin 1.4 g/dL (1.3-4.6); Glucose 108 mg/dL (65-115); Osmolality Calculated 299 mOsm/kg (285-295); Potassium 4.1 mmol/L (3.5-5.1); Sodium 142 mmol/L (136-145); Total Bilirubin 0.4 mg/dL (0.15-1.2); Total Protein 5.5 g/dL (6.6-8.7)
[2023-06-14] MEDS: cyanocobalamin 1,000 mcg/mL SDV 1000 MCG IM (09:50)
[2023-06-15 11:31] LABS: Thyroid Stimulating Hormone 2.74 uIU/mL (0.27-4.20)
== END 2023-06-18 23:59 | disposition home or self-care (01) ==
PROVIDERS: PCP Family Medicine; Visit Provider Internal Medicine Medical Oncology
DX: C83.38 Diffuse large B-cell lymphoma, lymph nodes of multiple sites (principal); Z51.12 Encounter for antineoplastic immunotherapy; D64.9 Anemia, unspecified; E53.8 Deficiency of other specified B group vitamins; Z79.899 Other long term (current) drug therapy
CPT/HCPCS: 36591; 80053; 84443; 85025; 96372; 99214; J1642; J3420

== ENCOUNTER 2023-07-12 12:57 | Oncology outpatient (recurring) (ONCR) | payer MEDICARE, SELFPAY ==
[2023-07-12 14:18] VITALS: BP 123/78; PULSE 74; RESP 16; TEMP 36.3; O2SAT 98
[2023-07-12 14:40] LABS: Basophils % 0.4 %; Eosinophils # 0.1 10^3/uL (0.0-0.8); Eosinophils % 1.1 %; Hematocrit 35.7 % (37-53); Lymphocytes # 0.5 10^3/uL (0.8-4.8); Lymphocytes % 10.7 %; Mean Corpuscular HGB Conc 34.2 g/dL (30-55); Mean Corpuscular Hemoglobin 33.9 pg (27-33); Mean Corpuscular Volume 99.2 fl (82-101); Mean Platelet Volume 9.5 fL (7.4-10.4); Monocytes # 0.5 10^3/uL (0.2-0.9); Monocytes % 10.9 %; Neutrophils # 3.59 10^3/uL (1.8-7.7); Neutrophils % 76.7 %; Nucleated Red Blood Cells % 0 %; Platelet Count 170 10^3/cmm (157-399); Red Cell Distribution Width 12.4 % (12.1-15.1); White Blood Count 4.68 10^3/uL (3.29-11.43)
[2023-07-12] MEDS: cyanocobalamin 1,000 mcg/mL SDV 1000 MCG IM (15:17)
== END 2023-07-19 23:59 | disposition home or self-care (01) ==
PROVIDERS: PCP Family Medicine; Visit Provider Internal Medicine Medical Oncology
DX: C83.38 Diffuse large B-cell lymphoma, lymph nodes of multiple sites (principal)
CPT/HCPCS: 36591; 85025; 96372; J1642; J3420

== ENCOUNTER 2023-08-09 13:16 | Oncology outpatient (recurring) (ONCR) | payer MEDICARE, SELFPAY ==
[2023-08-09] MEDS: cyanocobalamin 1,000 mcg/mL SDV 1000 MCG IM (13:37)
[2023-08-09 13:41] VITALS: BP 143/89; PULSE 76; RESP 18; TEMP 36.6; O2SAT 98
== END 2023-08-17 23:59 | disposition home or self-care (01) ==
PROVIDERS: PCP Family Medicine; Visit Provider Internal Medicine Medical Oncology
DX: E53.8 Deficiency of other specified B group vitamins
CPT/HCPCS: 96372; J3420

== ENCOUNTER 2023-09-06 13:02 | Oncology outpatient (recurring) (ONCR) | payer MEDICARE, SELFPAY ==
[2023-09-06 13:28] LABS: Basophils % 0.8 %; Eosinophils # 0.1 10^3/uL (0.0-0.8); Eosinophils % 1.6 %; Hematocrit 35.2 % (37-53); Lymphocytes # 0.6 10^3/uL (0.8-4.8); Lymphocytes % 11.2 %; Mean Corpuscular HGB Conc 34.7 g/dL (30-55); Mean Corpuscular Hemoglobin 34.2 pg (27-33); Mean Corpuscular Volume 98.6 fl (82-101); Mean Platelet Volume 9.6 fL (7.4-10.4); Monocytes # 0.5 10^3/uL (0.2-0.9); Monocytes % 9.4 %; Neutrophils # 3.85 10^3/uL (1.8-7.7); Neutrophils % 76.8 %; Nucleated Red Blood Cells % 0 %; Platelet Count 192 10^3/cmm (157-399); Red Blood Count 3.57 10^6/uL (3.85-5.65); Red Cell Distribution Width 13.3 % (12.1-15.1); White Blood Count 5.01 10^3/uL (3.29-11.43)
[2023-09-06 13:44] LABS: Alanine Aminotransferase 14 U/L (0-41); Albumin Level 4.2 g/dL (3.5-5.2); Alkaline Phosphatase 102 U/L (40-130); Anion Gap 13.3 (5-19); Aspartate Amino Transferase 14 U/L (0-40); Blood Urea Nitrogen 25 mg/dL (8-23); Calcium 8.9 mg/dL (8.5-10.5); Carbon Dioxide 25 mmol/L (22-29); Chloride 108 mmol/L (98-107); Globulin 1.7 g/dL (1.3-4.6); Glucose 112 mg/dL (65-115); Lactate Dehydrogenase 160 U/L (135-225); Osmolality Calculated 299 mOsm/kg (285-295); Potassium 4.3 mmol/L (3.5-5.1); Sodium 142 mmol/L (136-145); Total Bilirubin 0.5 mg/dL (0.15-1.2); Total Protein 5.9 g/dL (6.6-8.7)
[2023-09-06] MEDS: cyanocobalamin 1,000 mcg/mL SDV 1000 MCG IM (15:24)
== END 2023-09-17 23:59 | disposition home or self-care (01) ==
PROVIDERS: PCP Family Medicine; Visit Provider Internal Medicine Medical Oncology
DX: C83.38 Diffuse large B-cell lymphoma, lymph nodes of multiple sites (principal); Z51.12 Encounter for antineoplastic immunotherapy; D64.9 Anemia, unspecified; E53.8 Deficiency of other specified B group vitamins; Z79.899 Other long term (current) drug therapy
CPT/HCPCS: 36591; 80053; 83615; 85025; 96372; 99214; J1642; J3420

== ENCOUNTER 2023-10-04 14:38 | Oncology outpatient (recurring) (ONCR) | payer MEDICARE, SELFPAY ==
[2023-10-04] MEDS: cyanocobalamin 1,000 mcg/mL SDV 1000 MCG IM (15:04)
[2023-10-04 15:07] VITALS: BP 162/97; PULSE 71; RESP 16; TEMP 36.6; O2SAT 96
== END 2023-10-17 23:59 | disposition home or self-care (01) ==
PROVIDERS: PCP Family Medicine; Visit Provider Internal Medicine Medical Oncology
DX: E53.8 Deficiency of other specified B group vitamins
CPT/HCPCS: 96372; J3420

== ENCOUNTER 2023-11-14 12:22 | Outpatient (CLI) | payer MEDICARE, SELFPAY ==
[2023-11-14] MEDS: iohexol 350 mg/mL 500 mL Btl (per mL) PO (12:55)
--- NOTE | 2023-11-14 13:30 | CT_ITS ---
WS: [id number] CT CHEST, ABDOMEN AND PELVIS WITH CONTRAST HISTORY: lymphoma TECHNIQUE: Contiguous 5 mm axial imaging performed through the chest, abdomen and pelvis with IV cont rast, oral contrast has been provided. Coronal and sagittal reformats chest. Coronal and sagittal ref ormats through the abdomen and pelvis. All CT scans at [facility] use at least one of these d ose optimization techniques: automated exposure control; mA and/or kV adjustment per patient size (in cludes targeted exams where dose is matched to clinical indication); or iterative reconstruction. CONTRAST: Omnipaque 350; 100 mL IV. DLP: 707.95 mGy.cm COMPARISON: PET/CT 05/02/2023, 11/26/2022 CT chest abdomen and pelvis. Chest CT: Pulmonary hyperexpansion and emphysema. Very mild peripheral interstitial reticulations. Sm all slightly spiculated 9 mm nodule adjacent to pleural thickening at the RIGHT lung base. This was a lso present on the PET/CT of 05/02/2023 and negative. No new pulmonary mass, nodule or pneumonia. Pre viously described pleural effusions have resolved. There are a few areas of very mild residual pleura l thickening in the RIGHT thorax. No enhancement. Heart size is normal. No mediastinal or hilar adeno george. Mild atherosclerosis aorta. Normal size pulmonary artery. LEFT subclavian Mediport. Abdomen CT: Small hiatal hernia. Normal liver. Normal portal vein and gallbladder. No adrenal mass. S ubcapsular fluid collections involving the spleen. These are very similar in appearance to the PET/CT and they were negative at that time. May be the residual of a prior subcapsular hematoma or infarct. There is some volume loss within the spleen. No pancreatic abnormality. Normal kidneys with no obstr uction. Atherosclerosis aorta. Previously described bulky adenopathy is no longer present. There is central fluid in the mesentery w hich was probably also present on the PET/CT but more difficult to visualize without IV contrast. Thi s fluid centrally in the mesentery was negative by PET/CT. No discrete lymph nodes. There are a few s hotty, retroperitoneal and aortocaval lymph nodes. No GI tract obstruction. Normal appendix. Pelvic CT: Distended urinary bladder with mild diffuse wall thickening. Markedly enlarged prostate gl and encroaching into the bladder. No free fluid or adenopathy in the pelvis. Prior ORIF LEFT hip. Lytic changes in the RIGHT ischium seen on prior imaging studies. Remote fractur es in the RIGHT 10th and 11th ribs. CT/CT chest abdpel w/*[id number] IMPRESSION: 1. No pulmonary nodules or mass. No lymphadenopathy. 2. Resolved bilateral pleural effusions. 3. Central mesenteric fluid collection which was negative on the PET/CT. This is difficult to identify and define as stable when compared to the PET/CT image s. Favor this is posttreatment change. Recommend additional 3-month CT abdomen and pelvis follow-up to be sure there is no progression and this does not repre sent cystic adenopathy. 4. Markedly enlarged prostate gland encroaching into the bladder. 5. Splenic subcapsular collections. Probably the result of prior hemorrhage or infarcts. 6. Stable lytic lesion RIGHT ischium.
[2023-11-14 13:33] LABS: Blood Urea Nitrogen 22 mg/dL (8-23)
[2023-11-14] MEDS: iohexol 350 mg/mL 500 mL Btl (per mL) IV (13:40)
== END 2023-11-14 12:23 | disposition home or self-care (01) ==
LOC: RAD 12:22
PROVIDERS: PCP Family Medicine; Visit Provider Internal Medicine Medical Oncology
DX: C83.38 Diffuse large B-cell lymphoma, lymph nodes of multiple sites (principal); N40.0 Benign prostatic hyperplasia without lower urinary tract symptoms; M89.9 Disorder of bone, unspecified; J43.9 Emphysema, unspecified; R91.8 Other nonspecific abnormal finding of lung field; K44.9 Diaphragmatic hernia without obstruction or gangrene; N32.89 Other specified disorders of bladder
CPT/HCPCS: 71260; 74177; 82565; 84520; Q9967

== ENCOUNTER 2023-11-14 13:00 | Oncology outpatient (recurring) (ONCR) | payer MEDICARE, SELFPAY ==
[2023-11-01] MEDS: cyanocobalamin 1,000 mcg/mL SDV 1000 MCG IM (12:26)
== END 2023-11-17 23:59 | disposition home or self-care (01) ==
PROVIDERS: PCP Family Medicine; Visit Provider Internal Medicine Medical Oncology
DX: Z53.9 Procedure and treatment not carried out, unspecified reason (principal); Z45.2 Encounter for adjustment and management of vascular access device
CPT/HCPCS: 96372; 96523; J3420

== ENCOUNTER 2023-11-29 12:12 | Oncology outpatient (recurring) (ONCR) | payer MEDICARE, SELFPAY ==
[2023-11-29 12:37] LABS: Basophils % 0.8 %; Eosinophils # 0.2 10^3/uL (0.0-0.8); Eosinophils % 2.9 %; Hematocrit 40.6 % (37-53); Lymphocytes # 0.7 10^3/uL (0.8-4.8); Lymphocytes % 13.5 %; Mean Corpuscular HGB Conc 34.5 g/dL (30-55); Mean Corpuscular Hemoglobin 34.1 pg (27-33); Mean Platelet Volume 9.7 fL (7.4-10.4); Monocytes # 0.5 10^3/uL (0.2-0.9); Monocytes % 9.8 %; Neutrophils # 3.72 10^3/uL (1.8-7.7); Neutrophils % 72.6 %; Nucleated Red Blood Cells % 0 %; Platelet Count 175 10^3/cmm (157-399); Red Cell Distribution Width 12.5 % (12.1-15.1); White Blood Count 5.12 10^3/uL (3.29-11.43)
[2023-11-29 13:00] LABS: Alanine Aminotransferase 13 U/L (0-41); Albumin Level 4.3 g/dL (3.5-5.2); Alkaline Phosphatase 109 U/L (40-130); Anion Gap 13.2 (5-19); Aspartate Amino Transferase 14 U/L (0-40); Blood Urea Nitrogen 25 mg/dL (8-23); Calcium 9.3 mg/dL (8.5-10.5); Carbon Dioxide 26 mmol/L (22-29); Chloride 103 mmol/L (98-107); Globulin 1.9 g/dL (1.3-4.6); Glucose 92 mg/dL (65-115); Lactate Dehydrogenase 143 U/L (135-225); Osmolality Calculated 290 mOsm/kg (285-295); Potassium 4.2 mmol/L (3.5-5.1); Sodium 138 mmol/L (136-145); Total Bilirubin 0.5 mg/dL (0.15-1.2); Total Protein 6.2 g/dL (6.6-8.7)
== END 2023-12-17 23:59 | disposition home or self-care (01) ==
PROVIDERS: PCP Family Medicine; Visit Provider Internal Medicine Medical Oncology
DX: C83.38 Diffuse large B-cell lymphoma, lymph nodes of multiple sites
CPT/HCPCS: 36591; 80053; 83615; 85025; 99214

== ENCOUNTER 2024-01-02 14:03 | Oncology outpatient (recurring) (ONCR) | payer MEDICARE, SELFPAY ==
[2024-01-02 14:25] VITALS: BP 154/63; PULSE 61; RESP 16; TEMP 36.2; O2SAT 98
[2024-01-02] MEDS: cyanocobalamin 1,000 mcg/mL SDV 1000 MCG IM (14:29)
== END 2024-01-17 23:59 | disposition home or self-care (01) ==
PROVIDERS: PCP Family Medicine; Visit Provider Internal Medicine Medical Oncology
DX: E53.8 Deficiency of other specified B group vitamins
CPT/HCPCS: 96372; 96523; J3420

== ENCOUNTER 2024-01-30 14:01 | Oncology outpatient (recurring) (ONCR) | payer MEDICARE, SELFPAY ==
[2024-01-30] MEDS: cyanocobalamin 1,000 mcg/mL SDV 1000 MCG IM (14:16)
== END 2024-02-17 23:55 | disposition home or self-care (01) ==
LOC: ONCMED 14:03
PROVIDERS: PCP Family Medicine; Visit Provider Internal Medicine Medical Oncology
DX: E53.8 Deficiency of other specified B group vitamins (principal); Z79.899 Other long term (current) drug therapy
CPT/HCPCS: 96372; J3420

== ENCOUNTER 2024-03-08 09:15 | Oncology outpatient (recurring) (ONCR) | payer MEDICARE, SELFPAY ==
[2024-03-08 09:38] VITALS: BP 157/88; PULSE 82; RESP 16; TEMP 36.3; O2SAT 97
[2024-03-08 09:56] LABS: Basophils % 0.4 %; Eosinophils # 0.1 10^3/uL (0.0-0.8); Hematocrit 38.1 % (37-53); Lymphocytes # 0.6 10^3/uL (0.8-4.8); Lymphocytes % 13.5 %; Mean Corpuscular HGB Conc 35.4 g/dL (30-55); Mean Corpuscular Hemoglobin 35.6 pg (27-33); Mean Corpuscular Volume 100.5 fl (82-101); Mean Platelet Volume 9.6 fL (7.4-10.4); Monocytes # 0.4 10^3/uL (0.2-0.9); Monocytes % 8.1 %; Neutrophils # 3.46 10^3/uL (1.8-7.7); Neutrophils % 75.6 %; Nucleated Red Blood Cells % 0 %; Platelet Count 163 10^3/cmm (157-399); Red Blood Count 3.79 10^6/uL (3.85-5.65); Red Cell Distribution Width 12.7 % (12.1-15.1); White Blood Count 4.58 10^3/uL (3.29-11.43)
[2024-03-08] MEDS: cyanocobalamin 1,000 mcg/mL SDV 1000 MCG IM (09:58)
[2024-03-08 10:18] LABS: Alanine Aminotransferase 21 U/L (0-41); Albumin Level 4.4 g/dL (3.5-5.2); Alkaline Phosphatase 105 U/L (40-130); Anion Gap 14.1 (5-19); Aspartate Amino Transferase 18 U/L (0-40); Blood Urea Nitrogen 24 mg/dL (8-23); Calcium 8.9 mg/dL (8.5-10.5); Carbon Dioxide 26 mmol/L (22-29); Chloride 103 mmol/L (98-107); Globulin 1.7 g/dL (1.3-4.6); Glucose 119 mg/dL (65-115); Lactate Dehydrogenase 142 U/L (135-225); Osmolality Calculated 293 mOsm/kg (285-295); Potassium 4.1 mmol/L (3.5-5.1); Sodium 139 mmol/L (136-145); Total Bilirubin 0.6 mg/dL (0.15-1.2); Total Protein 6.1 g/dL (6.6-8.7)
== END 2024-03-18 23:59 | disposition home or self-care (01) ==
PROVIDERS: Nurse Practitioner Family; PCP Family Medicine; Visit Provider Internal Medicine Medical Oncology
DX: C83.38 Diffuse large B-cell lymphoma, lymph nodes of multiple sites (principal); Z79.899 Other long term (current) drug therapy; E53.8 Deficiency of other specified B group vitamins
CPT/HCPCS: 36591; 80053; 83615; 85025; 96401; 99214; J3420

== ENCOUNTER 2024-04-04 14:22 | Oncology outpatient (recurring) (ONCR) | payer MEDICARE, SELFPAY ==
[2024-04-04] MEDS: cyanocobalamin 1,000 mcg/mL SDV 1000 MCG IM (15:08)
== END 2024-04-18 23:59 | disposition home or self-care (01) ==
LOC: ONCMED 14:23
PROVIDERS: PCP Family Medicine; Visit Provider Internal Medicine Medical Oncology
DX: E53.8 Deficiency of other specified B group vitamins; Z79.899 Other long term (current) drug therapy; Z45.2 Encounter for adjustment and management of vascular access device
CPT/HCPCS: 96372; 96523; J3420

== ENCOUNTER 2024-05-02 13:24 | Oncology outpatient (recurring) (ONCR) | payer MEDICARE, SELFPAY ==
[2024-05-02] MEDS: cyanocobalamin 1,000 mcg/mL SDV 1000 MCG IM (14:09)
== END 2024-05-18 23:59 | disposition home or self-care (01) ==
PROVIDERS: PCP Family Medicine; Visit Provider Internal Medicine Hematology & Oncology
DX: Z45.2 Encounter for adjustment and management of vascular access device (principal); E53.8 Deficiency of other specified B group vitamins; Z79.899 Other long term (current) drug therapy
CPT/HCPCS: 96372; 96523; J3420

== ENCOUNTER 2024-05-24 11:22 | Outpatient (CLI) | payer MEDICARE, SELFPAY ==
--- NOTE | 2024-05-24 12:00 | CT_ITS ---
WS: [id number] CT CHEST, ABDOMEN AND PELVIS WITH CONTRAST HISTORY: Surveillance lymphoma. TECHNIQUE: Contiguous 5 mm axial imaging performed through the chest, abdomen and pelvis with IV cont rast, oral contrast has been provided. Coronal and sagittal reformats chest. Coronal and sagittal ref ormats through the abdomen and pelvis. All CT scans at [facility] use at least one of these d ose optimization techniques: automated exposure control; mA and/or kV adjustment per patient size (in cludes targeted exams where dose is matched to clinical indication); or iterative reconstruction. CONTRAST: Omnipaque 350; 100 mL IV. DLP: 702.08 mGy.cm COMPARISON: 11/14/2023, 11/26/2022, PET/CT 05/02/[address]: Lungs are moderately hyperinflated from emphysema. Mild biapical pleural thickening and sca rring. Reidentified is a 10 mm nodule at the RIGHT lung base was negative on PET/CT of 05/02/2023. Al so no change since 11/14/2023. Heart size is normal. Mild atherosclerosis aorta. No mediastinal or hil ar adenopathy. LEFT subclavian Port-A-Cath. Cervical spondylosis. No destructive bone lesions. Mild RIGHT lateral retrocrural soft tissue thickening. This is probably related to treatment and resp onse to adenopathy. Abdomen CT: Normal liver. No metastatic disease. Normal portal vein. No hepatic duct dilatation. Slig htly contracted gallbladder. Spleen is normal size with a lobulated shape and central calcifications. Subcapsular fluid collections are probably the result of prior infarcts. No interval change. No adre nal mass. No renal obstruction. Moderate atherosclerosis aorta. Normal size pancreas. Low-attenuation soft tissue infiltration throughout the root of the mesentery and adjacent to the pancreatic head an d uncinate process and the superior mesenteric vein. These changes were also described on the prior s tudy. The extent of the fluid like component is improved. There are few tiny mesenteric nodules small aortocaval and retroperitoneal lymph nodes. No interval progression. Normal stomach. No small bowel obstruction. Moderate diffuse constipation. Normal appendix. Pelvic CT: Urinary bladder is moderately well distended. There is asymmetric significant bladder wall thickening. Bladder wall measures 11 mm on the RIGHT. Prostate gland is enlarged and heterogeneous e ncroaching into the bladder. Prostate measures 9.9 x 5.1 x 6.4 cm. Prostate is predominantly to the L EFT of midline. No adenopathy. No bone destruction in the lumbar spine or pelvis. Prior LEFT hip ORIF. CT/CT chest abdpel w/*[id number] IMPRESSION: 1. No new or enlarging mass or nodule in the lungs. Long-term stability PET/CT -10 mm nodule at the RIGHT lung base. 2. No mediastinal or hilar or axillary adenopathy. 3. Reidentified is a soft tissue infiltration and low-attenuation mass in the mesenteric root encasing portion of the pancreas and mesenteric veins. No progr ession since 11/14/2023. This may be posttreatment changes. There are small resi dual mesenteric and retroperitoneal lymph nodes which are stable since 4. 4. No GI tract obstruction. 5. Massively enlarged prostate gland encroaching into the urinary bladder. The re is marked asymmetric wall thickening of the urinary bladder. RIGHT lateral b ladder wall measures 11 mm. Neoplasm cannot be completely excluded. The bladder wall asymmetry has progressed since 11/14/2023. 6. No ascites.
[2024-05-24] MEDS: iohexol 350 mg/mL 500 mL Btl (per mL) IV (12:42)
[2024-05-24] MEDS: iohexol 350 mg/mL 500 mL Btl (per mL) PO (12:43)
[2024-05-24 13:22] LABS: Blood Urea Nitrogen 25 mg/dL (8-23)
== END 2024-05-24 11:23 | disposition home or self-care (01) ==
LOC: RAD 11:24
PROVIDERS: PCP Family Medicine; Visit Provider Nurse Practitioner Family
DX: C83.38 Diffuse large B-cell lymphoma, lymph nodes of multiple sites (principal); R91.1 Solitary pulmonary nodule; N40.0 Benign prostatic hyperplasia without lower urinary tract symptoms; N32.89 Other specified disorders of bladder
CPT/HCPCS: 71260; 74177; 82565; 84520

== ENCOUNTER 2024-06-06 09:23 | Oncology outpatient (recurring) (ONCR) | payer MEDICARE, SELFPAY ==
[2024-06-06 10:08] LABS: Basophils % 0.7 %; Eosinophils # 0.1 10^3/uL (0.0-0.8); Eosinophils % 1.4 %; Hematocrit 38.9 % (37-53); Lymphocytes # 0.5 10^3/uL (0.8-4.8); Lymphocytes % 12.7 %; Mean Corpuscular HGB Conc 34.2 g/dL (30-55); Mean Corpuscular Volume 102.4 fl (82-101); Mean Platelet Volume 9.5 fL (7.4-10.4); Monocytes # 0.4 10^3/uL (0.2-0.9); Monocytes % 10.1 %; Neutrophils # 3.19 10^3/uL (1.8-7.7); Neutrophils % 74.9 %; Nucleated Red Blood Cells % 0 %; Platelet Count 161 10^3/cmm (157-399); Red Cell Distribution Width 12.2 % (12.1-15.1); White Blood Count 4.26 10^3/uL (3.29-11.43)
[2024-06-06 10:26] LABS: Alanine Aminotransferase 14 U/L (0-41); Alkaline Phosphatase 99 U/L (40-130); Anion Gap 10.3 (5-19); Aspartate Amino Transferase 15 U/L (0-40); Blood Urea Nitrogen 25 mg/dL (8-23); Calcium 8.9 mg/dL (8.5-10.5); Carbon Dioxide 27 mmol/L (22-29); Chloride 110 mmol/L (98-107); Globulin 1.7 g/dL (1.3-4.6); Glucose 113 mg/dL (65-115); Lactate Dehydrogenase 138 U/L (135-225); Osmolality Calculated 301 mOsm/kg (285-295); Potassium 4.3 mmol/L (3.5-5.1); Sodium 143 mmol/L (136-145); Total Bilirubin 0.4 mg/dL (0.15-1.2); Total Protein 5.7 g/dL (6.6-8.7)
[2024-06-06] MEDS: cyanocobalamin 1,000 mcg/mL SDV 1000 MCG IM (12:50)
== END 2024-06-18 23:59 | disposition home or self-care (01) ==
PROVIDERS: Nurse Practitioner Family; PCP Family Medicine; Visit Provider Internal Medicine Hematology & Oncology
DX: Z45.2 Encounter for adjustment and management of vascular access device (principal); E53.8 Deficiency of other specified B group vitamins; Z79.899 Other long term (current) drug therapy; C83.38 Diffuse large B-cell lymphoma, lymph nodes of multiple sites
CPT/HCPCS: 36591; 80053; 83615; 85025; 96402; 99213; J3420

== ENCOUNTER 2024-07-04 13:40 | Oncology outpatient (recurring) (ONCR) | payer MEDICARE, SELFPAY ==
[2024-07-04 15:04] VITALS: BP 124/78; PULSE 78; RESP 18; TEMP 36.6; O2SAT 98
[2024-07-04] MEDS: cyanocobalamin 1,000 mcg/mL SDV 1000 MCG IM (15:04)
--- NOTE | 2024-07-04 16:39 | PC.NURSE ---
patient wanted to have his port flushed with normal saline and would have the time to get it opened with one push of heparin.[email or web address]
== END 2024-07-19 23:59 | disposition home or self-care (01) ==
LOC: ONCMED 13:41
PROVIDERS: PCP Family Medicine; Visit Provider Internal Medicine Hematology & Oncology
DX: E53.8 Deficiency of other specified B group vitamins (principal); Z79.899 Other long term (current) drug therapy
CPT/HCPCS: 96372; J3420

== ENCOUNTER 2024-08-01 13:51 | Oncology outpatient (recurring) (ONCR) | payer MEDICARE, SELFPAY ==
[2024-08-01] MEDS: cyanocobalamin 1,000 mcg/mL SDV 1000 MCG IM (14:24)
[2024-08-01 14:36] VITALS: BP 156/84; PULSE 78; RESP 18; TEMP 36.6; O2SAT 98
== END 2024-08-16 23:59 | disposition home or self-care (01) ==
LOC: ONCMED 13:53
PROVIDERS: PCP Family Medicine; Visit Provider Internal Medicine
DX: E53.8 Deficiency of other specified B group vitamins (principal); Z79.899 Other long term (current) drug therapy
CPT/HCPCS: 96372; J3420

== ENCOUNTER 2024-09-05 12:57 | Oncology outpatient (recurring) (ONCR) | payer MEDICARE, SELFPAY ==
[2024-09-05 13:23] LABS: Basophils % 0.9 %; Eosinophils # 0.1 10^3/uL (0.0-0.8); Eosinophils % 1.1 %; Hematocrit 38.7 % (37-53); Lymphocytes # 0.6 10^3/uL (0.8-4.8); Lymphocytes % 13.7 %; Mean Corpuscular HGB Conc 34.4 g/dL (30-55); Mean Corpuscular Hemoglobin 34.4 pg (27-33); Mean Platelet Volume 9.7 fL (7.4-10.4); Monocytes # 0.4 10^3/uL (0.2-0.9); Monocytes % 8.2 %; Neutrophils # 3.52 10^3/uL (1.8-7.7); Neutrophils % 75.5 %; Nucleated Red Blood Cells % 0 %; Platelet Count 166 10^3/cmm (157-399); Red Blood Count 3.87 10^6/uL (3.85-5.65); Red Cell Distribution Width 12.3 % (12.1-15.1); White Blood Count 4.66 10^3/uL (3.29-11.43)
[2024-09-05 13:41] LABS: Alanine Aminotransferase 18 U/L (0-41); Albumin Level 4.2 g/dL (3.5-5.2); Alkaline Phosphatase 111 U/L (40-130); Anion Gap 14.6 (5-19); Aspartate Amino Transferase 16 U/L (0-40); Blood Urea Nitrogen 30 mg/dL (8-23); Carbon Dioxide 25 mmol/L (22-29); Chloride 105 mmol/L (98-107); Globulin 1.6 g/dL (1.3-4.6); Glucose 130 mg/dL (65-115); Lactate Dehydrogenase 169 U/L (135-225); Osmolality Calculated 298 mOsm/kg (285-295); Potassium 4.6 mmol/L (3.5-5.1); Sodium 140 mmol/L (136-145); Total Bilirubin 0.4 mg/dL (0.15-1.2); Total Protein 5.8 g/dL (6.6-8.7); Uric Acid 6.2 mg/dL (3.4-7.0)
[2024-09-05] MEDS: cyanocobalamin 1,000 mcg/mL SDV 1000 MCG IM (14:46)
== END 2024-09-16 23:59 | disposition home or self-care (01) ==
PROVIDERS: PCP Family Medicine; Visit Provider Internal Medicine
DX: Z08 Encounter for follow-up examination after completed treatment for malignant neoplasm; Z85.72 Personal history of non-Hodgkin lymphomas; E53.8 Deficiency of other specified B group vitamins; Z79.899 Other long term (current) drug therapy; Z95.828 Presence of other vascular implants and grafts; Z92.21 Personal history of antineoplastic chemotherapy; Z53.9 Procedure and treatment not carried out, unspecified reason
CPT/HCPCS: 36591; 80053; 82232; 83615; 84550; 85025; 96372; 99213; J3420

== ENCOUNTER 2024-09-06 16:18 | Inpatient (IN) | payer MEDICARE, SELFPAY ==
[2024-09-06] VITALS (9 sets, daily range): BP systolic 129–170; BP diastolic 75–106; PULSE 69–75; RESP 16–18; TEMP 36.8–36.9; O2SAT 98–100; BMI 21.7
--- NOTE | 2024-09-06 16:21 | XRR_ITS ---
PROCEDURE INFORMATION: Exam: XR Right Femur Exam date and time: 09/06/2024 4:30 PM Age: 74 years old Clinical indication: Pain; Thigh; Right; RT femur FX; Pre op clearance; High risk procedre; HX lymphoma; PT in traction TECHNIQUE: Imaging protocol: Radiologic exam of the right femur. Views: 2 views. COMPARISON: CR XR femur RT min 2V* [id number] 11/09/2022 8:16 PM FINDINGS: Bones/joints: Complete fracture through mid femoral diaphysis with posterosuperior dislocation of the distal fracture fragment. 11 x 6.7 cm lucency within soft tissues adjacent to the fracture fragment. Soft tissues: Unremarkable. Vasculature: Vascular calcifications. XR/XR femur RT min 2V* [id number] IMPRESSION: 1. Complete fracture through mid femoral diaphysis with posterosuperior dislocation of distal fracture fragment. 2. Large soft tissue lucency, likely represents soft tissue injury with fat and blood contents.
--- NOTE | 2024-09-06 16:32 | W.ED.EXTPRO ---
HPI - Extremity Problem General: Chief complaint: Extremity Injury, Lower Stated complaint: right femur break Time Seen by Provider: 09/06/24 16:21 History of Present Illness: 74-year-old male presents emergency room with complaint of right leg pain. He is brought in by ambulance they reported that he had a obvious deformity of his distal femur when they arrived he is placed in femur traction splint which corrected the deficit is received 300 mcg of fentanyl prior to arrival including 50 just prior to arrival. Patient states he was working outside using a chainsaw he went to turn and felt a popping snapping sensation in his leg and collapsed. He has a history of B-cell lymphoma he is thought to be in remission at this time. Associated symptoms: Deny chest pain, fever(s) or rash Related Data Home Medications ?Medication ?Instructions ?Recorded ?Confirmed ascorbic acid (vitamin C) 500 mg 500 mg PO DAILY 10/16/19 09/06/24 tablet metoprolol tartrate 50 mg tablet 50 mg PO BID 10/17/22 09/06/24 cholecalciferol (vitamin D3) 25 25 mcg PO DAILY 11/10/22 09/06/24 mcg (1,000 unit) capsule (Vitamin D3) [id number] 300 mcg-K 60 1 tab PO DAILY 04/05/23 09/06/24 mcg-lycop 600 mcg-lutein 300 mcg tablet (Cent[facility] Men 50 Plus) enalapril maleate 10 mg tablet 10 mg PO DAILY 03/08/24 09/06/24 Previous Rx's ?Medication ?Instructions ?Recorded finasteride 5 mg tablet See Rx Instructions .Route 12/28/22 .COMPLEX #30 tabs tamsulosin 0.4 mg capsule See Rx Instructions .Route 12/28/22 .COMPLEX #60 caps Allergies Allergy/AdvReac Type Severity Reaction Status Date / Time No Known Allergies Allergy Verified 09/06/24 19:40 Review of Systems Const: Denies: fever(s) or chills Card: Denies: chest pain Resp: Denies: dyspnea GI: Denies: abdominal pain : Denies: dysuria, urinary frequency or urinary urgency Musc: Reports: extremity pain; Denies: neck pain or back pain Skin/Breast: Denies: rash PFSH ED PFSH: Medical History Self-catheterizes urinary bladder Chronic kidney disease Hypothyroidism Pathological fracture of left hip B12 deficiency Depression Neutropenia ETOH abuse Diffuse large B cell lymphoma Anemia Urinary retention HTN (hypertension) Elevated PSA BPH loc w urin obs/LUTS Surgical History S/P ORIF (open reduction internal fixation) fracture (11/10/22) ORIF for left intertrochanteric pathologic fracture Port-A-Cath in place History of lymph node biopsy (09/30/22) Ultrasound directed core needle biopsy of left inguinal lymph node History of hand surgery Family History Father , AT AGE 46 CAD (coronary artery disease) Brother CAD (coronary artery disease) Mother , AT AGE 95 CAD (coronary artery disease) Social History Smoking and tobacco/nicotine status: never used tobacco/nicotine Alcohol intake: former Substance/Drug Use: former Adopted: No Caregiver/support person: No Lives independently: Yes Marital status: Current occupational status: retired Current gender identity: Male Physical Exam Const: GENERAL APPEARANCE: cooperative ORIENTATION/CONSCIOUSNESS: Yes awake, Yes oriented to person, Yes oriented to place and Yes oriented to time HENMT: COMMON NORMALS: normocephalic, atraumatic and hearing grossly normal bilaterally HEAD & SCALP: normocephalic and atraumatic Resp: COMMON NORMALS: normal respiratory effort, No retractions, No use of accessory muscles and clear to auscultation bilaterally AUSCULTATION: clear to auscultation bilaterally Cardio: COMMON NORMALS: regular rate, regular rhythm and No murmurs present (Cardio) RATE: regular rate RHYTHM: regular rhythm GI: COMMON NORMALS: Soft to palpation and No hepatosplenomegaly present AUSCULTATION: Yes normoactive bowel sounds PALPATION: Yes Soft to palpation, No Tenderness to palpation present (GI), No Guarding due to palpation present (GI) and Yes No hepatosplenomegaly present Extremity: OTHER: Examination of the right leg neurovascular intact. Patient still is in a traction splint there is some mild swelling of the distal femur but no obvious deformity at this point. Mild touch elicits severe pain. Neuro: SENSORIUM/ORIENTATION: Yes oriented to person, Yes oriented to place and Yes oriented to time Skin: COMMON NORMALS: no rashes or lesions noted GENERAL SKIN EXAM: no rashes or lesions noted Course Vital Signs: Vital signs: Vital Signs Temperature 98.4 F 09/09/24 04:00 Pulse Rate 81 09/09/24 06:01 Respiratory Rate 18 09/09/24 04:00 Blood Pressure 115/67 09/09/24 04:00 Pulse Oximetry 98 09/09/24 04:00 Oxygen Delivery Me thod Room Air 09/09/24 04:00 Oxygen Flow Rate 6 09/07/24 11:40 MDM - Extremity (Nontraumatic) Medical Decision Making Admitted for femur fracture. History concerning for pathologic fracture. Reviewed with Dr. Carrasco she concurs. Will admit to the hospitalist n.p.o. after midnight anticipate surgery for ORIF in the a.m. Discussed with hospitalist orders written. CT results pending to evaluate further for pathologic fracture Medical Records I reviewed the patient's medical records. Lab Data I reviewed the patient's lab results. 09/09/24 03:10 09/09/24 03:10 Radiology Impressions Chest X-Ray 09/06/24 16:48 IMPRESSION: No acute cardiopulmonary findings. Femur CT 09/06/24 17:06 IMPRESSION: 1. Complete fracture through right femoral diaphysis. 2. Large complex lobular fat density lesion adjacent to the fracture line, which may represent bone marrow leaking products , lipoma would be less likely. Comparison to prior imaging would be helpful. 3. Severe vascular calcifications. Laboratory Results WBC 8.78 10^3/uL (3.29-11.43) 09/06/24 16:54 RBC 3.90 10^6/uL (3.85-5.65) 09/06/24 16:54 Hgb 13.30 g/dL (11.27-16.99) 09/06/24 16:54 Hct 39.0 % (37-53) 09/06/24 16:54 MCV 100.0 fl (82-101) 09/06/24 16:54 MCH 34.1 pg (27-33) H 09/06/24 16:54 MCHC 34.1 g/dL (30-55) 09/06/24 16:54 RDW 12.2 % (12.1-15.1) 09/06/24 16:54 Plt Count 173 10^3/cmm (157-399) 09/06/24 16:54 MPV 9.8 fL (7.4-10.4) 09/06/24 16:54 Neut % (Auto) 89.2 % 09/06/24 16:54 Lymph % (Auto) 4.4 % 09/06/24 16:54 [place] % (Auto) 5.5 % 09/06/24 16:54 Eos % (Auto) 0.0 % 09/06/24 16:54 Baso % (Auto) 0.3 % 09/06/24 16:54 Neut # (Auto) 7.83 10^3/uL (1.8-7.7) H 09/06/24 16:54 Lymph # (Auto) 0.4 10^3/uL (0.8-4.8) L 09/06/24 16:54 [place] # (Auto) 0.5 10^3/uL (0.2-0.9) 09/06/24 16:54 Eos # (Auto) 0.0 10^3/uL (0.0-0.8) 09/06/24 16:54 Baso # (Auto) 0.0 10^3/uL (0.0-0.1) 09/06/24 16:54 Nucleated RBC % (auto) 0 % 09/06/24 16:54 Nucleated RBCs # 0.0 /100WBC 09/06/24 16:54 Sodium 136 mmol/L (136-145) 09/06/24 16:54 Potassium 4.0 mmol/L (3.5-5.1) 09/06/24 16:54 Chloride 100 mmol/L (98-107) 09/06/24 16:54 Carbon Dioxide 23 mmol/L (22-29) 09/06/24 16:54 Anion Gap 17.0 (5-19) 09/06/24 16:54 BUN 27 mg/dL (8-23) H 09/06/24 16:54 Creatinine 1.4 mg/dL (0.7-1.2) H 09/06/24 16:54 GFR Calculation Not Reportable 09/06/24 16:54 Glucose 144 mg/dL (65-115) H 09/06/24 16:54 Estimat Average Glucose 94 09/06/24 16:54 Hemoglobin A1c 4.9 % (4.0-6.0) 09/06/24 16:54 Calculated Osmolality 290 mOsm/kg (285-295) 09/06/24 16:54 Calcium 9.3 mg/dL (8.5-10.5) 09/06/24 16:54 Iron 82 ug/dL (59-158) 09/06/24 16:54 TIBC 227 mcg/dl 09/06/24 16:54 % Saturation 36.1 % (20-50) 09/06/24 16:54 Unsat Iron Binding 145 ug/dL (112-347) 09/06/24 16:54 Total Bilirubin 0.5 mg/dL (0.15-1.2) 09/06/24 16:54 AST 19 U/L (0-40) 09/06/24 16:54 ALT 19 U/L (0-41) 09/06/24 16:54 Alkaline Phosphatase 110 U/L (40-130) 09/06/24 16:54 Total Protein 6.3 g/dL (6.6-8.7) L 09/06/24 16:54 Albumin 4.3 g/dL (3.5-5.2) 09/06/24 16:54 Globulin 2.0 g/dL (1.3-4.6) 09/06/24 16:54 Vitamin B12 > 2000 pg/mL (232-1245) H 09/06/24 16:54 25-OH Vitamin D Total 47 ng/mL (30-100) 09/06/24 16:54 25-OH Vitamin D Total Cancelled 09/06/24 16:54 1,25 Dihydroxy Vit D2 Cancelled 09/06/24 16:54 1,25 Dihydroxy Vit D3 Cancelled 09/06/24 16:54 Procalcitonin 0.06 ng/mL (0-0.5) 09/06/24 16:54 TSH 3.42 uIU/mL (0.27-4.20) 09/06/24 16:54 All radiology interpretation(s) finalized by discharge Discharge Plan Discharge Patient Disposition: Admitted As Inpatient Admit Provider: Neha Dean Clinical Impression: Femur fracture, right, Diffuse large B-cell lymphoma of lymph nodes of multiple regions Condition: Stable Coding Level of Care Code ED [employer] 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
--- NOTE | 2024-09-06 16:48 | XRR_ITS ---
PROCEDURE INFORMATION: Exam: XR Chest Exam date and time: 09/06/2024 4:42 PM Age: 74 years old Clinical indication: Pre-operative exam; Respiratory screening exam; Prior surgery; Surgery date: 6+ months; Surgery type: Chest port; Additional info: RT femur FX; Pre op clearance; High risk procedure; Lymphoma TECHNIQUE: Imaging protocol: Radiologic exam of the chest. Views: 1 view. COMPARISON: CT chest abdpel w/*[id number] 05/24/2024 12:26 PM FINDINGS: Tubes, catheters and devices: Left-sided Port-A-Cath with tip overlying expected location of cavoatrial junction. Lungs: Unremarkable. No consolidation. Pleural spaces: Unremarkable. No pleural effusion. No pneumothorax. Heart/Mediastinum: Unremarkable. No cardiomegaly. Bones/joints: Unremarkable. XR/XR chest 1V portable [id number] IMPRESSION: No acute cardiopulmonary findings.
[2024-09-06 17:01] LABS: Basophils % 0.3 %; Lymphocytes # 0.4 10^3/uL (0.8-4.8); Lymphocytes % 4.4 %; Mean Corpuscular HGB Conc 34.1 g/dL (30-55); Mean Corpuscular Hemoglobin 34.1 pg (27-33); Mean Platelet Volume 9.8 fL (7.4-10.4); Monocytes # 0.5 10^3/uL (0.2-0.9); Monocytes % 5.5 %; Neutrophils # 7.83 10^3/uL (1.8-7.7); Neutrophils % 89.2 %; Nucleated Red Blood Cells % 0 %; Platelet Count 173 10^3/cmm (157-399); Red Cell Distribution Width 12.2 % (12.1-15.1); White Blood Count 8.78 10^3/uL (3.29-11.43)
--- NOTE | 2024-09-06 17:06 | CTR_ITS ---
PROCEDURE INFORMATION: Exam: CT Right Lower Extremity With Contrast, Thigh Exam date and time: 09/06/2024 5:38 PM Age: 74 years old Clinical indication: Injury or trauma; Fall; Fracture, traumatic; Displaced; Right; Mid diaphysis fracture of RT femur with large soft tissue lucency noted on xray. ; Additional info: Mid distal femur fracture TECHNIQUE: Imaging protocol: CT of the right lower extremity with intravenous contrast was performed. Exam focused on the thigh. Radiation optimization: All CT scans at this facility use at least one of these dose optimization techniques: automated exposure control; mA and/or kV adjustment per patient size (includes targeted exams where dose is matched to clinical indication); or iterative reconstruction. Contrast material: OMNI 350; Contrast volume: 100 ml; Contrast route: INTRAVENOUS (IV); COMPARISON: CR XR femur RT min 2V* [id number] 09/06/2024 4:30 PM RADIATION DOSE METRICS: Total DLP (mGy-cm): 647.28 FINDINGS: Bones/joints: Redemonstrated complete fracture through right femoral diaphysis with medial posterior and superior displacement of distal fracture fragment. Adjacent to the fracture line there is a complex lobular fat density lesion, which measures approximately 15 x 5.8 x 6.1 cm. Soft tissues: Soft tissue edema. Vasculature: Vascular calcifications. CT/CT femur RT w con [id number] IMPRESSION: 1. Complete fracture through right femoral diaphysis. 2. Large complex lobular fat density lesion adjacent to the fracture line, which may represent bone marrow leaking products , lipoma would be less likely. Comparison to prior imaging would be helpful. 3. Severe vascular calcifications.
[2024-09-06 17:16] LABS: Alanine Aminotransferase 19 U/L (0-41); Albumin Level 4.3 g/dL (3.5-5.2); Alkaline Phosphatase 110 U/L (40-130); Aspartate Amino Transferase 19 U/L (0-40); Blood Urea Nitrogen 27 mg/dL (8-23); Calcium 9.3 mg/dL (8.5-10.5); Carbon Dioxide 23 mmol/L (22-29); Chloride 100 mmol/L (98-107); Glucose 144 mg/dL (65-115); Osmolality Calculated 290 mOsm/kg (285-295); Sodium 136 mmol/L (136-145); Total Bilirubin 0.5 mg/dL (0.15-1.2); Total Protein 6.3 g/dL (6.6-8.7)
--- NOTE | 2024-09-06 17:20 | ECG_ITS ---
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 Measurements Intervals [place] Rate: 71 P: 71 TX: 134 QRS: 85 QRSD: 94 T: 83 QT: 429 QTc: 466 Interpretive Statements SINUS RHYTHM Compared to ECG 11/09/2022 22:27:01 No significant changes Electronically Signed On 09-07-2024 07:39:18 CDT by Rik Carey M.D. [email or web address]
[2024-09-06] MEDS: iohexol 350 mg/mL 500 mL Btl (per mL) IV (17:45)
--- NOTE | 2024-09-06 18:10 | PM.HP ---
Providers/Chief Complaint Primary Care Provider: Ricci Pleitez Chief Complaint: right femur break History of Present Illness Los Barr is a 74 year old male Medications/Allergies Home Medications ?Medication ?Instructions ?Recorded ?Confirmed ?Last Taken ?Type ascorbic acid (vitamin C) 500 mg 500 mg PO DAILY 10/16/19 09/05/24 10/17/22 History tablet metoprolol tartrate 50 mg tablet 50 mg PO BID 10/17/22 09/05/24 10/18/22 History cholecalciferol (vitamin D3) 25 25 mcg PO DAILY 11/10/22 09/05/24 Unknown History mcg (1,000 unit) capsule (Vitamin D3) finasteride 5 mg tablet See Rx Instructions .Route 12/28/22 09/05/24 Unknown Rx .COMPLEX #30 tabs tamsulosin 0.4 mg capsule See Rx Instructions .Route 12/28/22 09/05/24 Unknown Rx .COMPLEX #60 caps [id number]-ge-[id number] 300 mcg-K 60 1 tab PO DAILY 04/05/23 09/05/24 Unknown History mcg-lycop 600 mcg-lutein 300 mcg tablet ([facility] Men 50 Plus) enalapril maleate 10 mg tablet mg PO 03/08/24 09/05/24 Unknown History Allergies Allergy/AdvReac Type Severity Reaction Status Date / Time No Known Allergies Allergy Verified 09/05/24 13:53 PFSH Acute PFSH: Medical History Chronic kidney disease Hypothyroidism Pathological fracture of left hip B12 deficiency Depression Neutropenia ETOH abuse Diffuse large B cell lymphoma Anemia Self-catheterizes urinary bladder Urinary retention HTN (hypertension) Elevated PSA BPH loc w urin obs/LUTS Surgical History S/P ORIF (open reduction internal fixation) fracture (11/10/22) ORIF for left intertrochanteric pathologic fracture Port-A-Cath in place History of lymph node biopsy (09/30/22) Ultrasound directed core needle biopsy of left inguinal lymph node History of hand surgery Family History Father , AT AGE 46 CAD (coronary artery disease) Brother CAD (coronary artery disease) Mother , AT AGE 95 CAD (coronary artery disease) Social History Smoking and tobacco/nicotine status: never used tobacco/nicotine Alcohol intake: former Substance/Drug Use: former Adopted: No Caregiver/support person: No Lives independently: Yes Marital status: Current occupational status: retired Current gender identity: Male Vitals/I&O/Wt Last Vital Signs Temp 98.3 F 09/06/24 16:20 Pulse 70 09/06/24 16:20 Resp 16 09/06/24 16:20 BP 170/106 09/06/24 16:20 Pulse Ox 98 09/06/24 16:20 O2 Del Method Room Air 09/06/24 16:20 Weight last 48 hrs Weight 72.575 kg Data 09/06/24 16:54 09/06/24 16:54 A&P PDMP PDMP Reviewed: Not Reviewed Coding Level of Care Code Acute Code for 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
--- NOTE | 2024-09-06 18:44 | P.HP_ITS ---
Providers/Chief Complaint 2 Admitting Physician: Neha Dean MD Primary Care Provider: Ricci Pleitez Chief Complaint: right femur break History of Present Illness Los Barr is a 74 year old male with past medical history of B-cell lymphoma, hypertension, history of left open reduction for pathological femur fracture with long trochanteric nail presents to the ER today through EMS. Patient was working in his yard and he turned and felt a pop in his leg and was unable to bear any weight or stand. In the ER he was found to have midshaft femur fracture of the other limb. Otherwise patient denies any nausea, vomiting, headache, abdominal pain, cough. Review of Systems 2 General: Reports: 10 or more systems reviewed and unremarkable except in HPI and below Const: Denies: fever(s), chills, body aches, change in appetite, change in weight, malaise, night sweats, diaphoresis, change in sleep pattern, daytime sleepiness or snoring Eyes: Denies: change in vision, blurry vision, photophobia, eye discomfort or eye discharge ENMT: Denies: throat pain, enlarged tonsils, hoarseness, mouth pain, oral sores, dry mouth, tinnitus, nasal congestion or post nasal drip Card: Denies: chest pain, palpitations, irregular heart rhythm, edema, swelling of feet/ankles, lightheadedness, syncope, pre-syncope, dyspnea on exertion, orthopnea, leg pain with exertion or acrocyanosis Resp: Denies: dyspnea, productive cough, non-productive cough, wheezing, stridor, pain on inspiration, change in phlegm color, hemoptysis or chest congestion GI: Denies: abdominal pain, nausea, vomiting, hematemesis, coffee ground emesis, dysphagia, heartburn, diarrhea, constipation, bloating, GI cramping, change in bowel habits, pain on defecation, hematochezia or melena : Denies: flank pain, difficulty urinating, dysuria, urinary frequency, urinary urgency, urinary hesitancy, urinary dribbling, difficulty starting urination, change in urine stream, nocturia or hematuria Musc: Denies: neck pain, back pain, extremity pain, joint pain, joint swelling, joint redness, joint stiffness or limited range of motion Neuro: Denies: headache(s), numbness in extremities, weakness in extremities, sensory changes, lack of coordination, difficulty walking, frequent falls, dizziness, vertigo, confusion, Slurred speech present, difficulty communicating thoughts or seizure-like activity Psych: Denies: anxiety, depression, mood swings, panic attacks, hopelessness or irritability Endo: Denies: polyuria, polydipsia, tired all the time, cold intolerance, excessive sweating, flushing or heat intolerance Nikolas/Lymph: Denies: easy bruising or easy bleeding All/Imm: Denies: tongue swelling, facial swelling or acute wheezing Medications/Allergies Home Medications ?Medication ?Instructions ?Recorded ?Confirmed ?Last Taken ?Type ascorbic acid (vitamin C) 500 mg 500 mg PO DAILY 10/1509/06/24 10/17/22 History tablet metoprolol tartrate 50 mg tablet 50 mg PO BID 10/17/22 09/06/24 10/18/22 History cholecalciferol (vitamin D3) 25 25 mcg PO DAILY 09/06/24 Unknown History mcg (1,000 unit) capsule (Vitamin D3) finasteride 5 mg tablet See Rx Instructions .Route 0 12/28/22 09/06/24 Unknown Rx .COMPLEX #30 tabs tamsulosin 0.4 mg capsule See Rx Instructions .Route 0 12/28/22 09/06/24 Unknown Rx .COMPLEX #60 caps mjboxans-se-hqxbr 300 mcg-K 60 1 tab PO DAILY 04/05/23 09/06/24 Unknown History mcg-lycop 600 mcg-lutein 300 mcg tablet (Century Men 50 Plus) enalapril maleate 10 mg tablet 10 mg PO DAILY 03/08/24 09/06/24 Unknown History Allergies Allergy/AdvReac Type Severity Reaction Status Date / Time No Known Allergies Allergy Verified 09/06/24 19:40 PFSH Acute 2 PFSH: Medical History (Updated 09/07/24 @ 11:46 by Khari Juarez MD) Self-catheterizes urinary bladder Chronic kidney disease Hypothyroidism Pathological fracture of left hip B12 deficiency Depression Neutropenia ETOH abuse Diffuse large B cell lymphoma Anemia Urinary retention HTN (hypertension) Elevated PSA BPH loc w urin obs/LUTS Surgical History S/P ORIF (open reduction internal fixation) fracture (11/10/22) ORIF for left intertrochanteric pathologic fracture Port-A-Cath in place History of lymph node biopsy (09/30/22) Ultrasound directed core needle biopsy of left inguinal lymph node History of hand surgery Family History Father , AT AGE 46 CAD (coronary artery disease) Brother CAD (coronary artery disease) Mother , AT AGE 95 CAD (coronary artery disease) Social History Smoking and tobacco/nicotine status: never used tobacco/nicotine Alcohol intake: former Substance/Drug Use: former Adopted: No Caregiver/support person: No Lives independently: Yes Marital status: Current occupational status: retired Current gender identity: Male Vitals/I&O/Wt Last Vital Signs Temp 99.7 F H 09/07/24 07:05 Pulse 72 09/07/24 07:05 Resp 18 09/07/24 07:05 BP 139/85 09/07/24 07:05 Pulse Ox 97 09/07/24 07:05 O2 Del Method Room Air 09/07/24 07:05 09/06/24 09/07/24 09/07/24 22:59 06:59 14:59 Intake Total 240 / 240 Output Total 350 / 350 75 / 425 100 / 100 Balance -110 / -110 -75 / -185 -100 / -100 Weight last 48 hrs Weight 79.152 kg Weight 79.152 kg Weight 72.575 kg Physical Exam 2 Narrative: General: No acute distress, AO x3, thin built, chronically sick appearing HEENT: PERRLA, pupils bilaterally equal and reactive Chest: Normal vesicular breath sounds, no added sounds, equal good air entry bilaterally CVS: S1-S2 regular, no murmurs, no tachycardia, no gallops, no rubs Abdomen: Soft, nontender, no organomegaly, bowel sounds present Neuro: No focal deficits, no facial deformity, AO x3, power 5/5 in all limbs Urinary Catheter Management: Givens: Cath Placed During This Visit: yes Reason for Continuing Indwelling Catheter: Perioperative Use in Selected Surgeries Urinary Catheter Date of Insertion: 09/06/24 Urinary Catheter Time of Insertion: 20:23 Data 09/07/24 03:55 09/07/24 03:55 A&P Assessment and plan (1) Fracture of femoral shaft, right, closed: Orthopedic-consult from the ER. Hemoglobin. Physical therapy orthopedic team. In 1 mg 4 hours as needed, hydrocodone 5 mg every 6 hours as needed for pain. Qualifiers: Encounter type: initial encounter Fracture morphology: oblique F racture alignment: displaced Qualified Code(s): S72.331A - Displaced oblique fracture of shaft of right femur, initial encounter for closed fracture (2) Diffuse large B-cell lymphoma of lymph nodes of multiple regions: (3) Pathological fracture: Vitamin D levels. Patient would benefit from DEXA scan as an outpatient. (4) Chronic kidney disease: Baseline creatinine 1.2. Currently 1.4. Most likely in setting of dehydration. Start on normal saline at 50 cc/h. Monitor renal functions daily. Strict input output charting. Givens catheter placement. Reconciliation done for nephrotoxic drugs. Hold off on home dose of enalapril for now. (5) Self-catheterizes urinary bladder: Continue home dose of Flomax. Plan Hypertension: Goal blood pressure less than 140/90 mmHg. Continue with home dose of metoprolol. Holding off on enalapril. Uptitrate as for goal blood pressure. Full code Cardiac diet, n.p.o. after midnight. SCD for DVT prophylaxis Protonix for PUD prophylaxis PDMP PDMP Reviewed: Not Reviewed Attestations 2 Medical Necessity Statement*: Admission for more than 2 midnights for management of fracture of right femur with concerns for pathological fracture requiring ORIF Diagnoses Closed displaced oblique fracture of shaft of right femur, initial encounter S72.331A Encounter type: initial encounter Fracture morphology: oblique Fracture alignment: displaced Diffuse large B-cell lymphoma of lymph nodes of multiple regions C83.38 Pathological fracture M84.40XA Chronic kidney disease N18.9 Self-catheterizes urinary bladder Z78.9
[2024-09-06 19:06] LABS: Procalcitonin 0.06 ng/mL (0-0.5)
[2024-09-06 19:25] LABS: Lactic Sepsis W/Reflex 1.2 mmol/L (0.5-2.2)
[2024-09-06] MEDS: sodium chloride 0.9% 1,000 ML 75 ML IV (19:54)
[2024-09-06] MEDS: morphine 4 mg/mL SDV 1 mL IVP (19:54)
[2024-09-06 20:21] LABS: 25 Hydroxy Vitamin D 47 ng/mL (30-100); Iron 82 ug/dL (59-158); Percent Saturation 36.1 % (20-50); Thyroid Stimulating Hormone 3.42 uIU/mL (0.27-4.20); Total Iron Binding Capacity 227 mcg/dl; Unsaturated Iron Binding 145 ug/dL (112-347)
[2024-09-06 20:36] LABS: Vitamin B12 > 2000 pg/mL (232-1245)
[2024-09-06] MEDS: oxyCODONE-APAP 5-325 mg Tablet 1 TAB PO (21:16)
--- NOTE | 2024-09-06 21:40 | P.CONIM_ITS ---
Providers/Reason For Consult 2 Consulting Physician/Specialty*: Ni Ho MD Reason for Consult*: Right midshaft femur fracture Requesting Physician: Dr. Jj Terry Attending Physician: Neha Dean MD Primary Care Provider: Ricci Pleitez History of Present Illness History of Present Illness Los Barr is a 74 year old male who is known to me from prior left open reduction internal fixation of a potential pathologic femur fracture with a long trochanteric nail. He presents today after an incident where he was carrying a chainsaw and turned. He felt a pop in his leg and was unable to stand or weight-bear. He was brought to the emergency department and found to have a midshaft femur fracture with what appears to be evidence of potential pathologic fracture secondary to periosteal reaction upon my review of the x- ray. Review of Systems 2 Const: Denies: fever(s) or chills Card: Denies: chest pain Resp: Denies: dyspnea GI: Denies: abdominal pain : Denies: dysuria, urinary frequency or urinary urgency Musc: Reports: extremity pain; Denies: neck pain or back pain Skin/Breast: Denies: rash Medications/Allergies Home Medications ?Medication ?Instructions ?Recorded ?Confirmed ?Last Taken ?Type ascorbic acid (vitamin C) 500 mg 500 mg PO DAILY 10/1509/06/24 10/17/22 History tablet metoprolol tartrate 50 mg tablet 50 mg PO BID 10/17/22 09/06/24 10/18/22 History cholecalciferol (vitamin D3) 25 25 mcg PO DAILY 09/06/24 Unknown History mcg (1,000 unit) capsule (Vitamin D3) finasteride 5 mg tablet See Rx Instructions .Route 0 12/28/22 09/06/24 Unknown Rx .COMPLEX #30 tabs tamsulosin 0.4 mg capsule See Rx Instructions .Route 0 12/28/22 09/06/24 Unknown Rx .COMPLEX #60 caps natcmmnr-tj-iatmr 300 mcg-K 60 1 tab PO DAILY 04/05/23 09/06/24 Unknown History mcg-lycop 600 mcg-lutein 300 mcg tablet (Century Men 50 Plus) enalapril maleate 10 mg tablet 10 mg PO DAILY 03/08/24 09/06/24 Unknown History Allergies Allergy/AdvReac Type Severity Reaction Status Date / Time No Known Allergies Allergy Verified 09/06/24 19:40 Current Medications Generic Name Dose Route Start Last Admin Trade Name Freq PRN Reason Stop Dose Admin Sodium Chloride 1,000 mls @ 75 mls/hr 09/06/24 19:35 09/06/24 19:54 Sodium Chloride 0.9% IV 75 mls/hr .[id number] [id number] Administration Morphine Sulfate 4 mg 09/06/24 19:35 09/06/24 19:54 Morphine 4 Mg/Ml Sdv 1 Ml IVP 4 mg Q4H PRN Administration SEVERE PAIN Oxycodone/Acetaminophen 1 tab 09/06/24 19:35 09/06/24 21:16 Oxycodone-Apap 5-325 Mg Tablet PO 1 tab Q4H PRN Administration SEVERE PAIN PFSH Acute 2 PFSH: Medical History Chronic kidney disease Hypothyroidism Pathological fracture of left hip B12 deficiency Depression Neutropenia ETOH abuse Diffuse large B cell lymphoma Anemia Self-catheterizes urinary bladder Urinary retention HTN (hypertension) Elevated PSA BPH loc w urin obs/LUTS Surgical History S/P ORIF (open reduction internal fixation) fracture (11/10/22) ORIF for left intertrochanteric pathologic fracture Port-A-Cath in place History of lymph node biopsy (09/30/22) Ultrasound directed core needle biopsy of left inguinal lymph node History of hand surgery Family History Father , AT AGE 46 CAD (coronary artery disease) Brother CAD (coronary artery disease) Mother , AT AGE 95 CAD (coronary artery disease) Social History Smoking and tobacco/nicotine status: never used tobacco/nicotine Alcohol intake: former Substance/Drug Use: former Adopted: No Caregiver/support person: No Lives independently: Yes Marital status: Current occupational status: retired Current gender identity: Male Vitals/I&O/Wt Last Vital Signs Temp 98.4 F 09/06/24 19:41 Pulse 70 09/06/24 21:26 Resp 17 03/21/25 21:16 BP 153/85 09/06/24 19:41 Pulse Ox 100 09/06/24 19:41 O2 Del Method Room Air 09/06/24 19:41 09/06/24 09/06/24 09/06/24 06:59 14:59 22:59 Output Total 350 / 350 Balance -350 / -350 Weight last 48 hrs Weight 174 lb 8 oz Weight 160 lb Physical Exam 2 Const: COMMON NORMALS: no acute distress, average body habitus, patient oriented x3 and alert GENERAL APPEARANCE: cooperative and comfortable O RIENTATION/CONSCIOUSNESS: Yes awake HENMT: COMMON NORMALS: normocephalic and atraumatic HEAD & SCALP: n ormocephalic and atraumatic Eye: GENERAL EYE: appearance normal, both eyes and all related structures Chest: COMMONS NORMALS: normal inspection of the chest Resp: COMMON NORMALS: normal respiratory effort EFFORT & INSPECTION: Yes able to speak in complete sentences and Yes symmetric chest movement Extremity: RIGHT LOWER EXTREMITY: Yes upper leg (Deformity right thigh secondary to fracture) Right upper leg: Yes inspection (Swelling), Yes palpation (Tender to palpation) and Yes neurovascular exam (Intact distally) Neuro: COMMON NORMALS: patient oriented x3 SENSORIUM/ORIENTATION: Yes alert Psych: COMMON NORMALS: mental status grossly normal APPEARANCE: Yes grossly normal ATTITUDE: Yes calm and Yes engaged ATTENTION/CONCENTRATION: Yes attention grossly intact Skin: COMMON NORMALS: no rashes or lesions noted GENERAL SKIN EXAM: no rashes or lesions noted Urinary Catheter Management: Givens: Cath Placed During This Visit: yes Urinary Catheter Date of Insertion: 09/06/24 Urinary Catheter Time of Insertion: 20:23 Data 09/07/24 03:55 09/07/24 03:55 Xray Ortho: My impression: I have personally evaluated and interpreted the patient's x-rays of his right femur. There is an oblique fracture through the femoral shaft and the distal half. There does appear to be with zooming and on the x-ray evidence of periosteal reaction concerning for pathologic fracture. This was not read by the radiologist, however, upon my review, I do have concerns that this is a pathologic fracture. A&P Assessment and plan (1) Fracture of femoral shaft, right, closed: Patient presented to the hospital after a fall while carrying a chainsaw and turning his body to go in a different direction. He was unable to weight-bear and felt a pop in his leg. He presented to the emergency room with obvious deformity to his right lower extremity. Imaging studies demonstrated an oblique femur fracture. Although there is no obvious lytic lesion on x-ray, zooming in on the fracture demonstrates what appears to be periosteal reaction consistent with possible pathologic fracture due to the patient's diagnosis of large B-cell lymphoma. Patient has previously undergone prophylactic nailing of the opposite left hip which I performed in October 2022. He did well following this. He was admitted to the medical service for optimization for surgery. Plans are made for intramedullary nailing of the right femur. Also planned is open reduction of the femur at the fracture site to allow for biopsy of bone. This would better allow for definitive treatment of this fracture particularly if it is metastatic disease. We will proceed with a surgical intervention tomorrow, September 07. Qualifiers: Encounter type: initial encounter Fracture alignment: displaced F racture morphology: oblique Qualified Code(s): S72.331A - Displaced oblique fracture of shaft of right femur, initial encounter for closed fracture (2) Diffuse large B-cell lymphoma of lymph nodes of multiple regions: Possible pathologic fracture secondary to this diagnosis PDMP PDMP Reviewed: Last Reviewed 09/06/24 21:51 by Ni Ho MD Coding Level of Care Code Acute Code for Chg Fwd Diagnoses Closed displaced oblique fracture of shaft of right femur, initial encounter S72.331A Encounter type: initial encounter Fracture alignment: displaced Fracture morphology: oblique Diffuse large B-cell lymphoma of lymph nodes of multiple regions C83.38
[2024-09-06 22:31] LABS: Estmated Average Glucose 94; Hemoglobin A1C 4.9 % (4.0-6.0)
[2024-09-07] VITALS (22 sets, daily range): BP systolic 100–153; BP diastolic 58–94; PULSE 66–90; RESP 12–18; TEMP 36.4–37.6; O2SAT 93–100
[2024-09-07] MEDS: morphine 4 mg/mL SDV 1 mL IVP ×2 (00:02→04:19)
[2024-09-07 04:42] LABS: Basophils % 0.6 %; Eosinophils % 0.4 %; Hematocrit 35.1 % (37-53); Lymphocytes # 0.8 10^3/uL (0.8-4.8); Mean Corpuscular HGB Conc 34.2 g/dL (30-55); Mean Corpuscular Hemoglobin 34.3 pg (27-33); Mean Corpuscular Volume 100.3 fl (82-101); Mean Platelet Volume 9.8 fL (7.4-10.4); Monocytes # 0.6 10^3/uL (0.2-0.9); Neutrophils # 3.23 10^3/uL (1.8-7.7); Neutrophils % 69.6 %; Nucleated Red Blood Cells % 0 %; Platelet Count 148 10^3/cmm (157-399); Red Cell Distribution Width 12.4 % (12.1-15.1); White Blood Count 4.65 10^3/uL (3.29-11.43)
[2024-09-07 04:59] LABS: Alanine Aminotransferase 15 U/L (0-41); Albumin Level 3.7 g/dL (3.5-5.2); Alkaline Phosphatase 91 U/L (40-130); Anion Gap 13.1 (5-19); Aspartate Amino Transferase 17 U/L (0-40); Blood Urea Nitrogen 23 mg/dL (8-23); Calcium 8.6 mg/dL (8.5-10.5); Carbon Dioxide 25 mmol/L (22-29); Chloride 103 mmol/L (98-107); Chol HDL Ratio 3.29 mg/dL (1.0-5.00); Cholesterol 168 mg/dL (0-200); Creatinine Clr Calc Pharmacy 61.5627; Globulin 1.5 g/dL (1.3-4.6); Glucose 114 mg/dL (65-115); HDL Cholesterol 51 mg/dL (60-100); LDL Cholesterol Calculated 102 mg/dL (50-129); Magnesium 1.7 mg/dL (1.7-2.3); Osmolality Calculated 289 mOsm/kg (285-295); Phosphorus 3.3 mg/dL (2.5-4.5); Potassium 4.1 mmol/L (3.5-5.1); Sodium 137 mmol/L (136-145); Total Bilirubin 0.7 mg/dL (0.15-1.2); Total Protein 5.2 g/dL (6.6-8.7); Triglycerides 74 mg/dL (0-150)
[2024-09-07 05:00] LABS: Procalcitonin 0.08 ng/mL (0-0.5)
[2024-09-07] MEDS: oxyCODONE-APAP 5-325 mg Tablet 1 TAB PO (05:23)
[2024-09-07 05:27] LABS: Folate Level > 20.0 ng/mL (4.5-32.2)
[2024-09-07] MEDS: acetaminophen 1,000 MG/100 ML PIGGYBACK 400 MG IV (07:20)
[2024-09-07] MEDS: gabapentin 300 mg Capsule PO ×2 (07:23→07:25)
[2024-09-07] MEDS: CELEcoxib 200 mg Capsule 400 MG PO ×2 (07:24)
--- NOTE | 2024-09-07 07:30 | XR_ITS ---
WS: [id number] Exam: XR femur RT min 2V* [id number] Date/Time of Exam: 09/07/2024 7:30 AM Reason For Exam: RT TROCHANTERIC NAIL; OR PICS AP and lateral C-arm images of the RIGHT femur are submitted. A long intramedullary raissa bridges a spiral fracture of the midshaft of the femur. The fracture is in good alignment for healing. A femoral neck screws in place in satisfactory position.
--- NOTE | 2024-09-07 07:51 | ANES.PREANE2 ---
Pre-Anesthetic Assessment Height/Weight: Height 6 ft Weight 174 lb 8 oz Temp Pulse Resp BP Pulse Ox O2 Del Method 99.7 F H 72 18 139/85 97 Room Air 09/07/24 07:05 09/07/24 07:05 09/07/24 07:05 09/07/24 07:05 09/07/24 07:05 09/07/24 07:05 Preop Diagnosis: Right femur fracture Operation Date: 09/07/24 08:30 Proposed Procedures p Trochanteric Femoral Nail(Right) - Ni Ho MD Was Beta Desmond taken within 24 hours: N/A Was Clonidine taken within 24 hours: N/A Last intake: Intake Last Liquid Date 09/06/24 Last Liquid Time 23:59 Last Solid Date 09/06/24 Last Solid Time 17:00 Social Alcohol and No tobacco Exam alert, oriented x 3, clear to auscultation bilaterally and regular rate & rhythm Airway Submandibular: within normal limits Cervical ROM: within normal limits Mallampati: Class II Dentition: full Anesthetic Plan ASA status: 3 Anesthesia: General Other: No prior issues with anesthesia NPO since yesterday around noon History of B-cell lymphoma, completed chemo in 2022. Few pulmonary nodules on previous CT. No home O2 History of hypertension on enalapril Labs reviewed from today and acceptable for procedure EKG showing sinus rhythm Patient drinks whiskey nightly Plan for GETA Medications/Allergies Home Medications ?Medication ?Instructions ?Recorded ?Confirmed ?Last Taken ?Type ascorbic acid (vitamin C) 500 mg 500 mg PO DAILY 10/16/19 09/06/24 10/17/22 History tablet metoprolol tartrate 50 mg tablet 50 mg PO BID 10/17/22 09/06/24 10/18/22 History cholecalciferol (vitamin D3) 25 25 mcg PO DAILY 11/10/22 09/06/24 Unknown History mcg (1,000 unit) capsule (Vitamin D3) finasteride 5 mg tablet See Rx Instructions .Route 12/28/22 09/06/24 Unknown Rx .COMPLEX #30 tabs tamsulosin 0.4 mg capsule See Rx Instructions .Route 12/28/22 09/06/24 Unknown Rx .COMPLEX #60 caps shzovttu-jb-svjqv 300 mcg-K 60 1 tab PO DAILY 04/05/23 09/06/24 Unknown History mcg-lycop 600 mcg-lutein 300 mcg tablet (Century Men 50 Plus) enalapril maleate 10 mg tablet 10 mg PO DAILY 03/08/24 09/06/24 Unknown History Allergies Allergy/AdvReac Type Severity Reaction Status Date / Time No Known Allergies Allergy Verified 09/06/24 19:40 Current Medications Generic Name Dose Route Start Last Admin Trade Name Freq PRN Reason Stop Dose Admin Sodium Chloride 1,000 mls @ 75 mls/hr 09/06/24 19:35 09/06/24 19:54 Sodium Chloride 0.9% IV 75 mls/hr .[id number] TAMIKO Administration Morphine Sulfate 4 mg 09/06/24 19:35 09/07/24 04:19 Morphine 4 Mg/Ml Sdv 1 Ml IVP 4 mg Q4H PRN Administration SEVERE PAIN Oxycodone/Acetaminophen 1 tab 09/06/24 19:35 09/07/24 05:23 Oxycodone-Apap 5-325 Mg Tablet PO 1 tab Q4H PRN Administration SEVERE PAIN PFSH Anesthesia Medical History Chronic kidney disease Hypothyroidism Pathological fracture of left hip B12 deficiency Depression Neutropenia ETOH abuse Diffuse large B cell lymphoma Anemia Self-catheterizes urinary bladder Urinary retention HTN (hypertension) Elevated PSA BPH loc w urin obs/LUTS Surgical History S/P ORIF (open reduction internal fixation) fracture (11/10/22) ORIF for left intertrochanteric pathologic fracture Port-A-Cath in place History of lymph node biopsy (09/30/22) Ultrasound directed core needle biopsy of left inguinal lymph node History of hand surgery Family History Father , AT AGE 46 CAD (coronary artery disease) Brother CAD (coronary artery disease) Mother , AT AGE 95 CAD (coronary artery disease) Social History Smoking and tobacco/nicotine status: never used tobacco/nicotine Alcohol intake: former Substance/Drug Use: former Adopted: No Caregiver/support person: No Lives independently: Yes Marital status: Current occupational status: retired Current gender identity: Male Data Anesthesia 09/07/24 03:55 09/07/24 03:55 Short CBC 09/06/24 09/07/24 Range/Units 16:54 03:55 WBC 8.78 4.65 (3.29-11.43) 10^3/uL Hgb 13.30 12.00 (11.27-16.99) g/dL Hct 39.0 35.1 L (37-53) % MCV 100.0 100.3 (82-101) fl Plt Count 173 148 L (157-399) 10^3/cmm Neut % (Auto) 89.2 69.6 % Neut # (Auto) 7.83 H 3.23 (1.8-7.7) 10^3/uL BMP 09/06/24 09/07/24 16:54 03:55 Sodium 136 137 Potassium 4.0 4.1 Chloride 100 103 Carbon Dioxide 23 25 BUN 27 H 23 Creatinine 1.4 H 1.2 Glucose 144 H 114 Calcium 9.3 8.6 Liver Function 09/06/24 09/07/24 Range/Units 16:54 03:55 Total Bilirubin 0.5 0.7 (0.15-1.2) mg/dL AST 19 17 (0-40) U/L ALT 19 15 (0-41) U/L Alkaline Phosphatase 110 91 (40-130) U/L Albumin 4.3 3.7 (3.5-5.2) g/dL Cardiac Studies: Echocardiogram Limited Views 10/11/22
[2024-09-07] MEDS: ceFAZolin 2,000 mg SDV 2000 MG IVP ×3 (08:20→23:40)
[2024-09-07] MEDS: ceFAZolin 1,000 mg SDV 1000 MG IRRIGATION (08:58)
--- NOTE | 2024-09-07 10:04 | PC.CHAP ---
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 [] Patient/Family/Request visit [] Outpatient visit [] Follow-up visit [] Physician referral [] Code/Alert [] Routine visit [] Staff referral [] Actively dying [] Patient sleeping [] Family support [] [X] Out of room [] Palliative care [] [] Receiving care in room [] Pre-surgical visit [] Trauma [] Long length of stay [] ICU visit [] Other: Relational/Emotional Strength [] Patient feels connected with others/family/visitors/staff [] Distress [] Loneliness/isolation [] Abandonment Spirituality of Patient [] Person of Lilo [] Attends Bahai of their Lilo [] Believes in Prayer [] Reads Bible or Adventist materials [] There are Spiritual issues to be addressed Cartridge Maker Interventions [] Prayer [] Active listening [] Non-anxious presence [] Spiritual/emotional support [] Crisis/trauma care [] Spiritual counseling [] Bereavement support [] Provided bereavement packet [] Provided Bible/devotional materials [] Provided toy/stuffed animal, coloring book to patient or family member [] Provided Communion [] Anointing/[place] [] Salvation [] Completed spiritual assessment [] Other: Impact on Illness or Injury [] Angry [] Fearful [] Anxious [] Often cries [] Exhaustion [] Unable to work [] Unable to attend buddhism [] Unable to walk/stand [] Unable to read [] Unable to drive [] Unable to eat/drink [] Unable to sleep [] Unable to be with family [] Patient intubated [] Other: Summary Time spent with patient
--- NOTE | 2024-09-07 10:36 | PC.RESP ---
Pt not available for assessment at this time.
--- NOTE | 2024-09-07 11:25 | PM.OP ---
Operative Report Date of procedure: September 07, 2024 Pre-op diagnosis: Right femoral shaft fracture, possibly pathologic Post-op diagnosis: Pathologic right midshaft oblique femur fracture Post-op findings: Mottled and irregular appearance to the cortical bone consistent with likely pathologic finding. Abnormal soft tissue around the fracture site not consistent with mirror fracture hematoma. Procedure done: Open reduction internal fixation right pathologic femur fracture utilizing a gamma nail with open midshaft femoral biopsy of soft tissue and bone Implants: The gamma 3 [place] nail size 11 mm x 440 mm x 125 degree right long with a proximal lag screw at 10.5 mm x 105 mm and a fully threaded distal locking screw 5 mm and 47.5 mm Specimens removed/disposition: Soft tissue and bone sent for pathologic evaluation Pathology: Soft tissue and bone Surgeon: Ni Ho MD Granulator Machine Operator: Khushi Del Rosario, nurse practitioner, whose services were required for retraction, closing, positioning, and completion of the surgical procedure Anesthesia: General (Per LMA, ASA 3) Estimated blood loss (mL): 200 IV fluids (mL): 1,100 Urine output (mL): 100 Complications: None Findings: Abnormal appearance to cortical bone of the midshaft of the femur with irregular fracture edges not consistent with acute nonpathologic fracture Condition: stable Disposition: PACU (Then return to floor for postoperative rehabilitation and pain management) Brief History: Los Barr is a 74 year old male who is known to me from prior left open reduction internal fixation of a potential pathologic femur fracture with a long trochanteric nail. He presents today after an incident where he was carrying a chainsaw and turned. He felt a pop in his leg and was unable to stand or weight-bear. He was brought to the emergency department and found to have a midshaft femur fracture with what appears to be evidence of potential pathologic fracture secondary to periosteal reaction upon my review of the x-ray. Procedure: Patient is brought to the operating theater. After undergoing adequate general anesthesia , the patient was transferred to the fracture table, positioned on the table and fluoroscopic guidance obtained throughout the surgical procedure. Prior to the commencement of the surgical procedure, a surgical pause was performed. At the time of the surgical pause, we confirmed the site and side of surgery as well as preoperative surgical markings and appropriate and timely administration of IV antibiotics, Ancef 2 g. Availability of equipment was also confirmed. Fluoroscopy was used to confirm the fracture was appropriately reduced in both AP and lateral planes. Attempted fracture reduction was accomplished, and we were able to approximate the fracture fragments. However, preoperatively, the decision was made to obtain a biopsy. Therefore, centered over the fracture and extending proximally and distally as necessary, we open the lateral thigh with an incision. Hemostasis was obtained utilizing electrocautery. Tensor fascia jagdish was incised longitudinally. Vastus lateralis was lifted anteriorly. The fracture was identified. There was abnormal soft tissue around the fracture site which was mucoid in nature. There was also a bubbled appearance to the cortical bone consistent with abnormal cortical bone. The fracture line itself was not smooth as would be expected with this type of fracture, but rather, it was somewhat mottled. It was obvious from reviewing the fracture that this was likely a pathologic fracture with abnormal bone in the area. Biopsy of soft tissue and bone was obtained and sent to pathology. Fracture was reduced and bone clamps were placed to maintain the fracture reduction during preparation for the intramedullary raissa. An incision was then made slightly above the greater trochanter to allow access to the greater trochanter. An awl was used to enter the greater trochanter and a guidewire was subsequently placed. Once the guidewire was confirmed to be in appropriate position in AP and lateral planes, reaming was accomplished over this to allow for the proximal diameter of the nail. Guidewire was then removed and a long guidewire was placed through the fracture site down to the knee. This was then measured. In the appropriate length of nail was chosen. Guidewire was left in position, and reaming was accomplished over this to allow placement of the intramedullary nail. Cortices were thick, and we had to ream to a size 13.5 to allow for the 11 nail to be placed. Even with this, placement was difficult. The nail was impacted into position with fluoroscopy used to follow it through the fracture site. Once the nail was in position, it was evaluated in AP and lateral planes at the fracture site, proximally, and distally at the knee. The femoral guidewire was then removed. Guidewire was then passed through the jigging system into the femoral head. Guidewire was placed into appropriate position. Once the guidewire was in appropriate position and this position was confirmed by x-ray. This was then measured and we chose a 10.5 mm x 105 mm lag screw. We reamed to allow for the lag screw to be placed. The 105 mm lag screw was then passed into the femoral head through the trochanteric nail. This was passed uneventfully and again position was confirmed in AP and lateral planes. The set screw was then placed in position, tightened completely, and subsequently backed off one-quarter turn. The construct was left in position and attention was directed distally. Perfect cocopah technique was used to place the distal screw. The appropriate length screw was then obtained and placed in position without difficulty. Once the screw was in position, we confirmed appropriate placement of the components, and we removed the jigging system. Attention was then directed to closure. The hip and mid thigh wounds were copiously irrigated with normal saline with antibiotics. There is suctioned dry and attention was directed to further closure. Tensor fascia jagdish was closed proximally and over the mid thigh incision with 0 Vicryl in an interrupted fashion. Subcutaneous tissues were closed with 2-0 Monocryl, and the skin was closed with a continuous 3-0 Monocryl subcuticular stitch. This was then covered with OpSite over each of the incisions. The patient was removed from the fracture table and returned to recovery in satisfactory condition. The patient will be discharged to the floor for postoperative rehabilitation and pain management. Specimen was sent to pathology. A call was made to the patient's oncologist to inform him of my intraoperative findings. Related Problem List Diagnoses (1) Fracture of femoral shaft, right, closed: (2) Pathological fracture:
--- NOTE | 2024-09-07 11:49 | P.PN_ITS ---
Subjective 2 Subjective: Acute events overnight. Underwent ORIF today. Postoperatively patient may comfortably in bed. Vitals/I&O/Wt Last Vital Signs Temp 99.7 F H 09/07/24 07:05 Pulse 72 09/07/24 07:05 Resp 18 09/07/24 07:05 BP 139/85 09/07/24 07:05 Pulse Ox 97 09/07/24 07:05 O2 Del Method Room Air 09/07/24 07:05 O2 Flow Rate 6 09/07/24 11:35 09/06/24 09/07/24 09/07/24 22:59 06:59 14:59 Intake Total 240 / 240 100 / 100 Output Total 350 / 350 75 / 425 400 / 400 Balance -110 / -110 -75 / -185 -300 / -300 Weight last 48 hrs Weight 79.152 kg Weight 79.152 kg Weight 72.575 kg Physical Exam 2 Narrative: General: No acute distress, AO x3, thin built, chronically sick appearing HEENT: PERRLA, pupils bilaterally equal and reactive Chest: Normal vesicular breath sounds, no added sounds, equal good air entry bilaterally CVS: S1-S2 regular, no murmurs, no tachycardia, no gallops, no rubs Abdomen: Soft, nontender, no organomegaly, bowel sounds present Neuro: No focal deficits, no facial deformity, AO x3, power 5/5 in all limbs Urinary Catheter Management: Givens: Cath Placed During This Visit: yes Reason for Continuing Indwelling Catheter: Perioperative Use in Selected Surgeries Urinary Catheter Date of Insertion: 09/06/24 Urinary Catheter Time of Insertion: 20:23 Data 09/07/24 03:55 09/07/24 03:55 A&P Assessment and plan (1) Fracture of femoral shaft, right, closed: Orthopedic-consult from the ER. Hemoglobin. Physical therapy orthopedic team. In 1 mg 4 hours as needed, hydrocodone 5 mg every 6 hours as needed for pain. Qualifiers: Encounter type: initial encounter Fracture alignment: displaced F racture morphology: oblique Qualified Code(s): S72.331A - Displaced oblique fracture of shaft of right femur, initial encounter for closed fracture (2) Diffuse large B-cell lymphoma of lymph nodes of multiple regions: (3) Pathological fracture: Vitamin D levels. Patient would benefit from DEXA scan as an outpatient. (4) Chronic kidney disease: Baseline creatinine 1.2. Currently 1.4. Most likely in setting of dehydration. Start on normal saline at 50 cc/h. Monitor renal functions daily. Strict input output charting. Givens catheter placement. Reconciliation done for nephrotoxic drugs. Hold off on home dose of enalapril for now. (5) Self-catheterizes urinary bladder: Continue home dose of Flomax. Plan Hypertension: Goal blood pressure less than 140/90 mmHg. Continue with home dose of metoprolol. Holding off on enalapril. Uptitrate as for goal blood pressure. Full code Cardiac diet, SCD for DVT prophylaxis Protonix for PUD prophylaxis Plan for the day: Continue with post-ORIF care. Heparin 5000 every 12 hourly for DVT prophylaxis. Morphine 2 mg 4 hours as needed, oxycodone 5 mg 4 hours as needed for pain control. Continue with IV fluids for 1 bag today. Encourage patient to increase oral intake. Goal blood pressure less than 140/90 mmHg. Blood pressure is at goal. Continue to hold off on enalapril. MEERA on CKD resolved. Creatinine back to baseline of 1.2. Continue with Givens catheter. Patient self catheterizes chronically at home. Continue with Flomax 0.4 twice daily. PDMP PDMP Reviewed: Not Reviewed Attestations 2 Medical Necessity Statement*: Requires further hospitalization for post ORIF care in a patient with concern for pathological fracture Diagnoses Closed displaced oblique fracture of shaft of right femur, initial encounter S72.331A Encounter type: initial encounter Fracture alignment: displaced Fracture morphology: oblique Diffuse large B-cell lymphoma of lymph nodes of multiple regions C83.38 Pathological fracture M84.40XA Chronic kidney disease N18.9 Self-catheterizes urinary bladder Z78.9
--- NOTE | 2024-09-07 12:10 | ANE.PACU2 ---
Inpatient post-anesthesia follow up: Airway intact: Yes Vital signs: Temperature 98.1 F Pulse Rate 75 Respiratory Rate 18 Blood Pressure 120/70 Pulse Oximetry 96 Oxygen Delivery Me thod Room Air Oxygen Flow Rate 6 Fraction of Inspir ed Oxygen Hydration adequate: Yes Nausea and vomiting: No Pain level: 3 Mental status: Baseline
[2024-09-07] MEDS: pantoprazole DR 40 mg Tablet PO (12:44)
[2024-09-07] MEDS: metoprolol tartrate 50 mg Tablet PO ×2 (12:44→17:49)
[2024-09-07] MEDS: sodium chloride 0.9% 1,000 ML 75 ML IV (12:44)
[2024-09-07] MEDS: docusate sodium 100 mg Capsule PO ×2 (12:44→17:49)
[2024-09-07] MEDS: tamsulosin 0.4 mg Capsule PO ×2 (12:44→17:49)
[2024-09-07] MEDS: acetaminophen 500 mg Tablet 1000 MG PO ×2 (16:11→22:13)
[2024-09-08] VITALS (13 sets, daily range): BP systolic 104–120; BP diastolic 50–70; PULSE 67–88; RESP 15–18; TEMP 36.6–37; O2SAT 94–99
[2024-09-08] MEDS: heparin 5,000 unit/mL INJ 1 mL 5000 UNIT SUBCUT ×2 (00:56→13:56)
[2024-09-08 04:56] LABS: Basophils % 0.5 %; Eosinophils % 0.7 %; Hematocrit 28.7 % (37-53); Lymphocytes # 0.5 10^3/uL (0.8-4.8); Lymphocytes % 13.5 %; Mean Corpuscular HGB Conc 33.8 g/dL (30-55); Mean Corpuscular Hemoglobin 34.5 pg (27-33); Mean Corpuscular Volume 102.1 fl (82-101); Mean Platelet Volume 10.3 fL (7.4-10.4); Monocytes # 0.4 10^3/uL (0.2-0.9); Monocytes % 9.5 %; Neutrophils # 3.03 10^3/uL (1.8-7.7); Neutrophils % 75.6 %; Nucleated Red Blood Cells % 0 %; Platelet Count 121 10^3/cmm (157-399); Red Blood Count 2.81 10^6/uL (3.85-5.65); Red Cell Distribution Width 12.4 % (12.1-15.1); White Blood Count 4.01 10^3/uL (3.29-11.43)
[2024-09-08 05:22] LABS: Magnesium 1.6 mg/dL (1.7-2.3)
[2024-09-08 05:23] LABS: Alanine Aminotransferase 13 U/L (0-41); Albumin Level 3.1 g/dL (3.5-5.2); Alkaline Phosphatase 72 U/L (40-130); Anion Gap 12.1 (5-19); Aspartate Amino Transferase 24 U/L (0-40); Blood Urea Nitrogen 18 mg/dL (8-23); Calcium 7.7 mg/dL (8.5-10.5); Carbon Dioxide 23 mmol/L (22-29); Chloride 108 mmol/L (98-107); Creatinine Clr Calc Pharmacy 57.4862; Globulin 1.1 g/dL (1.3-4.6); Glucose 123 mg/dL (65-115); Osmolality Calculated 291 mOsm/kg (285-295); Potassium 4.1 mmol/L (3.5-5.1); Sodium 139 mmol/L (136-145); Total Bilirubin 0.5 mg/dL (0.15-1.2); Total Protein 4.2 g/dL (6.6-8.7)
[2024-09-08] MEDS: acetaminophen 500 mg Tablet 1000 MG PO (06:29)
[2024-09-08] MEDS: docusate sodium 100 mg Capsule PO ×2 (09:05→17:49)
[2024-09-08] MEDS: pantoprazole DR 40 mg Tablet PO (09:05)
[2024-09-08] MEDS: aspirin 325 mg EC Tablet PO (09:05)
[2024-09-08] MEDS: oxyCODONE 5 mg IR Tab/Cap PO ×2 (09:06→20:32)
[2024-09-08] MEDS: ceFAZolin 2,000 mg SDV 2000 MG IVP (09:06)
[2024-09-08] MEDS: metoprolol tartrate 50 mg Tablet PO ×2 (09:06→17:49)
[2024-09-08] MEDS: tamsulosin 0.4 mg Capsule PO ×2 (09:06→17:49)
--- NOTE | 2024-09-08 13:38 | P.PN_ITS ---
Subjective 2 Subjective: No acute events overnight. Today morning patient sitting up comfortably in bed. States he has been walking around the room by himself with the help of his walker. Vitals/I&O/Wt Last Vital Signs Temp 98.2 F 09/08/24 11:42 Pulse 79 09/08/24 11:42 Resp 16 09/08/24 11:42 BP 110/67 09/08/24 11:42 Pulse Ox 99 09/08/24 11:42 O2 Del Method Room Air 09/08/24 11:42 O2 Flow Rate 6 09/07/24 11:40 09/07/24 09/08/24 09/08/24 22:59 06:59 14:59 Intake Total 360 / 1610 1240 / 2850 960 / 960 Output Total 1100 / 1500 1000 / 1000 Balance 360 / 1210 140 / 1350 -40 / -40 Weight last 48 hrs Weight 81.42 kg Weight 79.152 kg Weight 79.152 kg Weight 72.575 kg Physical Exam 2 Narrative: General: No acute distress, AO x3, thin built, chronically sick appearing HEENT: PERRLA, pupils bilaterally equal and reactive Chest: Normal vesicular breath sounds, no added sounds, equal good air entry bilaterally CVS: S1-S2 regular, no murmurs, no tachycardia, no gallops, no rubs Abdomen: Soft, nontender, no organomegaly, bowel sounds present Neuro: No focal deficits, no facial deformity, AO x3, power 5/5 in all limbs Urinary Catheter Management: Givens: Cath Placed During This Visit: yes Reason for Continuing Indwelling Catheter: Other Urinary Catheter Date of Insertion: 09/07/24 Urinary Catheter Time of Insertion: 20:23 Data 09/08/24 04:19 09/08/24 04:19 A&P Assessment and plan (1) Fracture of femoral shaft, right, closed: Orthopedic-consult from the ER. Hemoglobin. Physical therapy orthopedic team. In 1 mg 4 hours as needed, hydrocodone 5 mg every 6 hours as needed for pain. Qualifiers: Encounter type: initial encounter Fracture morphology: oblique F racture alignment: displaced Qualified Code(s): S72.331A - Displaced oblique fracture of shaft of right femur, initial encounter for closed fracture (2) Diffuse large B-cell lymphoma of lymph nodes of multiple regions: (3) Pathological fracture: Vitamin D levels. Patient would benefit from DEXA scan as an outpatient. Qualifiers: Pathology associated with fracture: neoplastic disease Site of pathological fracture: femur Encounter type: initial encounter Laterality: r ight Qualified Code(s): M84.551A - Pathological fracture in neoplastic disease, right femur, initial encounter for fracture (4) Chronic kidney disease: Baseline creatinine 1.2. Currently 1.4. Most likely in setting of dehydration. Start on normal saline at 50 cc/h. Monitor renal functions daily. Strict input output charting. Givens catheter placement. Reconciliation done for nephrotoxic drugs. Hold off on home dose of enalapril for now. (5) Self-catheterizes urinary bladder: Continue home dose of Flomax. Plan Hypertension: Goal blood pressure less than 140/90 mmHg. Continue with home dose of metoprolol. Holding off on enalapril. Uptitrate as for goal blood pressure. Full code Cardiac diet, SCD for DVT prophylaxis Protonix for PUD prophylaxis Plan for the day: Pending physical therapy evaluation postoperatively. Discussed fall precautions in detail with the patient. Continue with current pain regimen. Hold off on removing Givens catheter at as baseline patient does straight cath at home. Monitor hemoglobin. Blood pressure stable. Goal blood pressure less than 140/90 mmHg. Continue with home dose of metoprolol. Holding off on enalapril. Renal function stable. Discussed in detail with orthopedic team. High concerns for pathological fracture due to malignancy. Biopsies have been sent. Patient will need to follow-up with oncology as an outpatient within next 1 week. Case discussed between orthopedic team and oncology office. Discussed possibility of malignancy with patient in detail. He verbalizes understanding. PDMP PDMP Reviewed: Not Reviewed Attestations 2 Medical Necessity Statement*: Requires further hospitalization for postoperative care, post-ORIF in a patient with history of pathological fracture with concerns for malignancy Diagnoses Closed displaced oblique fracture of shaft of right femur, initial encounter S72.331A Encounter type: initial encounter Fracture morphology: oblique Fracture alignment: displaced Diffuse large B-cell lymphoma of lymph nodes of multiple regions C83.38 Pathological fracture of right femur due to neoplastic disease, initial encounter M84.551A Pathology associated with fracture: neoplastic disease Site of pathological fracture: femur Encounter type: initial encounter Laterality: right Chronic kidney disease N18.9 Self-catheterizes urinary bladder Z78.9
--- NOTE | 2024-09-08 16:20 | P.PN_ITS ---
Subjective 2 Subjective: Patient complaining of pain, but he is working with PT. He understands that the fracture is likely pathologic. Medications: Reviewed: Yes Vitals/I&O/Wt Last Vital Signs Temp 98.1 F 09/08/24 16:09 Pulse 79 09/08/24 16:09 Resp 18 09/08/24 16:09 BP 107/68 09/08/24 16:09 Pulse Ox 94 09/08/24 16:09 O2 Del Method Room Air 09/08/24 16:09 O2 Flow Rate 6 09/07/24 11:40 09/08/24 09/08/24 09/08/24 06:59 14:59 22:59 Intake Total 1240 / 2850 960 / 960 Output Total 1100 / 1500 1000 / 1000 Balance 140 / 1350 -40 / -40 Weight last 48 hrs Weight 179 lb 8 oz Weight 174 lb 8 oz Weight 174 lb 8 oz Physical Exam 2 Const: COMMON NORMALS: no acute distress, average body habitus, patient oriented x3 and alert GENERAL APPEARANCE: cooperative and comfortable O RIENTATION/CONSCIOUSNESS: Yes awake HENMT: COMMON NORMALS: normocephalic and atraumatic HEAD & SCALP: n ormocephalic and atraumatic Eye: GENERAL EYE: appearance normal, both eyes and all related structures Chest: COMMONS NORMALS: normal inspection of the chest Resp: COMMON NORMALS: normal respiratory effort EFFORT & INSPECTION: Yes able to speak in complete sentences and Yes symmetric chest movement Extremity: RIGHT LOWER EXTREMITY: Yes upper leg (No significant swelling) Right upper leg: Yes inspection (dressing dry and intact) and Yes neurovascular exam (intact distally) Neuro: COMMON NORMALS: patient oriented x3 SENSORIUM/ORIENTATION: Yes alert Psych: COMMON NORMALS: mental status grossly normal APPEARANCE: Yes grossly normal ATTITUDE: Yes calm and Yes engaged ATTENTION/CONCENTRATION: Yes attention grossly intact Skin: COMMON NORMALS: no rashes or lesions noted GENERAL SKIN EXAM: no rashes or lesions noted Urinary Catheter Management: Givens: Cath Placed During This Visit: yes Reason for Continuing Indwelling Catheter: Other Urinary Catheter Date of Insertion: 09/07/24 Urinary Catheter Time of Insertion: 20:23 Data 09/08/24 04:19 09/08/24 04:19 A&P Assessment and plan (1) Fracture of femoral shaft, right, closed: Patient presented to the hospital after a fall while carrying a chainsaw and turning his body to go in a different direction. He was unable to weight-bear and felt a pop in his leg. He presented to the emergency room with obvious deformity to his right lower extremity. Imaging studies demonstrated an oblique femur fracture. Although there is no obvious lytic lesion on x-ray, zooming in on the fracture demonstrates what appears to be periosteal reaction consistent with possible pathologic fracture due to the patient's diagnosis of large B-cell lymphoma. Patient has previously undergone prophylactic nailing of the opposite left hip which I performed in October 2022. He did well following this. He will follow up within a week with the oncologist for further treatment evaluation. He is weight bearing as tolerated. Qualifiers: Encounter type: initial encounter Fracture alignment: displaced F racture morphology: oblique Qualified Code(s): S72.331A - Displaced oblique fracture of shaft of right femur, initial encounter for closed fracture (2) Pathological fracture: Qualifiers: Encounter type: initial encounter Laterality: right Pathology associated with fracture: neoplastic disease Site of pathological fracture: f emur Qualified Code(s): M84.551A - Pathological fracture in neoplastic disease, right femur, initial encounter for fracture PDMP PDMP Reviewed: Last Reviewed 09/06/24 21:51 by Ni Ho MD Attestations 2 Medical Necessity Statement*: Per hospitalist team Coding Level of Care Code Acute Code for Chg Fwd Diagnoses Closed displaced oblique fracture of shaft of right femur, initial encounter S72.331A Encounter type: initial encounter Fracture alignment: displaced Fracture morphology: oblique Pathological fracture of right femur due to neoplastic disease, initial encounter M84.551A Encounter type: initial encounter Laterality: right Pathology associated with fracture: neoplastic disease Site of pathological fracture: femur
[2024-09-08] MEDS: acetaminophen 325 mg Tablet 650 MG PO (17:49)
[2024-09-09] MEDS: heparin 5,000 unit/mL INJ 1 mL 5000 UNIT SUBCUT ×2 (00:26→12:28)
[2024-09-09 03:55] LABS: Basophils % 0.6 %; Eosinophils # 0.1 10^3/uL (0.0-0.8); Eosinophils % 1.8 %; Hematocrit 27.3 % (37-53); Lymphocytes # 0.6 10^3/uL (0.8-4.8); Lymphocytes % 12.3 %; Mean Corpuscular Hemoglobin 34.2 pg (27-33); Mean Corpuscular Volume 103.8 fl (82-101); Mean Platelet Volume 10.3 fL (7.4-10.4); Monocytes # 0.5 10^3/uL (0.2-0.9); Monocytes % 9.1 %; Neutrophils # 3.73 10^3/uL (1.8-7.7); Neutrophils % 75.6 %; Nucleated Red Blood Cells % 0 %; Platelet Count 127 10^3/cmm (157-399); Red Blood Count 2.63 10^6/uL (3.85-5.65); Red Cell Distribution Width 12.6 % (12.1-15.1); White Blood Count 4.94 10^3/uL (3.29-11.43)
[2024-09-09 04:00] VITALS: BP 115/67; PULSE 73; RESP 18; TEMP 36.9; O2SAT 98
[2024-09-09 04:20] LABS: Alanine Aminotransferase 29 U/L (0-41); Alkaline Phosphatase 79 U/L (40-130); Anion Gap 13.4 (5-19); Aspartate Amino Transferase 35 U/L (0-40); Blood Urea Nitrogen 17 mg/dL (8-23); Calcium 8.1 mg/dL (8.5-10.5); Carbon Dioxide 23 mmol/L (22-29); Chloride 107 mmol/L (98-107); Globulin 1.2 g/dL (1.3-4.6); Glucose 110 mg/dL (65-115); Osmolality Calculated 290 mOsm/kg (285-295); Potassium 4.4 mmol/L (3.5-5.1); Sodium 139 mmol/L (136-145); Total Bilirubin 0.5 mg/dL (0.15-1.2); Total Protein 4.2 g/dL (6.6-8.7)
[2024-09-09 04:21] LABS: Magnesium 1.6 mg/dL (1.7-2.3); Phosphorus 1.5 mg/dL (2.5-4.5)
[2024-09-09 06:01] VITALS: PULSE 81
[2024-09-09 07:28] VITALS: RESP 16
[2024-09-09] MEDS: oxyCODONE 5 mg IR Tab/Cap PO ×2 (07:28→12:28)
[2024-09-09 08:00] VITALS: BP 133/75; PULSE 95; RESP 16; TEMP 36.8; O2SAT 96
[2024-09-09] MEDS: docusate sodium 100 mg Capsule PO (08:52)
[2024-09-09] MEDS: phosphorus 250 mg Tablet PO (08:52)
[2024-09-09] MEDS: magnesium lactate 84 mg Tablet PO (08:52)
[2024-09-09] MEDS: metoprolol tartrate 50 mg Tablet PO (08:52)
[2024-09-09] MEDS: aspirin 325 mg EC Tablet PO (08:52)
[2024-09-09] MEDS: pneumococcal (23 valent) SDV 0.5 mL IM (08:53)
[2024-09-09] MEDS: pantoprazole DR 40 mg Tablet PO (08:53)
[2024-09-09] MEDS: tamsulosin 0.4 mg Capsule PO (08:53)
--- NOTE | 2024-09-09 11:05 | PC.SOCIAL ---
IMM Update Pg. 2 of IMM updated and reviewed with patient, who verbalized understanding. Copy provided.
[2024-09-09 11:47] VITALS: BP 148/85; PULSE 78; RESP 16; TEMP 36.6; O2SAT 96
--- NOTE | 2024-09-09 11:51 | PM.DCS ---
Discharge Providers Date of Admission: 09/06/24 18:23 Date of Discharge: September 09, 2024 Attending Provider at Admission: Neha Dean MD Attending Provider at Discharge: Juilan Taylor MD Primary Care Provider: Ricci Pleitez Diagnoses at Discharge Discharge Diagnosis (1) Fracture of femoral shaft, right, closed: Status: Acute Qualifiers: Encounter type: initial encounter Fracture alignment: displaced Fracture morphology: oblique Qualified Code(s): S72.331A - Displaced oblique fracture of shaft of right femur, initial encounter for closed fracture (2) Pathological fracture: Status: Acute Qualifiers: Encounter type: initial encounter Laterality: right Pathology associated with fracture: neoplastic disease Site of pathological fracture: femur Qualified Code(s): M84.551A - Pathological fracture in neoplastic disease, right femur, initial encounter for fracture Reason for Visit Reason for Visit: right femur break Hospital Course Hospital Course This is a 74-year-old male with past medical history of B-cell lymphoma, hypertension, who presents [facility] for close right fracture femoral shaft, concern for pathologic fracture. Patient was status post open reduction internal fixation of right pathologic femur fracture utilizing gamma nail with open midshaft femoral biopsy of soft tissue and bone. Patient tolerated procedure well, received inpatient PT OT, pain control. Patient will be discharged home, with a follow-up with oncology as outpatient for biopsy results, discharged with oxycodone to be used sparingly for pain control, discharge with aspirin 325 mg for DVT prophylaxis. Physical Exam Const: COMMON NORMALS: no acute distress and patient oriented x3 Neck/C-Spine: COMMON NORMALS: no JVD Resp: COMMON NORMALS: normal respiratory effort, No retractions, No use of accessory muscles and clear to auscultation bilaterally AUSCULTATION: clear to auscultation bilaterally Cardio: COMMON NORMALS: no JVD, regular rate, regular rhythm, S1 normal heart sound present and S2 normal heart sound present RATE: regular rate RHYTHM: regular rhythm HEART SOUNDS: S1 normal heart sound present and S2 normal heart sound present GI: COMMON NORMALS: Normal to inspection, nondistended, normoactive bowel sounds present and non-tender Extremity: COMMON NORMALS: no pedal edema Neuro: COMMON NORMALS: patient oriented x3 Psych: COMMON NORMALS: mental status grossly normal Skin: NARRATIVE SKIN EXAM: Surgical site is clean and dry Urinary Catheter Management: Givens: Cath Placed During This Visit: yes Reason for Continuing Indwelling Catheter: Other Urinary Catheter Date of Insertion: 09/07/24 Urinary Catheter Time of Insertion: 20:23 Discharge Data Studies Completed and Pending Completed Studies During Hospitalization Category Date Time Status CT femur RT w con [id number] Stat Cat Scan 09/06/24 17:06 Completed XR chest 1V portable [id number] Stat Exams 09/06/24 16:48 Completed XR femur RT min 2V* [id number] Routine Exams 09/07/24 07:30 Completed XR femur RT min 2V* [id number] Stat Exams 09/06/24 16:21 Completed Pending at discharge Category Date Time Status Pathology: Surgical [PTH] Routine Pth 09/07/24 09:36 Received Radiology Impressions Chest X-Ray 09/06/24 16:48 IMPRESSION: No acute cardiopulmonary findings. Femur CT 09/06/24 17:06 IMPRESSION: 1. Complete fracture through right femoral diaphysis. 2. Large complex lobular fat density lesion adjacent to the fracture line, which may represent bone marrow leaking products , lipoma would be less likely. Comparison to prior imaging would be helpful. 3. Severe vascular calcifications. Laboratory Results WBC 4.94 10^3/uL (3.29-11.43) 09/09/24 03:10 RBC 2.63 10^6/uL (3.85-5.65) L 09/09/24 03:10 Hgb 9.00 g/dL (11.27-16.99) L 09/09/24 03:10 Hct 27.3 % (37-53) L 09/09/24 03:10 MCV 103.8 fl (82-101) H 09/09/24 03:10 MCH 34.2 pg (27-33) H 09/09/24 03:10 MCHC 33.0 g/dL (30-55) 09/09/24 03:10 RDW 12.6 % (12.1-15.1) 09/09/24 03:10 Plt Count 127 10^3/cmm (157-399) L 09/09/24 03:10 MPV 10.3 fL (7.4-10.4) 09/09/24 03:10 Neut % (Auto) 75.6 % 09/09/24 03:10 Lymph % (Auto) 12.3 % 09/09/24 03:10 [place] % (Auto) 9.1 % 09/09/24 03:10 Eos % (Auto) 1.8 % 09/09/24 03:10 Baso % (Auto) 0.6 % 09/09/24 03:10 Neut # (Auto) 3.73 10^3/uL (1.8-7.7) 09/09/24 03:10 Lymph # (Auto) 0.6 10^3/uL (0.8-4.8) L 09/09/24 03:10 [place] # (Auto) 0.5 10^3/uL (0.2-0.9) 09/09/24 03:10 Eos # (Auto) 0.1 10^3/uL (0.0-0.8) 09/09/24 03:10 Baso # (Auto) 0.0 10^3/uL (0.0-0.1) 09/09/24 03:10 Nucleated RBC % (auto) 0 % 09/09/24 03:10 Nucleated RBCs # 0.0 /100WBC 09/09/24 03:10 Sodium 139 mmol/L (136-145) 09/09/24 03:10 Potassium 4.4 mmol/L (3.5-5.1) 09/09/24 03:10 Chloride 107 mmol/L (98-107) 09/09/24 03:10 Carbon Dioxide 23 mmol/L (22-29) 09/09/24 03:10 Anion Gap 13.4 (5-19) 09/09/24 03:10 BUN 17 mg/dL (8-23) 09/09/24 03:10 Creatinine 1.2 mg/dL (0.7-1.2) 09/09/24 03:10 GFR Calculation Not Reportable 09/09/24 03:10 Glucose 110 mg/dL (65-115) 09/09/24 03:10 Estimat Average Glucose 94 09/06/24 16:54 Hemoglobin A1c 4.9 % (4.0-6.0) 09/06/24 16:54 Calculated Osmolality 290 mOsm/kg (285-295) 09/09/24 03:10 Lactic Acid 1.2 mmol/L (0.5-2.2) 09/06/24 19:03 Calcium 8.1 mg/dL (8.5-10.5) L 09/09/24 03:10 Phosphorus 1.5 mg/dL (2.5-4.5) L 09/09/24 03:10 Magnesium 1.6 mg/dL (1.7-2.3) L 09/09/24 03:10 Iron 82 ug/dL (59-158) 09/06/24 16:54 TIBC 227 mcg/dl 09/06/24 16:54 % Saturation 36.1 % (20-50) 09/06/24 16:54 Unsat Iron Binding 145 ug/dL (112-347) 09/06/24 16:54 Total Bilirubin 0.5 mg/dL (0.15-1.2) 09/09/24 03:10 AST 35 U/L (0-40) 09/09/24 03:10 ALT 29 U/L (0-41) 09/09/24 03:10 Alkaline Phosphatase 79 U/L (40-130) 09/09/24 03:10 Total Protein 4.2 g/dL (6.6-8.7) L 09/09/24 03:10 Albumin 3.0 g/dL (3.5-5.2) L 09/09/24 03:10 Globulin 1.2 g/dL (1.3-4.6) L 09/09/24 03:10 Triglycerides 74 mg/dL (0-150) 09/07/24 03:55 Cholesterol 168 mg/dL (0-200) 09/07/24 03:55 LDL Cholesterol, Calc 102 mg/dL (50-129) 09/07/24 03:55 HDL Cholesterol 51 mg/dL (60-100) L 09/07/24 03:55 LDL/HDL Ratio 2.00 RATIO (0.00-3.22) 09/07/24 03:55 Cholesterol/HDL Ratio 3.29 mg/dL (1.0-5.00) 09/07/24 03:55 Vitamin B12 > 2000 pg/mL (232-1245) H 09/06/24 16:54 25-OH Vitamin D Total 47 ng/mL (30-100) 09/06/24 16:54 25-OH Vitamin D Total Cancelled 09/06/24 16:54 1,25 Dihydroxy Vit D2 Cancelled 03/21/25 16:54 1,25 Dihydroxy Vit D3 Cancelled 09/06/24 16:54 Folate > 20.0 ng/mL (4.5-32.2) 09/07/24 03:55 Procalcitonin 0.08 ng/mL (0-0.5) 09/07/24 03:55 TSH 3.42 uIU/mL (0.27-4.20) 09/06/24 16:54 Vitals Last Vital Signs Temp 97.9 F 09/09/24 11:47 Pulse 78 09/09/24 11:47 Resp 16 09/09/24 11:47 BP 148/85 09/09/24 11:47 Pulse Ox 96 09/09/24 11:47 O2 Del Method Room Air 09/09/24 11:47 O2 Flow Rate 6 09/07/24 11:40 Discharge Plan Discharge Patient Disposition: Home Health Service Condition: Stable Prescriptions: New aspirin 325 mg Tablet,Delayed Release (Dr/Ec) 325 mg PO DAILY 35 Days Qty: 35 0RF docusate sodium 100 mg Capsule 100 mg PO BID 30 Days Qty: 60 0RF oxycodone 5 mg Tablet 5 mg PO Q4H PRN (Reason: Moderate To Severe Pain) 7 Days Qty: 42 0RF citalopram [Celexa] 10 mg tablet 10 mg PO DAILY 30 Days Qty: 30 0RF Continued ascorbic acid (vitamin C) 500 mg tablet 500 mg PO DAILY [facility] Men 50 Plus [id number] mcg tablet 1 tab PO DAILY tamsulosin 0.4 mg capsule See Rx Instructions .ROUTE .COMPLEX Qty: 60 12RF Dose Instruction: Take 1 capsule by mouth twice daily Rx Instructions: Take 1 capsule by mouth twice daily metoprolol tartrate 50 mg tablet 50 mg PO BID cholecalciferol (vitamin D3) [Vitamin D3] 25 mcg (1,000 unit) Capsule 25 mcg PO DAILY Discontinued enalapril maleate 10 mg tablet 10 mg PO DAILY finasteride 5 mg tablet See Rx Instructions .ROUTE .COMPLEX Qty: 30 12RF Dose Instruction: Take 1 tablet by mouth once daily Rx Instructions: Take 1 tablet by mouth once daily Discharge Orders: Discharge Order (Routine); Ordered 09/09/24 Ordered By: Julian Taylor Referrals: [facility] [Outside] Ni Ho MD [Physician] - 09/23/24 2:15 pm Ricci Pleitez [Primary Care Provider] - 09/11/24 1:40 pm Lew Levine MD [Hospitalist] - 09/18/24 3:15 pm (Follow-up within [address] Levine) Discharge Diet: Cardiac Discharge Activity: Resume usual activity Patient Instructions: Aspirin (By mouth), Laxative, Stool Softeners (By mouth), Oxycodone, Rapid Release (By mouth), Citalopram (By mouth), Leg Fracture (DC), Acute Wound Care (DC), Opioid Safety, Post Anesthesia Care Activity Restrictions/Additional Instructions: Weightbearing as tolerated to right lower extremity. Use crutches and/or walker as instructed with physical therapy. Home health and physical therapy to work on range of motion, strengthening, and gait training. You may shower, and get the dressing wet, but if it lifts up and starts to leak, please remove it. Otherwise it may remain in place until you are seen in the office. - Please follow-up with primary care provider this week -Please follow-up with oncology -Please use oxycodone sparingly for pain, do not drive or operate machinery or drink while taking medication Discharge Attestations Time Spent in Discharge Care*: greater than 30 min Status at Discharge: Cognitive status at discharge: cognitively intact, Behavioral status at discharge: cooperative, Quality Metrics Clinical Quality Measures [ No reported AMI, CVA or VTE this stay] Coding Level of Care Code 55789 Total time (in minutes) for Discharge: 45 Diagnoses Closed displaced oblique fracture of shaft of right femur, initial encounter S72.331A Encounter type: initial encounter Fracture alignment: displaced Fracture morphology: oblique Pathological fracture of right femur due to neoplastic disease, initial encounter M84.551A Encounter type: initial encounter Laterality: right Pathology associated with fracture: neoplastic disease Site of pathological fracture: femur
--- NOTE | 2024-09-09 13:51 | PM.PN ---
Subjective Subjective: Patient complaining of pain, but he is working with PT. He understands that the fracture is likely pathologic. He has worked with physical therapy, and he agrees with the plan to discharge home with home health. Medications: Reviewed: Yes Vitals/I&O/Wt Last Vital Signs Temp 97.9 F 09/09/24 11:47 Pulse 78 09/09/24 11:47 Resp 16 09/09/24 11:47 BP 148/85 09/09/24 11:47 Pulse Ox 96 09/09/24 11:47 O2 Del Method Room Air 09/09/24 11:47 O2 Flow Rate 6 09/07/24 11:40 09/08/24 09/09/24 09/09/24 22:59 06:59 14:59 Intake Total 680 / 1640 480 / 480 Output Total 900 / 1900 600 / 2500 300 / 300 Balance -220 / -260 -600 / -860 180 / 180 Weight last 48 hrs Weight 169 lb 12.8 oz Weight 179 lb 8 oz Physical Exam Const: COMMON NORMALS: no acute distress, average body habitus, patient oriented x3 and alert GENERAL APPEARANCE: cooperative and comfortable ORIENTATION/CONSCIOUSNESS: Yes awake HENMT: COMMON NORMALS: normocephalic and atraumatic HEAD & SCALP: normocephalic and atraumatic Eye: GENERAL EYE: appearance normal, both eyes and all related structures Chest: COMMONS NORMALS: normal inspection of the chest Resp: COMMON NORMALS: normal respiratory effort EFFORT & INSPECTION: Yes able to speak in complete sentences and Yes symmetric chest movement Extremity: RIGHT LOWER EXTREMITY: Yes upper leg (Dressing is dry and intact.) Right upper leg: Yes inspection (Minimal to no swelling.) and Yes neurovascular exam (Intact distally.) Neuro: COMMON NORMALS: patient oriented x3 SENSORIUM/ORIENTATION: Yes alert Psych: COMMON NORMALS: mental status grossly normal APPEARANCE: Yes grossly normal ATTITUDE: Yes calm and Yes engaged ATTENTION/CONCENTRATION: Yes attention grossly intact Skin: COMMON NORMALS: no rashes or lesions noted GENERAL SKIN EXAM: no rashes or lesions noted Urinary Catheter Management: Givens: Cath Placed During This Visit: yes Reason for Continuing Indwelling Catheter: Other Urinary Catheter Date of Insertion: 09/07/24 Urinary Catheter Time of Insertion: 20:23 Data 09/09/24 03:10 09/09/24 03:10 A&P Assessment and plan (1) Fracture of femoral shaft, right, closed: Patient presented to the hospital after a fall while carrying a chainsaw and turning his body to go in a different direction. He was unable to weight-bear and felt a pop in his leg. He presented to the emergency room with obvious deformity to his right lower extremity. Imaging studies demonstrated an oblique femur fracture. Although there is no obvious lytic lesion on x-ray, zooming in on the fracture demonstrates what appears to be periosteal reaction consistent with possible pathologic fracture due to the patient's diagnosis of large B-cell lymphoma. Patient has previously undergone prophylactic nailing of the opposite left hip which I performed in October 2022. He did well following this. He will follow up within a week with the oncologist for further treatment evaluation. He is weight bearing as tolerated. On the day of discharge, the patient is seen. He has worked with physical therapy and is felt to be safe and appropriate for discharge home with home health. Qualifiers: Encounter type: initial encounter Fracture morphology: oblique Fracture alignment: displaced Qualified Code(s): S72.331A - Displaced oblique fracture of shaft of right femur, initial encounter for closed fracture (2) Pathological fracture: Qualifiers: Pathology associated with fracture: neoplastic disease Site of pathological fracture: femur Encounter type: initial encounter Laterality: right Qualified Code(s): M84.551A - Pathological fracture in neoplastic disease, right femur, initial encounter for fracture PDMP PDMP Reviewed: Last Reviewed 09/06/24 21:51 by Ni Ho MD Attestations Medical Necessity Statement*: Per medical team. Coding Level of Care Code Acute Code for [facility] Diagnoses Closed displaced oblique fracture of shaft of right femur, initial encounter S72.331A Encounter type: initial encounter Fracture morphology: oblique Fracture alignment: displaced Pathological fracture of right femur due to neoplastic disease, initial encounter M84.551A Pathology associated with fracture: neoplastic disease Site of pathological fracture: femur Encounter type: initial encounter Laterality: right
--- NOTE | 2024-09-09 15:09 | PC.NURSE ---
Discharge Note Patient discharged to home via cartinder accompanied by self. Discharge instructions reviewed with patient and/or field sales representative. Mobile pharmacy medications and/or prescriptions provided. Belongings/home medications returned.
[2024-09-09 15:13] VITALS: BP 148/85; PULSE 78; RESP 16; TEMP 36.6; O2SAT 96
== END 2024-09-09 15:15 | disposition home health service (06) | DRG 478 ==
LOC: ER 17:19 → MEDSURG 18:23
PROVIDERS: Specialist; Student in an Organized Health Care Education/Training Program; Admitting Provider Student in an Organized Health Care Education/Training Program; Emergency Provider Family Medicine; PCP Family Medicine; Visit Provider Family Medicine
PROC: 0QBB0ZX Excision of Right Lower Femur, Open Approach, Diagnostic (ICD-10-PCS; CPT 27245; principal; 2024-09-07 08:00)
DX: M84.551A Pathological fracture in neoplastic disease, right femur, initial encounter for fracture (principal); C83.30 Diffuse large B-cell lymphoma, unspecified site; W01.0XXA Fall on same level from slipping, tripping and stumbling without subsequent striking against object, initial encounter; I12.9 Hypertensive chronic kidney disease with stage 1 through stage 4 chronic kidney disease, or unspecified chronic kidney disease; N18.9 Chronic kidney disease, unspecified; E03.9 Hypothyroidism, unspecified; E53.8 Deficiency of other specified B group vitamins; F32.A Depression, unspecified; F10.10 Alcohol abuse, uncomplicated; R97.20 Elevated prostate specific antigen [PSA]; N40.1 Benign prostatic hyperplasia with lower urinary tract symptoms; Z95.828 Presence of other vascular implants and grafts; E86.0 Dehydration
CPT/HCPCS: 36415; 36591; 51702; 71045; 73552; 73701; 76000; 80053; 80061; 82232; 82306; 82607; 82746; 83036; 83540; 83550; 83605; 83615; 83735; 84100; 84145; 84443; 84550; 85025; 88307; 88311; 88342; 90471; 90732; 93005; 94664; 96372; 97116; 97161; 97165; 97530; 97535; 99213; 99285; C1713; C1776; J0131; J0690; J1100; J1171; J1644; J2270; J2371; J2405; J2704; J3010; J3420; J7030; J9999; P9045

== ENCOUNTER → 2024-09-25 13:53 | Outpatient (BNVA) | payer MEDICARE, SELFPAY | PROVIDERS: PCP Family Medicine; Visit Provider Specialist | DX: Z98.890 Other specified postprocedural states (principal) | CPT/HCPCS: 73552; 99024 ==

== ENCOUNTER 2024-10-16 10:00 | Oncology outpatient (recurring) (ONCR) | payer MEDICARE, SELFPAY ==
[2024-10-03] MEDS: cyanocobalamin 1,000 mcg/mL SDV 1000 MCG IM (11:38)
[2024-10-03] MEDS: alteplase 1 mg/mL SDV 2 mL 2 MG INTRACATH (11:56)
[2024-10-03 12:25] VITALS: BP 120/78; PULSE 74; RESP 18; TEMP 36.3; O2SAT 98
--- NOTE | 2024-10-09 16:05 | N.ONRAD NP_ITS ---
Radiation Oncology New Patient Visit Patient: Los Barr MR#: [id number] : 1950 Age: 74 Sex: Male Dictated by: Dr. Flex Maldonado Date of Service: 10/09/2024 Referring Physician(s) : Dr. 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 Previous path fx of left femur s/p ORIF. Now with path fx right femur s/p ORIF 09/2024. Radiotherapy to date: Summary > No prior radiation therapy. Chief Complaint / History of Present Illness: Following chemotherapy he didwell. After left femur fx stabilized with ORIF he was treated with chemo alone. Now recent leg collapse. Found to have a path fx of distal third of right femur. CT of femur showed cortical destruction associated with soft tissue mass c/w likely recurrent NHL. 09/2024 ORIF of right femur. Now ambulatory. Some right thigh pain which comes and goes. Not yet able to bear weight and ambulating with a cane. Using up to 2000 mg APAP a day. Weight and appetite are stable. Restaging PET/CT scheduled for 10/11/2024. Current Medications: Aspirin, finasteride, lisinopril, metoprolol Succinate ER, tamsulosin HCl. Allergies: No Known Allergies Medical History: Alcohol abuse, benign prostatic hyperplasia with LUTS, chronic kidney disease, hypertension. No history of collagen vascular disease. No previous radiation therapy. Surgical History: Covid vaccine #1 moderna in 07/2020 and covid vaccine #2 moderna in 08/2020. S/P ORIF (open reduction internal fixation) fracture (11/10/22) ORIF for left intertrochanteric pathologic fracture Port-A-Cath in place History of lymph node biopsy (09/30/22) Ultrasound directed core needle biopsy of left inguinal lymph node History of hand surgery Family History: Father is at age 46 having experienced hypertension, and myocardial infarction. Mother is at age 95 having experienced hypertension. Brother is alive. Brother is alive. Sister is alive having experienced hypertension. Sister is alive. Father of heart attack at age 46 and a brother of heart attack at age 53. A younger brother has had a stroke. His mother lived to age 95. She had been treated for melanoma. Social History: Active drinker 3 drinks/day 7 days/week. Smoking and tobacco/nicotine status: never used tobacco/nicotine Alcohol intake: former Substance/Drug Use: former Adopted: No Caregiver/support person: No Lives independently: Yes Marital status: Current occupational status: retired Current gender identity: Male Current Complaints / Review of Systems: . Vital Signs: Performed on 10/09/2024 1:52 PM BMI - 21.564 kg/m2, Height - 72 in, Weight - 159 lbs, Temperature - 97 f, Pulse - 77 /min, Respiration - 17 /min, O2 Sat - 97 %, Pain - 3, Fatigue - 0 and BP - 158/ 93 mm(hg)(high). Physical Exam: Robust in NAD. Partial residual alopecia. No palpable adenopathy. No right thigh tenderness or mass. No focal neurologic deficits. Ambulates will with cane ( to avoid weight bearing on right leg) Performance Status: ECOG PS 1 Pathology: Primary, d70.9 - neutropenia, unspecified, Diagnosed 12/23/2020 (active) . Lab: none Imaging: See HPI post op right femur x ray distal screw above condyles fractured at level of pin. Fracture line less distinct. Lytic cortical loss laterally. Impression: Right femur relapse of HEMALATHA NHL. Path fx stabilized with ORIF. Plan on 20 Gy 5 fractions to right femur to suppress lymphoma recurrence. Restaging PET/CT scheduled 10/11/2024. Notation made to include entire femurs. Signed by: 10/09/2024 4:04:06 PM <<Signature on File>> Time spent with patient: CPT Code: * CPT Code: *
--- NOTE | 2024-10-11 13:30 | PETR_ITS ---
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 Now with right femur LABS AND CLINICAL REPORTS: Glucose: 128 mg/dl Treatment strategy for malignancy (PET staging): Restaging (PS) TECHNIQUE: Imaging protocol: Following at least four-hour fasting and following the injection of radiopharmaceutical, low dose CT images were obtained. Then, PET images were obtained. Attenuation corrected images were constructed using the CT scan. Fused images of PET and CT were reviewed. The standardized uptake values (SUV) reported below are maximum values within a region of interest, expressed in gm/ml. Exam includes the whole body. SUV normalization method: BodyWeight Radiopharmaceutical: 11.04 mCi F-18 FDG (Fluorodeoxyglucose), IV. Time of imaging post radiopharmaceutical administration: 47 minutes Injection site: left ac COMPARISON: 1. CT femur RT w con [id number] 09/06/2024 5:[address] chest abdpel w/*[id number] 05/24/2024 12:26 PM 3. PT PET skull to thigh SUBS [id number] 05/02/2023 10:52 AM FINDINGS: Tubes, catheters and devices: Left chest port terminates at the SVC. Brain: Visualized brain has normal physiologic uptake. Pharynx: No abnormal uptake. Larynx: No abnormal uptake. Lungs, pleura and trachea: No abnormal uptake. Mild dependent atelectasis. Stable mild biapical pleural-parenchymal scarring. No consolidation or mass. Stable non FDG avid 9 mm right basal nodule on axial image 49. Heart: Normal physiologic uptake. Coronary arteries: Moderate coronary artery calcification. Mediastinal space: No abnormal uptake. Liver: No abnormal uptake. Gallbladder and biliary ducts: No abnormal uptake. Pancreas: No abnormal uptake. Spleen: No abnormal uptake. Stable lobulated contour with intervally stable chronic subcapsular fluid collections. Calcified granulomata. Adrenal glands: No abnormal uptake. Kidneys and ureters: Normal physiologic uptake. Stomach and bowel: No abnormal uptake. Colonic diverticulosis without findings of diverticulitis. Urinary bladder: Mild urinary bladder wall thickening. Reproductive: Prostatomegaly measures 6 cm in transverse dimension and shows median lobe hypertrophy. No abnormal uptake. Vasculature: No abnormal uptake. Heavy systemic arterial calcifications without aortic aneurysm. Lymph nodes: No abnormal uptake. No lymphadenopathy in the head, neck, chest, abdomen, pelvis, and extremities. Skeleton: Right femur fracture status post ORIF with associated FDG uptake. Chronic proximal left femur fracture deformity also with intramedullary nail and screw fixation. Stable non FDG avid lytic lesion at the posterior right ilium. Degenerative change along the spine. Soft tissues: No abnormal uptake in the visualized head, neck, chest, abdomen, pelvis, and extremities. Stable non FDG avid posterior right thigh fatty lesion compatible with intramuscular lipoma. Tiny fat containing umbilical hernia. Intervally stable mesenteric soft tissue infiltration with very low-level FDG uptake showing SUV max 2.2, mildly decreased volume infiltrative soft tissue density compared to April 2023 measuring approximately 2.3 cm AP dimension at the left abdomen on axial image 442, previously 3.2 cm in April 2023. METRICS: Mediastinal blood pool: SUV mean 2.2 Liver uptake: SUV mean 2.5 PET/PET WB melanoma SUBSEQ [id number] IMPRESSION: 1. Mesenteric soft tissue infiltration with very low-level FDG uptake, intervally stable from May 2024, mildly decreased volume compared to April 2023. [place] 2. 2. Mild urinary bladder wall thickening may be on the basis of underdistention or chronic outlet obstruction in the setting of significant prostatomegaly. 3. Expected FDG uptake at right femur fracture status post ORIF. 4. Additional chronic and incidental findings as above.
[2024-10-16 09:59] LABS: Basophils % 0.8 %; Eosinophils % 0.5 %; Hematocrit 37.7 % (37-53); Lymphocytes # 0.5 10^3/uL (0.8-4.8); Lymphocytes % 13.2 %; Mean Corpuscular HGB Conc 33.4 g/dL (30-55); Mean Corpuscular Hemoglobin 34.5 pg (27-33); Mean Corpuscular Volume 103.3 fl (82-101); Mean Platelet Volume 9.4 fL (7.4-10.4); Monocytes # 0.3 10^3/uL (0.2-0.9); Monocytes % 8.7 %; Neutrophils % 76.3 %; Nucleated Red Blood Cells % 0 %; Platelet Count 178 10^3/cmm (157-399); Red Blood Count 3.65 10^6/uL (3.85-5.65); Red Cell Distribution Width 13.4 % (12.1-15.1); White Blood Count 3.93 10^3/uL (3.29-11.43)
[2024-10-16 10:24] LABS: Alanine Aminotransferase 13 U/L (0-41); Albumin Level 4.3 g/dL (3.5-5.2); Alkaline Phosphatase 156 U/L (40-130); Anion Gap 14.6 (5-19); Aspartate Amino Transferase 12 U/L (0-40); Blood Urea Nitrogen 22 mg/dL (8-23); Calcium 9.2 mg/dL (8.5-10.5); Carbon Dioxide 26 mmol/L (22-29); Chloride 102 mmol/L (98-107); Creatinine Clr Calc Pharmacy 59.4921; Globulin 1.9 g/dL (1.3-4.6); Glucose 106 mg/dL (65-115); Osmolality Calculated 290 mOsm/kg (285-295); Potassium 4.6 mmol/L (3.5-5.1); Sodium 138 mmol/L (136-145); Total Bilirubin 0.5 mg/dL (0.15-1.2); Total Protein 6.2 g/dL (6.6-8.7)
== END 2024-10-16 23:59 | disposition home or self-care (01) ==
PROVIDERS: Internal Medicine; PCP Family Medicine; Visit Provider Radiology Radiation Oncology
DX: Z53.9 Procedure and treatment not carried out, unspecified reason (principal); Z51.0 Encounter for antineoplastic radiation therapy; C83.38 Diffuse large B-cell lymphoma, lymph nodes of multiple sites; Z95.828 Presence of other vascular implants and grafts; R03.0 Elevated blood-pressure reading, without diagnosis of hypertension; Z79.899 Other long term (current) drug therapy
CPT/HCPCS: 36591; 77290; 77295; 77300; 77334; 77387; 77412; 78816; 80053; 85025; 96372; 96416; 96523; 99205; 99213; 99214; A9552; J2997; J3420

== ENCOUNTER 2024-11-13 13:15 | Oncology outpatient (recurring) (ONCR) | payer MEDICARE, SELFPAY ==
--- NOTE | 2024-10-21 13:17 | ONCRAD TMN_ITS ---
Radiation Oncology Weekly Treatment Management Patient: Los Barr MR#: [id number] : 1950 Attending Physician: oLs Crenshaw Date of Service: 10/21/2024 Referring Physician(s) : Diagnosis: C85.99 - Non-Hodgkin lymphoma, unspecified, extranodal and solid organ sites, Diagnosed 10/09/2024 (Active) C79.51 - Secondary malignant neoplasm of bone, Diagnosed 10/09/2024 (Active) D70.9 - Neutropenia, unspecified, Diagnosed 12/23/2020 (Active) Radiotherapy to date: Course: Rt Femur 2024, Treatment Site: Rt Femur 2024, Ref. ID: [id number], Energy: 6X, Dose/Fx (cGy): 400, #Fx: 4 / 5, Dose Correction (cGy): 0, Total Dose Delivered (cGy): 1,600, Start Date: 10/16/2024, Elapsed Days: 5 Reason for visit: The patient is being seen today as part of their regularly scheduled weekly on treatment visits to assess for acute toxicities from radiotherapy. Review of Systems: No real pain at this time. Is able to ambulate with crutches. Finishes XRT tomorrow. Will see Dr. Vleasco in 2 weeks to consider other chemotherapy options. Vital Signs: Performed on 10/21/2024 10:55 AM BMI - 21.483 kg/m2, Height - 72 in, Weight - 158.4 lbs, Temperature - 97.9 f, Pulse - 74 /min, Respiration - 16 /min, O2 Sat - 100 %, Pain - 2, Fatigue - 0 and BP - 152/ 80 mm(hg)(high/). Physical Exam: AAOx3. Skin intact. Imaging: Radiation therapy imaging related to accurate target localization (i.e. KV, MV and CBCT) was reviewed. Appropriate changes, if any, were made to ensure treatment accuracy. Plan: Continue XRT Completes treatment tomorrow. RTC in 1 month or sooner if need be. To see Dr. Velasco in 2 weeks to consider chemotherapy options. Signed by: Los Crenshaw 10/21/2024 1:16:03 PM
[2024-10-30] MEDS: cyanocobalamin 1,000 mcg/mL SDV 1000 MCG IM (13:24)
[2024-11-13 14:14] LABS: Basophils % 0.5 %; Eosinophils % 0.2 %; Hematocrit 39.6 % (37-53); Lymphocytes # 0.6 10^3/uL (0.8-4.8); Lymphocytes % 10.4 %; Mean Corpuscular HGB Conc 34.1 g/dL (30-55); Mean Corpuscular Hemoglobin 34.8 pg (27-33); Mean Corpuscular Volume 102.1 fl (82-101); Mean Platelet Volume 10.1 fL (7.4-10.4); Monocytes # 0.5 10^3/uL (0.2-0.9); Monocytes % 8.4 %; Neutrophils # 4.37 10^3/uL (1.8-7.7); Nucleated Red Blood Cells % 0 %; Platelet Count 150 10^3/cmm (157-399); Red Blood Count 3.88 10^6/uL (3.85-5.65); Red Cell Distribution Width 13.2 % (12.1-15.1); White Blood Count 5.47 10^3/uL (3.29-11.43)
[2024-11-13 14:37] LABS: Alanine Aminotransferase 13 U/L (0-41); Albumin Level 4.4 g/dL (3.5-5.2); Alkaline Phosphatase 100 U/L (40-130); Anion Gap 19.2 (5-19); Aspartate Amino Transferase 13 U/L (0-40); Blood Urea Nitrogen 26 mg/dL (8-23); Calcium 9.3 mg/dL (8.5-10.5); Carbon Dioxide 22 mmol/L (22-29); Chloride 100 mmol/L (98-107); Creatinine Clr Calc Pharmacy 59.3492; Globulin 1.7 g/dL (1.3-4.6); Glucose 94 mg/dL (65-115); Lactate Dehydrogenase 128 U/L (135-225); Osmolality Calculated 289 mOsm/kg (285-295); Potassium 4.2 mmol/L (3.5-5.1); Sodium 137 mmol/L (136-145); Total Bilirubin 0.5 mg/dL (0.15-1.2); Total Protein 6.1 g/dL (6.6-8.7); Uric Acid 5.7 mg/dL (3.4-7.0)
[2024-11-14 09:49] LABS: Beta-2-Microglobulin 3.14 mg/L (< OR = 2.51)
[2024-11-15 15:30] LABS: ALBUMIN 4.1 g/dL (3.8-4.8); ALPHA 1 GLOBULIN 0.3 g/dL (0.2-0.3); ALPHA 2 GLOBULIN 0.7 g/dL (0.5-0.9); BETA 1 GLOBULIN 0.3 g/dL (0.4-0.6); BETA 2 GLOBULIN 0.3 g/dL (0.2-0.5); GAMMA GLOBULIN 0.3 g/dL (0.8-1.7)
[2024-11-17 15:29] LABS: Immunofixation Serum Normal pattern.
== END 2024-11-16 23:59 | disposition home or self-care (01) ==
PROVIDERS: PCP Family Medicine; Visit Provider Internal Medicine
DX: Z53.9 Procedure and treatment not carried out, unspecified reason; Z08 Encounter for follow-up examination after completed treatment for malignant neoplasm; Z85.72 Personal history of non-Hodgkin lymphomas; R03.0 Elevated blood-pressure reading, without diagnosis of hypertension; Z92.3 Personal history of irradiation; Z92.21 Personal history of antineoplastic chemotherapy
CPT/HCPCS: 36591; 73552; 77336; 77387; 77412; 77417; 80053; 82232; 83010; 83615; 84155; 84165; 84550; 85025; 86334; 96372; 99024; 99213; J3420

== ENCOUNTER 2024-11-28 13:15 | Oncology outpatient (recurring) (ONCR) | payer MEDICARE, SELFPAY ==
--- NOTE | 2024-11-21 10:49 | ONCRAD EPV_ITS ---
Radiation Oncology Established Patient Visit Patient: Los Barr [id number] : 1950 Age: 74 Sex: Male Dictated by: Dr. Crenshaw Date of Service: 11/21/2024 Referring Physician(s) : Diagnosis: C85.99 - Non-Hodgkin lymphoma, unspecified, extranodal and solid organ sites, Diagnosed 10/09/2024 (Active) C79.51 - Secondary malignant neoplasm of bone, Diagnosed 10/09/2024 (Active) D70.9 - Neutropenia, unspecified, Diagnosed 12/23/2020 (Active) Neutropenia. This is a 70-year-old man with moderately severe neutropenia and mild thrombocytopenia. He has hypertension, chronic kidney disease, and benign prostatic hypertrophy. He has associated bladder outlet obstructive symptoms. He sees Dr. Pleitez for primary care. He had been noted to have varying degrees of pancytopenia dating back to at least 2019. His most recent laboratory studies, from 12/03/2020, included CBC showing hemoglobin normal at 15.6 g with hematocrit 45%. The red cell indices were slightly macrocytic with MCV 101 and MCH 34.8. The white blood cell count was low at 2500 with the differential showing 55% neutrophils, 34% lymphocytes, and 8% monocytes. The absolute neutrophil count was approximately 1400. The platelet count was decreased at 88,000. His comprehensive metabolic profile showed borderline renal function with BUN 22 and creatinine 1.24 mg/dL. The bilirubin was normal at 0.8 mg/dL and the liver enzymes were normal. His total protein was 5.7 g/dL with albumin 4.4 g/dL and with calculated serum globulin low at 1.3 g/dL. He says he has been feeling all right. He does report having some fatigue, but at least some of that he attributes to the fact that he does not tend to sleep as well during the summer months. His ECOG score is 1. He also does not eat as well during the summer. His weight recently has been stable, but he did have a significant weight loss about 2 years ago. A specific cause was not determined. He has, on occasion, noted swelling of the lymph nodes in the neck area. He has not had sore throat or difficulty swallowing. He tends to have a morning cough. He does not complain of shortness of breath or chest pain. He has no GI complaints other than occasional heartburn. He had a positive Cologuard test last year, but he is not yet had a colonoscopy. He says that his bladder symptoms had improved with medication, but he still self catheterizes 4 times a day. He occasionally has pain in his left thumb. He has no other joint or bone pain. He does not complain of headache. He occasionally has dizziness. He has no numbness/paresthesia or other focal neurologic symptoms. Radiotherapy to Date: Course: Rt Femur 2024, Treatment Site: Rt Femur 2024, Ref. ID: [id number], Energy: 6X, Dose/Fx (cGy): 400, #Fx: , Dose Correction (cGy): 0, Total Dose Delivered (cGy): 2,000, Start Date: 10/16/2024, End Date: 10/22/2024, Elapsed Days: 6 Current History: This is a 74-year-old white male with recurrent non-Hodgkin's lymphoma. He received treatment to the right hip 1 month ago receiving 2000 cGy in 5 fractions completing this on 10/22/2024. He is able to sleep and all kinds of different positions which he could not before. Medical oncology is recommending PET scans every 3 months. Current Medications: ascorbic acid (vitamin C) 500 mg PO DAILY cholecalciferol (vitamin D3) (Vitamin D3) 25 mcg PO DAILY metoprolol tartrate 50 mg PO BID [id number] mcg (Cent[facility] Men 50 Plus) 1 tab PO DAILY tamsulosin Take 1 capsule by mouth twice daily Allergies: No Known Allergies Current Complaints / Review of Systems: . Vital Signs: Performed on 11/21/2024 9:52 AM BMI - 21.347 kg/m2, Height - 72 in, Weight - 157.4 lbs, Temperature - 96.6 f, Pulse - 74 /min, Respiration - 17 /min, O2 Sat - 98 %, Pain - 1, Fatigue - 0 and BP - 132/ 80 mm(hg). Physical Exam: General: Alert and oriented x 3. No acute distress. HEENT: Normocephalic, atraumatic. Extraocular Movements Intact: Pupils Equal, Round, Reactive to Light and Accommodation: Sclerae anicteric. Oral cavity is clear without lesions, masses or ulcers. NECK: Supple without supraclavicular or jugular lymphadenopathy. LUNGS: Clear to auscultation bilaterally without rales, rhonchi or wheeze. HEART: Regular rate and rhythm, normal S1 and S2 without murmur, gallop or rub. MUSCULOSKELETAL: No tenderness or percussion pain over the axial skeleton, scapulae or pelvis. ABDOMEN: Soft, nontender, nondistended without masses or organomegaly. Bowell sounds are present. EXTREMITIES: No peripheral edema is identified. Limited motor and sensory examination are grossly intact and symmetric bilaterally. NEUROLOGIC: Cranial nerves II ???XII are grossly intact. Normal sensation, strength 5/5 in all extremities, normal gait, no ataxia. Performance Status: Lab: None pending. Pathology: Primary, c85.99 - non-hodgkin lymphoma, unspecified, extranodal and solid organ sites, Diagnosed 10/09/2024 (active) , Primary, c79.51 - secondary malignant neoplasm of bone, Diagnosed 10/09/2024 (active) and Primary, d70.9 - neutropenia, unspecified, Diagnosed 12/23/2020 (active) . Imaging: See HPI Impression: Recurrent NHL PLAN PET scans every 90 days Continue medical oncology follow-up Consider possible stem transplant Return to see us as needed Signed by: 11/21/2024 10:47:33 AM <<Signature on File>> Time spent with patient: 30 minutes global fee no charge CPT Code: CPT Code:
[2024-11-28] MEDS: cyanocobalamin 1,000 mcg/mL SDV 1000 MCG IM (12:06)
== END 2024-12-16 23:59 | disposition home or self-care (01) ==
PROVIDERS: PCP Family Medicine; Visit Provider Internal Medicine
DX: Z53.9 Procedure and treatment not carried out, unspecified reason; E53.8 Deficiency of other specified B group vitamins; Z79.899 Other long term (current) drug therapy
CPT/HCPCS: 96372; 96523; 99024; J3420

== ENCOUNTER → 2025-01-01 13:15 | Outpatient (BNVA) | payer MEDICARE, SELFPAY | PROVIDERS: PCP Family Medicine; Visit Provider Specialist | DX: S72.331D Displaced oblique fracture of shaft of right femur, subsequent encounter for closed fracture with routine healing (principal); X58.XXXD Exposure to other specified factors, subsequent encounter | CPT/HCPCS: 73552; 99214 ==

== ENCOUNTER 2025-01-03 08:30 | Oncology outpatient (recurring) (ONCR) | payer MEDICARE, SELFPAY ==
[2024-12-26] MEDS: cyanocobalamin 1,000 mcg/mL SDV 1000 MCG IM (13:14)
--- NOTE | 2025-01-03 08:30 | PETR_ITS ---
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 Levine would like this done on 01/03/25 LABS AND CLINICAL REPORTS: Glucose: 142 mg/dl Treatment strategy for malignancy (PET staging): Restaging (PS) TECHNIQUE: Imaging protocol: Following at least four-hour fasting and following the injection of radiopharmaceutical, low dose CT images were obtained. Then, PET images were obtained. Attenuation corrected images were constructed using the CT scan. Fused images of PET and CT were reviewed. The standardized uptake values (SUV) reported below are maximum values within a region of interest, expressed in gm/ml. Exam includes the whole body. SUV normalization method: BodyWeight Radiopharmaceutical: 10.6 mCi F-18 FDG (Fluorodeoxyglucose), IV. Time of imaging post radiopharmaceutical administration: 56 minutes Injection site: LAC COMPARISON: PT PET WB melanoma SUBSEQ [id number] 10/11/2024 2:50 PM FINDINGS: Tubes, catheters and devices: Left chest wall port tip terminates in the superior cavoatrial junction. There is mild surrounding tracer activity. Brain: Visualized brain has normal physiologic uptake. Pharynx: No abnormal uptake. Larynx: No abnormal uptake. Lungs, pleura and trachea: No abnormal uptake. Heart: Normal physiologic uptake. Mediastinal space: No abnormal uptake. Liver: No abnormal uptake. Gallbladder and biliary ducts: No abnormal uptake. Pancreas: No abnormal uptake. Spleen: Similar heterogeneous appearance of the spleen. No abnormal tracer uptake. Adrenal glands: No abnormal uptake. Kidneys and ureters: Normal physiologic uptake. Stomach and bowel: No abnormal uptake. Reproductive: Similar bladder wall thickening, which may be secondary to chronic outlet obstruction in the setting of prostatomegaly. Vasculature: No abnormal uptake. Lymph nodes: No abnormal uptake. No lymphadenopathy in the head, neck, chest, abdomen, pelvis, and extremities. Skeleton: Status post bilateral hip ORIF. Similar postsurgical soft tissue uptake in the right leg. Soft tissues: Mesenteric soft tissue infiltration with low-grade FDG uptake, unchanged from prior. METRICS: Mediastinal blood pool: SUV max = 2.5 Liver uptake: SUV max = 2.8 PET/PET WB melanoma SUBSEQ [id number] IMPRESSION: Mesenteric soft tissue infiltration with low-grade FDG uptake, unchanged from prior. Vinny Hayes.
== END 2025-01-16 23:59 | disposition home or self-care (01) ==
LOC: ONCMED 01-06 09:13
PROVIDERS: PCP Family Medicine; Visit Provider Internal Medicine
DX: C83.38 Diffuse large B-cell lymphoma, lymph nodes of multiple sites; Z95.828 Presence of other vascular implants and grafts; N32.89 Other specified disorders of bladder; Z98.890 Other specified postprocedural states; M79.89 Other specified soft tissue disorders; Z53.9 Procedure and treatment not carried out, unspecified reason
CPT/HCPCS: 78816; 96372; 96374; 96523; A9552; J3420

== ENCOUNTER 2025-01-23 12:56 | Oncology outpatient (recurring) (ONCR) | payer MEDICARE, SELFPAY ==
[2025-01-23 13:30] LABS: Hematocrit 36.4 % (37-53); Hemoglobin 12.50 g/dL (11.27-16.99); Mean Corpuscular HGB Conc 34.3 g/dL (30-55); Mean Corpuscular Hemoglobin 35.4 pg (27-33); Mean Corpuscular Volume 103.1 fl (82-101); Nucleated Red Blood Cells % 0 %; Platelet Count 147 10^3/cmm (157-399); Red Blood Count 3.53 10^6/uL (3.85-5.65); White Blood Count 3.68 10^3/uL (3.29-11.43)
[2025-01-23 13:49] LABS: Alanine Aminotransferase 13 U/L (0-41); Albumin Level 4.1 g/dL (3.5-5.2); Alkaline Phosphatase 89 U/L (40-130); Anion Gap 13.5 (5-19); Aspartate Amino Transferase 13 U/L (0-40); Blood Urea Nitrogen 26 mg/dL (8-23); Calcium 8.8 mg/dL (8.5-10.5); Carbon Dioxide 26 mmol/L (22-29); Chloride 103 mmol/L (98-107); Creatinine Clr Calc Pharmacy 54.1082; Globulin 1.7 g/dL (1.3-4.6); Glucose 90 mg/dL (65-115); Osmolality Calculated 290 mOsm/kg (285-295); Potassium 4.5 mmol/L (3.5-5.1); Sodium 138 mmol/L (136-145); Total Protein 5.8 g/dL (6.6-8.7); Uric Acid 5.4 mg/dL (3.4-7.0)
[2025-01-23] MEDS: cyanocobalamin 1,000 mcg/mL SDV 1000 MCG IM (15:36)
[2025-01-24 04:59] LABS: PROTEIN, TOTAL 5.5 g/dL (6.1-8.1)
[2025-01-25 11:29] LABS: ALPHA 1 GLOBULIN 0.3 g/dL (0.2-0.3); ALPHA 2 GLOBULIN 0.6 g/dL (0.5-0.9); BETA 1 GLOBULIN 0.3 g/dL (0.4-0.6); BETA 2 GLOBULIN 0.2 g/dL (0.2-0.5)
== END 2025-02-16 23:59 | disposition home or self-care (01) ==
PROVIDERS: Internal Medicine; PCP Family Medicine; Visit Provider Nurse Practitioner
DX: C83.38 Diffuse large B-cell lymphoma, lymph nodes of multiple sites (principal); E53.8 Deficiency of other specified B group vitamins; R03.0 Elevated blood-pressure reading, without diagnosis of hypertension; S72.91XD Unspecified fracture of right femur, subsequent encounter for closed fracture with routine healing; X58.XXXD Exposure to other specified factors, subsequent encounter; Z79.899 Other long term (current) drug therapy; Z95.828 Presence of other vascular implants and grafts; Z92.3 Personal history of irradiation; Z98.890 Other specified postprocedural states
CPT/HCPCS: 36415; 36591; 80053; 82784; 83010; 83615; 84100; 84155; 84165; 84550; 85025; 86146; 86334; 96372; 99215; J3420

== ENCOUNTER 2025-02-20 10:48 | Oncology outpatient (recurring) (ONCR) | payer MEDICARE, SELFPAY ==
[2025-02-20 11:17] VITALS: BP 124/68; PULSE 74; RESP 17; TEMP 36.1; O2SAT 97
[2025-02-20] MEDS: cyanocobalamin 1,000 mcg/mL SDV 1000 MCG IM (11:17)
== END 2025-03-18 23:59 | disposition home or self-care (01) ==
LOC: ONCMED 10:49
PROVIDERS: PCP Family Medicine; Visit Provider Nurse Practitioner
DX: E53.8 Deficiency of other specified B group vitamins (principal); Z45.2 Encounter for adjustment and management of vascular access device; Z95.828 Presence of other vascular implants and grafts; Z79.899 Other long term (current) drug therapy
CPT/HCPCS: 96402; 96523; J3420

== ENCOUNTER 2025-04-17 11:00 | Oncology outpatient (recurring) (ONCR) | payer MEDICARE, SELFPAY ==
[2025-03-20] MEDS: cyanocobalamin 1,000 mcg/mL SDV 1000 MCG IM (11:01)
[2025-03-20 11:06] VITALS: BP 119/79; PULSE 69; RESP 17; TEMP 36.1; O2SAT 97
[2025-04-17 11:28] LABS: Hematocrit 39.0 % (37-53); Hemoglobin 13.50 g/dL (11.27-16.99); Mean Corpuscular HGB Conc 34.6 g/dL (30-55); Mean Corpuscular Hemoglobin 35.3 pg (27-33); Mean Corpuscular Volume 102.1 fl (82-101); Nucleated Red Blood Cells % 0 %; Platelet Count 156 10^3/cmm (157-399); Red Blood Count 3.82 10^6/uL (3.85-5.65); White Blood Count 4.99 10^3/uL (3.29-11.43)
[2025-04-17 11:50] LABS: Alanine Aminotransferase 12 U/L (0-41); Albumin Level 4.3 g/dL (3.5-5.2); Alkaline Phosphatase 102 U/L (40-130); Anion Gap 16.3 (5-19); Aspartate Amino Transferase 14 U/L (0-40); Blood Urea Nitrogen 26 mg/dL (8-23); Calcium 9.1 mg/dL (8.5-10.5); Carbon Dioxide 25 mmol/L (22-29); Chloride 102 mmol/L (98-107); Creatinine Clr Calc Pharmacy 64.3011; Globulin 1.5 g/dL (1.3-4.6); Glucose 104 mg/dL (65-115); Magnesium 1.8 mg/dL (1.7-2.3); Osmolality Calculated 293 mOsm/kg (285-295); Potassium 4.3 mmol/L (3.5-5.1); Sodium 139 mmol/L (136-145); Total Protein 5.8 g/dL (6.6-8.7)
[2025-04-17] MEDS: cyanocobalamin 1,000 mcg/mL SDV 1000 MCG IM (12:46)
[2025-04-18 05:30] LABS: PROTEIN, TOTAL 5.8 g/dL (6.1-8.1)
[2025-04-18 15:40] LABS: ALPHA 1 GLOBULIN 0.3 g/dL (0.2-0.3); ALPHA 2 GLOBULIN 0.7 g/dL (0.5-0.9); BETA 1 GLOBULIN 0.3 g/dL (0.4-0.6); BETA 2 GLOBULIN 0.2 g/dL (0.2-0.5)
== END 2025-04-18 23:59 | disposition home or self-care (01) ==
PROVIDERS: PCP Family Medicine; Visit Provider Nurse Practitioner
DX: C83.38 Diffuse large B-cell lymphoma, lymph nodes of multiple sites; G62.9 Polyneuropathy, unspecified; M84.48XA Pathological fracture, other site, initial encounter for fracture; Z92.21 Personal history of antineoplastic chemotherapy; Z53.9 Procedure and treatment not carried out, unspecified reason
CPT/HCPCS: 36591; 80053; 82306; 82784; 83615; 83735; 84155; 84165; 85025; 96372; 96523; 99213; J3420

== ENCOUNTER 2025-05-14 12:02 | Oncology outpatient (recurring) (ONCR) | payer MEDICARE, SELFPAY ==
[2025-05-14] MEDS: cyanocobalamin 1,000 mcg/mL SDV 1000 MCG IM (12:28)
== END 2025-05-18 23:59 | disposition home or self-care (01) ==
LOC: ONCMED 12:02
PROVIDERS: PCP Family Medicine; Visit Provider Nurse Practitioner
DX: E53.8 Deficiency of other specified B group vitamins (principal); Z45.2 Encounter for adjustment and management of vascular access device; Z79.899 Other long term (current) drug therapy
CPT/HCPCS: 96372; 96523; J3420

== ENCOUNTER 2025-06-11 11:36 | Oncology outpatient (recurring) (ONCR) | payer MEDICARE, SELFPAY ==
[2025-06-11] MEDS: cyanocobalamin 1,000 mcg/mL SDV 1000 MCG IM (12:31)
== END 2025-06-18 23:59 | disposition home or self-care (01) ==
LOC: ONCMED 11:37
PROVIDERS: PCP Family Medicine; Visit Provider Nurse Practitioner
DX: E53.8 Deficiency of other specified B group vitamins (principal); Z79.899 Other long term (current) drug therapy
CPT/HCPCS: 96372; J3420